=== PATIENT | male | born 1960 | race Caucasian/White ===

== ENCOUNTER 2020-09-08 07:27 | Outpatient (REF) | payer OTHER, SELFPAY ==
[2020-09-08 08:56] LABS: MANUAL DIFF FLAG NO
[2020-09-08 09:07] LABS: Basophils Percent Auto 0.6 % (0-2); Eosinophils Absolute Auto 0.3 X10*3/uL (0.0-0.4); Eosinophils Percent Auto 3.9 % (0-4); Hematocrit 43.3 % (42-52); Hemoglobin 14.5 g/dl (14.0-18.0); Imm Gran Abs Auto 0.02 X10*3/uL (0.00-0.03); Imm Gran Pct Auto 0.3 % (0.0-0.4); Lymphocytes Absolute Auto 1.5 X10*3/uL (1.2-4.9); Lymphocytes Percent Auto 22.4 % (20-40); Mean Corpuscular HGB Conc 33.5 g/dl (31.0-36.0); Mean Corpuscular Hemoglobin 28.9 pg (27.0-33.0); Mean Corpuscular Volume 86.4 fL (80-98); Mean Platelet Volume 9.9 fL (9.4-12.4); Monocytes Absolute Auto 0.5 X10*3/uL (0.1-1.2); Monocytes Percent Auto 7.4 % (2-11); Neutrophils Absolute Auto 4.5 X10*3/uL (2.0-8.3); Neutrophils Percent Auto 65.4 % (45-73); Platelet Count 284 X10*3/uL (160-400); Red Blood Count 5.01 X10*6/uL (4.60-5.80); Red Cell Distribution Width 12.5 % (11.0-16.0); White Blood Count 6.9 X10*3/uL (4.8-10.8)
[2020-09-08 09:11] LABS: Glucose Urine UA NEG (NEG); Leukocyte Esterase Urine NEG (NEG); Nitrite Urine NEG (NEG); PH 5.5 (5.0-8.0); Urine Blood NEG (NEG); Urine Ketones NEG (NEG); Urine Protein NEG (NEG-TRACE)
[2020-09-08 09:15] LABS: Appearance Urine HAZY; Color Urine YELLOW
[2020-09-08 09:28] LABS: Estimated Average Glucose 128 mg/dL; Hemoglobin A1c % 6.1 %
[2020-09-08 09:33] LABS: Creatinine Urine 153.33 mg/dL; Microalbum/Creatinine Ratio Ur 3.2 ug/mg cr
[2020-09-08 09:40] LABS: Alanine Aminotransferase 14 U/L (0-40); Alkaline Phosphatase 77 U/L (39-117); Anion Gap 9 (12-20); Aspartate Amino Transferase 15 U/L (5-37); Bilirubin Total 0.5 mg/dL (0.0-1.0); Blood Urea Nitrogen 12 mg/dL (9-16); Calcium 8.6 mg/dL (8.4-10.2); Carbon Dioxide 32 mmol/L (22-29); Chloride 100 mmol/L (96-108); Cholesterol 208 mg/dL; Estimated Glomerular Filt Rate > 60; Glucose Fasting 116 mg/dL (60-99); HDL Cholesterol 35 mg/dL; LDL Cholesterol Calculated 151 mg/dl; Potassium 4.3 mmol/l (3.3-5.1); Sodium 137 mmol/L (135-145); Total Protein 6.7 g/dL (6.5-8.0); Triglycerides 112 mg/dL
[2020-09-08 09:41] LABS: Prostate Specific Antigen 1.57 ng/mL (<0.05-4.0)
== END 2020-09-08 07:28 | disposition home or self-care (01) ==
LOC: HO.LAB 07:27
PROVIDERS: Visit Provider Internal Medicine
DX: Z00.00 Encounter for general adult medical examination without abnormal findings (principal); N40.0 Benign prostatic hyperplasia without lower urinary tract symptoms; E78.6 Lipoprotein deficiency; R73.09 Other abnormal glucose
CPT/HCPCS: 36415; 80053; 80061; 81003; 82043; 83036; 84153; 85025

== ENCOUNTER → 2020-09-23 14:50 | Outpatient (BNVA) | payer OTHER, SELFPAY | PROVIDERS: PCP Internal Medicine; Visit Provider Internal Medicine Cardiovascular Disease ==

== ENCOUNTER → 2020-10-17 09:21 | Outpatient (REF) | payer OTHER, SELFPAY ==
--- NOTE | 2020-10-17 09:24 | CA_ITS ---
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 The visually estimated ejection fraction is between 60-65%. Diastolic function is normal for age. Right Ventricle Normal right ventricular cavity size and systolic function. There is a pacemaker wire seen in the right ventricle. Atria Both atria are normal in size. Aortic Valve Normal aortic valve structure and function. There is no aortic valve stenosis. There is no aortic valve regurgitation. Mitral Valve Normal mitral valve structure and function. There is trace mitral valve regurgitation. There is no mitral valve stenosis. Pulmonic Valve The pulmonic valve is likely normal. Tricuspid Valve There is trace tricuspid valve regurgitation. The right ventricular systolic pressure is normal. The right ventricular systolic pressure is 22 mmHg. Normal right atrial pressure. There is no evidence of pulmonary hypertension. Great Vessels All visible segments of the aorta are normal in size. The pulmonary artery was not well visualized. Venous The inferior vena cava is normal in size and collapses greater than 50% with inspiration. Pericardium/Pleural There is no evidence of pericardial effusion. Prior Study Comparison No previous study in the last 5 years for comparison Measurements M-Mode Liner Measurements Normals - Women/Men AOV Cusps: 2.30 1.5-2.6 cm/m2 2D Linear Measurements IVSd: 1.01 0.6-0.9/0.6-1.0 cm LVIDd: 4.54 3.9-5.3/4.2-5.9 cm LVIDd Index: 1.94 2.4-3.2/2.2-3.1 cm/m2 LVIDs: 3.47 2.0-3.6 cm LVPWd: 1.09 0.7-1.1 cm Ao Root: 3.50 2.1-3.5 cm LA Diam: 3.20 2.7-3.8/3.0-4.0 cm LAIDs Index: 1.37 1.5-2.3 cm/m2 LV Mass: 207.15 67-162/88-224 g LV Mass Index: 88.52 43-95/49-115 g/m2 LVOT Diam: 2.10 3.0+(-)1.3 cm 2D Systolic Function EF 4C: 74.40 >55% EF 2C: 48.00 >55% EF BiP: 66.40 >55% Mitral Valve MV Pk E: 0.83 MV PK A: 0.61 MV Decel Time: 185.00 E/A: 1.40 E'Lateral: 10.20 E'Medial: 5.66 E/E' Med: 14.70 E/E' Lat: 8.20 PHT: 54.00 MVA PHT: 4.07 Decel Smyth: 4.49 Aortic Valve AoV Pk Timothy: 1.17 AoV Pk Grad: 5.00 LVOT LVOT Diam: 2.10 LVOT Area: 3.46 Diastolic Function MV Pk E: 0.83 MV Pk A: 0.61 E/A: 1.40 E'Medial: 5.66 E/E' Med: 14.70 E' Laterial: 10.20 E/E' Lat: 8.20 Tricuspid Valve TR Pk Timothy: 2.16 TR Pk Grad: 19.00 RA Press: 3.00 RVSP: 22.00 Great Vessels Aorta Ao Root-2D: 3.50 2.0-3.7 cm Ao Asc: 3.50 2.1-3.4 cm Ao Arch: 2.50 Pulmonary Valve PV Pk Timothy: 1.14 Peak PV Grad: 5.00 Updated in Other Vendor System with Status of Final Hakeem Hernández MD electronically signed on 10/18/2020 10:50:53 AM with status of Final
== END ==
LOC: HO.CARD 09:21
PROVIDERS: PCP Internal Medicine; Visit Provider Internal Medicine Cardiovascular Disease
DX: R55 Syncope and collapse (principal); I47.2 Ventricular tachycardia; Z95.0 Presence of cardiac pacemaker
CPT/HCPCS: 93306

== ENCOUNTER → 2020-10-23 12:46 | Outpatient (BNVA) | payer OTHER, SELFPAY | PROVIDERS: PCP Internal Medicine; Visit Provider Internal Medicine Cardiovascular Disease ==

== ENCOUNTER 2021-03-17 16:25 | Outpatient (REF) | payer OTHER, SELFPAY ==
--- NOTE | ~2021-03-17 | XR_ITS ---
EXAMINATION: XR LUMBOSACRAL SPINE WITH OBLIQUES CLINICAL INFORMATION: Arthritis, serous, pain COMPARISON: None TECHNIQUE: AP, both oblique, and lateral views of the lumbar spine. Lateral view of the lumbosacral junction. FINDINGS: There is normal lumbar lordosis. The vertebral heights and alignment is normal. There is loss of L4-L5 and L5-S1 disc height with a large ventral spondylosis at L5-S1 disc level. On oblique views there is no pars defect or listhesis. The facet joints are symmetrical. No lytic or sclerotic process seen. The paravertebral soft tissues are normal. XR/XR lumbar spine 4V min IMPRESSION: Degenerative disc changes L4-L5 and L5-S1 disc level with large ventral osteophyte 5-S1 disc level. No visible acute fracture or dislocation seen.
== END 2021-03-17 16:26 | disposition home or self-care (01) ==
LOC: HO.HMGCX 16:25
PROVIDERS: PCP Internal Medicine; Visit Provider Internal Medicine
DX: M19.90 Unspecified osteoarthritis, unspecified site (principal); L40.9 Psoriasis, unspecified
CPT/HCPCS: 72110

== ENCOUNTER → 2021-04-23 14:52 | Outpatient (BNVA) | payer OTHER, SELFPAY | PROVIDERS: PCP Internal Medicine; Visit Provider Internal Medicine Cardiovascular Disease | DX: I47.2 Ventricular tachycardia (principal); R55 Syncope and collapse; Z45.018 Encounter for adjustment and management of other part of cardiac pacemaker | CPT/HCPCS: 93005 ==

== ENCOUNTER 2021-09-22 10:38 | Outpatient (REF) | payer OTHER, SELFPAY ==
[2021-09-22 10:41] LABS: MANUAL DIFF FLAG NO
[2021-09-22 11:01] LABS: Basophils Percent Auto 0.3 % (0-2); Eosinophils Absolute Auto 0.4 X10*3/uL (0.0-0.4); Hematocrit 43.3 % (42.0-52.0); Hemoglobin 14.2 g/dl (14.0-18.0); Imm Gran Abs Auto 0.06 X10*3/uL (0.00-0.03); Imm Gran Pct Auto 0.7 % (0.0-0.4); Lymphocytes Absolute Auto 2.1 X10*3/uL (1.2-4.9); Lymphocytes Percent Auto 23.6 % (20-40); Mean Corpuscular HGB Conc 32.8 g/dl (31.0-36.0); Mean Corpuscular Hemoglobin 28.7 pg (27.0-33.0); Mean Corpuscular Volume 87.5 fL (80.0-98.0); Mean Platelet Volume 10.2 fL (9.4-12.4); Monocytes Absolute Auto 0.7 X10*3/uL (0.1-1.2); Monocytes Percent Auto 8.1 % (2-11); Neutrophils Absolute Auto 5.6 x10*3/uL (2.0-8.3); Neutrophils Percent Auto 63.3 % (45-73); Platelet Count 297 X10*3/uL (160-400); Red Blood Count 4.95 X10*6/uL (4.60-5.80); Red Cell Distribution Width 12.6 % (11.0-16.0); White Blood Count 8.9 X10*3/uL (4.8-10.8)
[2021-09-22 11:13] LABS: Estimated Average Glucose 128 mg/dL; Hemoglobin A1c % 6.1 %
[2021-09-22 11:19] LABS: Appearance Urine CLEAR; Color Urine YELLOW; Glucose Urine UA NEG (NEG); Leukocyte Esterase Urine NEG (NEG); Nitrite Urine NEG (NEG); PH 5.5 (5.0-8.0); Specific Gravity - Urine >= 1.030 (1.005-1.025); Urine Blood NEG (NEG); Urine Ketones NEG (NEG); Urine Protein NEG (NEG-TRACE)
[2021-09-22 11:23] LABS: Creatinine Urine 192.63 mg/dL; Microalbum/Creatinine Ratio Ur 4.1 ug/mg cr
[2021-09-22 11:38] LABS: Alanine Aminotransferase 17 U/L (0-40); Albumin Level 3.8 g/dL (3.5-5.0); Alkaline Phosphatase 76 U/L (39-117); Anion Gap 11 (12-20); Aspartate Amino Transferase 16 U/L (5-37); Bilirubin Total 0.7 mg/dL (0.0-1.0); Blood Urea Nitrogen 14 mg/dL (9-16); Calcium 9.1 mg/dL (8.4-10.2); Carbon Dioxide 31 mmol/L (22-29); Chloride 104 mmol/L (96-108); Cholesterol 191 mg/dL; Estimated Glomerular Filt Rate > 60; Glucose Fasting 116 mg/dL (60-99); HDL Cholesterol 29 mg/dL; LDL Cholesterol Calculated 141 mg/dl; Potassium 4.4 mmol/L (3.3-5.1); Sodium 142 mmol/L (135-145); Total Protein 6.9 g/dL (6.5-8.0); Triglycerides 106 mg/dL
[2021-09-22 11:46] LABS: PSA,Total (Free>4and<10) 0.97 ng/mL (0.00-4.00)
== END 2021-09-22 10:39 | disposition home or self-care (01) ==
LOC: HO.LNP 10:38
PROVIDERS: Visit Provider Internal Medicine
DX: Z00.00 Encounter for general adult medical examination without abnormal findings (principal); Z12.5 Encounter for screening for malignant neoplasm of prostate; R73.03 Prediabetes; N40.0 Benign prostatic hyperplasia without lower urinary tract symptoms; E78.00 Pure hypercholesterolemia, unspecified
CPT/HCPCS: 80053; 80061; 81003; 82043; 83036; 84153; 85025

== ENCOUNTER → 2021-10-12 12:38 | Outpatient (BNVA) | payer OTHER, SELFPAY | PROVIDERS: PCP Internal Medicine; Referring Provider Internal Medicine; Visit Provider Internal Medicine Cardiovascular Disease ==

== ENCOUNTER 2022-04-01 08:20 | Outpatient (REF) | payer OTHER, SELFPAY ==
--- NOTE | ~2022-04-01 | XR_ITS ---
EXAMINATION: XR BILATERAL HIPS WITH AP PELVIS CLINICAL INFORMATION: Arthritis COMPARISON: Radiographs lumbosacral spine 03/17/2021 TECHNIQUE: Right hip is imaged in AP and frog-lateral projections. Left hip is imaged in AP and 2 frog-lateral projections. There are total of 5 views. FINDINGS: Right: Normal bony mineralization. No fracture, dislocation, destructive process. There is borderline narrowing superolateral hip joint. No erosive change or chondrocalcinosis. Soft tissue planes unremarkable. Pubis normal. Left: Normal bony mineralization. No fracture, dislocation, or destructive process. No hip joint narrowing or erosive change or visible chondrocalcinosis. Soft tissue planes are unremarkable. Pubis normal. XR/XR hips CAITLYN min 3V IMPRESSION: Right: Borderline narrowing superolateral hip joint. No erosive change. Left: Unremarkable left hip.
== END 2022-04-01 08:21 | disposition home or self-care (01) ==
LOC: HO.XRAY 08:20
PROVIDERS: PCP Internal Medicine; Visit Provider Internal Medicine
DX: M16.0 Bilateral primary osteoarthritis of hip (principal)
CPT/HCPCS: 73522

== ENCOUNTER → 2022-04-06 15:15 | Outpatient (BNVA) | payer OTHER, SELFPAY | PROVIDERS: PCP Internal Medicine; Referring Provider Internal Medicine; Visit Provider Internal Medicine Cardiovascular Disease | DX: I47.2 Ventricular tachycardia (principal); Z95.0 Presence of cardiac pacemaker | CPT/HCPCS: 93280 ==

== ENCOUNTER 2022-05-27 09:43 | Outpatient (REF) | payer OTHER, SELFPAY ==
--- NOTE | ~2022-05-27 | US_ITS ---
EXAMINATION: US ABDOMEN COMPLETE CLINICAL INFORMATION: Abdominal pain. COMPARISON: Ultrasound abdomen 07/26/2014. TECHNIQUE: Real-time imaging of the abdominal viscera. Technically difficult study secondary to bowel gas and body habitus. FINDINGS: PANCREAS: There is generally increased echotexture, consistent with fatty infiltration as was seen on the CT chest dated 01/24/2018. No enlargement, focal mass or ductal dilatation is noted. No peripancreatic fluid collection is seen. ABDOMINAL AORTA: The proximal, mid, and distal segments are normal in caliber. INFERIOR VENA CAVA: Visualized portions are normal. LIVER: Normal. The liver is normal in size. The liver contour is normal. Parenchymal echogenicity is normal. No focal hepatic lesion. There is no intrahepatic biliary duct dilatation seen. GALLBLADDER: Normal. The gallbladder is physiologically distended without evidence of stones, sludge, polyps, wall thickening or pericholecystic fluid. COMMON BILE DUCT: Normal in caliber measuring 0.3 cm in diameter. RIGHT KIDNEY: Normal. No hydronephrosis. No renal calculi or focal parenchymal lesions. The kidney measures 12.0 cm in maximum dimension. LEFT KIDNEY: Normal. No hydronephrosis. No renal calculi or focal parenchymal lesions. The kidney measures 11.5 cm in maximum dimension. SPLEEN: Normal. The spleen measures 11.9 cm in maximum dimension. FREE FLUID: None. US/US abdomen complete IMPRESSION: Unremarkable examination.
== END 2022-05-27 09:44 | disposition home or self-care (01) ==
LOC: HO.US 09:43
PROVIDERS: Visit Provider Internal Medicine
DX: R10.9 Unspecified abdominal pain (principal)
CPT/HCPCS: 76700

== ENCOUNTER 2022-09-21 11:25 | Emergency (ER) | payer OTHER, SELFPAY ==
--- NOTE | ~2022-09-21 | CT_ITS ---
EXAMINATION: CT ANGIOGRAM NECK WITH CONTRAST CT ANGIOGRAM BRAIN WITH CONTRAST CLINICAL INFORMATION: Blurred vision. COMPARISON: None. TECHNIQUE: Test bolus sequences followed by intravenous administration 70 mL of Omnipaque 350. Helical imaging was performed in the axial plane from the thoracic inlet to the skull vertex. Delayed postcontrast imaging of the head was also performed. The data was processed at the optometric technologist workstation for generation of MIP sequences. Angled MIPs and volume rendered reformatted images were also generated at an offline 3D workstation. Stenoses are assessed in accordance with NASCET criteria unless otherwise indicated. This CT examination was performed using dose optimization techniques as appropriate, variously including the following: *Automated exposure control *Adjustment of mA and/or kV according to patient size (this includes techniques or standardized protocols for targeted exams where dose is matched to indication/reason for exam; i.e. extremities or head) *Use of iterative reconstruction technique DLP: 1587 mGy-cm FINDINGS: Head CT: There is no intracranial hemorrhage, large acute infarction, or mass lesion. The ventricles are normal in size and configuration without evidence of hydrocephalus. Moderate hypoattenuation is seen within the cerebral white matter compatible chronic microangiopathy. No abnormal enhancement is seen on the postcontrast images. Layering fluid is seen in the left more than right maxillary sinuses. There is mild bilateral ethmoid mucosal thickening. Neck CTA: The aortic arch and great vessel origins are patent. The bilateral common carotid arteries are patent. No carotid bifurcation stenosis is seen. The cervical segments of both ICAs are patent. Both vertebral arteries are patent throughout their visualized cervical course. Head CTA: No large vessel occlusion is seen. The anterior and posterior circulations appear patent. There is no stenosis. No aneurysm is seen. Non-vascular findings: The cervical soft tissues are within normal limits. Emphysema is seen within the upper lungs. There is a calcified granuloma within the right lung. There is a pacemaker. Multilevel degenerative changes are seen within the spine. There is multilevel neural foraminal stenosis related to uncovertebral hypertrophy. CT/CT angio head neck IMPRESSION: CT HEAD: No intracranial hemorrhage or large acute infarction. Background changes of chronic microangiopathy. CTA NECK: No hemodynamically significant stenosis in the major arteries of the neck. CTA HEAD: No large vessel occlusion or significant stenosis within the intracranial circulation. This critical result was discussed with Moriah Busby MD on 09/21/2022 2:43 PM, and it was ascertained that the content and urgency of the report was understood at the time of direct communication.
--- NOTE | 2022-09-21 11:31 | ECG_ITS ---
Test Reason : la tingling t-1 Blood Pressure : / mmHG Vent. Rate : 060 BPM Atrial Rate : 060 BPM P-R Int : 206 ms QRS Dur : 112 ms QT Int : 416 ms P-R-T Axes : 019 -05 029 degrees QTc Int : 416 ms Normal sinus rhythm Normal ECG When compared with ECG of 26-DEC-2018 13:53, No significant change was found Referred By: Elias Acuna Electronically Signed By:SHAZIA MENDOZA MD
[2022-09-21 11:34] VITALS: BP 145/89; PULSE 65; RESP 16; O2SAT 96; BMI 34.5
--- NOTE | 2022-09-21 11:38 | ED.GENADULT ---
HPI - General Adult General Chief complaint: Neuro Symptoms/Deficit Stated complaint: Brain fog/blurry vision/Arm tingling sent by Hong Time Seen by Provider: 09/21/22 11:46 Related Data Home Medications Medication Instructions Recorded Confirmed albuterol sulfate 90 mcg/actuation 2 puff PO Q4H PRN 09/23/20 04/06/22 aerosol inhaler celecoxib 200 mg capsule 200 mg PO DAILY 09/23/20 04/06/22 lorazepam 1 mg tablet 1 mg PO BID 09/23/20 04/06/22 montelukast 10 mg tablet 10 mg PO DAILY 09/23/20 04/06/22 omeprazole 20 mg capsule,delayed 20 mg PO DAILY 09/23/20 04/06/22 release Previous Rx's Medication Instructions Recorded metoprolol succinate 25 mg 25 mg PO DAILY #30 tabs 08/17/21 tablet,extended release 24 hr Allergies Allergy/AdvReac Type Severity Reaction Status Date / Time SEASONAL ALLERGIES Allergy Mild SNEEZING Uncoded 05/22/20 15:05 Pentoxifylline Allergy Unknown syncope Uncoded 12/31/19 00:00 [facility] Past Medical History Medical History Cardiac pacemaker in situ NSVT (nonsustained ventricular tachycardia) Sick sinus syndrome Surgical History History of ankle surgery History of permanent cardiac pacemaker placement Hx of removal of cyst Family History Family History Father Kidney failure Mother CVD (cardiovascular disease) Social History Social History Alcohol intake: current Alcohol intake frequency: holidays/special occasions only Patient Tobacco Use Status: Former Tobacco user Quit Date: Years Smoked: 10 +/- Advance Directives: Yes Advance Directives Information Provided: Yes Advance Directives on File: No Physical Exam ED Vital Signs: Vital Signs - 24 hr 09/21/22 11:34 09/21/22 12:12 Temperature 98 F Pulse Rate 65 62 Respiratory Rate 16 Blood Pressure 145/89 H 143/88 H Pulse Oximetry 96 95 Oxygen Delivery Method Room Air Room Air BMI result Body Mass Index 34.5 Course Course Course Narrative: RME: 62 yold male with pmh of sick sinus syndrome presents to the ED for evaluation for symptoms of right blurry vision and brain fog last night. patient states he felt like he could not find his speech. patient states symptoms resolved last night and today is asympomatic. patient main complaint today is fatigue. Neuro exam is intact. labs, EKG, and head CT scan ordered. No need to call code stroke. NIH score 0. Medications Administered Discontinued Medications Generic Name Dose Route Start Last Admin Trade Name Loreta PRN Reason Stop Dose Admin Iohexol 100 ml 09/21/22 14:16 09/21/22 14:17 Iohexol 350 Mg/Ml 100 Ml Infus..Btl IV 09/21/22 14:17 70 ml ONCE ONE Administration Medical Decision Making Lab Data 09/21/22 12:08 09/21/22 12:08 Labs: Lab Results 09/21/22 09/21/22 09/21/22 Range/Units 12:08 12:08 12:08 WBC 8.6 (4.8-10.8) X10*3/uL RBC 4.78 (4.60-5.80) X10*6/uL Hgb 14.2 (14.0-18.0) g/dl Hct 41.0 L (42.0-52.0) % MCV 85.8 (80.0-98.0) fL MCH 29.7 (27.0-33.0) pg MCHC 34.6 (31.0-36.0) g/dl RDW 12.5 (11.0-16.0) % Plt Count 293 (160-400) X10*3/uL MPV 9.5 (9.4-12.4) fL Immature Gran % (Auto) 0.4 (0.0-0.4) % Neut % (Auto) 66.6 (45-73) % Lymph % (Auto) 22.2 (20-40) % Hayes % (Auto) 7.6 (2-11) % Eos % (Auto) 2.6 (0-4) % Baso % (Auto) 0.6 (0-2) % Lymph # (Auto) 1.9 (1.2-4.9) X10*3/uL [place] # (Auto) 0.7 (0.1-1.2) X10*3/uL Eos # (Auto) 0.2 (0.0-0.4) X10*3/uL Baso # (Auto) 0.1 (0.0-0.2) X10*3/uL Abs Immat Gran (auto) 0.03 (0.00-0.03) X10*3/uL Absolute Neuts (auto) 5.7 (2.0-8.3) x10*3/uL Absolute Nucleated RBC 0.000 (0.0-0.012) X10*3/uL Nucleated RBC % (auto) 0.0 (0.0-0.2) /100WBC PT 13.1 (10.0-13.1) SEC INR 1.1 (0.9-1.1) APTT 32.3 (26.0-36.4) SEC Sodium 138 (135-145) mmol/L Potassium 4.0 (3.3-5.1) mmol/L Chloride 104 (96-108) mmol/L Carbon Dioxide 27 (22-29) mmol/L Anion Gap 11 L (12-20) BUN 11 (9-16) mg/dL Creatinine 1.03 (0.5-1.4) mg/dL Estim Creat Clear Calc 96.3 Estimated GFR > 60 Random Glucose 100 (60-115) mg/dL Calcium 8.9 (8.4-10.2) mg/dL Total Bilirubin 0.7 (0.0-1.0) mg/dL AST 15 (5-37) U/L ALT 12 (0-40) U/L Alkaline Phosphatase 75 (39-117) U/L Troponin I High Sens (<3.5-35.0) ng/L Total Protein 6.7 (6.5-8.0) g/dL Albumin 3.7 (3.5-5.0) g/dL Influenza Type A (PCR) (Negative) Influenza Type B (PCR) (Negative) RSV RNA Qual (PCR) (Negative) SARS-CoV-2 RNA (RT-PCR) (Negative) 09/21/22 09/21/22 Range/Units 12:08 12:08 WBC (4.8-10.8) X10*3/uL RBC (4.60-5.80) X10*6/uL Hgb (14.0-18.0) g/dl Hct (42.0-52.0) % MCV (80.0-98.0) fL MCH (27.0-33.0) pg MCHC (31.0-36.0) g/dl RDW (11.0-16.0) % Plt Count (160-400) X10*3/uL MPV (9.4-12.4) fL Immature Gran % (Auto) (0.0-0.4) % Neut % (Auto) (45-73) % Lymph % (Auto) (20-40) % Hayes % (Auto) (2-11) % Eos % (Auto) (0-4) % Baso % (Auto) (0-2) % Lymph # (Auto) (1.2-4.9) X10*3/uL Hayes # (Auto) (0.1-1.2) X10*3/uL Eos # (Auto) (0.0-0.4) X10*3/uL Baso # (Auto) (0.0-0.2) X10*3/uL Abs Immat Gran (auto) (0.00-0.03) X10*3/uL Absolute Neuts (auto) (2.0-8.3) x10*3/uL Absolute Nucleated RBC (0.0-0.012) X10*3/uL Nucleated RBC % (auto) (0.0-0.2) /100WBC PT (10.0-13.1) SEC INR (0.9-1.1) APTT (26.0-36.4) SEC Sodium (135-145) mmol/L Potassium (3.3-5.1) mmol/L Chloride (96-108) mmol/L Carbon Dioxide (22-29) mmol/L Anion Gap (12-20) BUN (9-16) mg/dL Creatinine (0.5-1.4) mg/dL Estim Creat Clear Calc Estimated GFR Random Glucose (60-115) mg/dL Calcium (8.4-10.2) mg/dL Total Bilirubin (0.0-1.0) mg/dL AST (5-37) U/L ALT (0-40) U/L Alkaline Phosphatase (39-117) U/L Troponin I High Sens < 3.5 (<3.5-35.0) ng/L Total Protein (6.5-8.0) g/dL Albumin (3.5-5.0) g/dL Influenza Type A (PCR) NEGATIVE (Negative) Influenza Type B (PCR) NEGATIVE (Negative) RSV RNA Qual (PCR) NEGATIVE (Negative) SARS-CoV-2 RNA (RT-PCR) POSITIVE A (Negative) Discharge Plan Discharge Clinical Impression: COVID-19, Blurred vision Patient Disposition: Home, Self-Care Instructions: Blurred Vision (ED), COVID-19 (Coronavirus Disease 2019) (ED) Additional Instructions: You cat scan of the head was normal,you symtoms maybe due to the Covid,follow up with Primary Care Doctor Anyway call and make an appointment Prescriptions: No Action metoprolol succinate 25 mg tablet extended release 24 hr 25 mg PO DAILY Qty: 30 5RF lorazepam 1 mg tablet 1 mg PO BID montelukast 10 mg tablet 10 mg PO DAILY omeprazole 20 mg capsule,delayed release(DR/EC) 20 mg PO DAILY celecoxib 200 mg capsule 200 mg PO DAILY albuterol sulfate 90 mcg/actuation HFA aerosol inhaler 2 puff PO Q4H PRN Interventions: ED Discharge Assessment Last Done: 09/21/22 15:54 Discharge Date/Time: 09/21/22 15:54
--- NOTE | 2022-09-21 11:55 | ED_ITS ---
HPI - Neuro Symptoms/Deficit General Chief Complaint: Neuro Symptoms/Deficit Stated Complaint: Brain fog/blurry vision/Arm tingling sent by Hong Time Seen by Provider: 09/21/22 11:46 Source: patient Mode of arrival: ambulatory Limitations: no limitations History of Present Illness HPI Narrative: pt presented with c/o rt eye blurred vision and brain fog this was at 7 PM Yesterday no symptoms now. He denies any extremity weakness ,speech problems Onset (ago): day(s) (1) Location: other (rt eye) History of same: No Severity: moderate Relieving factors: none Associated symptoms: denies other symptoms Related Data Home Medications Medication Instructions Recorded Confirmed albuterol sulfate 90 mcg/actuation 2 puff PO Q4H PRN 09/23/20 04/06/22 aerosol inhaler celecoxib 200 mg capsule 200 mg PO DAILY 09/23/20 04/06/22 lorazepam 1 mg tablet 1 mg PO BID 09/23/20 04/06/22 montelukast 10 mg tablet 10 mg PO DAILY 09/23/20 04/06/22 omeprazole 20 mg capsule,delayed 20 mg PO DAILY 09/23/20 04/06/22 release Previous Rx's Medication Instructions Recorded metoprolol succinate 25 mg 25 mg PO DAILY #30 tabs 08/17/21 tablet,extended release 24 hr Allergies Allergy/AdvReac Type Severity Reaction Status Date / Time SEASONAL ALLERGIES Allergy Mild SNEEZING Uncoded 05/22/20 15:05 Pentoxifylline Allergy Unknown syncope Uncoded 12/31/19 00:00 Review of Systems Constitutional: Constitutional: Reports no additional constitutional complaints Eyes: Eyes: Reports as per HPI and Reports other (rt eye blurred) [facility] Past Medical History Medical History Cardiac pacemaker in situ NSVT (nonsustained ventricular tachycardia) Sick sinus syndrome Surgical History History of ankle surgery History of permanent cardiac pacemaker placement Hx of removal of cyst Family History Family History Father Kidney failure Mother CVD (cardiovascular disease) Social History Social History Alcohol intake: current Alcohol intake frequency: holidays/special occasions only Patient Tobacco Use Status: Former Tobacco user Quit Date: Years Smoked: 10 +/- Advance Directives: Yes Advance Directives Information Provided: Yes Advance Directives on File: No Physical Exam Vital Signs: Vital Signs: Last Vital Signs Temp 98 F 09/21/22 12:12 Pulse 62 09/21/22 12:12 Resp 16 09/21/22 11:34 BP 143/88 H 09/21/22 12:12 Pulse Ox 95 09/21/22 12:12 O2 Del Method 09/21/22 12:12 BMI result Body Mass Index 34.5 Const: General: cooperative Nutritional Appearance: well nourished Orientation/consciousness: patient oriented x3 HEENT: Head: Yes normal to inspection Ears: hearing grossly normal bilaterally Face and sinus: Yes normal facial exam Mouth: Normal oral and palatal mucosa present Throat: Yes posterior oropharynx normal Eyes: General: appearance normal, both eyes and all related structures Visual Mcrae: normal visual mcrae by confrontation Eyelids: Yes eyelids normal Pupils: Equal, round and reactive pupils present EOM: EOMs intact bilaterally Neck: Neck: Yes normal visual inspection Chest: Chest palpation & inspection: normal inspection of the chest Resp: Effort & Inspection: normal respiratory effort Auscultation: clear to auscultation bilaterally Cardio: Jugular venous distension: no JVD Rhythm: regular rhythm GI: Inspection: Yes normal to inspection Palpation (GI): Soft to palpation, not firm and nontender Neuro: General: patient oriented x3, gait normal, no focal motor deficits and CN's II-XI intact bilaterally Cranial nerves: Yes CN's II-XII intact bilaterally and Yes Equal, round and reactive pupils present Coordination: [id number] test normal Course Reevaluation(s) Reevaluation #1: Remain asyntomatic Time: 15:39 Medications Administered Discontinued Medications Generic Name Dose Route Start Last Admin Trade Name Loreta PRN Reason Stop Dose Admin Iohexol 100 ml 09/21/22 14:16 09/21/22 14:17 Iohexol 350 Mg/Ml 100 Ml Infus..Btl IV 09/21/22 14:17 70 ml ONCE ONE Administration Medical Decision Making Medical Decision Making MDM Narrative: present with blurred vision Yesterday ,will get cta head and neck/EKG Differential Diagnosis Differential Diagnoses: The differential diagnosis associated with the presentation includes stroke/carotid dissection/head bleed/central retinal ocllusion Admission/Observation Consideration of admission/observation: Escalation of care including admission/observation considered Lab Data MDM Lab Attestation statement: I reviewed the patient's lab results. 09/21/22 12:08 09/21/22 12:08 Labs: Lab Results 09/21/22 09/21/22 09/21/22 Range/Units 12:08 12:08 12:08 WBC 8.6 (4.8-10.8) X10*3/uL RBC 4.78 (4.60-5.80) X10*6/uL Hgb 14.2 (14.0-18.0) g/dl Hct 41.0 L (42.0-52.0) % MCV 85.8 (80.0-98.0) fL MCH 29.7 (27.0-33.0) pg MCHC 34.6 (31.0-36.0) g/dl RDW 12.5 (11.0-16.0) % Plt Count 293 (160-400) X10*3/uL MPV 9.5 (9.4-12.4) fL Immature Gran % (Auto) 0.4 (0.0-0.4) % Neut % (Auto) 66.6 (45-73) % Lymph % (Auto) 22.2 (20-40) % [place] % (Auto) 7.6 (2-11) % Eos % (Auto) 2.6 (0-4) % Baso % (Auto) 0.6 (0-2) % Lymph # (Auto) 1.9 (1.2-4.9) X10*3/uL [place] # (Auto) 0.7 (0.1-1.2) X10*3/uL Eos # (Auto) 0.2 (0.0-0.4) X10*3/uL Baso # (Auto) 0.1 (0.0-0.2) X10*3/uL Abs Immat Gran (auto) 0.03 (0.00-0.03) X10*3/uL Absolute Neuts (auto) 5.7 (2.0-8.3) x10*3/uL Absolute Nucleated RBC 0.000 (0.0-0.012) X10*3/uL Nucleated RBC % (auto) 0.0 (0.0-0.2) /100WBC PT 13.1 (10.0-13.1) SEC INR 1.1 (0.9-1.1) APTT 32.3 (26.0-36.4) SEC Sodium 138 (135-145) mmol/L Potassium 4.0 (3.3-5.1) mmol/L Chloride 104 (96-108) mmol/L Carbon Dioxide 27 (22-29) mmol/L Anion Gap 11 L (12-20) BUN 11 (9-16) mg/dL Creatinine 1.03 (0.5-1.4) mg/dL Estim Creat Clear Calc 96.3 Estimated GFR > 60 Random Glucose 100 (60-115) mg/dL Calcium 8.9 (8.4-10.2) mg/dL Total Bilirubin 0.7 (0.0-1.0) mg/dL AST 15 (5-37) U/L ALT 12 (0-40) U/L Alkaline Phosphatase 75 (39-117) U/L Troponin I High Sens (<3.5-35.0) ng/L Total Protein 6.7 (6.5-8.0) g/dL Albumin 3.7 (3.5-5.0) g/dL Influenza Type A (PCR) (Negative) Influenza Type B (PCR) (Negative) RSV RNA Qual (PCR) (Negative) SARS-CoV-2 RNA (RT-PCR) (Negative) 09/21/22 09/21/22 Range/Units 12:08 12:08 WBC (4.8-10.8) X10*3/uL RBC (4.60-5.80) X10*6/uL Hgb (14.0-18.0) g/dl Hct (42.0-52.0) % MCV (80.0-98.0) fL MCH (27.0-33.0) pg MCHC (31.0-36.0) g/dl RDW (11.0-16.0) % Plt Count (160-400) X10*3/uL MPV (9.4-12.4) fL Immature Gran % (Auto) (0.0-0.4) % Neut % (Auto) (45-73) % Lymph % (Auto) (20-40) % [place] % (Auto) (2-11) % Eos % (Auto) (0-4) % Baso % (Auto) (0-2) % Lymph # (Auto) (1.2-4.9) X10*3/uL [place] # (Auto) (0.1-1.2) X10*3/uL Eos # (Auto) (0.0-0.4) X10*3/uL Baso # (Auto) (0.0-0.2) X10*3/uL Abs Immat Gran (auto) (0.00-0.03) X10*3/uL Absolute Neuts (auto) (2.0-8.3) x10*3/uL Absolute Nucleated RBC (0.0-0.012) X10*3/uL Nucleated RBC % (auto) (0.0-0.2) /100WBC PT (10.0-13.1) SEC INR (0.9-1.1) APTT (26.0-36.4) SEC Sodium (135-145) mmol/L Potassium (3.3-5.1) mmol/L Chloride (96-108) mmol/L Carbon Dioxide (22-29) mmol/L Anion Gap (12-20) BUN (9-16) mg/dL Creatinine (0.5-1.4) mg/dL Estim Creat Clear Calc Estimated GFR Random Glucose (60-115) mg/dL Calcium (8.4-10.2) mg/dL Total Bilirubin (0.0-1.0) mg/dL AST (5-37) U/L ALT (0-40) U/L Alkaline Phosphatase (39-117) U/L Troponin I High Sens < 3.5 (<3.5-35.0) ng/L Total Protein (6.5-8.0) g/dL Albumin (3.5-5.0) g/dL Influenza Type A (PCR) NEGATIVE (Negative) Influenza Type B (PCR) NEGATIVE (Negative) RSV RNA Qual (PCR) NEGATIVE (Negative) SARS-CoV-2 RNA (RT-PCR) POSITIVE A (Negative) Radiology Impression Discussion of test interpretation with radiology: I have reviewed the radiologist's reading. Radiologist Impression: nal stenosis related to uncovertebral hypertrophy. CT/CT angio head neck IMPRESSION: CT HEAD: No intracranial hemorrhage or large acute infarction. Background changes of chronic microangiopathy. ? CTA NECK: No hemodynamically significant stenosis in the major arteries of the neck. ? CTA HEAD: No large vessel occlusion or significant stenosis within the intracranial circulation. ? This critical result was discussed with Moriah Busby MD on 09/21/2022 2:43 PM, and it was ascertained that the content and urgency of the report was understood at the time of direct communication. ? Dictated By: NOREEN ANGEL MD Signed By: <Electronically sign Chronic Conditions His covid test was positive,his symtoms maybe due to Covid 19 infection NIH Stroke Scale Time: 12:00 Level of Consciousness: Alert Level of Consciousness Questions: Answers both questions correctly Level of Consciousness Commands: Performs both tasks correctly Best Gaze: Normal Visual: No visual loss Facial Palsy: Normal Motor Arm (Right): No drift Motor Arm (Left): No drift Motor Leg (Right): No drift Motor Leg (Left): No drift Limb Ataxia: Absent Sensory: Normal Best Language: No aphasia Dysarthia: Normal Extinction and Inattention: No abnormality Score: 0 Discharge Plan Discharge Clinical Impression: COVID-19, Blurred vision Patient Disposition: Home, Self-Care Instructions: Blurred Vision (ED), COVID-19 (Coronavirus Disease 2019) (ED) Additional Instructions: You cat scan of the head was normal,you symtoms maybe due to the Covid,follow up with Primary Care Doctor Anyway call and make an appointment Prescriptions: No Action metoprolol succinate 25 mg tablet extended release 24 hr 25 mg PO DAILY Qty: 30 5RF lorazepam 1 mg tablet 1 mg PO BID montelukast 10 mg tablet 10 mg PO DAILY omeprazole 20 mg capsule,delayed release(DR/EC) 20 mg PO DAILY celecoxib 200 mg capsule 200 mg PO DAILY albuterol sulfate 90 mcg/actuation HFA aerosol inhaler 2 puff PO Q4H PRN
[2022-09-21 12:12] VITALS: BP 143/88; PULSE 62; TEMP 36.6; O2SAT 95
[2022-09-21 12:12] LABS: MANUAL DIFF FLAG NO
[2022-09-21 12:16] LABS: Basophils Absolute Auto 0.1 X10*3/uL (0.0-0.2); Basophils Percent Auto 0.6 % (0-2); Eosinophils Absolute Auto 0.2 X10*3/uL (0.0-0.4); Eosinophils Percent Auto 2.6 % (0-4); Hemoglobin 14.2 g/dl (14.0-18.0); Imm Gran Abs Auto 0.03 X10*3/uL (0.00-0.03); Imm Gran Pct Auto 0.4 % (0.0-0.4); Lymphocytes Absolute Auto 1.9 X10*3/uL (1.2-4.9); Lymphocytes Percent Auto 22.2 % (20-40); Mean Corpuscular HGB Conc 34.6 g/dl (31.0-36.0); Mean Corpuscular Hemoglobin 29.7 pg (27.0-33.0); Mean Corpuscular Volume 85.8 fL (80.0-98.0); Mean Platelet Volume 9.5 fL (9.4-12.4); Monocytes Absolute Auto 0.7 X10*3/uL (0.1-1.2); Monocytes Percent Auto 7.6 % (2-11); Neutrophils Absolute Auto 5.7 x10*3/uL (2.0-8.3); Neutrophils Percent Auto 66.6 % (45-73); Platelet Count 293 X10*3/uL (160-400); Red Blood Count 4.78 X10*6/uL (4.60-5.80); Red Cell Distribution Width 12.5 % (11.0-16.0); White Blood Count 8.6 X10*3/uL (4.8-10.8)
[2022-09-21 12:27] LABS: INTERNATIONAL NORM RATIO 1.1 (0.9-1.1); Prothrombin Time 13.1 SEC (10.0-13.1)
[2022-09-21 12:30] LABS: Partial Thromboplastin Time 32.3 SEC (26.0-36.4)
[2022-09-21 12:38] LABS: Alanine Aminotransferase 12 U/L (0-40); Albumin Level 3.7 g/dL (3.5-5.0); Alkaline Phosphatase 75 U/L (39-117); Anion Gap 11 (12-20); Aspartate Amino Transferase 15 U/L (5-37); Bilirubin Total 0.7 mg/dL (0.0-1.0); Blood Urea Nitrogen 11 mg/dL (9-16); Calcium 8.9 mg/dL (8.4-10.2); Carbon Dioxide 27 mmol/L (22-29); Chloride 104 mmol/L (96-108); Creatinine Clr Calc Pharmacy 96.3; Estimated Glomerular Filt Rate > 60; Glucose Random 100 mg/dL (60-115); Sodium 138 mmol/L (135-145); Total Protein 6.7 g/dL (6.5-8.0)
[2022-09-21 12:44] LABS: Troponin-I High Sensitivity < 3.5 ng/L (<3.5-35.0)
[2022-09-21 13:02] LABS: Influenza A PCR NEGATIVE (Negative); Influenza B PCR NEGATIVE (Negative); Resp Syncy Virus RNA Qual PCR NEGATIVE (Negative); SARS COV2 PCR INHOUSE POSITIVE (Negative)
[2022-09-21] MEDS: iohexoL 350 MG/ML 100 ML INFUS..BTL IV (14:17)
== END 2022-09-21 15:54 | disposition home or self-care (01) ==
PROVIDERS: Physician Assistant; Emergency Provider Emergency Medicine; PCP Internal Medicine
DX: U07.1 COVID-19 (principal); H53.8 Other visual disturbances; Z79.899 Other long term (current) drug therapy; Z87.891 Personal history of nicotine dependence
CPT/HCPCS: 0241U; 36415; 70450; 70496; 70498; 80053; 84484; 85025; 85610; 85730; 93005; 99283; 99284; Q9967

== ENCOUNTER 2022-09-30 10:44 | Outpatient (REF) | payer OTHER, SELFPAY ==
[2022-09-30 10:48] LABS: MANUAL DIFF FLAG NO
[2022-09-30 11:35] LABS: Appearance Urine Clear; Color Urine Yellow; Glucose Urine UA Negative (Negative); Leukocyte Esterase Urine Negative (Negative); Nitrite Urine Negative (Negative); PH 5.5 (5.0-9.0); Urine Blood Negative (Negative); Urine Ketones Negative (Negative); Urine Protein Negative (Neg-Trace)
[2022-09-30 11:48] LABS: Basophils Absolute Auto 0.1 X10*3/uL (0.0-0.2); Basophils Percent Auto 0.7 % (0-2); Eosinophils Absolute Auto 0.3 X10*3/uL (0.0-0.4); Eosinophils Percent Auto 2.9 % (0-4); Hemoglobin 14.6 g/dl (14.0-18.0); Imm Gran Abs Auto 0.05 X10*3/uL (0.00-0.03); Imm Gran Pct Auto 0.6 % (0.0-0.4); Lymphocytes Absolute Auto 1.4 X10*3/uL (1.2-4.9); Lymphocytes Percent Auto 16.5 % (20-40); Mean Corpuscular HGB Conc 32.4 g/dl (31.0-36.0); Mean Corpuscular Hemoglobin 28.4 pg (27.0-33.0); Mean Corpuscular Volume 87.5 fL (80.0-98.0); Mean Platelet Volume 10.3 fL (9.4-12.4); Monocytes Absolute Auto 0.7 X10*3/uL (0.1-1.2); Monocytes Percent Auto 7.7 % (2-11); Neutrophils Absolute Auto 6.1 x10*3/uL (2.0-8.3); Neutrophils Percent Auto 71.6 % (45-73); Platelet Count 323 X10*3/uL (160-400); Red Blood Count 5.14 X10*6/uL (4.60-5.80); Red Cell Distribution Width 12.6 % (11.0-16.0); White Blood Count 8.5 X10*3/uL (4.8-10.8)
[2022-09-30 12:04] LABS: Estimated Average Glucose 131 mg/dL; Hemoglobin A1c % 6.2 %
[2022-09-30 12:22] LABS: Alanine Aminotransferase 12 U/L (0-40); Albumin Level 3.8 g/dL (3.5-5.0); Alkaline Phosphatase 87 U/L (39-117); Anion Gap 12 (12-20); Aspartate Amino Transferase 16 U/L (5-37); Bilirubin Total 0.6 mg/dL (0.0-1.0); Blood Urea Nitrogen 12 mg/dL (9-16); Calcium 9.2 mg/dL (8.4-10.2); Carbon Dioxide 31 mmol/L (22-29); Chloride 103 mmol/L (96-108); Cholesterol 178 mg/dL; Estimated Glomerular Filt Rate > 60; Glucose Fasting 121 mg/dL (60-99); HDL Cholesterol 27 mg/dL; LDL Cholesterol Calculated 128 mg/dl; Potassium 4.5 mmol/L (3.3-5.1); Sodium 141 mmol/L (135-145); Total Protein 6.8 g/dL (6.5-8.0); Triglycerides 115 mg/dL
[2022-09-30 12:36] LABS: PSA,Total (Free>4and<10) 1.79 ng/mL (0.00-4.00)
[2022-09-30 12:37] LABS: Creatinine Urine 167.26 mg/dL; Microalbum/Creatinine Ratio Ur 4.1 ug/mg cr
== END 2022-09-30 10:45 | disposition home or self-care (01) ==
LOC: HO.LNP 10:44
PROVIDERS: Visit Provider Internal Medicine
DX: Z00.00 Encounter for general adult medical examination without abnormal findings (principal); Z12.5 Encounter for screening for malignant neoplasm of prostate; R73.03 Prediabetes; N40.0 Benign prostatic hyperplasia without lower urinary tract symptoms; E78.00 Pure hypercholesterolemia, unspecified
CPT/HCPCS: 80053; 80061; 81003; 82043; 83036; 84153; 85025

== ENCOUNTER → 2022-10-12 14:34 | Outpatient (BNVA) | payer OTHER, SELFPAY | PROVIDERS: PCP Internal Medicine; Referring Provider Internal Medicine; Visit Provider Internal Medicine Cardiovascular Disease | DX: I47.20 Ventricular tachycardia, unspecified (principal); Z95.0 Presence of cardiac pacemaker | CPT/HCPCS: 93280 ==

== ENCOUNTER 2023-04-04 13:25 | Outpatient (AMB) | payer OTHER, SELFPAY ==
[2023-04-04 13:44] VITALS: BMI 36.3
--- NOTE | 2023-04-04 13:44 | A.OFFVIS_ITS ---
Intake Vital Signs 04/04/23 13:44 Height 5 ft 11 in Weight 260 lb BMI 36.3 Intake Visit Reasons: open wound upper extremity Intake Note: This patient presents for an assessment for open wound thumb. Patient c/o; thumb right . 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 He had what he described as a flap of skin hanging from the tip of his thumb so he went to his primary care physician this morning. He said he was then referred to me. He otherwise denies any other significant GI complaints. He does have a pacemaker for a history of sick sinus syndrome. He denies any significant pain now on the right thumb. [facility] Medical History (Updated 04/04/23 @ 14:08 by Jeremy Bourne MD) Avulsion fracture of thumb Cardiac pacemaker in situ NSVT (nonsustained ventricular tachycardia) Sick sinus syndrome Surgical History History of ankle surgery History of permanent cardiac pacemaker placement Hx of removal of cyst Family History Father Kidney failure Mother CVD (cardiovascular disease) Social History Alcohol intake: current Alcohol intake frequency: holidays/special occasions only Patient Tobacco Use Status: Former Tobacco user Quit Date: Years Smoked: 10 +/- Review of Systems Const Denies chills and Denies fever(s) Card Denies chest pain, Denies dyspnea and Denies dyspnea on exertion Resp Denies cough, Denies dyspnea and Denies dyspnea on exertion GI Denies hematochezia and Denies change in bowel habits Denies hematuria and Denies difficulty urinating Musc Denies back pain and Denies limited range of motion Neuro Denies focal weakness and Denies convulsions Psych Denies depression and Denies mood swings Physical Exam Vital Signs: BMI result Body Mass Index 36.3 Const General: comfortable and no acute distress Orientation/consciousness: patient oriented x3 Neck Neck: Yes no lymphadenopathy Chest Other: Pacemaker on the left anterior chest Resp Auscultation: clear to auscultation bilaterally Cardio Rhythm: regular rhythm GI Palpation (GI): Soft to palpation, nontender and no guarding Neuro General: patient oriented x3 Extrem Other: Right thumb - note of a small skin avulsion, about 8 mm in dimension, clean and dry, no cellulitis, no discharge otherwise no open wound Assessment & Plan Assessment & Plan (1) Avulsion fracture of thumb: Code(s): S62.509A - Fracture of unspecified phalanx of unspecified thumb, initial encounter for closed fracture Plan: He has a skin avulsion as described above. The area is actually clean and dry. I would keep the small skin as a dressing. He does not require debridement this time. I told him that this would eventually slough off. I did tell him that he can come back to the office to re-evaluated if he has any concerns like discharge and signs of infection. Coding Level of Care Code New Pt Level 2 (42561) Diagnoses Avulsion fracture of thumb S62.509A
== END 2023-04-04 14:04 | disposition home or self-care (01) ==
PROVIDERS: PCP Internal Medicine; Visit Provider Surgery
DX: S62.509A Fracture of unspecified phalanx of unspecified thumb, initial encounter for closed fracture (principal)
CPT/HCPCS: 99202

== ENCOUNTER → 2023-04-04 13:25 | Outpatient (BNVA) | payer OTHER, SELFPAY | PROVIDERS: PCP Internal Medicine; Visit Provider Surgery ==

== ENCOUNTER 2023-04-12 15:03 | Outpatient (AMB) | payer OTHER, SELFPAY ==
[2023-04-12 15:11] VITALS: BP 120/78; PULSE 68; BMI 36.6
--- NOTE | 2023-04-12 15:11 | A.OFFVIS_ITS ---
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 Denies any symptoms of lightheadedness or syncope. Denies any symptoms of palpitations. Takes all his medications. Says he is very tired by the end the day and does not exercise on a regular basis. [facility] Medical History Avulsion fracture of thumb Cardiac pacemaker in situ NSVT (nonsustained ventricular tachycardia) Sick sinus syndrome Surgical History History of ankle surgery History of permanent cardiac pacemaker placement Hx of removal of cyst Family History Father Kidney failure Mother CVD (cardiovascular disease) Social History Alcohol intake: current Alcohol intake frequency: holidays/special occasions only Patient Tobacco Use Status: Former Tobacco user Quit Date: Years Smoked: 10 +/- Review of Systems Const Denies chills, Denies fatigue, Denies fever(s), Denies frequent falls, Denies weakness, Denies weight gain and Denies weight loss ENT Denies dizziness Card Denies chest pain, Denies leg edema, Denies lightheadedness, Denies palpitat ions, Denies dyspnea, Denies dyspnea on exertion, Denies orthopnea and Denies other (loss of consciousness) Resp Denies cough, Denies dyspnea and Denies dyspnea on exertion GI Denies hematochezia and Denies change in stool character Musc Denies abnormal gait, Denies muscle weakness, Denies numbness, Denies radiating pain into limb and Denies tingling Neuro Denies abnormal gait, Denies dizziness, Denies frequent falls, Denies numbness, Denies tingling and Denies weakness Endo Denies fatigue and Denies palpitations Physical Exam Vital Signs: Last Vital Signs Pulse 68 04/12/23 15:11 BP 120/78 04/12/23 15:11 BMI result Body Mass Index 36.6 Const General: cooperative, comfortable, no acute distress, alert and awake Nutritional Appearance: obese Orientation/consciousness: patient oriented x3 Limitations: no limitations Neck Neck: Yes trachea midline, Yes supple and Yes no JVD Resp Effort & Inspection: normal respiratory effort Auscultation: clear to auscultation bilaterally and wheezes right lower Cardio Jugular venous distension: no JVD Palpation: normal PMI Rate: regular rate Rhythm: regular rhythm Heart sounds: S1 normal heart sound present, S2 normal heart sound present, no click, no gallops, no murmurs and no rubs GI Inspection: Yes obesity Auscultation: normal bowel sounds Skin General skin exam: no rashes or lesions noted Neuro General: patient oriented x3 and no focal motor deficits Extrem General: Yes no clubbing, cyanosis or edema Psych Appearance: grossly normal Office Procedures Cardiac Device Check Cardiac Device Check Details: Dual-chamber [employer]eng pacemaker in place programmed in DDD at 50 beats per m inute. Minimal atrial ventricular pacing noted. One episode of nonsustained VT noted. Atrial pacing thresholds adequate and in our capture mode. Ventricular pacing thresholds adequate and reprogrammed to enhance battery life. Atrial ventricular sensing is adequate. Pacing lead impedance is stable. Battery life is excellent at 11 years [id number] Cardiac Device Check, pacemaker dual lead Procedure code (CPT) selection complete Assessment & Plan Assessment & Plan (1) Cardiac pacemaker in situ: Code(s): Z95.0 - Presence of cardiac pacemaker Plan: Cardiac pacemaker in-situ for near syncope and sinus pause noted while at [facility]. Since then has pacemaker evaluated multiple times with minimal pacing noted. Pacemaker is working well. Does not want to be follow remotely but in the clinic. Will follow up in the clinic in 6 months time. (2) NSVT (nonsustained ventricular tachycardia): Code(s): I47.2 - Ventricular tachycardia Plan: Noted nonsustained ventricular tachycardia on cardiac telemetry. No evidence of atrial fibrillation. He is worried about atrial fibrillation given his strong family history. Will continue monitor by cardiac telemetry. Continue Toprol therapy. Avoidance of stimulants was discussed. Follow-up echocardiogram 6 months time. Will follow up in the clinic 6 months time, sooner p.r.n.. Thank you for allowing me to partake in his care Coding Level of Care Code Est Pt Level 4 (19396) Diagnoses Cardiac pacemaker in situ Z95.0 NSVT (nonsustained ventricular tachycardia) I47.2 CPT Codes Cardiac Device Check - Cardiac Device 2: [id number] Cardiac Device Check, pacemaker dual lead ([id number])
== END 2023-04-12 15:31 | disposition home or self-care (01) ==
PROVIDERS: PCP Internal Medicine; Referring Provider Internal Medicine; Visit Provider Internal Medicine Cardiovascular Disease
DX: I47.20 Ventricular tachycardia, unspecified (principal); Z95.0 Presence of cardiac pacemaker
CPT/HCPCS: 93280; 99214

== ENCOUNTER → 2023-04-12 15:03 | Outpatient (BNVA) | payer OTHER, SELFPAY | PROVIDERS: PCP Internal Medicine; Referring Provider Internal Medicine; Visit Provider Internal Medicine Cardiovascular Disease | DX: I47.20 Ventricular tachycardia, unspecified (principal); I49.5 Sick sinus syndrome; Z87.891 Personal history of nicotine dependence; Z45.018 Encounter for adjustment and management of other part of cardiac pacemaker | CPT/HCPCS: 93280 ==

== ENCOUNTER 2023-10-03 10:43 | Outpatient (REF) | payer OTHER, SELFPAY ==
[2023-10-03 10:48] LABS: MANUAL DIFF FLAG NO
[2023-10-03 11:10] LABS: Basophils Percent Auto 0.5 % (0-2); Eosinophils Absolute Auto 0.3 X10*3/uL (0.0-0.4); Eosinophils Percent Auto 3.7 % (0-4); Hematocrit 44.9 % (42.0-52.0); Hemoglobin 14.6 g/dl (14.0-18.0); Imm Gran Abs Auto 0.04 X10*3/uL (0.00-0.03); Imm Gran Pct Auto 0.5 % (0.0-0.4); Lymphocytes Percent Auto 25.5 % (20-40); Mean Corpuscular HGB Conc 32.5 g/dl (31.0-36.0); Mean Corpuscular Hemoglobin 28.1 pg (27.0-33.0); Mean Corpuscular Volume 86.3 fL (80.0-98.0); Mean Platelet Volume 9.5 fL (9.4-12.4); Monocytes Absolute Auto 0.5 X10*3/uL (0.1-1.2); Neutrophils Absolute Auto 4.9 x10*3/uL (2.0-8.3); Neutrophils Percent Auto 62.8 % (45-73); Platelet Count 327 X10*3/uL (160-400); Red Cell Distribution Width 12.5 % (11.0-16.0); White Blood Count 7.8 X10*3/uL (4.8-10.8)
[2023-10-03 11:15] LABS: Appearance Urine Clear; Color Urine Yellow; Glucose Urine UA Negative (Negative); Leukocyte Esterase Urine Negative (Negative); Nitrite Urine Negative (Negative); Urine Blood Negative (Negative); Urine Ketones Negative (Negative); Urine Protein Negative (Neg-Trace)
[2023-10-03 11:20] LABS: Bacteria Urine None Seen (None Seen); Hyaline Casts Urine 0-2 /LPF (0-2); RBC Urine 0-2 /HPF (0-2); Squamous Epithelial Cell Urine 0-2 /HPF (0-2); WBC Urine 0-5 /HPF (0-5)
[2023-10-03 11:29] LABS: Alanine Aminotransferase 15 U/L (0-40); Albumin Level 3.8 g/dL (3.5-5.0); Alkaline Phosphatase 70 U/L (39-117); Anion Gap 12 (12-20); Aspartate Amino Transferase 16 U/L (5-37); Bilirubin Total 0.7 mg/dL (0.0-1.0); Blood Urea Nitrogen 14 mg/dL (9-16); Carbon Dioxide 31 mmol/L (22-29); Chloride 101 mmol/L (96-108); Cholesterol 180 mg/dL (<200); Estimated Glomerular Filt Rate > 60; Glucose Fasting 111 mg/dL (60-99); HDL Cholesterol 27 mg/dL (>40); LDL Cholesterol Calculated 127 mg/dL (<100); Potassium 4.5 mmol/L (3.3-5.1); Sodium 139 mmol/L (135-145); Triglycerides 132 mg/dL (<150)
[2023-10-03 11:44] LABS: Estimated Average Glucose 126 mg/dL
[2023-10-03 12:19] LABS: Creatinine Urine 171.66 mg/dL; Microalbum/Creatinine Ratio Ur 2.9 ug/mg cr (<30)
[2023-10-03 12:20] LABS: PSA,Total (Free>4and<10) 2.02 ng/mL (0.00-4.00)
== END 2023-10-03 10:44 | disposition home or self-care (01) ==
LOC: HO.LNP 10:43
PROVIDERS: Visit Provider Internal Medicine
DX: Z00.00 Encounter for general adult medical examination without abnormal findings (principal); Z12.5 Encounter for screening for malignant neoplasm of prostate; N40.0 Benign prostatic hyperplasia without lower urinary tract symptoms; E11.9 Type 2 diabetes mellitus without complications; E78.00 Pure hypercholesterolemia, unspecified
CPT/HCPCS: 80053; 80061; 81001; 82043; 82570; 83036; 84153; 85025

== ENCOUNTER → 2023-10-13 07:49 | Outpatient (REF) | payer OTHER, SELFPAY ==
--- NOTE | 2023-10-13 07:59 | CA_ITS ---
Transthoracic Echocardiogram Patient (Last, First, Middle): Filipe Sharp O Gender: Male Date of : 1960 Age: 63 Procedure Date: 10/13/2023 Procedure Type: Transthoracic Echocardiogram Location: OP Height: 180.34 cm Weight: 118.84 kg BSA: 2.37 m2 Heart Rate: 71 bpm BP: 124 / 74 mmHg Medical Assistant Ob Gyn: SB Referring MD: Hakeem Hernández MD Symptoms: I47.2 - Ventricular tachycardia Study Quality: Adequate w contrast ECG Rhythm: Sinus Conclusions: - The left ventricular systolic function is hyperdynamic. The visually estimated ejection fraction is >70%. - Moderate to severe septal hypertrophy (1.55cm). - No obvious valvular pathology seen on this study. Findings Procedure Information Contrast agent, definity, is being given per protocol without apparent complications. The quality of the study was technically difficult. The study quality is limited by patients body habitus and lung artifact. Left Ventricle Normal left ventricular cavity size. The left ventricular systolic function is hyperdynamic. The visually estimated ejection fraction is >70%. There is no evidence of regional wall motion abnormalities. There is no dynamic left ventricular outflow tract obstruction. Diastolic function is normal for age. Moderate to severe septal hypertrophy (1.55cm). Right Ventricle Normal right ventricular cavity size and systolic function. Atria Both atria are normal in size. Aortic Valve There is a normal trileaflet aortic valve. There is no aortic valve stenosis. There is trace (trivial) aortic valve regurgitation. Mitral Valve The mitral valve appears normal. There is no mitral valve regurgitation. There is no mitral valve stenosis. Pulmonic Valve There is trace pulmonic valve regurgitation. Tricuspid Valve There is no tricuspid valve regurgitation. Tricuspid regurgitation envelope is inadequate for calculation of right ventricular systolic pressure. Great Vessels The asc aorta is normal in size. Venous The inferior vena cava is normal in size and collapses less than 50% with inspiration. Pericardium/Pleural There is no evidence of pericardial effusion. Prior Study Comparison Changes noted compared to prior study dated: 10/17/2020. see comment on LVH. Recommendations, Care & Conclusions No obvious valvular pathology seen on this study. Measurements 2D Linear Measurements IVSd: 1.55 0.6-0.9/0.6-1.0 cm LVIDd: 4.86 3.9-5.3/4.2-5.9 cm LVIDd Index: 2.05 2.4-3.2/2.2-3.1 cm/m2 LVIDs: 3.17 2.0-3.6 cm LA Diam: 4.80 2.7-3.8/3.0-4.0 cm LAIDs Index: 2.03 1.5-2.3 cm/m2 LVOT Diam: 2.10 3.0+(-)1.3 cm 2D Systolic Function EF 4C: 77.70 >55% EF 2C: 78.80 >55% EF BiP: 78.30 >55% Mitral Valve MV Pk E: 0.60 MV PK A: 0.63 MV Decel Time: 255.00 E/A: 1.00 E'Lateral: 4.90 E'Medial: 4.79 E/E' Med: 12.60 E/E' Lat: 12.30 PHT: 75.00 MVA PHT: 2.93 Decel [place]: 2.37 Aortic Valve AoV Pk Timothy: 1.22 AoV Pk Grad: 6.00 NIKKO: 3.40 LVOT LVOT Pk Timothy: 1.15 LVOT Mn Timothy: 0.83 LVOT VTI: 0.23 LVOT Pk Grad: 5.00 LVOT Mn Grad: 3.00 LVOT Diam: 2.10 LVOT Area: 3.46 Diastolic Function MV Pk E: 0.60 MV Pk A: 0.63 E/A: 1.00 E'Medial: 4.79 E/E' Med: 12.60 E' Laterial: 4.90 E/E' Lat: 12.30 Right Ventricle TAPSE (mm): 17.50 TVS' Timothy: 11.00 Tricuspid Valve RA Press: 8.00 Great Vessels Aorta Sinus of Valsalva: 3.60 2.0-3.5 cm Ao Asc: 3.60 2.1-3.4 cm Pulmonary Valve PV Pk Timothy: 1.44 Peak PV Grad: 8.00 Updated in Other Vendor System with Status of Final Navin Mann MD electronically signed on 10/15/2023 10:57:03 AM with status of Final
== END ==
LOC: HO.CARD 07:49
PROVIDERS: PCP Internal Medicine; Visit Provider Internal Medicine Cardiovascular Disease
DX: I47.20 Ventricular tachycardia, unspecified (principal)
CPT/HCPCS: 93306; Q9957

== ENCOUNTER → 2023-10-13 07:59 | Outpatient (BNV) | payer OTHER, SELFPAY | PROVIDERS: PCP Internal Medicine; Visit Provider Internal Medicine | DX: I42.2 Other hypertrophic cardiomyopathy (principal) | CPT/HCPCS: 93306 ==

== ENCOUNTER 2023-10-18 14:33 | Outpatient (AMB) | payer OTHER, SELFPAY ==
--- NOTE | 2023-10-18 14:35 | A.OFFVIS_ITS ---
Intake Vital Signs 10/18/23 14:36 Height 5 ft 11 in Weight 266 lb 12.149 oz BMI 37.2 BP 128/80 Blood Pressure Location Lt brachial Position Sitting Pulse 74 Intake Visit Reasons: 6 MTH F/UP Intake Note: 6 month follow-up with [facility] with echo results Nursing Secretary Required: No Allergies SEASONAL ALLERGIES Allergy (Mild, Uncoded 04/04/23 13:50) SNEEZING Pentoxifylline Allergy (Unknown, Uncoded 04/04/23 13:50) syncope Medication List - Last Reconciled 10/18/23 by Hakeem Hernández MD albuterol sulfate 90 mcg/actuation 2 puffs PO Q4H PRN aspirin (Adult Aspirin Regimen) 81 mg PO DAILY celecoxib 200 mg PO DAILY lorazepam 1 mg PO BID metoprolol succinate ER 25 mg PO DAILY montelukast 10 mg PO DAILY omeprazole 20 mg PO DAILY HPI HPI Comments History of Present Illness Details Filipe comes for follow-up. He said last few weeks he had 2 times episodes of numbness of the upper lip along with numbness in his fingers and transient vision loss. Symptoms subsided within few minutes. He has had no recurrent symptoms since then. He has been taking his aspirin regularly. He denies any other complaints. No prolonged palpitation irregular heartbeat. No lightheadedness, syncope. He denies any exertional chest pain or shortness of breath. Takes all his medications. His echocardiogram shows normal LV systolic function with moderate asymmetric septal hypertrophy without obstructive physiology. [facility] Medical History Avulsion fracture of thumb NSVT (nonsustained ventricular tachycardia) Cardiac pacemaker in situ Sick sinus syndrome Surgical History History of permanent cardiac pacemaker placement Hx of removal of cyst History of ankle surgery Family History Father Kidney failure Mother CVD (cardiovascular disease) Social History Alcohol intake: current Alcohol intake frequency: holidays/special occasions only Patient Tobacco Use Status: Former Tobacco user Quit Date: Years Smoked: 10 +/- Review of Systems Const Denies chills, Denies fatigue, Denies fever(s), Denies frequent falls, Denies weakness, Denies weight gain and Denies weight loss ENT Denies dizziness Card Denies chest pain, Denies leg edema, Denies lightheadedness, Denies palpitations, Denies dyspnea, Denies dyspnea on exertion, Denies orthopnea and Denies other (loss of consciousness) Resp Denies cough, Denies dyspnea and Denies dyspnea on exertion GI Denies hematochezia and Denies change in stool character Musc Denies abnormal gait, Denies muscle weakness, Denies numbness, Denies radiating pain into limb and Denies tingling Neuro Denies abnormal gait, Denies dizziness, Denies frequent falls, Denies numbness, Denies tingling and Denies weakness Endo Denies fatigue and Denies palpitations Physical Exam Vital Signs: Last Vital Signs Pulse 74 10/18/23 14:36 BP 128/80 10/18/23 14:36 BMI result Body Mass Index 37.2 Const General: cooperative, comfortable, no acute distress, alert and awake Nutritional Appearance: obese Orientation/consciousness: patient oriented x3 Limitations: no limitations Neck Neck: Yes trachea midline, Yes supple and Yes no JVD Resp Effort & Inspection: normal respiratory effort Auscultation: clear to auscultation bilaterally and wheezes right lower Cardio Jugular venous distension: no JVD Palpation: normal PMI Rate: regular rate Rhythm: regular rhythm Heart sounds: S1 normal heart sound present, S2 normal heart sound present, no click, no gallops, no murmurs and no rubs GI Inspection: Yes obesity Auscultation: normal bowel sounds Skin General skin exam: no rashes or lesions noted Neuro General: patient oriented x3 and no focal motor deficits Extrem General: Yes no clubbing, cyanosis or edema Psych Appearance: grossly normal Office Procedures Cardiac Device Check Cardiac Device Check Details: Dual-chamber [employer]eng pacemaker in place. Programmed in DDD at 50 beats per minute. Minimal atrial ventricular pacing. No arrhythmias detected. Atrial and ventricular pacing thresholds adequate. Atrial ventricular sensing is excellent. Pacing lead impedance is stable. Battery life is excellent [id number] Cardiac Device Check, pacemaker dual lead Procedure code (CPT) selection complete Assessment & Plan Assessment & Plan (1) Cardiac pacemaker in situ: Code(s): Z95.0 - Presence of cardiac pacemaker Plan: Cardiac pacemaker in-situ without any significant issues at this point time. Patient has minimal pacing. Cardiac pacemaker is working well. Patient would prefer to continue to follow through the office every 6 months. (2) NSVT (nonsustained ventricular tachycardia): Code(s): I47.2 - Ventricular tachycardia Plan: Nonsustained ventricular tachycardia which remained suppressed on metoprolol therapy. He does have moderate asymmetric septal hypertrophy without obstructive physiology. Will continue monitor clinically. Had recent episode of transient neurologic disturbance without any sustained neurologic abnormality. He has no evidence of atrial fibrillation. Suggest carotid duplex with the same. Continue low-dose aspirin therapy. Will follow up in the clinic in 6 months time, sooner p.r.n.. Thank you for allowing me to partake in his care Orders: Orders US carotid duplex BI Today G45.9 - Transient cerebral ischemic attack, unspecified Referrals Pulmonology Referral J44.9 - Chronic obstructive pulmonary disease, unspecified Coding Level of Care Code Est Pt Level 4 (34092) Diagnoses Cardiac pacemaker in situ Z95.0 NSVT (nonsustained ventricular tachycardia) I47.2 CPT Codes Cardiac Device Check - Cardiac Device 2: [id number] Cardiac Device Check, pacemaker dual lead ([id number])
[2023-10-18 14:36] VITALS: BP 128/80; PULSE 74; BMI 37.2
== END 2023-10-18 15:03 | disposition home or self-care (01) ==
PROVIDERS: PCP Internal Medicine; Visit Provider Internal Medicine Cardiovascular Disease
DX: I47.20 Ventricular tachycardia, unspecified (principal); Z95.0 Presence of cardiac pacemaker
CPT/HCPCS: 93280; 99214

== ENCOUNTER → 2023-10-18 14:33 | Outpatient (BNVA) | payer OTHER, SELFPAY | PROVIDERS: PCP Internal Medicine; Visit Provider Internal Medicine Cardiovascular Disease | DX: I47.20 Ventricular tachycardia, unspecified (principal); Z45.018 Encounter for adjustment and management of other part of cardiac pacemaker | CPT/HCPCS: 93280 ==

== ENCOUNTER 2023-11-02 15:20 | Outpatient (REF) | payer OTHER, SELFPAY ==
--- NOTE | ~2023-11-02 | US_ITS ---
EXAMINATION: US EXTRACRANIAL CAROTID DUPLEX, BILATERAL CLINICAL INFORMATION: TIA COMPARISON: None available. TECHNIQUE: Real-time ultrasound and Doppler techniques (integrating B-mode 2-D vascular images, Doppler spectral analysis and color-flow Doppler imaging) were utilized to interrogate the extracranial carotid arteries, the vertebral arteries and proximal subclavian arteries bilaterally. The degree of stenosis is determined by criteria similar to NASCET. FINDINGS: Right Side: 1. There is no significant atherosclerotic plaque seen in the bifurcation/proximal ICA region. 2. The common carotid artery PSV proximally is 73 cm/s and distally 71 cm/s. 3. The proximal internal carotid artery velocities are 66 cm/s systolic and 28 cm/s diastolic. 4. The proximal external carotid artery PSV is 107 cm/s. 5. The vertebral artery shows antegrade flow. 6. The subclavian artery waveforms are normal. Left Side: 1. There is no significant atherosclerotic plaque seen in the bifurcation/proximal ICA region. 2. The common carotid artery PSV proximally is 95 cm/s and distally 85 cm/s. 3. The proximal internal carotid artery velocities are 63 cm/s systolic and 20 cm/s diastolic. 4. The proximal external carotid artery PSV is 108 cm/s. 5. The vertebral artery shows antegrade flow. 6. The subclavian artery waveforms are normal. US/US carotid duplex BI IMPRESSION: 1. RIGHT: Minimal, non-hemodynamically significant stenosis of the proximal right internal carotid artery corresponding to a 0-49% stenosis by velocity criteria. 2. LEFT: Minimal, non-hemodynamically significant stenosis of the proximal left internal carotid artery corresponding to a 0-49% stenosis by velocity criteria.
== END 2023-11-02 15:21 | disposition home or self-care (01) ==
LOC: HO.US 15:20
PROVIDERS: Visit Provider Internal Medicine Cardiovascular Disease
DX: G45.9 Transient cerebral ischemic attack, unspecified (principal)
CPT/HCPCS: 93880

== ENCOUNTER 2023-11-07 15:22 | Outpatient (AMB) | payer OTHER, SELFPAY ==
--- NOTE | 2023-11-06 20:30 | MHC.OFFVIS ---
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 offered & declined Accompanied by: Self / Same As Patient Allergies SEASONAL ALLERGIES Allergy (Mild, Uncoded 11/07/23 15:33) SNEEZING Pentoxifylline Allergy (Unknown, Uncoded 11/07/23 15:33) syncope Medication List - Last Reconciled 11/07/23 by Ana Perdue LPN albuterol sulfate 90 mcg/actuation 2 puffs PO Q4H PRN aspirin (Adult Aspirin Regimen) 81 mg PO DAILY atorvastatin 20 mg PO BEDTIME celecoxib 200 mg PO DAILY fluticasone propion-salmeterol 250-50 mcg/dose (Advair Diskus) 1 inh inhalation BID lorazepam 1 mg PO BID metoprolol succinate ER 25 mg PO DAILY montelukast 10 mg PO DAILY omeprazole 20 mg PO DAILY HPI Wheezing HPI Details Filipe is a pleasant 63 year old male, former smoker quit 1995, with approximately 10pyh, with underlying asthma, COPD, stable pulmonary nodules, nonsustained vtach on metoprolol and sick sinus syndrome s/p pacer. He was referred by cardiology for pulmonary evaluation after examination revealed persistent wheezing. Patient has been maintained on advair, albuterol MDI and singulair with suboptimal response. He reports dyspnea with moderate exertion and productive cough with brown sputum. He denies any chest tightness. He also reports significant throat irritation and has had thrush multiple times, which he attributes to dry powder inhalers. He denies any occupational exposures. He denies any pertinent family history. [facility] Medical History Avulsion fracture of thumb NSVT (nonsustained ventricular tachycardia) Cardiac pacemaker in situ Sick sinus syndrome Surgical History History of permanent cardiac pacemaker placement Hx of removal of cyst History of ankle surgery Family History Father Kidney failure Mother CVD (cardiovascular disease) Social History (Updated 11/07/23 @ 15:38 by Ana Perdue LPN) Alcohol intake: current Alcohol intake frequency: holidays/special occasions only Patient Tobacco Use Status: Former Tobacco user Quit Date: Years Smoked: 10 +/- Review of Systems Const Denies chills, Denies excessive sweating, Denies fever(s), Denies headache(s) and Denies night sweats Eyes Denies dry eyes, Denies irritation and Denies itchy eyes ENT Reports Normal hearing present, Denies headache(s), Denies nasal congestion, Denies nasal discharge, Denies post nasal drip and Denies sore throat Card Denies chest pain, Denies chest pain at rest, Denies chest pain with activity, Denies claudication, Denies leg edema, Denies orthopnea and Denies paroxysmal nocturnal dyspnea Resp Denies chest congestion, Denies excessive phlegm production, Denies pain on inspiration, Denies pain with cough and Denies stridor Musc Denies myalgias Neuro Reports Normal hearing present and Denies headache(s) Endo Denies excessive sweating Len/Lymph Denies lymphadenopathy Aller/Immun Denies itchy eyes and Denies seasonal rhinorrhea Physical Exam Vital Signs: Last Vital Signs Pulse 72 11/07/23 15:27 BP 140/78 H 11/07/23 15:27 Pulse Ox 96 11/07/23 15:27 Oxygen Delivery Method Room Air 11/07/23 15:27 BMI result Body Mass Index 37.2 Const General: cooperative, healthy appearing, comfortable, no acute distress, well developed and alert Nutritional Appearance: obese Orientation/consciousness: patient oriented x3 Limitations: no limitations HEENT Head: Yes normal to inspection, Yes normocephalic and Yes atraumatic Ears: hearing grossly normal bilaterally and external ears normal Eyes General: appearance normal, both eyes and all related structures Eyelids: Yes eyelids normal Sclerae: sclerae normal EOM: EOMs intact bilaterally Neck Neck: Yes normal visual inspection and Yes no lymphadenopathy Lymphatic: no lymphadenopathy noted Chest Chest palpation & inspection: normal inspection of the chest Resp Effort & Inspection: normal respiratory effort, able to speak in complete sentences, no audible wheezes, no cough, no stridor, not tachypneic, no tripod positioning and no use of accessory muscles Auscultation: clear to auscultation bilaterally Cardio Jugular venous distension: no JVD Rate: regular rate Rhythm: regular rhythm Skin Other: warm, dry General skin exam: no rashes or lesions noted Neuro General: patient oriented x3 Cranial nerves: Yes Normal hearing present Cognition (Neuro): normal cognition Gait exam (Neuro): Normal gait present Extrem General: Yes normal to inspection, Yes capillary refill normal, Yes no clubbing, cyanosis or edema and Yes no pedal edema Psych Appearance: grossly normal and well kempt Speech and movement: Normal speech and movement present and Clear speech present Affect: normal affect Attitude: cooperative Thought process: Normal thought process present Thought content: Normal thought content present Insight: Good insight present (Psych) Judgement: Good judgement present (Psych) Assessment & Plan Assessment & Plan (1) COPD (chronic obstructive pulmonary disease): Code(s): J44.9 - Chronic obstructive pulmonary disease, unspecified (2) Asthma: Code(s): J45.909 - Unspecified asthma, uncomplicated (3) Personal history of tobacco use: Code(s): Z87.891 - Personal history of nicotine dependence (4) Dyspnea on exertion: Code(s): R06.09 - Other forms of dyspnea Plan Filipe's symptoms are likely related to underlying asthma/COPD, of unclear severity, will send for PFT to evaluate. Will also send for chest CT to evaluate for parenchymal disease contributing to dyspnea. Patient reported intolerance to dry powder inhalers, will trial dulera. Importance of oral hygiene reviewed. Patient also noted productive cough with brown sputum, will empirically treat with azithromycin. Patient is aware if symptoms do not improve to call office. All questions were answered and patient is in agreement of plan. Will follow up to review response to inhaler and results of tests. Orders: Orders PFT pulmonary function test Today J44.9 - Chronic obstructive pulmonary disease, unspecified, J45.909 - Unspecified asthma, uncomplicated CT chest wo IV con Today J44.9 - Chronic obstructive pulmonary disease, unspecified, R06.09 - Other forms of dyspnea Medications: New mometasone-formoterol 200-5 mcg/actuation (Dulera) 2 puffs inhalation BID 13 grams 0RF azithromycin For 250 mg dose pack: take 500 mg today (day 1), then 250 mg for 4 days (days 2-5) PO 6 tabs 0RF Coding Level of Care Code New Pt Level 4 (33296) Diagnoses COPD (chronic obstructive pulmonary disease) J44.9 Asthma J45.909 Personal history of tobacco use Z87.891 Dyspnea on exertion R06.09
[2023-11-07 15:27] VITALS: BP 140/78; PULSE 72; O2SAT 96; BMI 37.2
== END 2023-11-07 16:21 | disposition home or self-care (01) ==
PROVIDERS: PCP Internal Medicine; Referring Provider Internal Medicine; Visit Provider Nurse Practitioner Family
DX: J44.9 Chronic obstructive pulmonary disease, unspecified (principal); J45.909 Unspecified asthma, uncomplicated; Z87.891 Personal history of nicotine dependence; R06.09 Other forms of dyspnea
CPT/HCPCS: 99204

== ENCOUNTER → 2023-11-07 15:22 | Outpatient (BNVA) | payer OTHER, SELFPAY | PROVIDERS: PCP Internal Medicine; Referring Provider Internal Medicine; Visit Provider Nurse Practitioner Family ==

== ENCOUNTER 2023-11-22 07:21 | Day surgery (SDC) | payer OTHER, SELFPAY ==
--- NOTE | 2023-11-21 11:45 | HO.ANESPROP2 ---
HPI - Anesthesia Eval Consult details Narrative: 63yo M for Upper Endoscopy and Colonoscopy Pacer in situ (SSS) [facility] Active Problems Active Problems: All Active Problems (Updated 11/18/23 @ 13:58 by Coleen Mccauley RN) Dyspnea on exertion (Acute) Personal history of tobacco use (Acute) Asthma (Acute) COPD (chronic obstructive pulmonary disease) (Acute) Hypercholesteremia (Acute) COVID-19 (Acute) Near syncope (Acute) Avulsion fracture of thumb (Acute) NSVT (nonsustained ventricular tachycardia) (Acute) Cardiac pacemaker in situ (Acute) Sick sinus syndrome (Acute) Past Medical History Medical History COPD (chronic obstructive pulmonary disease) Asthma Avulsion fracture of thumb NSVT (nonsustained ventricular tachycardia) Cardiac pacemaker in situ Sick sinus syndrome Family History Family History Father Kidney failure Mother CVD (cardiovascular disease) Surgical History Surgical History History of permanent cardiac pacemaker placement Hx of removal of cyst History of ankle surgery Social History Social History (Updated 11/07/23 @ 15:38 by Ana Perdue LPN) Alcohol intake: current Alcohol intake frequency: holidays/special occasions only Patient Tobacco Use Status: Former Tobacco user Quit Date: Years Smoked: 10 +/- Are you DNR?: No Advance Directives: No Advance Directives Information Provided: Yes Nutrition Risks: No Nutritional Risk Meds Allergies Allergy/AdvReac Type Severity Reaction Status Date / Time pentoxifylline Allergy Severe syncope Verified 11/18/23 13:57 Seasonal Allergies Allergy Sneezing Verified 11/18/23 13:57 atorvastatin AdvReac Extreme Verified 11/21/23 16:43 fatigue Home Medications Medication Instructions Recorded Confirmed Last Taken Type albuterol sulfate 90 mcg/actuation 2 puff PO Q4H PRN Shortness Of 09/23/20 11/18/23 Unknown History aerosol inhaler Breath Or Wheezing celecoxib 200 mg capsule 200 mg PO DAILY 09/23/20 11/18/23 Unknown History lorazepam 1 mg tablet 1 mg PO BID 09/23/20 11/18/23 Unknown History montelukast 10 mg tablet 10 mg PO DAILY 09/23/20 11/18/23 Unknown History omeprazole 20 mg capsule,delayed 20 mg PO DAILY 09/23/20 11/18/23 Unknown History release aspirin 81 mg tablet,delayed 81 mg PO DAILY 10/12/22 11/18/23 Unknown History release (Adult Aspirin Regimen) fluticasone 250 mcg-salmeterol 50 1 inh inhalation BID 11/07/23 11/18/23 Unknown History mcg/dose blistr powdr for inhalation (Advair Diskus) Exam Pertinent Lab Results Pertinent Lab Results: Laboratory Tests 10/03/23 07:15 WBC 7.8 Hgb 14.6 Hct 44.9 Plt Count 327 Sodium 139 Potassium 4.5 Chloride 101 Carbon Dioxide 31 H BUN 14 Creatinine 1.15 Narrative Narrative: ECHO 2023 Conclusions: - The left ventricular systolic function is hyperdynamic. The visually estimated ejection fraction is >70%. - Moderate to severe septal hypertrophy (1.55cm). - No obvious valvular pathology seen on this study. Cardiac Device Check 10/2023 Details: Dual-chamber [place] pacemaker in place. Programmed in DDD at 50 beats per minute. Minimal atrial ventricular pacing. No arrhythmias detected. Atrial and ventricular pacing thresholds adequate. Atrial ventricular sensing is excellent. Pacing lead impedance is stable. Battery life is excellent [id number] Cardiac Device Check, pacemaker dual lead Procedure code (CPT) selection complete US carotid duplex BI 10/2023 IMPRESSION: 1. RIGHT: Minimal, non-hemodynamically significant stenosis of the proximal right internal carotid artery corresponding to a 0-49% stenosis by velocity criteria. 2. LEFT: Minimal, non-hemodynamically significant stenosis of the proximal left internal carotid artery corresponding to a 0-49% stenosis by velocity criteria. Assessment and Plan Assessment Anesthesia Assessment: Chart Reviewed
[2023-11-22] MEDS: Lactated Ringers 1,000 ML 100 ML IVCONT (07:44)
[2023-11-22 07:45] VITALS: BMI 35.0
[2023-11-22 07:51] VITALS: BP 120/82; PULSE 96; RESP 18; TEMP 36.6; O2SAT 100
--- NOTE | 2023-11-22 08:13 | P.CONAN_ITS ---
HPI - Anesthesia Eval Consult details Narrative: 63 yo male patient for EGD, Colonoscopy [facility] Active Problems Active Problems: All Active Problems Dyspnea on exertion (Acute) Personal history of tobacco use (Acute) Asthma (Acute) COPD (chronic obstructive pulmonary disease) (Acute) Hypercholesteremia (Acute) COVID-19 (Acute) Near syncope (Acute) Avulsion fracture of thumb (Acute) NSVT (nonsustained ventricular tachycardia) (Acute) Cardiac pacemaker in situ (Acute). Placed about 14yrs ago Sick sinus syndrome (Acute) KERON. Not able to tolerate CPAP Increased BMI Past Medical History Medical History COPD (chronic obstructive pulmonary disease) Asthma Avulsion fracture of thumb NSVT (nonsustained ventricular tachycardia) Cardiac pacemaker in situ Sick sinus syndrome Family History Family History Father Kidney failure Mother CVD (cardiovascular disease) Family history of problems with anesthesia: No Surgical History Surgical History (Updated 11/22/23 @ 08:21 by Mi Cesar MD) History of permanent cardiac pacemaker placement Hx of removal of cyst History of ankle surgery History of Problems with Anesthesia: No Social History Social History Alcohol intake: current Alcohol intake frequency: holidays/special occasions only Patient Tobacco Use Status: Former Tobacco user Quit Date: Years Smoked: 10 +/- Are you DNR?: No Advance Directives: No Advance Directives Information Provided: Yes Nutrition Risks: No Nutritional Risk Meds Allergies Allergy/AdvReac Type Severity Reaction Status Date / Time pentoxifylline Allergy Severe syncope Verified 11/18/23 13:57 Seasonal Allergies Allergy Sneezing Verified 11/18/23 13:57 atorvastatin AdvReac Extreme Verified 11/21/23 16:43 fatigue Active Medications: Current Medications Albuterol Sulfate (Albuterol Sulfate (0.083%) 2.5 Mg/3 Ml Vial.Neb) 2.5 mg INHALE ONCE PRN PRN Reason: Shortness of Breath/Wheezing Lactated Ringer's (Lr) 1,000 mls @ 100 mls/hr IVCONT .Q10H BO Last Admin: 11/22/23 07:44 Dose: 100 mls/hr Home Medications Medication Instructions Recorded Confirmed Last Taken Type albuterol sulfate 90 mcg/actuation 2 puff PO Q4H PRN Shortness Of 09/23/20 11/18/23 Unknown History aerosol inhaler Breath Or Wheezing celecoxib 200 mg capsule 200 mg PO DAILY 09/23/20 11/18/23 Unknown History lorazepam 1 mg tablet 1 mg PO BID 09/23/20 11/18/23 Unknown History montelukast 10 mg tablet 10 mg PO DAILY 09/23/20 11/18/23 Unknown History omeprazole 20 mg capsule,delayed 20 mg PO DAILY 09/23/20 11/18/23 Unknown History release aspirin 81 mg tablet,delayed 81 mg PO DAILY 10/12/22 11/18/23 Unknown History release (Adult Aspirin Regimen) fluticasone 250 mcg-salmeterol 50 1 inh inhalation BID 11/07/23 11/18/23 Unknown History mcg/dose blistr powdr for inhalation (Advair Diskus) Exam Height,Weight and Vital Signs: Height 6 ft Weight 117.027 kg Last Vital Signs Temp 97.9 F 11/22/23 07:51 Pulse 96 11/22/23 07:51 Resp 18 11/22/23 07:51 BP 120/82 11/22/23 07:51 Pulse Ox 100 11/22/23 07:51 O2 Del Method Room Air 11/22/23 07:51 Airway Mallampati Class: II TM Dist: >3cm Neck ROM: Full Partial: Lower Loose/Missing/Broken Teeth: Yes (Partial dentures. Denies broken or loose teeth) Heart: RRR Lungs: CTAB. Diminished Assessment and Plan Assessment Anesthesia Assessment: Anesthesia Plan Discussed and Chart Reviewed Final Anesthetic Review Family History of Problems with Anesthesia: No History of Problems with Anesthesia: No NPO: Yes ASA Class: III Final Preanesthetic Review: No Changes in Pt Med Stat, Meds/Allgs Chart Reviewed, Consent Obtained/Reviewed and Anes Risks/Benef Reviewed Patient Risk: Intermediate Procedure Risk: Low Assessment/Block/Sedation in SS: Assess/Block/Sedation-SS Anesthetic Plan Anesthetic Plan: MAC: and TIVA Disposition: Standard PACU
--- NOTE | 2023-11-22 08:20 | P.HPSUR_ITS ---
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,screening Details of Present Illness: see H&P no changes Relevant Family History (Specify if Yes): No Relevant Social History: None Present Medications: see Short Stay Collaborative assessment Medical History: No relevant PMH History of Previous Operations: No relevant previous surgery Allergies: Allergies Allergy/AdvReac Type Severity Reaction Status Date / Time pentoxifylline Allergy Severe syncope Verified 11/18/23 13:57 Seasonal Allergies Allergy Sneezing Verified 11/18/23 13:57 atorvastatin AdvReac Extreme Verified 11/21/23 16:43 fatigue Review of Systems Sugical H&P ROS: Negative: Constitution, Cardiovascular, Respiratory, Neurologi artur, Psychiatric, Hem-Onc, Allergic/Immunologic, Gastrointestinal, Genitourinary, Musculoskeletal, Integumentary, Endocrine and Eyes/Ears/Nose/Throat Exam Surgical H&P Exam: Normal: HEENT, Normal: Heart, Normal: Lungs, Normal: Extremities, Normal: Abdomen, Normal: Skin and Normal: Neurological Plan Diagnosis/Plan: Unchanged I have reviewed the history and physical and performed a pertinent physical examination on my patient. No changes have occurred unless specified. Time Spent With Patient Time: Total time managing care of this patient today ____ minutes.
[2023-11-22 09:03] VITALS: BP 149/76; PULSE 100; RESP 18; TEMP 36.2; O2SAT 98
[2023-11-22 09:18] VITALS: BP 128/77; PULSE 98; RESP 18; O2SAT 93
[2023-11-22 09:23] VITALS: BP 121/79; PULSE 96; RESP 18; TEMP 36.5; O2SAT 95
--- NOTE | 2023-11-22 10:25 | OP_ITS ---
DATE OF SERVICE: 11/22/2023 SURGEON: Bob Smith MD INDICATIONS: 1. Gastroesophageal reflux disease. 2. Garcia esophagus. 3. Colon cancer screening. PREOPERATIVE DIAGNOSIS: POSTOPERATIVE DIAGNOSIS: PROCEDURE PERFORMED: Upper endoscopy with biopsy, colonoscopy to the terminal ileum. ESTIMATED BLOOD LOSS: COMPLICATIONS: ANESTHESIA: Monitored anesthesia care. ASSISTANTS: SPECIMENS: DESCRIPTION OF PROCEDURE: A history and physical was performed. The risks and benefits of the procedure were explained to the patient. Informed consent was obtained. The patient was placed in the left lateral decubitus position. The Olympus video gastroscope was introduced into the esophagus, stomach, and duodenum. Examination was performed. The scope was removed. He tolerated the procedure well and was repositioned for colonoscopy. A digital rectal exam was performed and was found to be normal. The Olympus pediatric video colonoscope was introduced into the rectum and advanced to the cecum. The cecum was identified by transillumination, palpation, and identification of ileocecal valve. Examination was performed. The scope was removed. He was transferred to the recovery room in stable condition. FINDINGS: Upper endoscopy: 1. Esophagus: The esophagus showed a nonobstructive Schatzki ring. Biopsies were obtained from the EG junction because of his history of Garcia esophagus. 2. Stomach: The stomach was normal. 3. Duodenum: The bulb and 2nd portion were normal. Colonoscopy: The terminal ileum was normal. The visualized colonic mucosa was normal. The quality of the prep was good. There was mild diverticulosis involving the sigmoid. Retroflexed examination showed moderate-sized internal hemorrhoids. IMPRESSION: 1. Garcia esophagus. 2. Normal colonoscopy. RECOMMENDATION: 1. Follow up the biopsy results. 2. Screening colonoscopy is recommended in 10 years for average risk individuals. MD REJI Porter/MARY / [phone]
== END 2023-11-22 10:02 | disposition home or self-care (01) ==
PROVIDERS: PCP Internal Medicine; Visit Provider Internal Medicine Gastroenterology
PROC: (CPT 43239; principal; 2023-11-22 08:30)
DX: K22.70 Barrett's esophagus without dysplasia (principal); K22.2 Esophageal obstruction; K20.90 Esophagitis, unspecified without bleeding; K21.9 Gastro-esophageal reflux disease without esophagitis; Z12.11 Encounter for screening for malignant neoplasm of colon; K57.30 Diverticulosis of large intestine without perforation or abscess without bleeding; E78.5 Hyperlipidemia, unspecified; Z95.0 Presence of cardiac pacemaker; Z79.82 Long term (current) use of aspirin; Z79.899 Other long term (current) drug therapy
CPT/HCPCS: 43239; 45378; 88305; 88313; J2704

== ENCOUNTER 2023-12-07 14:48 | Outpatient (REF) | payer OTHER, SELFPAY ==
[2023-12-07 10:40] VITALS: PULSE 58; RESP 16; O2SAT 98
--- NOTE | 2023-12-07 15:00 | PFT_ITS ---
Indication: Wheezing Spirometry [FEV1 to FVC 69%; FEV1 2.61 L; FVC 3.78 L. no significant response to bronchodilators noted. Maximum voluntary ventilation 64% predicted] Lung Volumes [Total lung capacity 77% predicted; expiratory reserve volume 29% predicted] Diffusion Capacity [DLCO 59% predicted] Comparisons [None] Interpretation [There is an obstructive ventilatory defect consistent with moderate COPD. No significant response to bronchodilators noted. Does a mild decrease in the maximum voluntary ventilation secondary to likely deconditioning. The patient also has a mild restrictive ventilatory defect. In addition to that does have a decrease in the expiratory reserve volume suggesting that the elevated BMI may be contributing. Patient also has a moderate diffusion impairment. Need to consider underlying emphysematous changes and or other parenchymal lung and pulmonary vascular condition should be considered. Should also correct for hemoglobin. Clinical correlation warranted.] MTDD
== END 2023-12-07 14:49 | disposition home or self-care (01) ==
LOC: HO.RESP 14:48
PROVIDERS: PCP Internal Medicine; Visit Provider Nurse Practitioner Family
DX: J44.9 Chronic obstructive pulmonary disease, unspecified (principal)
CPT/HCPCS: 94010; 94640; 94727; 94729

== ENCOUNTER 2023-12-09 07:19 | Outpatient (REF) | payer OTHER, SELFPAY ==
--- NOTE | ~2023-12-09 | CT_ITS ---
EXAMINATION: CT CHEST WITHOUT CONTRAST CLINICAL INFORMATION: COPD. COMPARISON: Chest radiograph 11/27/2018, CT chest 01/24/2018. TECHNIQUE: Multidetector volumetric CT imaging of the chest was done. Axial MIP volume rendering provided. Sagittal and coronal reformatted images were obtained. This CT examination was performed using dose optimization techniques as appropriate, variously including the following: *Automated exposure control. *Adjustment of mA and/or kV according to patient size (this includes techniques or standardized protocols for targeted exams where dose is matched to indication/reason for exam; i.e. extremities or head). *Use of iterative reconstruction technique. DLP: 306 mGy-cm FINDINGS: LUNGS: A few tiny micronodules are again seen and unchanged. There is bibasilar atelectasis along with traction bronchiectasis slightly increased when compared to the prior. No consolidations or suspicious lung masses are seen. MEDIASTINUM: No mediastinal or hilar lymphadenopathy seen. A left chest wall dual-lead pacemaker is present with tip in good position. CORONARY ARTERY CALCIFICATION: Mild. PLEURA: There is no pleural effusion. No pleural mass or thickening. AXILLA: No lymphadenopathy. UPPER ABDOMEN: Unremarkable. OSSEOUS STRUCTURES: Unremarkable. CT/CT chest wo IV con IMPRESSION: 1. No suspicious lung masses are seen. 2. Bibasilar atelectasis and traction bronchiectasis slightly increased when compared to the prior study. Fleischner guidelines were followed.
== END 2023-12-09 07:20 | disposition home or self-care (01) ==
LOC: HO.CT 07:19
PROVIDERS: PCP Internal Medicine; Visit Provider Nurse Practitioner Family
DX: J44.9 Chronic obstructive pulmonary disease, unspecified (principal); R06.09 Other forms of dyspnea
CPT/HCPCS: 71250

== ENCOUNTER 2023-12-26 15:49 | Outpatient (AMB) | payer OTHER, SELFPAY ==
[2023-12-26 16:03] VITALS: BP 136/80; PULSE 68; O2SAT 96; BMI 37.5
--- NOTE | 2023-12-26 16:03 | MHC.OFFVIS ---
Vital Signs 12/26/23 16:03 Height 5 ft 11 in Weight 268 lb 15.423 oz BMI 37.5 BP 136/80 Blood Pressure Location Lt brachial Position Sitting Pulse 68 Pulse Source Pulse Oximeter Pulse Oximetry (%) 96 Oxygen Delivery Method Room Air Intake Visit Reasons: Wheezing Allergies pentoxifylline Allergy (Severe, Verified 11/18/23 13:57) syncope Seasonal Allergies Allergy (Verified 11/18/23 13:57) Sneezing atorvastatin Adverse Reaction (Verified 11/21/23 16:43) Extreme fatigue HPI HPI Wheezing: Details: Filipe is a pleasant 63 year old male, former smoker quit 1995, with approximately 10pyh, with underlying asthma, COPD, stable pulmonary nodules, nonsustained vtach on metoprolol and sick sinus syndrome s/p pacer. Patient had been maintained on advair, albuterol MDI and singulair with suboptimal response. He was switched to symbicort and at the last visit treated with a zpak for bronchitic symptoms. He reports significant improvement in symptoms. Today he presents for to review PFT and chest CT. [facility], 1928–1983 Medical History COPD (chronic obstructive pulmonary disease) Asthma Avulsion fracture of thumb NSVT (nonsustained ventricular tachycardia) Cardiac pacemaker in situ Sick sinus syndrome Surgical History (Updated 11/22/23 @ 08:21 by Mi Cesar MD) History of permanent cardiac pacemaker placement Hx of removal of cyst History of ankle surgery Family History Father Kidney failure Mother CVD (cardiovascular disease) Social History Alcohol intake: current Alcohol intake frequency: holidays/special occasions only Patient Tobacco Use Status: Former Tobacco user Quit Date: Years Smoked: 10 +/- Review of Systems Const Denies chills, Denies excessive sweating, Denies fever(s), Denies headache(s) and Denies night sweats Eyes Denies dry eyes, Denies irritation and Denies itchy eyes ENT Reports Normal hearing present, Denies headache(s), Denies nasal congestion, Denies nasal discharge, Denies post nasal drip and Denies sore throat Card Denies chest pain, Denies chest pain at rest, Denies chest pain with activity, Denies claudication, Denies leg edema, Denies dyspnea, Denies dyspnea on exertion, Denies orthopnea and Denies paroxysmal nocturnal dyspnea Resp Denies chest congestion, Denies cough, Denies excessive phlegm production, Denies pain on inspiration, Denies pain with cough, Denies dyspnea, Denies dyspnea on exertion, Denies stridor and Denies wheezing Musc Denies myalgias Neuro Reports Normal hearing present and Denies headache(s) Endo Denies excessive sweating Len/Lymph Denies lymphadenopathy Aller/Immun Denies itchy eyes, Denies seasonal rhinorrhea and Denies wheezing Physical Exam Vital Signs: Last Vital Signs Pulse 68 12/26/23 16:03 BP 136/80 12/26/23 16:03 Pulse Ox 96 12/26/23 16:03 Oxygen Delivery Method Room Air 12/26/23 16:03 BMI result Body Mass Index 37.5 Const General: cooperative, healthy appearing, comfortable, no acute distress, well developed and alert Nutritional Appearance: obese Orientation/consciousness: patient oriented x3 Limitations: no limitations HEENT Head: Yes normal to inspection, Yes normocephalic and Yes atraumatic Ears: hearing grossly normal bilaterally and external ears normal Eyes General: appearance normal, both eyes and all related structures Eyelids: Yes eyelids normal Sclerae: sclerae normal EOM: EOMs intact bilaterally Neck Neck: Yes normal visual inspection and Yes no lymphadenopathy Lymphatic: no lymphadenopathy noted Chest Chest palpation & inspection: normal inspection of the chest Resp Effort & Inspection: normal respiratory effort, able to speak in complete sentences, no audible wheezes, no cough, no stridor, not tachypneic, no tripod positioning and no use of accessory muscles Auscultation: clear to auscultation bilaterally Cardio Jugular venous distension: no JVD Rate: regular rate Rhythm: regular rhythm Skin Other: warm, dry General skin exam: no rashes or lesions noted Neuro General: patient oriented x3 Cranial nerves: Yes Normal hearing present Cognition (Neuro): normal cognition Gait exam (Neuro): Normal gait present Extrem General: Yes normal to inspection, Yes capillary refill normal, Yes no clubbing, cyanosis or edema and Yes no pedal edema Psych Appearance: grossly normal and well kempt Speech and movement: Normal speech and movement present and Clear speech present Affect: normal affect Attitude: cooperative Thought process: Normal thought process present Thought content: Normal thought content present Insight: Good insight present (Psych) Judgement: Good judgement present (Psych) Results Reviewed Results Reviewed: [address] [address] [address] Scan Report Signed Patient: Filipe Sharp MR#: [id number] : 1960 Acct:[id number] Age/Sex: 63 / M ADM Date: 12/09/23 Loc: HO.CT Attending Dr: Colleen Bradley NP Ordering Physician: Colleen Bradley NP Date of Service: 12/09/23 Procedure(s): CT chest wo IV con Accession Number(s): [id number] cc: Ben Adams MD; Colleen Bradley NP~ EXAMINATION: CT CHEST WITHOUT CONTRAST CLINICAL INFORMATION: COPD. COMPARISON: Chest radiograph 11/27/2018, CT chest 01/24/2018. TECHNIQUE: Multidetector volumetric CT imaging of the chest was done. Axial MIP volume rendering provided. Sagittal and coronal reformatted images were obtained. This CT examination was performed using dose optimization techniques as appropriate, variously including the following: *Automated exposure control. *Adjustment of mA and/or kV according to patient size (this includes techniques or standardized protocols for targeted exams where dose is matched to indication/reason for exam; i.e. extremities or head). *Use of iterative reconstruction technique. DLP: 306 mGy-cm FINDINGS: LUNGS: A few tiny micronodules are again seen and unchanged. There is bibasilar atelectasis along with traction bronchiectasis slightly increased when compared to the prior. No consolidations or suspicious lung masses are seen. MEDIASTINUM: No mediastinal or hilar lymphadenopathy seen. A left chest wall dual-lead pacemaker is present with tip in good position. CORONARY ARTERY CALCIFICATION: Mild. PLEURA: There is no pleural effusion. No pleural mass or thickening. AXILLA: No lymphadenopathy. UPPER ABDOMEN: Unremarkable. OSSEOUS STRUCTURES: Unremarkable. CT/CT chest wo IV con IMPRESSION: 1. No suspicious lung masses are seen. 2. Bibasilar atelectasis and traction bronchiectasis slightly increased when compared to the prior study. Fleischner guidelines were followed. Dictated By: Josue Mackey MD Signed By: <Electronically signed by Josue Mackey MD in OV> 12/19/23 2304 DD/ 0900 TD/TT: Aircraft Instrument Mechanic: MELYSSA Assessment & Plan Assessment & Plan (1) COPD (chronic obstructive pulmonary disease): Code(s): J44.9 - Chronic obstructive pulmonary disease, unspecified Category: Medical (2) Asthma: Code(s): J45.909 - Unspecified asthma, uncomplicated Category: Medical (3) Personal history of tobacco use: Code(s): Z87.891 - Personal history of nicotine dependence Category: Social Hx (4) Dyspnea on exertion: Code(s): R06.09 - Other forms of dyspnea Category: Medical Plan Reviewed PFT which revealed an obstructive ventilatory defect consistent with moderate COPD. No significant response to bronchodilators noted. There is a mild decrease in the maximum voluntary ventilation secondary to likely deconditioning. The patient also has a mild restrictive ventilatory defect likely secondary to abdominal obesity.Patient also has a moderate diffusion impairment suggestive of emphysema. Patient also noted significant post nasal drip, will trial ipratriopium.All questions were answered and patient is in agreement of plan. Will follow up to review response to inhaler and results of tests. Medications: New ipratropium bromide administer into each nostril 2 sprays intranasal BID 30 mL 0RF Refilled budesonide-formoterol 160-4.5 mcg/actuation (Breyna) 1 puff inhalation BID 10.2 grams 3RF Discontinued mometasone-formoterol 200-5 mcg/actuation (Dulera) Discontinued Reason: Insurance Denied 2 puffs inhalation BID 13 grams 0RF Coding Level of Care Code Est Pt Level 4 (88989) Diagnoses COPD (chronic obstructive pulmonary disease) J44.9 Asthma J45.909 Personal history of tobacco use Z87.891 Dyspnea on exertion R06.09
== END 2023-12-26 16:31 | disposition home or self-care (01) ==
PROVIDERS: PCP Internal Medicine; Visit Provider Nurse Practitioner Family
DX: J44.9 Chronic obstructive pulmonary disease, unspecified (principal); J45.909 Unspecified asthma, uncomplicated; Z87.891 Personal history of nicotine dependence; R06.09 Other forms of dyspnea
CPT/HCPCS: 99214

== ENCOUNTER → 2023-12-26 15:51 | Outpatient (BNVA) | payer OTHER, SELFPAY | PROVIDERS: PCP Internal Medicine; Visit Provider Nurse Practitioner Family ==

== ENCOUNTER 2024-04-24 12:31 | Outpatient (AMB) | payer OTHER, SELFPAY ==
[2024-04-24 12:39] VITALS: BP 140/80; PULSE 62; BMI 37.6
--- NOTE | 2024-04-24 12:39 | A.OFFVIS_ITS ---
Vital Signs 04/24/24 12:39 Height 5 ft 11 in Weight 269 lb 13.533 oz BMI 37.6 BP 140/80 H Blood Pressure Location Lt brachial Position Sitting Pulse 62 Pulse Source Pulse Oximeter Intake Visit Reasons: 6 mth f/up Intake Note: 6 mth f/up- Champagne Maker Required: No Accompanied by: Self / Same As Patient Allergies pentoxifylline Allergy (Severe, Verified 11/18/23 13:57) syncope Seasonal Allergies Allergy (Verified 11/18/23 13:57) Sneezing atorvastatin Adverse Reaction (Verified 11/21/23 16:43) Extreme fatigue Medication List - Last Reconciled 04/24/24 by Hakeem Hernández MD albuterol sulfate 90 mcg/actuation 2 puffs PO Q4H PRN budesonide-formoterol 160-4.5 mcg/actuation (Breyna) 1 puff inhalation BID celecoxib 200 mg PO DAILY ipratropium bromide 2 sprays intranasal BID lorazepam 1 mg PO BID metoprolol succinate ER 25 mg PO DAILY montelukast 10 mg PO DAILY omeprazole 20 mg PO DAILY HPI Comments Details: Filipe comes for follow-up. He said he took himself of aspirin because he was getting bruises. He continues to have neurologic symptoms bilateral arm numbness followed by numbness in the roof of his mouth as well as abnormal visual pattern. He had a carotid duplex last time which showed nonobstructive disease but was advised at that time to be on aspirin statin therapy. He said in the past he has tried sudden therapy but has made him sleepy and he has taken himself of the statin therapy, also gets muscle aches related to it. Has willing to retry it. No prolonged palpitation irregular heartbeat. No exertional chest pain. Unfortunately has not been able to lose weight. Also continues to smoke. [facility] Medical History COPD (chronic obstructive pulmonary disease) Asthma Avulsion fracture of thumb NSVT (nonsustained ventricular tachycardia) Cardiac pacemaker in situ Sick sinus syndrome Surgical History History of permanent cardiac pacemaker placement Hx of removal of cyst History of ankle surgery Family History Father Kidney failure Mother CVD (cardiovascular disease) Social History Alcohol intake: current Alcohol intake frequency: holidays/special occasions only Patient Tobacco Use Status: Former Tobacco user Years Smoked: 10 +/- Review of Systems Const Denies chills, Denies fatigue, Denies fever(s), Denies frequent falls, Denies weakness, Denies weight gain and Denies weight loss ENT Denies dizziness Card Denies chest pain, Denies leg edema, Denies lightheadedness, Denies palpitations, Denies dyspnea and Denies dyspnea on exertion Resp Denies cough, Denies dyspnea and Denies dyspnea on exertion GI Denies hematochezia Musc Denies abnormal gait, Denies muscle weakness, Denies numbness, Denies radiating pain into limb and Denies tingling Neuro Denies abnormal gait, Denies dizziness, Denies frequent falls, Denies numbness, Denies tingling and Denies weakness Endo Denies fatigue and Denies palpitations Physical Exam Vital Signs: Last Vital Signs Pulse 62 04/24/24 12:39 BP 140/80 H 04/24/24 12:39 BMI result Body Mass Index 37.6 Const General: cooperative, comfortable, no acute distress, alert and awake Nutritional Appearance: obese Orientation/consciousness: patient oriented x3 Limitations: no limitations Neck Neck: Yes trachea midline, Yes supple and Yes no JVD Resp Effort & Inspection: normal respiratory effort Auscultation: clear to auscultation bilaterally and wheezes right lower Cardio Jugular venous distension: no JVD Palpation: normal PMI Rate: regular rate Rhythm: regular rhythm Heart sounds: S1 normal heart sound present, S2 normal heart sound present, no click, no gallops, no murmurs and no rubs GI Inspection: Yes obesity Auscultation: normal bowel sounds Skin General skin exam: no rashes or lesions noted Neuro General: patient oriented x3 and no focal motor deficits Extrem General: Yes no clubbing, cyanosis or edema Psych Appearance: grossly normal Office Procedures Cardiac Device Check Cardiac Device Check Details: Dual-chamber [place] pacemaker in place. Programmed in DDD at 50 beats per minute. Minimal atrial ventricular pacing. No arrhythmias noted. Atrial capture thresholds adequate and in auto capture mode. Ventricular capture thresholds are slightly elevated and reprogrammed to enhance safety. Atrial ventricular sensing is excellent. Pacing lead impedance is stable. Battery life is at about 6 years 67004-WM Cardiac Device Check, pacemaker dual lead Procedure code (CPT) selection complete Assessment & Plan Assessment & Plan (1) Cardiac pacemaker in situ: Code(s): Z95.0 - Presence of cardiac pacemaker Category: Medical Plan: Cardiac pacemaker in-situ, working well, placed for syncope and then was noted to have pauses. However has minimal use of pacemaker at this point time. Will continue monitor every 6 months on his request. (2) NSVT (nonsustained ventricular tachycardia): Comment: follows w/[facility]-Dr. Hernández Code(s): I47.2 - Ventricular tachycardia Category: Medical Plan: Nonsustained ventricular tachycardia which has been suppressed on metoprolol therapy. Continue the same. Avoidance of stimulants was discussed. No other change in therapy. Continue monitor by pacer telemetry. Vessel call me with any new symptoms. (3) Numbness and tingling in both hands: Code(s): R20.0 - Anesthesia of skin; R20.2 - Paresthesia of skin Plan: Numbness and tingling in both arms with no evidence of atrial fibrillation like his brother and has mild carotid disease. Question spinal cord related issues or carpal tunnel syndrome. Will refer to Neurology for the same. (4) Carotid artery disease: Code(s): I77.9 - Disorder of arteries and arterioles, unspecified Category: Medical Plan: Mild bilateral carotid disease. Strongly recommend low-dose aspirin therapy. Also recommend lipid modification. He is willing to try Crestor at lower dose. Will also prescribe him coenzyme Q10. Follow-up lipid panel in 3 months time. Follow up in the clinic in 6 months time, sooner p.r.n.. Thank you for allowing me to partake in his care Coding Level of Care Code Est Pt Level 4 (47928) Diagnoses Cardiac pacemaker in situ Z95.0 NSVT (nonsustained ventricular tachycardia) I47.2 Numbness and tingling in both hands R20.0; R20.2 Carotid artery disease I77.9 CPT Codes Cardiac Device Check - Cardiac Device 2: 11617-IU Cardiac Device Check, pacemaker dual lead ([id number])
== END 2024-04-24 13:21 | disposition home or self-care (01) ==
PROVIDERS: PCP Internal Medicine; Visit Provider Internal Medicine Cardiovascular Disease
DX: I47.20 Ventricular tachycardia, unspecified (principal); R20.0 Anesthesia of skin; R20.2 Paresthesia of skin; Z95.0 Presence of cardiac pacemaker; I77.9 Disorder of arteries and arterioles, unspecified
CPT/HCPCS: 93280; 99214

== ENCOUNTER → 2024-04-24 12:31 | Outpatient (BNVA) | payer OTHER, SELFPAY | PROVIDERS: PCP Internal Medicine; Visit Provider Internal Medicine Cardiovascular Disease | DX: I47.20 Ventricular tachycardia, unspecified (principal); R20.0 Anesthesia of skin; R20.2 Paresthesia of skin; I77.9 Disorder of arteries and arterioles, unspecified; Z79.899 Other long term (current) drug therapy; Z45.018 Encounter for adjustment and management of other part of cardiac pacemaker | CPT/HCPCS: 93280 ==

== ENCOUNTER → 2024-05-28 08:38 | Outpatient (BNVA) | payer OTHER, SELFPAY | PROVIDERS: PCP Internal Medicine; Visit Provider Internal Medicine Cardiovascular Disease ==

== ENCOUNTER 2024-06-25 14:53 | Outpatient (AMB) | payer OTHER, SELFPAY ==
--- NOTE | 2024-06-25 14:55 | A.OFFVIS_ITS ---
Vital Signs 06/25/24 14:56 Height 5 ft 11 in Weight 267 lb 13.786 oz BMI 37.4 BP 140/72 H Blood Pressure Location Rt brachial Position Sitting Pulse 71 Pulse Source Pulse Oximeter Pulse Oximetry (%) 96 Oxygen Delivery Method Room Air Intake Visit Reasons: wheezing Allergies pentoxifylline Allergy (Severe, Verified 06/25/24 15:01) syncope Seasonal Allergies Allergy (Verified 06/25/24 15:01) Sneezing atorvastatin Adverse Reaction (Verified 06/25/24 15:01) Extreme fatigue HPI HPI wheezing: Details: Filipe is a pleasant 63 year old male, former smoker quit 1995, with approximately 10pyh, with underlying asthma, COPD, stable pulmonary nodules, nonsustained vtach on metoprolol and sick sinus syndrome s/p pacer. He was previously on Advair however reported suboptimal response and was switched to Symbicort. He reports improvement in cough, now infrequent, but continues with dyspnea on exertion. He reports only using Symbicort once daily as he often forgets 2nd dose. He has been using ipratropium nasal spray for persistent postnasal drip with good effect is requesting a refill. He denies any presents to urgent care or hospitalizations since the last visit. [facility] Medical History COPD (chronic obstructive pulmonary disease) Asthma Avulsion fracture of thumb NSVT (nonsustained ventricular tachycardia) Cardiac pacemaker in situ Sick sinus syndrome Surgical History History of permanent cardiac pacemaker placement Hx of removal of cyst History of ankle surgery Family History Father Kidney failure Mother CVD (cardiovascular disease) Social History Alcohol intake: current Alcohol intake frequency: holidays/special occasions only Patient Tobacco Use Status: Former Tobacco user Years Smoked: 10 +/- Review of Systems Const Denies chills, Denies excessive sweating, Denies fever(s), Denies headache(s) and Denies night sweats Eyes Denies dry eyes, Denies irritation and Denies itchy eyes ENT Reports Normal hearing present, Denies headache(s), Denies nasal congestion, Denies nasal discharge and Denies sore throat Card Denies chest pain, Denies chest pain at rest, Denies chest pain with activity, Denies claudication, Denies leg edema, Denies orthopnea and Denies paroxysmal nocturnal dyspnea Resp Denies chest congestion, Denies excessive phlegm production, Denies pain on inspiration, Denies pain with cough, Denies stridor and Denies wheezing Musc Denies myalgias Neuro Reports Normal hearing present and Denies headache(s) Endo Denies excessive sweating Len/Lymph Denies lymphadenopathy Aller/Immun Denies itchy eyes, Denies seasonal rhinorrhea and Denies wheezing Physical Exam Vital Signs: Last Vital Signs Pulse 71 06/25/24 14:56 BP 140/72 H 06/25/24 14:56 Pulse Ox 96 06/25/24 14:56 Oxygen Delivery Method Room Air 06/25/24 14:56 BMI result Body Mass Index 37.4 Const General: cooperative, healthy appearing, comfortable, no acute distress, well developed and alert Nutritional Appearance: obese Orientation/consciousness: patient oriented x3 Limitations: no limitations HEENT Head: Yes normal to inspection, Yes normocephalic and Yes atraumatic Ears: hearing grossly normal bilaterally and external ears normal Eyes General: appearance normal, both eyes and all related structures Eyelids: Yes eyelids normal Sclerae: sclerae normal EOM: EOMs intact bilaterally Neck Neck: Yes normal visual inspection and Yes no lymphadenopathy Lymphatic: no lymphadenopathy noted Chest Chest palpation & inspection: normal inspection of the chest Resp Effort & Inspection: normal respiratory effort, able to speak in complete sentences, no audible wheezes, no cough, no stridor, not tachypneic, no tripod positioning and no use of accessory muscles Auscultation: clear to auscultation bilaterally Cardio Jugular venous distension: no JVD Rate: regular rate Rhythm: regular rhythm Skin Other: warm, dry General skin exam: no rashes or lesions noted Neuro General: patient oriented x3 Cranial nerves: Yes Normal hearing present Cognition (Neuro): normal cognition Gait exam (Neuro): Normal gait present Extrem General: Yes normal to inspection, Yes capillary refill normal, Yes no clubbing, cyanosis or edema and Yes no pedal edema Psych Appearance: grossly normal and well kempt Speech and movement: Normal speech and movement present and Clear speech present Affect: normal affect Attitude: cooperative Thought process: Normal thought process present Thought content: Normal thought content present Insight: Good insight present (Psych) Judgement: Good judgement present (Psych) Assessment & Plan Assessment & Plan (1) COPD (chronic obstructive pulmonary disease): Code(s): J44.9 - Chronic obstructive pulmonary disease, unspecified Category: Medical (2) Asthma: Code(s): J45.909 - Unspecified asthma, uncomplicated Category: Medical (3) Personal history of tobacco use: Code(s): Z87.891 - Personal history of nicotine dependence Category: Social Hx (4) Dyspnea on exertion: Code(s): R06.09 - Other forms of dyspnea Category: Medical Plan Filipe reports suboptimal control with Symbicort however only using once per day. Advised to increase to 2 puffs b.i.d. and if not effective, he will call the office in 4 weeks. Will consider triple therapy as he has moderate COPD if he continues with suboptimal effect. Will refill ipratropium nasal spray as he reported good effect. All questions were answered and patient is in agreement of plan. Will follow-up in 3-6 months or sooner if needed. Medications: Refilled ipratropium bromide administer into each nostril 2 sprays intranasal BID 30 mL 3RF Coding Level of Care Code Est Pt Level 4 (80052) Diagnoses COPD (chronic obstructive pulmonary disease) J44.9 Asthma J45.909 Personal history of tobacco use Z87.891 Dyspnea on exertion R06.09
[2024-06-25 14:56] VITALS: BP 140/72; PULSE 71; O2SAT 96; BMI 37.4
== END 2024-06-25 15:42 | disposition home or self-care (01) ==
PROVIDERS: PCP Internal Medicine; Visit Provider Nurse Practitioner Family
DX: J44.9 Chronic obstructive pulmonary disease, unspecified (principal); J45.909 Unspecified asthma, uncomplicated; Z87.891 Personal history of nicotine dependence; R06.09 Other forms of dyspnea
CPT/HCPCS: 99214

== ENCOUNTER → 2024-06-25 14:53 | Outpatient (BNVA) | payer OTHER, SELFPAY | PROVIDERS: PCP Internal Medicine; Visit Provider Nurse Practitioner Family ==

== ENCOUNTER 2024-07-13 06:57 | Outpatient (REF) | payer OTHER, SELFPAY ==
[2024-07-13 08:09] LABS: Anion Gap 13 (12-20); Blood Urea Nitrogen 26 mg/dL (9-16); Calcium 8.6 mg/dL (8.4-10.2); Carbon Dioxide 25 mmol/L (22-29); Chloride 103 mmol/L (96-108); Estimated Glomerular Filt Rate 55; Glucose Random 126 mg/dL (60-115); Potassium 4.1 mmol/L (3.3-5.1); Sodium 137 mmol/L (135-145)
[2024-07-13 08:21] LABS: Erythrocyte Sedimentation Rate 4 MM/HR (0-15)
[2024-07-16 17:59] LABS: Lyme Abs Screen <0.90 index
== END 2024-07-13 06:58 | disposition home or self-care (01) ==
LOC: HO.LAB 06:57
PROVIDERS: PCP Internal Medicine; Visit Provider Psychiatry & Neurology Neurology
DX: G43.109 Migraine with aura, not intractable, without status migrainosus (principal)
CPT/HCPCS: 36415; 80048; 85652; 86617; 86618

== ENCOUNTER 2024-08-06 06:28 | Outpatient (REF) | payer OTHER, SELFPAY ==
[2024-08-06 08:21] LABS: Cholesterol 183 mg/dL (<200); HDL Cholesterol 30 mg/dL (>40); LDL Cholesterol Calculated 130 mg/dL (<100); Triglycerides 118 mg/dL (<150)
== END 2024-08-06 06:29 | disposition home or self-care (01) ==
LOC: HO.LAB 06:28
PROVIDERS: PCP Internal Medicine; Visit Provider Internal Medicine Cardiovascular Disease
DX: E78.00 Pure hypercholesterolemia, unspecified (principal)
CPT/HCPCS: 36415; 80061

== ENCOUNTER 2024-08-07 15:17 | Outpatient (AMB) | payer OTHER, SELFPAY ==
--- NOTE | 2024-08-07 15:18 | A.OFFVIS_ITS ---
Vital Signs 08/07/24 15:19 Height 5 ft 11 in Weight 268 lb 15.423 oz BMI 37.5 BP 120/82 Blood Pressure Location Lt brachial Position Sitting Pulse 60 Intake Visit Reasons: 3 mth f/up lipids Intake Note: 3 month follow-up with [facility] c/o Allergies pentoxifylline Allergy (Severe, Verified 06/25/24 15:01) syncope Seasonal Allergies Allergy (Verified 06/25/24 15:01) Sneezing atorvastatin Adverse Reaction (Verified 06/25/24 15:01) Extreme fatigue Medication List - Last Reconciled 08/07/24 by Hakeem Hernández MD albuterol sulfate 90 mcg/actuation 2 puffs PO Q4H PRN aspirin (Ecotrin Low Strength) 81 mg PO DAILY aspirin 1 tab PO DAILY budesonide-formoterol 160-4.5 mcg/actuation (Breyna) 1 puff inhalation BID qgcqyhrkul-zpzdnevb-nwdrnftkid 160-9-4.8 mcg/actuation (Breztri Aerosphere) 2 inhalations inhalation BID celecoxib 200 mg PO DAILY coenzyme Q10 100 mg PO DAILY ipratropium bromide 2 sprays intranasal BID lorazepam 1 mg PO BID metoprolol succinate ER 50 mg PO DAILY montelukast 10 mg PO DAILY omeprazole 20 mg PO DAILY rosuvastatin 5 mg PO DAILY topiramate 25 mg PO DAILY HPI Comments Details: Filipe comes for follow-up. He has not had any new cardiovascular symptoms. No lightheadedness, syncope. No exertional chest pain or shortness of breath. 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 Taking all his medications. His LDL is not well optimized, and remains elevated 130 mg/dL. Tolerating Crestor 5 mg. He said he was tough time losing weight [facility] Medical History COPD (chronic obstructive pulmonary disease) Asthma Avulsion fracture of thumb NSVT (nonsustained ventricular tachycardia) Cardiac pacemaker in situ Sick sinus syndrome Surgical History History of permanent cardiac pacemaker placement Hx of removal of cyst History of ankle surgery Family History Father Kidney failure Mother CVD (cardiovascular disease) Social History Alcohol intake: current Alcohol intake frequency: holidays/special occasions only Patient Tobacco Use Status: Former Tobacco user Years Smoked: 10 +/- Review of Systems Const Denies chills, Denies fatigue, Denies fever(s), Denies frequent falls, Denies weakness, Denies weight gain and Denies weight loss ENT Denies dizziness Card Denies chest pain, Denies leg edema, Denies lightheadedness, Denies palpitations, Denies dyspnea, Denies dyspnea on exertion, Denies orthopnea and Denies other (loss of consciousness) Resp Denies cough, Denies dyspnea and Denies dyspnea on exertion GI Denies hematochezia and Denies change in stool character Musc Denies abnormal gait, Denies muscle weakness, Denies numbness, Denies radiating pain into limb and Denies tingling Neuro Denies abnormal gait, Denies dizziness, Denies frequent falls, Denies numbness, Denies tingling and Denies weakness Endo Denies fatigue and Denies palpitations Physical Exam Vital Signs: Last Vital Signs Pulse 60 08/07/24 15:19 BP 120/82 08/07/24 15:19 BMI result Body Mass Index 37.5 Const General: cooperative, comfortable, no acute distress, alert and awake Nutritional Appearance: obese Orientation/consciousness: patient oriented x3 Limitations: no limitations Neck Neck: Yes trachea midline, Yes supple and Yes no JVD Resp Effort & Inspection: normal respiratory effort Auscultation: clear to auscultation bilaterally and wheezes right lower Cardio Jugular venous distension: no JVD Palpation: normal PMI Rate: regular rate Rhythm: regular rhythm Heart sounds: S1 normal heart sound present, S2 normal heart sound present, no click, no gallops, no murmurs and no rubs GI Inspection: Yes obesity Auscultation: normal bowel sounds Skin General skin exam: no rashes or lesions noted Neuro General: patient oriented x3 and no focal motor deficits Extrem General: Yes no clubbing, cyanosis or edema Psych Appearance: grossly normal Office Procedures Cardiac Device Check Cardiac Device Check Details: Dual-chamber [employer] pacemaker in place. Programmed in DDD at 50 beats per minute. Minimal atrial ventricular pacing noted. Atrial capture thresholds are adequate and in auto capture mode. Ventricular capture thresholds adequate. Atrial ventricular sensing is adequate. Pacing lead impedance is stable. Battery life is adequate 25798-FY Cardiac Device Check, pacemaker dual lead Procedure code (CPT) selection complete Assessment & Plan Assessment & Plan (1) Carotid artery disease: Code(s): I77.9 - Disorder of arteries and arterioles, unspecified Category: Medical Plan: Diffuse nonobstructive disease both in coronary tree as well as the carotid tree. Patient was no symptoms related to it. Continue aggressive medical therapy. Importance of more aggressive lipid modification was discussed. He is willing to try increase in therapy to rosuvastatin 10 and will add ezetimibe 10 mg as a combination therapy to improve compliance as well as reduced side effects. Follow-up lipid panel in 3 months time to target goal LDL less than 70 mg/dL. (2) Cardiac pacemaker in situ: Code(s): Z95.0 - Presence of cardiac pacemaker Category: Medical Plan: Cardiac pacemaker in-situ for syncope and sick sinus syndrome. Pacemaker is working well. Will follow remotely every 3 months and follow up in the clinic in 6 months time. (3) NSVT (nonsustained ventricular tachycardia): Comment: follows w/[facility]-Dr. Hernández Code(s): I47.2 - Ventricular tachycardia Category: Medical Plan: Nonsustained ventricular tachycardia without any symptoms. Continue metoprolol therapy. Avoidance of stimulants was discussed. Follow up in the clinic in 6 months time, sooner p.r.n.. Thank you for allowing me to partake in his care Orders: Orders Lipid Panel 3 Months I77.9 - Disorder of arteries and arterioles, unspecified Medications: New ezetimibe-rosuvastatin 10-10 mg 1 tab PO DAILY 30 tabs 5RF semaglutide (Ozempic) 0.5 mg (0.736 mL) subcut QWEEK 3 mL 1RF I77.9 - Disorder of arteries and arterioles, unspecified Discontinued aspirin (Ecotrin Low Strength) Discontinued Reason: Insurance Denied 81 mg PO DAILY 30 tabs 5RF rosuvastatin Discontinued Reason: Doctor's Order 5 mg PO DAILY 30 tabs 5RF Coding Level of Care Code Est Pt Level 4 (50978) Complex EM visit Add On G2211 Diagnoses Carotid artery disease I77.9 Cardiac pacemaker in situ Z95.0 NSVT (nonsustained ventricular tachycardia) I47.2 CPT Codes Cardiac Device Check - Cardiac Device 2: 12434-AW Cardiac Device Check, pacemaker dual lead ([id number])
[2024-08-07 15:19] VITALS: BP 120/82; PULSE 60; BMI 37.5
--- OUTSIDE RECORDS SUMMARY | 2024-08-14 15:08 | XMS_ITS ---
Author Organization Ben Adams MD Address [address] [place] [phone] Care Team Providers Care Assistant Manager Name Role Phone Ben Adams Primary Care Provider ALLERGIES No Known Allergies RESULTS Component Value Reference Range Notes Hemoglobin A1c Reviewed date:04/30/2024 08:29:03 AM Interpretation: Performing Lab: Notes/Report: Value Hemoglobin A1c 6.3 Glucose, finger stick Reviewed date:04/30/2024 08:23:16 AM Interpretation: Performing Lab: Notes/Report: Value 151 REASON FOR VISIT 6 month MEDICATIONS Medication SIG (Take, Route, Frequency, Duration) Notes Start Date End Date Status Metoprolol Succinate ER 25 MG TAKE 1 TABLET BY MOUTH ONCE DAILY for 90 Active Montelukast Sodium 10 MG TAKE 1 TABLET B Y MOUTH ONCE DAILY for 90 Active Omeprazole 20 MG TAKE [address] [facility] ONCE DAILY Active ProAir HFA 108 (90 Base) MCG/ACT 1 puff as needed Inhalation every 4 hrs for 30 days 04/02/2021 Active Celecoxib 200 MG TAKE 1 CAPSULE BY [facility] ONCE DAILY WITH FOOD for 90 Active Aspir-81 81 MG 1 tablet Orally Once a day for 30 day(s) Active Symbicort 80-4.5 MCG/ACT 1 puff as neede d Inhalation every 4 hrs Active Clobetasol Propionate 0.05 % APPLY DAILY TO SKIN TO AFFECTED AREA TWICE A DAY FOR 30 DAYS. SEE FN. for 30 Active Hydrocortisone Sai-Pramoxine 2.5-1 % 1 application Externally Three times a day 04/04/2023 Active Hydrocortisone Sai-Pramoxine 2.5-1 % 1 application Externally Three times a day for 30 days 04/04/2023 Active Rosuvastatin Calcium 5 MG 1 tablet Orall y Once a day Active LORazepam 1 MG TAKE 1 TABLET BY LORI TWICE DAILY NEEDED for 90 03/11/2024 Active VITAL SIGNS BMI 38.74 kg/m2 04/30/2024 Blood pressure systolic 138 mm Hg 04/30/20 24 Blood pressure diastolic 76 mm Hg 024 Height 70 in 04/30/2024 Weight 270 lbs 04/30/2024 weight is up 11 pounds since 24 Encounters Encounter Location Date Provider Diagnosis Ben Adams MD [address] [place] [address] [place] [phone] 04/30/2024 Ben Adams Controlled type 2 diabetes mellitus without complication, without long-term current use of insulin E11.9 ASSESSMENTS Encounter Date Diagnosis Assessment Notes Treatment Notes Treatment Clinical Notes 04/30/2024 Controlled type 2 diabetes mellitus without complication, without long-term current use of insulin (ICD-10 - E11.9) have discussed the need for weight watcher PLAN OF TREATMENT Treatment Notes Assessment Notes Controlled type 2 diabetes m ellitus without complication, without long-term current use of insulin have discussed the need for weight watch er Next Appt Details Follow Up: 6 Months, Reason: Provider Name:Ben encarnacion, 10/05/2024 07:15:00 AM, [address] [place] [address], [address], [phone], Provider Name:Ben encarnacion, 10/12/2024 08:30:00 AM, [address] [place] [address], [address], [place], [place], [phone], Progress Notes * Examination Category Sub-Category Detail Notes General Examination GENERAL APPEARANCE: alert, w ell hydrated, in no distress HEAD: normocephalic HEART: no murmurs, rubs, ga llops, regular rate and rhythm LUNGS: no wheezes, rales, r honchi, good air movement, clear to auscultation bilaterally SKIN: good turgor
--- OUTSIDE RECORDS SUMMARY | 2024-08-14 15:08 | XMS_ITS ---
Author Organization Ben Adams MD Address [address] [place] [phone] Care Team Providers Care Application Technical Designer Name Role Phone Ben Adams Primary Care Provider ALLERGIES No Known Allergies REASON FOR VISIT high blood blood pressure this morning was 153/93 pulse 53, has alittle Head ache had a migraine last night MEDICATIONS Medication SIG (Take, Route, Frequency, Duration) [...] Y MOUTH ONCE DAILY for 90 Active IMMUNIZATIONS Vaccine Route Administration Date Status Comme nts Influenza High Dose Unknown 06/07/2024 Refused PROBLEMS Problem Type ICD Code Onset Dates Problem Status W/U Status Risk SNOMED Code Notes Problem Essential hypertension (I10) Active confirmed 60025443 VITAL SIGNS BMI 38.45 kg/m2 06/07/2024 Blood pressure systolic 148 mm Hg 06/07/20 24 Blood pressure diastolic 76 mm Hg 024 Height 70 in 06/07/2024 Weight 268 lbs 06/07/2024 weight is down 2 poiunds sin ce 8-24 Encounters Encounter Location Date Provider Diagnosis Ben Adams MD [facility] [address] [place] [address] [phone] 06/07/2024 Ben Adams Ophthalmic migraine 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 the numbness comes on after the scotoma. 06/07/2024 Essential hypertension (ICD-10 - I10) is doing well now. the elevated readings are related to anxiety PLAN OF TREATMENT Medication Medication Name Sig Start Date Stop [...] Next Appt Details Provider Name:Ben Benavides ier, 10/05/2024 07:15:00 AM, [address], [address], [place], [place], [phone], Provider Name:Ben Suarez Makayla encarnacion, 10/12/2024 08:30:00 AM, [address], [address], [place], [place], [phone], Progress Notes * Examination Category Sub-Category Detail Notes General Examination GENERAL APPEARANCE: alert, w ell hydrated, in no distress , male HEAD: normocephalic HEART: regular rate and rhy thm, no murmurs, rubs, gallops LUNGS: no wheezes, rales, r honchi, good air movement, clear to auscultation bilaterally SKIN: good turgor
--- OUTSIDE RECORDS SUMMARY | 2024-08-14 15:08 | XMS_ITS ---
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
--- OUTSIDE RECORDS SUMMARY | 2024-08-14 15:09 | XMS_ITS | Data Portability ---
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 Plan of Treatment Reminders Order Date Submit Date Provider Last Modified By Organization Details Last Modified Time Details Appointments None recorded. Lab None recorded. Referral None recorded. Procedures None recorded. Surgeries None recorded. Imaging None recorded. Medication Orders Augmentin 875 mg-125 mg tablet 2021 022 [id number], [address] [place], [address], 12:23:22 Patient TargetsNo targets recorded. Patient Instructions Encounter Date Encounter Id Patient Instructions Last Modified By Organization Details Last Modified Time 09/01/2022 [id number] ear infection (otitis media): care instructions [email or web address] Not available 09/01/2022 12:26:24 Thank you for choosing [facility] today! Below are your discharge instructions, please reach out to us right away for any changes or questions/concerns Otitis media is most often the result of an infection to the middle ear and often referred to as earache. The middle ear is the canal behind the eardrum. It may follow a cold. The most common symptoms are ear pain and possible pus draining from the ear. TREATMENT: If prescribed, take all medications as directed. IMPORTANT: DO NOT STOP taking the medication just because you feel better. If you stop too early, you may not cure the infection completely. You may take acetaminophen (aspirin-free medications such as Tylenol) for fever and/or pain. You may use a warm, wet compress or a warm water bottle on the ear if it provides comfort. Some may find a cool compress to be a benefit. Do not pack the ear canal closed with cotton and do not try to clean the ear canal with a cotton swab. Avoid swimming until the infection is gone. CONTACT YOUR DOCTOR, RETURN TO URGENT CARE OR GO TO THE EMERGENCY DEPARTMENT IF ANY OF THE FOLLOWING OCCUR: Fever (great than 101F/38.3C by mouth) or shaking chills begin or worsen. If your symptoms persist after 2 days. Drainage starts or increases from your ear. You get numbness to the side of the face, loss of hearing or dizziness. You have difficulty with the medicine you are taking. Hearing loss Other any other new, concerning or worsening symptoms. Thank you for choosing [facility]! Take care and I hope you feel better! [email or web address] Not available 09/01/2022 12:26:09 Reason for Referral None Reported. Problems Name Problem SNOMED Code Status Onset Date Resolution Date Notes Provider Name and Address Organization Details Recorded Time Anxiety 38312164 Active 2021 CHARU CAMPA null, PA - [facility] 2 11:28:25 Gastroesophage al reflux disease 277219918 Active 2021 CHARU LOKESH null, PA - [facility] 2 11:28:33 Asthma 650226871 Active 2021 CHARU LOKESH null, PA - [facility] 2 11:28:48 Hypertensive disorder 00928034 Active 2021 CHARU LOKESH null, PA - [facility] 2 11:29:05 Problem Notes None recorded. Procedures Surgical History Date Name Laterality Status Provider Name and Address Organization Details Recorded Time cardiac pacemaker procedure completed CHARU CAMPA PA - [facility] 09/01/2022 11:29:41 repair of ankle completed CHARU CAMPA PA - [facility] 09/01/2022 11:29:50 Imaging Results None recorded. Procedure Notes None recorded. Medical Equipment None Reported. Allergies No known drug allergies Medications Name Sig Start Date Stop Date Status Note LastModified by Organization Details LastModified Time celecoxib 200 mg capsule active Not Available Not Available Not Available amoxicillin 500 mg capsule TAKE 1 CAPSULE BY MOUTH EVERY 12 HOURS 09/01 completed Not Available Not Available Not Available Augmentin 875 mg-125 mg tablet Take 1 tablet every 12 hours by oral route for 7 days. 2021 active Not Available Not Available Not Avai lable clobetasol 0.05 % topical cream APPLY DAILY TO SKIN TO AFFECTED AREA TWICE A DAY FOR 30 DAYS. SEE FN. active Not Available Not Available No t Available cephalexin 500 mg capsule TAKE 1 CAPSULE (ORAL) 3 TIMES PER DAY FOR 7 DAYS WITH FOOD FOR INFECTION 09/01 completed Not Available Not Available Not Available Advair Diskus 250 mcg-50 mcg/dose powder for inhalation active Not Available Not Available N ot Available omeprazole 20 mg capsule,del ayed release active Not Available Not Available Not Available montelukast 10 mg tablet TAKE 1 TABLET BY MOUTH EVERY DAY active Not Available Not Available No t Available metoprolol succinate ER 25 mg tablet,exte nded release 24 hr TAKE 1 TABLET BY MOUTH EVERY DAY active Not Available Not Available No t Available lorazepam 1 mg tablet active Not Available Not Available No t Available levofloxaci n 500 mg tablet TAKE 1 TABLET BY MOUTH EVERY DAY FOR 10 DAYS 09/01 completed Not Available Not Available Not Available prednisolon e sodium phosphate 5 mg base/5 mL (6.7 mg/5 mL) oral soln TAKE 5ML BY MOUTH TWICE A DAY GARGLE AND SWALLOW FOR 7 DAYS 09/01 completed Not Available Not Available Not Available Vitals Date Recorded Body height Body mass index (BMI) Body weight Heart rate Oxygen saturation Oxygen saturation in Arterial blood by Pulse oximetry Respiratory rate Body temperature Systolic blood pressure Diastolic blood pressure Provider Name and Address Organization Details Last Updated DateTime 2 182.88 cm 34.4 kg/m2 750416. 46 g 89 /min 97 % 97 % 18 /min 97.4 [degF] 133 mm[Hg] 89 mm[Hg] CHARU STOLL - [facility] 2 11:32:47 Social History Question Answer Notes LastModified by Organizat ion Details LastModified Time Tobacco Smoking Status Never Smoker JERMAN Raya [facility] 09/01/2022 11:30:21 What Is Your Level Of Alcohol Consumption? Occasional Information not available 09/01/2022 Are You Currently Employed? Yes Information not available 09/01/2022 Do You Use Any Illicit Or Recreational Drugs? No Information not available 09/01/2022 Have You Recently Traveled Abroad? No Information not available 09/01/2022 Do You Or Have You Ever Used Any Other Forms Of Tobacco Or Nicotine? No Information not available 09/01/2022 Sex: Unknown Functional Status None recorded. Mental Status None recorded. Family History Relationship Description Onset Age of this Age Resolved Age Notes LastModified by Organization Details LastModified Time Father No current problems or disability Not available 09/01 11:29:13 Mother No current problems or disability Not available 09/01 11:29:13 Medical History No medical history recorded. Immunizations Vaccine Type Date Status Note Provider Nam e and Address Organization Details Recorded Time Td (adult), 2 Lf tetanus toxoid, preservative free, adsorbed 2 completed CHARU LOKESH null, PA - [facility] 09/01/2022 11:28:08 Hep B, adult 1 completed CHARU LOKESH null, PA - [facility] 09/01/2022 11:28:08 Tdap 8 completed CHARU LOKESH null, PA - [facility] 09/01/2022 11:28:08 Influenza, split virus, trivalent, preservative 8 completed CHARU LOKESH null, PA - [facility] 09/01/2022 11:28:08 Hep B, adult 1 completed CHARU LOKESH null, PA - [facility] 09/01/2022 11:28:08 pneumococcal polysaccharide PPV23 9 completed CHARU LOKESH null, PA - [facility] 09/01/2022 11:28:08 Hep B, adult 1 completed CHARU LOKESH null, PA - [facility] 09/01/2022 11:28:08 Past Encounters Encounter ID Performer Location Encounter Start Date Encounter Closed Date Diagnosis/Indication Diagnosis SNOMED-CT Code Diagnosis ICD10 Code [id number] [address] [facility] [place] [address] 06/02/2021 08:11:31 06/02/2021 10:16:17 [id number] [address] [facility] [place] [address] 01/27/2020 19:38:44 01/27/2020 20:01:20 [id number] [address] [facility] [place] [address] 10/01/2021 10:37:39 10/01/2021 12:06:52 [id number] [address] [place] [address] 11/16/2020 10:17:35 11/16/2020 11:28:11 [id number] [address] [facility] [place] [address] 10/05/2021 08:18:28 10/05/2021 09:43:15 [id number] JERMAN CORDOBA [address] [place] [address] 09/01/2022 11:03:18 09/01/2022 12:26:47 Acute right otitis media [id number] H66.91 Health Concerns Section Related Observation LastModified by Organization Detai ls LastModified Time None Recorded Concern Status LastModified by Organization Details LastModified Time None Recorded Advance Directives Directive None Recorded Payers Encounter Date Sequence Insurance Name Policy Number Policy Hogan Covered Member ID Hogan Member ID Guarantor Name 11/16/2020 1 [facility] (PPO) [id number] Filipe Sharp [id number] Filipe Sharp 06/02/2021 1 [facility] (O) [id number] Filipe Sharp [id number] Filipe Sharp 09/01/2022 1 [facility] (O) [id number] Filipe Sharp [id number] Filipe Sharp Notes Date Note Type Note Provider Name and Address Organization Details Recorded Time 09/01/2022 text/html Filipe is a 62 yo M with PMH of pacemaker here for head congestion & pressure in both ears x 1 wk. No ear pain. No fevers, chills, sweats, INIGUEZ, vision changes, vertigo, SOB, CP. Has issues with chronic sinusitus and ETD. Has seen an ENT in the past. JERMAN CUTLER [address], [place], [address], [place] - [facility] 09/01/2022 12:26:29
--- OUTSIDE RECORDS SUMMARY | 2024-08-14 15:09 | XMS_ITS ---
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
--- OUTSIDE RECORDS SUMMARY | 2024-08-14 15:09 | XMS_ITS | Patient Health Record ---
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 Role Phone Ben Adams Primary Care Provider ALLERGIES No Known Allergies RESULTS Component Value Reference Range Notes Hemoglobin A1c Reviewed date:04/30/2024 08:29:03 AM Interpretation: Performing Lab: Notes/Report: Value Hemoglobin A1c 6.3 Complete Blood Count Auto Di ff Reviewed date:10/03/2023 12:45:04 PM Interpretation: Performing Lab:[facility], [address] [place] [phone] Notes/Report: White Blood Count 7.8 4.8-10.8 X10*3/uL Red Blood Count 5.20 4.60-5.80 X10*6/uL Hemoglobin 14.6 14.0-18.0 g/dl Hematocrit 44.9 42.0-52.0 % Mean Corpuscular Volume 86.3 80.0-98.0 fL Mean Corpuscular Hemoglobin 28.1 27.0-33.0 pg Mean Corpuscular HGB Conc 32.5 31.0-36.0 g/dl Red Cell Distribution Width 12.5 11.0-16.0 % Platelet Count 327 160-400 X10*3/uL Mean Platelet Volume 9.5 9.4-12.4 fL Neutrophils Percent Auto 62.8 45-73 % Imm Gran Pct Auto 0.5 0.0-0.4 % Lymphocytes Percent Auto 25.5 20-40 % Monocytes Percent Auto 7.0 2-11 % Eosinophils Percent Auto 3.7 0-4 % Basophils Percent Auto 0.5 0-2 % NRBC Pct Auto 0.0 0.0-0.2 /100WBC Neutrophils Absolute Auto 4.9 2.0-8.3 x10*3/u L Imm Gran Abs Auto 0.04 0.00-0.03 X10*3/uL Lymphocytes Absolute Auto 2.0 1.2-4.9 X10*3/u L Monocytes Absolute Auto 0.5 0.1-1.2 X10*3/uL Eosinophils Absolute Auto 0.3 0.0-0.4 X10*3/u L Basophils Absolute Auto 0.0 0.0-0.2 X10*3/uL NRBC Abs Auto 0.000 0.0-0.012 X10*3/uL Comprehensive [place]. Panel Fa st Reviewed date:10/03/2023 12:43:09 PM Interpretation: Performing Lab:[facility], [address] [place] [phone] Notes/Report: Sodium 139 135-145 mmol/L Potassium 4.5 3.3-5.1 mmol/L Chloride 101 96-108 mmol/L Carbon Dioxide 31 22-29 mmol/L Anion Gap 12 12-20 Blood Urea Nitrogen 14 9-16 mg/dL Creatinine 1.15 0.5-1.4 mg/dL Estimated Glomerular Filt Rate > 60 NOTE: For -Pakistani individuals, multiply the result by 1.210. Chronic Kidney Disease: Estimated GFR < 60 mL/min/1.73m2 Severe Kidney Disease: Estimated GFR < 15 mL/min/1.73m2 Glucose Fasting 111 60-99 mg/dL A fasting glucose from 100-125 mg/dl is considered impaired (pre-diabetes). Calcium 9.0 8.4-10.2 mg/dL Bilirubin Total 0.7 0.0-1.0 mg/dL Aspartate Amino Transferase 16 5-37 U/L Alanine Aminotransferase 15 0-40 U/L Total Protein 7.0 6.5-8.0 g/dL Albumin Level 3.8 3.5-5.0 g/dL Alkaline Phosphatase 70 39-117 U/L Lipid Panel Reviewed date:10/03/2023 12:29:51 PM Interpretation: Performing Lab:[address] [phone] Notes/Report: Triglycerides 132 <150 mg/dL Desirable Triglyceride: less than 150 mg/dL Borderline High Triglyceride 150-199 mg/dL High Triglyceride: 200-499 mg/dL Very High Triglyceride: greater than or equal to 5OO mg/dL Cholesterol 180 <200 mg/dL Desirable Cholesterol: less than 200 mg/dL Borderline High Cholesterol: 200-239 mg/dL High Cholesterol: greater than 239 mg/dL LDL Cholesterol Calculated 127 <100 mg/dL Desirable LDL: less than 100 mg/dL Near Optimal/Above Optimal LDL: 110-129 mg/dL Borderline High LDL: 130-159 mg/dL High LDL: 160-189 mg/dL Very High LDL: greater than or equal to 190 mg/dL HDL Cholesterol 27 >40 mg/dL Desirable HDL: greater than 40 mg/dL Note: This HDL assay may give artificially low results in patients with liver disease. PSA,Total (Free>4and<10) Reviewed date:10/03/2023 12:30:01 PM Interpretation: Performing Lab:[address] [phone] Notes/Report: PSA,Total (Free>4and<10) 2.02 0.00-4.00 ng/mL A Free PSA was not performed: The percentage of Free PSA can be used to enhance the differentiation of prostate cancer from benign prostatic disease in subjects whose PSA levels are between 4.0 and 10.0 ng/mL. For subjects whose PSA levels are below 4.0 or above 10.0 ng/mL, the risk of prostate cancer is determined on the basis of the PSA alone. Therefore the % Free PSA is recommended only for those subjects whose PSA levels are between 4.0 and 10.0 ng/mL. PSA methodology: Garcia Alinity i Chemiluminescent Microparticle Immunoassay (CMIA) Microalbumin, Random Reviewed date:10/03/2023 12:32:28 PM Interpretation: Performing Lab:[facility], [address] [place] [phone] Notes/Report: Creatinine Urine 171.66 Microalbumin Urine 5.0 Microalbum/Creatinine Ratio Ur 2.9 <30 ug/mg cr Albumin/Creatinine Ratio Reference Ranges: Normal: < 30 ug/mg creatinine Microalbuminuria: 30 - 300 ug/mg creatinine Clinical Albuminuria: > 300 ug/mg creatinine Hemoglobin A1c Reviewed date:10/03/2023 12:42:03 PM Interpretation: Performing Lab:[address] [phone] Notes/Report: Hemoglobin A1c % 6.0 <6.0 % Hemoglobin A1C Reference Range Adults: 4.8 - 6.0 % Non diabetic: < 6.0 % Goal: < 7.0 % Additional Action Suggested: > 8.0 % Note: Hemoglobin A1c results are invalid for patients with abnormal amounts of HbF. Blood transfusions may impact the HbA1c concentration in the patient sample. Estimated Average Glucose 126 eAG = Estimated average glucose which is %A1C expressed as average glucose, using the formula of the Q6E-Squguuu Average Glucose study (ADAG), Diabetes Care, Vol.31,#8, Apr. 2007 UA ClnCatch+Micro w/rflx Cul t Reviewed date:10/03/2023 12:44:48 PM Interpretation: Performing Lab:[facility], [address] [place] [phone] Notes/Report: Urine, Clean Catch Color Urine Yellow Appearance Urine Clear PH 6.0 5.0-9.0 Glucose Urine UA Negative Negative mg/dL Urine Blood Negative Negative Specific [place] - Urine 1.020 1.005-1.025 Urine Protein Negative Neg-Trace mg/dL Urine Ketones Negative Negative mg/dL Nitrite Urine Negative Negative Leukocyte Esterase Urine Negative Negative RBC Urine 0-2 0-2 /HPF WBC Urine 0-5 0-5 /HPF Squamous Epithelial Cell Urine 0-2 0-2 /HPF Bacteria Urine None Seen None Seen Hyaline Casts Urine 0-2 0-2 /LPF Occult Blood, Stool, Guaiac Reviewed date:10/10/2023 11:15:28 AM Interpretation:Negative Performing Lab: Notes/Report: Negative Occult Blood, Stool, Guaiac Neg Pathology Reviewed date:11/24/2023 01:54:18 PM Interpretation: Performing Lab:[facility], [address] [place] [phone] Notes/Report: CT chest wo con Reviewed date:12/20/2023 12:21:17 PM Interpretation: Performing Lab: Notes/Report: [address] [address] [address] Scan Report Signed Patient: Filipe Sharp MR#: [id number] : 1960 Acct:[id number] Age/Sex: 63 / M ADM Date: 12/09/23 Loc: HO.CT Attending Dr: Colleen Bradley NP Ordering Physician: Colleen Bradley NP Date of Service: 12/09/23 Procedure(s): CT chest wo IV con Accession Number(s): [id number] cc: Ben Adams MD; Colleen Bradley NP EXAMINATION: CT CHEST WITHOUT CONTRAST CLINICAL INFORMATION: COPD. COMPARISON: Chest radiograph 11/27/2018, CT chest 01/24/2018. TECHNIQUE: Multidetector volumetric CT imaging of the chest was done. Axial MIP volume rendering provided. Sagittal and coronal reformatted images were obtained. This CT examination was performed using dose optimization techniques as appropriate, variously including the following: *Automated exposure control. *Adjustment of mA and/or kV according to patient size (this includes techniques or standardized protocols for targeted exams where dose is matched to indication/reason for exam; i.e. extremities or head). *Use of iterative reconstruction technique. DLP: 306 mGy-cm FINDINGS: LUNGS: A few tiny micronodules are again seen and unchanged. There is bibasilar atelectasis along with traction bronchiectasis slightly increased when compared to the prior. No consolidations or suspicious lung masses are seen. MEDIASTINUM: No mediastinal or hilar lymphadenopathy seen. A left chest wall dual-lead pacemaker is present with tip in good position. CORONARY ARTERY CALCIFICATION: Mild. PLEURA: There is no pleural effusion. No pleural mass or thickening. AXILLA: No lymphadenopathy. UPPER ABDOMEN: Unremarkable. OSSEOUS STRUCTURES: Unremarkable. CT/CT chest wo IV con IMPRESSION: 1. No suspicious lung masses are seen. 2. Bibasilar atelectasis and traction bronchiectasis slightly increased when compared to the prior study. Fleischner guidelines were followed. Dictated By: Josue Mackey MD Signed By: <Electronically signed by Josue Mackey MD in [place]> 12/19/23 2304 DD/ 0900 TD/TT: Mine Boss: MELYSSA Glucose, finger stick Reviewed date:04/30/2024 08:23:16 AM Interpretation: Performing Lab: Notes/Report: Value 151 Lipid Panel Reviewed date:08/06/2024 08:36:20 AM Interpretation: Performing Lab:[facility], [address] [place] [phone] Notes/Report: Triglycerides 118 <150 mg/dL Desirable Triglyceride: less than 150 mg/dL Borderline High Triglyceride 150-199 mg/dL High Triglyceride: 200-499 mg/dL Very High Triglyceride: greater than or equal to 5OO mg/dL Cholesterol 183 <200 mg/dL Desirable Cholesterol: less than 200 mg/dL Borderline High Cholesterol: 200-239 mg/dL High Cholesterol: greater than 239 mg/dL LDL Cholesterol Calculated 130 <100 mg/dL Desirable LDL: less than 100 mg/dL Near Optimal/Above Optimal LDL: 110-129 mg/dL Borderline High LDL: 130-159 mg/dL High LDL: 160-189 mg/dL Very High LDL: greater than or equal to 190 mg/dL HDL Cholesterol 30 >40 mg/dL Desirable HDL: greater than 40 mg/dL Note: This HDL assay may give artificially low results in patients with liver disease. REASON FOR REFERRAL No Information MEDICATIONS Medication SIG (Take, Route, Frequency, Duration) Notes Start Date End Date Status Celecoxib 200 MG TAKE 1 CAPSULE BY MO UTH ONCE DAILY WITH FOOD for 90 Active Rosuvastatin Calcium 5 MG 1 tablet Orall y Once a day Active Omeprazole 20 MG TAKE 1 CAPSULE BY MO UTH ONCE DAILY Orally Once a day for 90 days Active Symbicort 80-4.5 MCG/ACT 1 puff as neede d Inhalation every 4 hrs Active Aspir-81 81 MG 1 tablet Orally Once a day for 30 day(s) Active Hydrocortisone Sai-Pramoxine 2.5-1 % 1 application Externally Three times a day for 30 days 04/04/2023 Active Metoprolol Succinate ER 50 MG take 1 tablet by mouth once daily Orally Once a day for 90 days Active Hydrocortisone Sai-Pramoxine 2.5-1 % 1 application Externally Three times a day 04/04/2023 Active Clobetasol Propionate 0.05 % APPLY DAILY TO SKIN TO AFFECTED AREA TWICE A DAY FOR 30 DAYS. SEE FN. for 30 Active ProAir HFA 108 (90 Base) MCG/ACT 1 puff as needed Inhalation every 4 hrs for 30 days 04/02/2021 Active Montelukast Sodium 10 MG TAKE 1 TABLET B Y MOUTH ONCE DAILY for 90 Active LORazepam 1 MG TAKE 1 TABLET BY LORI TWICE DAILY NEEDED for 90 06/26/2024 Active IMMUNIZATIONS Vaccine Route Administration Date Status Comme nts Flu Vaccine IM Intramuscular 07/12/2011 Administered Flu Vaccine IM Intramuscular 05/30/2012 Administered DECLINED, FLU Unknown 07/12/2013 Administered TDaP Unknown 04/04/2023 Administered [facility] Flu Vaccine Unknown 07/18/2014 Refused Flu Vaccine Unknown 05/22/2015 Refused PPSV23 (Pnemovax) Unknown 05/22/2015 Refused Fluarix Quadrivalent Unknown 07/11/2017 Refused PPSV23 (Pnemovax) Unknown 12/01/2017 Refused Fluarix Quadrivalent Unknown 05/22/2018 Refused PPSV23 (Pnemovax) Unknown 12/28/2018 Refused Fluarix Quadrivalent Unknown 05/21/2019 Refused Fluarix Quadrivalent Unknown 07/31/2019 Refused Fluarix Quadrivalent Unknown 09/15/2020 Refused Covid Vaccine Unknown 03/17/2021 Refused Fluarix Quadrivalent Unknown 06/04/2022 Refused Influenza High Dose Unknown 06/07/2024 Refused SOCIAL HISTORY Tobacco Use: Social History Observation Description Date Details (start date - stop date) Former Smoker NA - NA Sex Assigned At : Social History Observation Description Sex Assigned At Unknown Tobacco Use/Smoking Question Answer Notes Patient is a former smoker How long has it been since y ou last smoked? > 10 years Additional Findings: Tobacco Non-User Fo rmer smoker, currently using no form of tobacco Alcohol Screen Question Answer Notes Did you have a drink containing alcohol in the p ast year? No Points 0 Interpretation Negative PROBLEMS Problem Type ICD Code Onset Dates Problem Status W/U Status Risk SNOMED Code Notes Problem Diabetic neuropathy (E11.40) Active confirmed Diabetic neuropathy (836667122) Problem TIA (transient ische rufus attack) (G45.9) Active confirmed Transient ischemic attack (909172105) Problem Neuropathy (G62.9) Active confirmed 386 227865 Problem Prostatism (N40.0) Active confirmed 114 17935 Problem Reflux esophagitis (K21.00) Active confirmed 391188479 Problem Anxiety (F41.9) Active confirmed 547764 02 Problem Lipoprotein deficien cy (E78.6) Active confirmed Lipoprotein deficiency disorder (605292777) Problem 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) Active confirmed 726119306 Problem Arthritis (M19.90) Active confirmed 372 3001 Problem Lumbar disc disease (M51.9) Active confirmed 48098207 Problem Tubular adenoma of colon (D12.6) Active confirmed 517491693 Problem Essential hypertensi on (I10) Active confirmed 47392503 Problem Psoriasis (L40.9) Active confirmed 9014 002 Problem Mild intermittent asthma without complication (J45.20) Active confirmed 240600865 Problem Obstructive sleep ap gavin syndrome (G47.33) Active confirmed 51520338 Problem Asthmatic bronchitis , mild intermittent, with acute exacerbation (J45.21) Active confirmed 228611284 Problem Seasonal allergies (J30.2) Active confirmed 447836343 Problem Subcutaneous nodule (R22.9) Active confirmed Subcutaneous nodule (77574321) Problem Migraine with aura a nd without status migrainosus, not intractable (G43.109) Active confirmed 3888091 Problem Mild intermittent asthma with acute exacerbation (J45.21) Active confirmed 272205229 Problem Hiatal hernia (K44.9) Active confirmed 43337316 Problem Cervical disc diseas e (M50.90) Active confirmed 469793101 Problem 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) Active confirmed 70145805 Problem Schatzki's ring (K22.2) Active confirmed 181379086 Problem Pure hypercholesterolemia (E78.00) Active confirmed 097250611 Problem Anxiety attack (F41.0) Active confirmed 979030731 Problem KERON (obstructive sle ep apnea) (G47.33) Active confirmed 61937784 Problem BMI 35.0-35.9,adult (Z68.35) Active confirmed 203912466 Problem Peyronie's disease (N48.6) Active confirmed 4410137 Problem Controlled type 2 diabetes mellitus without complication, without long-term current use of insulin (E11.9) Active confirmed 162758147 Problem Non-sustained ventricular tachycardia (I47.2) Active confirmed 655235877 Problem Blue nevus of upper back excluding scapular region (D23.5) Active confirmed 45868998 Problem Drug dependence (F19.20) Active confirmed 240146554 Problem Expressive aphasia (R47.01) Active confirmed 901778113 Problem Deficit in communication due to slurred speech (F80.89) Active confirmed 47348529 Problem Acute arthritis (M19.90) Active confirmed 54297955 VITAL SIGNS Blood pressure diastolic 76 mm Hg 06/07/2024 lisa ght is down 2 poiunds since 04-30-24 Height 70 in 06/07/2024 weight is down 2 poiunds since 04-30-24 Blood pressure systolic 148 mm Hg 06/07/2024 weig ht is down 2 poiunds since 04-30-24 Weight 268 lbs 06/07/2024 weight is down 2 poiunds since 04-30-24 BMI 38.45 kg/m2 06/07/2024 weight is down 2 poiunds since 04-30-24 Encounters Encounter Location Date Provider Diagnosis Ben Adams MD [address] [place] [id number] 10/10/2023 Ben Adams Mild intermittent as thma with acute exacerbation J45.21 ; Annual physical exam Z00.00 ; Tubular adenoma of colon D12.6 ; 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 K22.70 ; Lesion of bone of knee M89.9 ; Pure hypercholesterolemia E78.00 ; Controlled type 2 diabetes mellitus without complication, without long-term current use of insulin E11.9 ; Colon cancer screening Z12.11 and Depression screening Z13.31 Ben Adams MD [address] [place] [id number] 10/03/2023 Ben Adams Blood tests for rout ine general physical examination Z00.00 ; Prostatism N40.0 ; Pure hypercholesterolemia E78.00 and Controlled type 2 diabetes mellitus without complication, without long-term current use of insulin E11.9 Ben Adams MD [address] [place] [id number] 04/30/2024 Ben Adams Controlled type 2 di abetes mellitus without complication, without long-term current use of insulin E11.9 Ben Adams MD [address] [place] [id number] 06/07/2024 Ben Adams Ophthalmic migraine G43.109 and Essential hypertension I10 Ben Adams MD [address] [place] [id number] 09/15/2023 Ben Adams MD [address] [place] [id number] 10/20/2023 Ben Adams TIA (transient ische rufus attack) G45.9 Ben Adams MD [address] [place] [id number] 05/29/2024 Ben Adams 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 K22.70 ASSESSMENTS Encounter Date Diagnosis Assessment Notes Treatment Notes Treatment Clinical Notes 10/10/2023 Annual physical exam (ICD-10 - Z00.00) labs reviewed and discussed [facility] patient 10/10/2023 Mild intermittent as thma with acute exacerbation (ICD-10 - J45.21) stable, will continue current regiment 10/03/2023 Prostatism (ICD-10 - N40.0) 10/03/[address] ine general physical examination (ICD-10 - Z00.00) 04/30/2024 Controlled type 2 diabetes mellitus without complication, without long-term current use of insulin (ICD-10 - E11.9) have discussed the need for weight watcher 06/07/2024 Essential hypertensi on (ICD-10 - I10) is doing well now. the elevated readings are related to anxiety 06/07/2024 Ophthalmic migraine (ICD-10 - G43.109) the numbness in arm lasted about one hour. the numbness comes on after the scotoma. 05/29/2024 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 (ICD-10 - K22.70) 10/10/2023 Tubular adenoma of c olon (ICD-10 - D12.6) going for colonoscopy this month 10/03/2023 Pure hypercholestero lemia (ICD-10 - E78.00) 10/20/2023 TIA (transient ische rufus attack) (ICD-10 - G45.9) 10/10/2023 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 (ICD-10 - K22.70) going for upper endo this month, will continue current regiment 10/03/2023 Controlled type 2 diabetes mellitus without complication, without long-term current use of insulin (ICD-10 - E11.9) 10/10/2023 Lesion of bone of kn ee (ICD-10 - M89.9) seems most likely traumatic from kneeling on knee. to show his orthopedic surgeon this month 10/10/2023 Pure hypercholestero lemia (ICD-10 - E78.00) stable, no need for medication at this time 10/10/2023 Controlled type 2 diabetes mellitus without complication, without long-term current use of insulin (ICD-10 - E11.9) doing well 10/10/2023 Colon cancer screeni ng (ICD-10 - Z12.11) guaiac negative 10/10/2023 Depression screening (ICD-10 - Z13.31) negative screen PLAN OF TREATMENT Pending Test Test Name Order Date Electrocardiogram (EKG) 11/02/2013 Electrocardiogram (EKG) 11/27/2015 Electrocardiogram (EKG) 01/27/2018 PROFILE, FASTING 01/29/2020 HEMOGLOBIN A1C (GLYCOHEMOGLOBIN) 020 PSA, TOTAL SCREEN 01/29/2020 MICROALBUMIN, RANDOM 01/29/2020 CBC w DIFF 01/29/2020 URINALYSIS (UA) 01/29/2020 CT CERVICAL SPINE W&WO CONTRAST 06/07/20 13 US CAROTID BILATERAL DOPPLER 10/20/2023 LIPOPROTEIN FRACTIONATION W/RFLX (LIPID PNL W/RFLX) 01/29/2020 US abdomen complete 04/01/2022 XR lumbar spine 4V min 03/17/2021 Next Appt Details Provider Name:Ben encarnacion, 10/05/2024 07:15:00 AM, [address] [facility], [address], [place], [place], [phone], Provider Name:Ben encarnacion, 10/12/2024 08:30:00 AM, [address], [address], [place], [place], [phone], Insurance Providers Payer Name Payer Address Payer Phone Subscriber Number Group Number Insured Name Patient Relationship to Insured Coverage Start Date Coverage End Date [facility] [id number] [place], [place] [id number] [phone] [id number] Filipe Sharp Self - patient is the insured MEDICAL (GENERAL) HISTORY Medical History History ICD Code Colonoscopy 10/23/2012 - due in 5 years; colonoscopy 08/04/[address] Smith - repeat 5 years refuses flu vac 07/12/[address] to be done no v [address] neg 2017 needs no furter evaluation Endoscopy - Dr. Smith Lung nodule was followed stable an dno f urther evaluation R91.1 Prediabetes R73.09 Surgical History Surgery Date(Month/Year) Dual Chamber Permanent Pacemaker Generat or Change 03/2018
--- OUTSIDE RECORDS SUMMARY | 2024-08-14 15:09 | XMS_ITS | Patient Health Record ---
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 Name Role Phone Angie SMITH, Ben Primary Care Provider Bob Marcos Jr [phone] ALLERGIES Allergen (clinical drug ingredient) Drug/Non Drug Allergy documented on EMR Reaction Allergy Type Onset Date Status Pentoxifylline Unknown Drug Allergy Ac tive RESULTS Component Value Reference Range Notes Pathology Reviewed date:11/28/2023 08:29:13 AM Interpretation: Performing Lab:[facility], [address] [place] [phone] Notes/Report: REASON FOR REFERRAL No Information MEDICATIONS Medication SIG (Take, Route, Frequency, Duration) Notes Start Date End Date Status LORazepam 1 MG 1 tablet at bedtime as needed Orally Once a day Active Metoprolol Succinate Active Aspirin 81 MG 1 tablet Orally Once a day Active Omeprazole 20 MG 1 capsule Orally Onc e a day Active Advair Diskus 100-50 MCG/DOSE 1 puff Inhalation once a day Active Flonase 50 MCG/ACT 1 spray in each nost ril Nasally prn Active MiraLax (colon prep) 17 GM/SCOOP mixed with Gatorade or Crystal Light Orally begin at 5:00 p.m. 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) Active confirmed 374967475 Problem Gastroesophageal reflux disease without esophagitis (K21.9) Active confirmed 077863477 Problem Screening for colon cancer (Z12.11) Active confirmed 768544169 Problem Garcia''s esophagus 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.70) Active confirmed Garcia's esophagus (746982060) VITAL SIGNS Temperature 96.8 degrees Fahrenheit 10/06/2023 Blood pressure diastolic 00 mm Hg 10/06/2023 Height 72 in 10/06/2023 Blood pressure systolic 00 mm Hg 10/06/2023 Weight 260 lbs 10/06/2023 BMI 35.26 kg/m2 10/06/2023 Encounters Encounter Location Date Provider Diagnosis [facility] [address] [place] [phone] 11/22/2023 Bob Smith Jr Encounter for screening colonoscopy Z12.11 and Garcia''s esophagus without dysplasia K22.70 [facility] [address] [place] [phone] 10/06/2023 Bob Smith Jr 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 K22.70 and Screening for colon cancer Z12.11 [facility] [address] [place] [phone] 11/28/2023 Bob Smith Jr ASSESSMENTS Encounter Date Diagnosis Assessment Notes Treatment Notes Treatment Clinical Notes 11/22/2023 Encounter for screening colonoscopy (ICD-10 - Z12.11) 11/22/2023 Garcia''s esophagus without dysplasia (ICD-10 - K22.70) 10/06/2023 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 (ICD-10 - K22.70) Garcia esophagus material was printed 10/06/2023 Screening for colon cancer (ICD-10 - Z12.11) PLAN OF TREATMENT Pending Test Test Name Order Date XR BARIUM SWALLOW-ESOPHAGUS 05/29/2015 Future Test Test Name Order Date UPPER GI ENDOSCOPY 05/04/2018 COLONOSCOPY 05/04/2018 UPPER GI ENDOSCOPY 10/06/2023 COLONOSCOPY 10/06/2023 Insurance Providers Payer Name Payer Address Payer Phone Subscriber Number Group Number Insured Name Patient Relationship to Insured Coverage Start Date Coverage End Date [facility] [id number] [place] [address] [phone] [id number] TIM, TYRONE Self - patient is the insured MEDICAL (GENERAL) HISTORY Medical History History ICD Code Nonsustained ventricular tac titocaraniyaa, Dr. Hernández, sick sinus syndrome, pacemaker placement Gastroesophageal reflux dise ase, EGD 07/23 Schatzki ring, intestinal metaplasia/Garcia's on biopsies of the GE junction Anxiety/depression Elevated glucose Hyperlipidemia Degenerative disc disease BPH Colonoscopy 07/23, hyperplas tic polyp, five-year followup due to history of tubular adenomas. KERON Surgical History Surgery Date(Month/Year) ankle surgery left 1998 hernia surgery x2 nose surgery cardiac pacemeker Prostate surgery, [facility] Dr. [facility]
--- OUTSIDE RECORDS SUMMARY | 2024-08-14 15:09 | XMS_ITS ---
Author Organization [facility] Address [address] [place] [phone] Care Team Providers Care Event Host Name Role Phone Angie SMITH, Ben Primary Care Provider Bob Marcos Jr Unavailable [phone] ALLERGIES Allergen (clinical drug ingredient) Drug/Non Drug Allergy documented on EMR Reaction Allergy Type Onset Date Status Pentoxifylline Unknown Drug Allergy Ac tive REASON FOR VISIT Patient presents today for a screening colonoscopy MEDICATIONS Medication SIG (Take, Route, Frequency, Duration) Notes Start Date End Date Status LORazepam 1 MG 1 tablet at bedtime as needed Orally Once a day Active Metoprolol Succinate Active MiraLax (colon prep) 17 GM/SCOOP mixed with Gatorade or Crystal Light Orally begin at 5:00 p.m. 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 [address] [place] [address] 10/06/2023 Bob Smith Jr 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 K22.70 and Screening for colon cancer Z12.11 ASSESSMENTS Encounter Date Diagnosis Assessment Notes Treatment Notes Treatment Clinical Notes 10/06/2023 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 (ICD-10 - K22.70) Garcia esophagus material was printed 10/06/2023 Screening for colon cancer (ICD-10 - Z12.11) PLAN OF TREATMENT Medication Medication Name Sig Start Date Stop Date Notes MiraLax (colon prep) 17 GM/SCOOP mixed with Gatorade or Crystal Light Orally begin at 5:00 p.m. the day before the procedure for 1 day 10/06/2023 Treatment Notes Assessment Notes 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 Ba rrett esophagus material was printed Future Test Test Name Order Date UPPER GI ENDOSCOPY 10/06/2023 COLONOSCOPY 10/06/2023 Next Appt Details Follow Up: 1 Year, Reason: Progress Notes * Examination Category Sub-Category Detail Notes General Examination GENERAL APPEARANCE: in no ac lisbeth distress HEAD: normocephalic EYES: sclera non-icteric NECK/THYROID: no lymphadenopathy HEART: S1, S2 normal, no mu rmurs CHEST: normal shape and exp ansion LUNGS: clear to auscultatio n bilaterally ABDOMEN: soft, nontender, non distended, bowel sounds present, no organomegaly SKIN: anicteric EXTREMITIES: no clubbing, cyanosi s, or edema PSYCH: cognitive function i ntact ORAL CAVITY: mucosa moist
--- OUTSIDE RECORDS SUMMARY | 2024-08-14 15:09 | XMS_ITS ---
Author Organization [facility] Address [address] [place] [phone] Care Team Providers Care Trailer Body Assembler Name Role Phone Ben Adams MD Primary Care Provider Bob Marcos Jr REASON FOR VISIT pathology Encounters Encounter Location Date Provider Diagnosis [facility] [address] [place] [phone] 11/28/2023 Bob Smith Jr PLAN OF TREATMENT No Information
--- OUTSIDE RECORDS SUMMARY | 2024-08-14 15:09 | XMS_ITS ---
Author Name [facility] Organization Unknown Problems Problem Status Onset Date Problem Type Date of Resolution Source Osteoarthritis of ankle and foot, right active EncounterDiagnosisAct [facility]
== END 2024-08-07 15:51 | disposition home or self-care (01) ==
PROVIDERS: PCP Internal Medicine; Visit Provider Internal Medicine Cardiovascular Disease
DX: I77.9 Disorder of arteries and arterioles, unspecified (principal); Z95.0 Presence of cardiac pacemaker; I47.20 Ventricular tachycardia, unspecified
CPT/HCPCS: 93280; 99214

== ENCOUNTER → 2024-08-07 15:17 | Outpatient (BNVA) | payer OTHER, SELFPAY | PROVIDERS: PCP Internal Medicine; Visit Provider Internal Medicine Cardiovascular Disease | DX: I77.9 Disorder of arteries and arterioles, unspecified (principal); I47.20 Ventricular tachycardia, unspecified; Z87.891 Personal history of nicotine dependence; Z45.018 Encounter for adjustment and management of other part of cardiac pacemaker | CPT/HCPCS: 93280 ==

== ENCOUNTER 2024-10-05 11:01 | Outpatient (REF) | payer OTHER, SELFPAY ==
[2024-10-05 11:06] LABS: MANUAL DIFF FLAG NO
[2024-10-05 11:16] LABS: Basophils Percent Auto 0.5 % (0-2); Eosinophils Absolute Auto 0.3 X10*3/uL (0.0-0.4); Eosinophils Percent Auto 4.5 % (0-4); Hematocrit 42.9 % (42.0-52.0); Hemoglobin 14.3 g/dl (14.0-18.0); Imm Gran Abs Auto 0.02 X10*3/uL (0.00-0.03); Imm Gran Pct Auto 0.3 % (0.0-0.4); Lymphocytes Absolute Auto 1.8 X10*3/uL (1.2-4.9); Lymphocytes Percent Auto 29.3 % (20-40); Mean Corpuscular HGB Conc 33.3 g/dl (31.0-36.0); Mean Corpuscular Hemoglobin 29.3 pg (27.0-33.0); Mean Corpuscular Volume 87.9 fL (80.0-98.0); Monocytes Absolute Auto 0.5 X10*3/uL (0.1-1.2); Monocytes Percent Auto 7.9 % (2-11); Neutrophils Absolute Auto 3.6 x10*3/uL (2.0-8.3); Neutrophils Percent Auto 57.5 % (45-73); Platelet Count 246 X10*3/uL (160-400); Red Blood Count 4.88 X10*6/uL (4.60-5.80); Red Cell Distribution Width 12.9 % (11.0-16.0); White Blood Count 6.2 X10*3/uL (4.8-10.8)
--- OUTSIDE RECORDS SUMMARY | 2024-10-05 11:54 | XMS_ITS | Clinical Summary ---
Author Organization [facility] Address [address] [place] [address] Care Team Providers Care Aircraft Riveter Name Role Phone Unavailable Primary Care Provider Unavailabl e Social History Tobacco Use Types Packs/Day Years Used Date Smoking Tobacco: Never Assessed Sex and Gender Information Value Date Recorded Sex Assigned at Not on file Gender Identity Not on file Sexual Orientation Not on file Plan of Treatment Not on file
--- OUTSIDE RECORDS SUMMARY | 2024-10-05 11:54 | XMS_ITS | Data Portability ---
Author Organization [facility] [address] Address [address] [place] [address] Care Team Providers Care Pressed Or Blown Glass Worker Name Role Phone IRON HOUGH Mortgage Manager Assessment No assessment recorded. Plan of Treatment Reminders Order Date Submit Date Provider Last Modified By Organization Details Last Modified Time Details Appointments None recorded. Lab None recorded. Referral None recorded. Procedures None recorded. Surgeries None recorded. Imaging None recorded. Medication Orders Augmentin 875 mg-125 mg tablet 2021 022 [id number], [address] [place], [address], 12:23:22 Patient TargetsNo targets recorded. Patient Instructions Encounter Date Encounter Id Patient Instructions Last Modified By Organization Details Last Modified Time 09/01/2022 [id number] ear infection (otitis media): care instructions [email or web address] Not available 09/01/2022 12:26:24 Thank you for choosing [facility] today! Below are your discharge [...] and Address Organization Details Recorded Time Anxiety 98724778 Active 2021 CHARU CAMPA null, [place] - [facility] 2 11:28:25 Gastroesophage al reflux disease 315317133 Active 2021 CHARU LOKESH null, PA - [facility] 2 11:28:33 Asthma 367954924 Active 2021 CHARU LOKESH null, PA - [facility] 2 11:28:48 Hypertensive disorder 07997067 Active 2021 CHARU LOKESH null, PA - [...] Not Available Vitals Date Recorded Body height Provider Name an d Address Organization Details Last Updated DateTime 09/01/2022 182.88 cm CHARU CAMPA PA - [facility] 09/01/2022 11:31:15 Date Recorded Body mass index (BMI) Body weight Provider Name and Address Organization Details Last Updated DateTime 09/01/2022 34.4 kg/m2 069112.46 g CHARU CAMPA [place] - [facility] 09/01/2022 11:31:23 Date Recorded Pain severity - 0-10 verbal numeric rating [Score] - Reported Provider Name and Address Organization Details Last Updated DateTime 09/01/2022 6 CHARU CAMPA PA - [facility] 09/01/2022 11:31:30 Date Recorded Heart rate Provider Name an d Address Organization Details Last Updated DateTime 09/01/2022 89 /min CHARU CAMPA PA - [facility] 09/01/2022 11:34:02 Date Recorded Oxygen saturation Oxygen saturation in Arterial blood by Pulse oximetry Provider Name and Address Organization Details Last Updated DateTime 09/01/2022 97 % 97 % CHARU CAMPA PA - [facility] 09/01/2022 11:34:05 Date Recorded Respiratory rate Provider Name a nd Address Organization Details Last Updated DateTime 09/01/2022 18 /min CHARU CAMPA PA - [facility] 09/01/2022 11:34:07 Date Recorded Body temperature Provider Name a nd Address Organization Details Last Updated DateTime 09/01/2022 97.4 [degF] CHARU CAMPA PA - [facility] 09/01/2022 11:35:02 Date Recorded Systolic blood pressure Diastolic blood pressure Provider Name and Address Organization Details Last Updated DateTime 09/01/2022 133 mm[Hg] 89 mm[Hg] CHARU CAMPA PA - [facility] 09/01/2022 11:32:47 Social History Question Answer Notes LastModified by Organizat ion Details LastModified Time Tobacco Smoking Status Never Smoker CHARU avilez, [place] - [facility] 09/01/2022 11:30:21 What Is Your [...] Diagnosis/Indication Diagnosis SNOMED-CT Code Diagnosis ICD10 Code Diagnosis Note [id number] [address] [address] 06/02/2021 08:11:31 06/02/2021 10:16:17 [id number] [address] [place] [address] 01/27/2020 19:38:44 01/27/2020 20:01:20 [id number] [address] [address] 10/01/2021 10:37:39 10/01/2021 12:06:52 [id number] [address] [place] [address] 11/16/2020 10:17:35 11/16/2020 11:28:11 [id number] [address] [place] [address] 10/05/2021 08:18:28 10/05/2021 09:43:15 [id number] [facility] [address] [place] [address] 09/01/2022 11:03:18 09/01/2022 12:26:47 Acute right otitis media [id number] H66.91 Health Concerns Section Related Observation LastModified by Organization Detai ls LastModified Time None Recorded Concern Status LastModified by Organization Details LastModified Time None Recorded Advance Directives Directive None Recorded Payers Encounter Date Sequence Insurance Name Policy Number Policy Hogan Covered Member ID Hogan Member ID Guarantor Name 11/16/2020 1 [facility] ([facility] [id number] [facility] [id number] [facility] 06/02/2021 1 [facility] ([facility]) [id number] [facility] [id number] [facility] 09/01/2022 1 [facility] (O) [id number] [facility] [id number] [facility] Notes Date Note Type Note Provider Name [...] an ENT in the past. JERMAN CUTLER [facility] [place], [phone], [place] - [facility] 09/01/2022 12:26:29
--- OUTSIDE RECORDS SUMMARY | 2024-10-05 11:54 | XMS_ITS | Clinical Summary ---
Author Organization [facility] Address [address] [place] [address] Care Team Providers Care Environmental Epidemiologist Name Role Phone Ben Adams MD Primary Care Provider [phone] Allergies No known active allergies Social History Tobacco Use Types Packs/Day Years Used Date Smoking Tobacco: Never Assessed Sex and Gender Information Value Date Recorded Sex Assigned at Male 11/14/2023 4:22 PM EDT Gender Identity Male 11/14/2023 4:22 PM EDT Sexual Orientation Other 11/14/2023 4: 22 PM EDT Plan of Treatment Upcoming Encounters Date Type Department Care Team (Late st Contact Info) Description 12/04/2024 3:45 PM EDT Office [place] [facility] [place] [address] Arsen Montoya MD [address] [place] [address] Health Maintenance Due Date Last Done Comments Hepatitis C Virus Screening 1960 HIV Screening 1972 DTaP/Tdap/Td Vaccines (1 - Tdap) 1978 Colonoscopy 2004 Pneumococcal Vaccines 50+ (1 of 1 - PCV) 2009 Zoster (Shingles) Vaccine (1 of 2) 2009 Influenza Vaccine 04/05/2024 08/15/2008 COVID-19 Vaccine ( - 2023-2 5 season) 2024 RSV Vaccine 60 years and old er and Patients (1 - 1-dose 75+ series) 2034 Hepatitis B Vaccines Aged Out No long er eligible based on patient's age to complete this topic Care Teams Environmental Epidemiologist Relationship Specialty Start Date End Date Ben Adams MD [address] [place] [address] [place] [address] PCP - General Internal Medicine 12/06/23
[2024-10-05 12:18] LABS: Alanine Aminotransferase 16 U/L (0-40); Albumin Level 3.9 g/dL (3.5-5.0); Alkaline Phosphatase 64 U/L (39-117); Anion Gap 8 (12-20); Aspartate Amino Transferase 29 U/L (5-37); Bilirubin Total 0.9 mg/dL (0.0-1.0); Blood Urea Nitrogen 12 mg/dL (9-16); Calcium 9.3 mg/dL (8.4-10.2); Carbon Dioxide 28 mmol/L (22-29); Chloride 110 mmol/L (96-108); Cholesterol 76 mg/dL (<200); Estimated Glomerular Filt Rate > 60; Glucose Fasting 103 mg/dL (60-99); HDL Cholesterol 25 mg/dL (>40); LDL Cholesterol Calculated 40 mg/dL (<100); Potassium 4.3 mmol/L (3.3-5.1); Sodium 142 mmol/L (135-145); Total Protein 6.7 g/dL (6.5-8.0); Triglycerides 58 mg/dL (<150)
[2024-10-05 12:41] LABS: PSA,Total (Free>4and<10) 1.56 ng/mL (0.00-4.00)
== END 2024-10-05 11:02 | disposition home or self-care (01) ==
LOC: HO.LNP 11:01
PROVIDERS: Visit Provider Internal Medicine
DX: Z00.00 Encounter for general adult medical examination without abnormal findings (principal); N40.0 Benign prostatic hyperplasia without lower urinary tract symptoms; E78.00 Pure hypercholesterolemia, unspecified; Z12.5 Encounter for screening for malignant neoplasm of prostate
CPT/HCPCS: 80053; 80061; 84153; 85025

== ENCOUNTER 2024-10-29 09:53 | Emergency (ER) | payer OTHER, SELFPAY ==
--- NOTE | ~2024-10-29 | XR_ITS ---
EXAMINATION: XR CHEST 1 VIEW HISTORY: chest pain COMPARISON: There are no prior studies for comparison. FINDINGS: Two AP portable views of the chest performed at 10:07 AM are submitted. A left subclavian dual-chamber pacemaker is unchanged in position. The lungs are expanded and clear. There is no pleural effusion, pneumothorax, or pulmonary vascular congestion. The heart is normal in size. The bones are intact. XR/XR chest 1V IMPRESSION: No acute cardiopulmonary abnormality. Electronically signed by: Audie Yuan MD 10/29/2024 11:04 AM FARA
[2024-10-29 09:55] VITALS: BP 114/77; PULSE 72; RESP 20; TEMP 36.4; O2SAT 96; BMI 34.0
--- NOTE | 2024-10-29 09:55 | ECG_ITS ---
Test Reason : ELECTROCUTION Blood Pressure : */* mmHG Vent. Rate : 71 BPM Atrial Rate : 71 BPM P-R Int : 240 ms QRS Dur : 114 ms QT Int : 410 ms P-R-T Axes : 37 -16 29 degrees QTcB Int : 445 ms Sinus rhythm with 1st degree A-V block Otherwise normal ECG When compared with ECG of 21-Sep-2022 11:44, DC interval has increased Referred By: Generic ED Physician Electronically Signed By: TAIWO HAAS
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
[2024-10-29 10:10] LABS: MANUAL DIFF FLAG NO
[2024-10-29 10:11] LABS: Basophils Percent Auto 0.5 % (0-2); Eosinophils Absolute Auto 0.2 X10*3/uL (0.0-0.4); Eosinophils Percent Auto 3.2 % (0-4); Hematocrit 41.6 % (42.0-52.0); Hemoglobin 14.3 g/dl (14.0-18.0); Imm Gran Abs Auto 0.01 X10*3/uL (0.00-0.03); Imm Gran Pct Auto 0.2 % (0.0-0.4); Lymphocytes Absolute Auto 1.5 X10*3/uL (1.2-4.9); Lymphocytes Percent Auto 24.5 % (20-40); Mean Corpuscular HGB Conc 34.4 g/dl (31.0-36.0); Mean Corpuscular Hemoglobin 29.4 pg (27.0-33.0); Mean Corpuscular Volume 85.6 fL (80.0-98.0); Mean Platelet Volume 9.8 fL (9.4-12.4); Monocytes Absolute Auto 0.5 X10*3/uL (0.1-1.2); Monocytes Percent Auto 8.1 % (2-11); Neutrophils Absolute Auto 3.8 x10*3/uL (2.0-8.3); Neutrophils Percent Auto 63.5 % (45-73); Platelet Count 234 X10*3/uL (160-400); Red Blood Count 4.86 X10*6/uL (4.60-5.80); Red Cell Distribution Width 12.4 % (11.0-16.0)
[2024-10-29 10:35] LABS: Alanine Aminotransferase 18 U/L (0-40); Albumin Level 3.9 g/dL (3.5-5.0); Anion Gap 11 (12-20); Aspartate Amino Transferase 28 U/L (5-37); Bilirubin Total 0.7 mg/dL (0.0-1.0); Blood Urea Nitrogen 12 mg/dL (9-16); Calcium 8.8 mg/dL (8.4-10.2); Carbon Dioxide 24 mmol/L (22-29); Chloride 109 mmol/L (96-108); Creatinine Clr Calc Pharmacy 95.8; Estimated Glomerular Filt Rate > 60; Glucose Random 117 mg/dL (60-115); Potassium 3.7 mmol/L (3.3-5.1); Sodium 140 mmol/L (135-145); Total Protein 6.8 g/dL (6.5-8.0)
[2024-10-29 10:40] LABS: Troponin-I High Sensitivity < 2.7 ng/L (<3.5-35.0)
--- OUTSIDE RECORDS SUMMARY | 2024-10-29 11:24 | XMS_ITS ---
Author Organization Ben Adams MD Address [address] [place] [id number] Care Team Providers Care Bow Repairer Custom Name Role Phone Ben Adams Primary Care Provider Allergies No Known Allergies REASON FOR VISIT [...] Problem Status W/U Status Risk Notes Problem 01705015 Essential hypertension (I10) Active confirmed Vital Signs Blood pressure systolic 148 mm Hg 06/07/20 24 Blood pressure diastolic 76 mm Hg 024 Height 70 in 06/07/2024 Weight 268 lbs 06/07/2024 BMI 38.45 kg/m2 06/07/2024 weight is down 2 poiunds sin ce 824 Encounters Encounter Location Date Provider Diagnosis Ben Adams MD [address] [facility] [address] [place] [id number] 06/07/2024 Ben Adams Ophthalmic migraine G43.109 and [...] Next Appt Details Provider Name:Ben Benavides ier, 04/12/2025 07:30:00 AM, [address], [address], [place], [id number], Provider Name:Ben Benavides lynnetter, 04/19/2025 09:00:00 AM, [address], [address], [place], [phone], Provider Name:Ben Benavides ier, 10/08/2025 07:45:00 AM, [address], [address], [place], [phone], Provider Name:Ben Benavides ier, 10/15/2025 08:30:00 AM, [address], [address], [place], [id number], Progress Notes * Filipe SHARP ODOB:[birth year] (63 yo M)Acc No.[id number]:06/07/2024 Progress Notes Patient:?Filipe Sharp O Provider:?Ben Adams MD :1960???Age:63 Y???Sex:Male Jose e:06/07/2024 Address:[address] [place] [address] Melissa M[place], [phone] Subjective: * Chief Complaints: * ???High blood blood pressure this morning was 153/93 pulse 53has alittle Head ache had a migraine last night * HPI: ???Symptom(s):? hear as emegency for blood pressure. * ROS:?General/Constitutional:?Denies?Chills.?Denies?Fatigue.?Denies?Fever.?Admits?Headache.?ENT:?Denies?Sore throat.?Respiratory:?Denies?Cough.?Denies?Shortness of breath at rest.?Denies?Shortness of breath with exertion.?Cardiovascular:?Denies?Chest pain at rest.?Denies?Chest pain with exertion.?Denies?Dizziness.?Gastrointestinal:?Denies?Diarrhea.?Denies?Nausea.?Neurologic:?Patient complaining of?rt arm went num and the roof of his mouth and then got an ocular migraine. dr hernández made appt with neurologist for that.? * Medical History:? * Surgical History:? * Hospitalization/Major Diagno stic Procedure:? * Medications:?TakingRosuvasta tin Calcium 5 MG Tablet 1 tablet Orally Once a daySymbicort 80-4.5 MCG/ACT Aerosol 1 puff as needed Inhalation every 4 hrsAspir-81 81 MG Tablet Delayed Release 1 tablet Orally Once a dayHydrocortisone Sai- Pramoxine 2.5-1 % Cream 1 application Externally Three times a dayHydrocortisone Sai- Pramoxine 2.5-1 % Cream 1 application Externally Three [...] reviewed and reconciled with the patient * Allergies:?N.K.D.A.yes[Aller gies Verified] Objective: * Vitals:?Ht: 70, Wt:268, BMI: 38.45, BP:148/76, Repeat BP:130/88 weight is down 2 poiunds since 04-30-24. * Examination: ???General Examination: ?GENERAL APPEARANCE:? alert, well hydrated, in no distress , male.?HEAD:? normocephalic.?SKIN:? good turgor.?HEART:? regular rate and rhythm, no murmurs, rubs, gallops.?LUNGS:? no wheezes, rales, rhonchi, good air movement, clear to auscultation bilaterally.? 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 Plan: * Treatment: 2.?Essential hypertension? Notes: is doing well now. the elevated readings are related to anxiety?? * Immunizations:? Influenza High Dose (Not administered - Refused: Patient decision) * Procedure Codes:? * * Sign off status: Completed true * Provider:?Ben Adams MD Date:?1 Generated for Zahra law/Salome/Radhaitting on:?10/29/2024 11:24 AM EST History and Physical Notes * HPI [...]
--- OUTSIDE RECORDS SUMMARY | 2024-10-29 11:24 | XMS_ITS | Data Portability ---
Author Organization JERMAN [facility] [address] Address [address] [place] [address] Care Team Providers Care High School Coach Name Role Phone IRON HOUGH Sanding Machine Operator Or Tender Assessment No assessment recorded. Plan of Treatment Reminders Order Date Submit Date Provider Last Modified By Organization Details Last Modified Time Details Appointments None recorded. Lab None recorded. Referral None recorded. Procedures None recorded. Surgeries None recorded. Imaging None recorded. Medication Orders Augmentin 875 mg-125 mg tablet [address] [id number], [address] [place], [address], 12:23:22 Patient TargetsNo targets recorded. Patient Instructions Encounter Date Encounter Id Patient Instructions Last Modified By Organization Details Last Modified Time 09/01/2022 [id number] ear infection (otitis media): care instructions [email or web address] Not available 09/01/2022 12:26:24 Thank you for choosing [facility] today! Below are your discharge [...] and Address Organization Details Recorded Time Anxiety 10094150 Active 2021 CHARU CAMPA null, [place] - [facility] 2 11:28:25 Gastroesophage al reflux disease 994683876 Active 2021 CHARU LOKESH null, [place] - [facility] 2 11:28:33 Asthma 743228753 Active 2021 CHARU LOKESH null, [place] - [facility] 2 11:28:48 Hypertensive disorder 34066118 Active 2021 CHARU LOKESH null, PA - [...] height Body mass index (BMI) Body weight Pain severity - 0-10 verbal numeric rating [Score] - Reported Heart rate Oxygen saturation Oxygen saturation in Arterial blood by Pulse oximetry Respiratory rate Body temperature Systolic blood pressure Diastolic blood pressure Provider Name and Address Organization Details Last Updated DateTime 2 182.88 cm 34.4 kg/m2 124987. 46 g 6 89 /min 97 % 97 % 18 [...] SNOMED-CT Code Diagnosis ICD10 Code Diagnosis Note [id number] [address] [place] [address] 06/02/2021 08:11:31 06/02/2021 10:16:17 [id number] [address] [facility] [place] [address] 01/27/2020 19:38:44 01/27/2020 20:01:20 [id number] [address] [place] [address] 10/01/2021 10:37:39 10/01/2021 12:06:52 [id number] [address] [place] [address] 11/16/2020 10:17:35 11/16/2020 11:28:11 [id number] [address] [place] [phone] 10/05/2021 08:18:28 10/05/2021 09:43:15 [id number] JERMAN CORDOBA [address] [place] [address] 09/01/2022 11:03:18 09/01/2022 12:26:47 Acute right otitis media [id number] H66.91 Health Concerns Section Related Observation LastModified by Organization Detai ls LastModified Time None Recorded Concern Status LastModified by Organization Details LastModified Time None Recorded Advance Directives Directive None Recorded Payers Encounter Date Sequence Insurance Name Policy Number Policy [place] Covered Member ID Hogan Member ID Guarantor Name 11/16/2020 1 [facility] (O) [id number] Filipe Sharp [id number] Filipe Sharp 06/02/2021 1 [facility] (PPO) [id number] Filipe Sharp [id number] Filipe Sharp 09/01/2022 1 [facility] (O) [id number] Filipe Sharp [id number] Filipe Sharp Notes Date Note Type Note [...] an ENT in the past. JERMAN CUTLER [address] [place], [place] [address]ress Jacques, NILO Peters, [address], [place] - [facility] 09/01/2022 12:26:29
--- OUTSIDE RECORDS SUMMARY | 2024-10-29 11:24 | XMS_ITS ---
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
--- OUTSIDE RECORDS SUMMARY | 2024-10-29 11:24 | XMS_ITS ---
Author Organization [facility] Address [address] [place] [address] Care Team Providers Care Locomotive Crane Operator Name Role Phone Ben Adams MD Primary Care Provider Bob Marcos Jr [phone] REASON FOR VISIT pathology Encounters Encounter Location Date Provider Diagnosis [facility] [address] [place] [phone] 11/28/2023 Bob Smith Jr PLAN OF TREATMENT No Information
--- OUTSIDE RECORDS SUMMARY | 2024-10-29 11:24 | XMS_ITS ---
Author Organization Ben Adams MD Address [address] [place] [phone] Care Team Providers Care Assisted Sales Representative Name Role Phone Ben Adams Primary Care Provider [phone] Allergies No Known Allergies Results Component Value [...] 20 MG TAKE 1 CAPSULE BY MO [facility] ONCE DAILY Orally Once a [...] kg/m2 10/12/2024 weight is down 15 pounds [facility] [place] 10-3-24 Encounters Encounter Location Date Provider Diagnosis Ben Adams MD [address] [place], [place] [phone] 10/12/2024 Ben Adams Controlled type 2 di [...] Up: 6 Months, Reason: Provider Name:Ben encarnacion, 04/12/2025 07:30:00 AM, [address] [place] [address], Suite [facility], [place], [place], [phone], Provider Name:Ben churchr, 04/19/2025 09:00:00 AM, [address] [place] [address], Suite [facility], [place], [place], [phone], Provider Name:Ben encarnacion, 10/08/2025 07:45:00 AM, [address] [place] [address], Suite [facility], [place], [place], [phone], Provider Name:Ben encarnacion, 10/15/2025 08:30:00 AM, [address] [place] [address], Suite [facility], [place], [place], [phone], Progress Notes * Filipe SHARP ODOB:[birth year] (64 yo M)Acc No.[id number]:10/12/2024 Progress Notes Patient:?Filipe SHARP O Provider:?Ben Adams MD :1960???Age:64 Y???Sex:Male Jose e:10/12/2024 Address:[address] [place] [address] Melissa MATA, [id number] Subjective: * Chief Complaints: * ???Annual visit * HPI: ???Depression Screening:?PHQ-9?Little interest or pleasure in doing things?Not at all,?Feeling down, depressed, or hopeless?Not at all,?Trouble falling or staying asleep, or sleeping too much?Not at all,?Feeling tired or having little energy?Not at all,?Poor appetite or overeating?Not at all,?Feeling bad about yourself or that you are a failure, or have let yourself or your family down?Not at all,?Trouble concentrating on things, such as reading the newspaper or watching television?Not at all,?Moving or speaking so slowly that other people could have noticed; or the opposite, being so fidgety or restless that you have been moving around a lot more than usual?Not at all,?Thoughts that you would be better off or of hurting yourself in some way?Not at all,?Total Score?0.?Interpretation and Intervention?Depression Screening Findings?Negative,?Follow-Up for Depression?: review of PHQ-9 found negative result, no follow-up needed.?here for yearly evaluation. ???Communication Needs:?Communication Needs?Does the patient have a hearing impairment?No,?Does the patient have a vision impairment??Yes,?If yes, what is the vision impairment??Glasses,?Does the patient have a cognition impairment??No.?Fall Risk:?History?Have you had any falls with injury in the past year??No,?Have you had two or more falls in the past year??No.?SDOH Questions:?SDOH Questions?In the past year have you been worried about losing housing??No,?In the past year have you or any family members you live with been unable to get any of the following when it was really needed? Check all that apply:?None.?Symptom(s):? patient is a 64 yo male here for? annual visit itg review of recent labs and follow up of chronic issues. * ROS:?General/Constitutional:?Change in appetite?denies.?Chills?denies.?Fever?denies.?Ophthalmologic:?Blurred vision?denies.?Discharge?denies.?Pain?denies.?ENT:?Decreased hearing?denies.?Sore throat?denies.?Swollen glands?denies.?Endocrine:?Cold intolerance?denies.?Excessive thirst?denies.?Heat intolerance?denies.?Weight loss?denies.?Respiratory:?Cough?denies.?Shortness of breath at rest?denies.?Shortness of breath with exertion?denies.?Wheezing?denies.?Cardiovascular:?Chest pain at rest?denies.?Chest pain with exertion?denies.?Irregular heartbeat?denies.?Shortness of breath?denies.?Gastrointestinal:?Abdominal pain?denies.?Change in bowel habits?denies.?Diarrhea?denies.?Nausea?denies.?Rectal bleeding?denies.?Vomiting?denies .?Genitourinary:?Blood in urine?denies.?Difficulty urinating?denies.?Frequent urination?denies.?Musculoskeletal:?Painful joints?denies.?Weakness?denies.?Skin:?Dry skin?denies.?Itching?denies.?Denies?Mole(s),? changes in moles, new moles or any lesions of concern.?Denies?Photosensitivity.?Rash?denies.?Neurologic:?Dizziness?denies.?Fainting?denies.?Headache?denies.? * Medical History:? * Surgical History:? * Hospitalization/Major Diagno stic Procedure:? * Family History:?Father: dece ased 83 yrs.?Mother: 86 yrs.?2 brother(s) . 3 son(s) . .? Father- Cirrhosis Mother- natural causes CVA's, No pertinent family medical history, Denies mental health/substance abuse family history, No pertinent family medical history, Denies mental health/substance abuse family history. * Social History:?Tobacco Use:?Tobacco Use/Smoking?Patient is a?former smoker,?How long has it been since you last smoked??> 10 years,?Additional Findings: Tobacco Non-User?Former smoker, currently using no form of tobacco.?Drugs/Alcohol:?Alcohol Screen?Did you have a drink containing alcohol in the past year??No,?Points?0,?Interpretation?Negative.?Miscellaneous:?Caffeine: yes, frequency:, 1-2 cups per day. Children: yes. Community involvements: no. Exercise: no. Home smoke detector use: yes. Housing: owning. Living with: spouse. Marital status: . Occupation: works full- time. Pets: cats: dogs: 3 dogs. Travel outside of the [place]: no. * Medications:?TakingOzempic ( 0.25 or 0.5 MG/DOSE) 2 MG/3ML Solution Pen-injector [...] Allergies:?N.K.D.A.yes[Aller gies Verified] Objective: * Vitals:?Ht: 70, Wt: 253, BMI :36.3, BP:108/70, Wt-k.76. weight is down 15 pounds since 06-07-24. * ???Past Orders: Lab:Lipid Panel * Collection Date 10/05/2024 08/06/2024 Collection Time 07:15 AM 06:54 AM Order Date 10/05/2024 08/06/2024 Triglycerides 58 (Ref Range: <150 mg/dL) 118 (Ref Range: <150 mg/dL) Cholesterol 76 (Ref Range: <200 mg/dL) 183 (Ref Range: <200 mg/dL) LDL Cholesterol Calculated 40 (Ref Range: <100 mg/dL) 130?H (Ref Range: <100 mg/dL) HDL Cholesterol 25?L (Ref Range: >40 mg/dL) 30?L (Ref Range: >40 mg/dL) ???Lab:Complete Blood Count Auto Diff (Order Date - 10/05/2024) (Collection Date & Time - 10/05/2024 07:15 AM)?ValueReference Range?White Blood Count6.24.8-10.8 - X10*3/uL?Red Blood Count4.884.60-5.80 - X10*6/uL?Qgpcdmugek57.314.0-18.0 - g/dl?Oaivhrubhy74.942.0-52.0 - %?Mean Corpuscular Jdzfbk67.980.0-98.0 - fL?Mean Corpuscular Fevfsmpmbg27.327.0-33.0 - pg?Mean Corpuscular HGB Conc33.331.0-36.0 - g/dl?Red Cell Distribution Width12.911.0-16.0 - %?Platelet Ucusk581108-142 - X10*3/uL?Mean Platelet Zowrpz98.09.4-12.4 - fL?Neutrophils Percent Auto57.545-73 - %?Imm Gran Pct Auto0.30.0- 0.4 - %?Lymphocytes Percent Auto29.320-40 - %?Monocytes Percent Auto7.92-11 - %?Eosinophils Percent Auto4.5H0-4 - %?Basophils Percent Auto0.50-2 - %?NRBC Pct Auto0.00.0-0.2 - /100WBC?Neutrophils Absolute Auto3.62.0-8.3 - x10*3/uL?Imm Gran Abs Auto0.020.00-0.03 - X10*3/uL?Lymphocytes Absolute Auto1.81.2-4.9 - X10*3/uL?Monocytes Absolute Auto0.50.1-1.2 - X10*3/uL?Eosinophils Absolute Auto0.30.0-0.4 - X10*3/uL?Basophils Absolute Auto0.00.0-0.2 - X10*3/uL?NRBC Abs Auto0.0000.0-0.012 - X10*3/uL ???Lab:Comprehensive [place]. Panel Fast (Order Date - 10/05/2024) (Collection Date & Time - 10/05/2024 07:15 AM)?ValueReference Range?Vriuov057775- 145 - mmol/L?Bilirubin Total0.90.0-1.0 - mg/dL?Aspartate Amino Iyaxwkfehcv104-92 - U/L?Alanine Rbddiefxqdxoacxg181-04 - U/L?Total Protein6.76.5-8.0 - g/dL?Albumin Level3.93.5-5.0 - g/dL?Alkaline Ajgisdrghqj1295-066 - U/L?Potassium4.33.3-5.1 - mmol/L?Yfxsekvg055L57-049 - mmol/L?Carbon Cfucqfe5714-10 - mmol/L?Anion Moi3B98-41 -?Blood Urea Xkgmhwjq245-73 - mg/dL?Creatinine0.990.5-1.4 - mg/dL?Estimated Glomerular Filt Rate> 60-?Glucose Pnpznuy157I33-64 - mg/dL?Calcium9.38.4-10.2 - mg/dL ???Lab:PSA,Total (Free>4and<10) (Order Date - 10/05/2024) (Collection Date & Time - 10/05/2024 07:15 AM)?ValueReference Range?PSA,Total (Free>4and<10)1.560.00-4.00 - ng/mL * Examination: ???General Examination: ?GENERAL APPEARANCE:?well developed, well nourished, in no acute distress.?HEAD:?normocephalic, atraumatic.?EYES:?pupils equal, round, reactive to light and accommodation, sclera non-icteric.?EARS:?normal.?ORAL CAVITY:?mucosa moist.?THROAT:?clear.?NECK/THYROID:?neck supple, full range of motion, no cervical lymphadenopathy, no bruits.?SKIN:?warm and dry, no suspicious lesions.?HEART:?regular rate and rhythm, S1, S2 normal, no murmurs.?LUNGS:?clear to auscultation bilaterally.?ABDOMEN:?soft, nontender, nondistended, bowel sounds present, normal, no organomegaly , no masses palpable.?RECTAL EXAM:?normal tone, no external hemorrhoids, no masses palpable, prostate normal, stool guaiac negative.?MALE GENITOURINARY:?circumcised, no testicular mass, testes descended bilaterally, testes descended bilaterally.?EXTREMITIES:?no clubbing, cyanosis, or edema.?NEUROLOGIC:?nonfocal, motor strength normal upper and lower extremities, sensory exam intact.?FOOT EXAM:?.? Assessment: * Assessment: 1.?Annual physical exam - Z0 0.00 (Primary)???2.?Controlled type 2 diabetes mellitus without complication, without long-term current use of insulin - E11.9???3.?Recent weight loss - R63.4???4.?KERON (obstructive sleep apnea) - G47.33 ??5.?Mild intermittent asthma without complication - J45.20???6.?Reflux esophagitis - K21.00???7.?Pure hypercholesterolemia - E78.00???8.?Essential hypertension - I10???9.?Colon cancer screening - Z12.11 ??10.?Depression screening - Z13.31??? Plan: * Treatment: 2.?Controlled type 2 diabete s mellitus without complication, without long-term current use of insulin? Continue Ozempic (0.25 or 0.5 MG/DOSE) Solution Pen-injector, 2 MG/3ML, as directed, Subcutaneous.?? Notes: doing great with weight loss, will continue current regiment?? 3.?Recent weight loss? Notes: on ozempic, will continue to monitor?? 4.?KERON (obstructive sleep ap gavin)? Notes: doesn't use cpap?? 5.?Mild intermittent asthma without complication? Continue ProAir HFA Aerosol Solution, 108 (90 Base) MCG/ACT, 1 puff as needed, Inhalation, every 4 hrs;?Continue Montelukast Sodium Tablet, 10 MG, TAKE 1 TABLET BY MOUTH ONCE DAILY.?? Notes: stable, will continue current regiment?? 6.?Reflux esophagitis? Continue Omeprazole Capsule Delayed Release, 20 MG, TAKE 1 CAPSULE BY MOUTH ONCE DAILY, Orally, Once a day.?? Notes: doing well, will continue current regiment?? 7.?Pure hypercholesterolemia ? Continue Zetia Tablet, 10 MG, 1 tablet, Orally, Once a day;?Continue Rosuvastatin Calcium Capsule Sprinkle, 10 MG, 1 tablet, Orally, Once a day.?? Notes: stable, will continue current regiment?? 8.?Essential hypertension? Continue Metoprolol Succinate ER Tablet Extended Release 24 Hour, 50 MG, take 1 tablet by mouth once daily, Orally, Once a day.?? Notes: stable, will continue current regiment?? 9.?Colon cancer screening?LAB: Occult Blood, Stool, Guaiac (Collection Date & Time - 10/12/2024)?Negative ? Value Reference Range ?Occult Blood, Stool, Guaiac Neg Notes: guaiac negtive??10.?Depression screening? Notes: negative screen?? * Procedure Codes:?63142 TEST FOR BLOOD, FECES * Follow Up:?6 Months * * Sign off status: Completed true * Provider:?Ben Adams MD Date:?0 10/12/2024 Generated for Zahra law/Salome/Radhaitting on:?10/29/2024 11:24 AM [...] had two or more falls in the st year?: No Communication Needs Communication Needs Does the patient have a hearing impairment: No Does the patient have a vision impairmen t?: Yes ?If yes, what is the vision impairment?: Glasses [...]
--- OUTSIDE RECORDS SUMMARY | 2024-10-29 11:24 | XMS_ITS ---
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
--- OUTSIDE RECORDS SUMMARY | 2024-10-29 11:24 | XMS_ITS | Clinical Summary ---
Author Organization [facility] Address [address] [place] [address] Care Team Providers Care Chair And Couch Maker Name Role Phone Unavailable Primary Care Provider Unavailabl e Social History Tobacco Use Types Packs/Day Years Used Date Smoking Tobacco: Never Assessed Sex and Gender Information Value Date Recorded Sex Assigned at Not on file Gender Identity Not on file Sexual Orientation Not on file Plan of Treatment Not on file
--- OUTSIDE RECORDS SUMMARY | 2024-10-29 11:24 | XMS_ITS | Clinical Summary ---
Author Organization [facility] Address [address] [place] [address] Care Team Providers Care Projector Operator Name Role Phone Ben Adams MD Primary Care Provider [phone] Allergies No known active allergies Social History [...] 3:45 PM EDT Office [place] [facility] [address] Arsen Montoya MD [address] [place] [address] Health Maintenance Due Date Last Done Comments [...] age to complete this topic Care Teams Projector Operator Relationship Specialty Start Date End Date Ben Adams MD [address] [place] [address] [place] [address] PCP - General Internal Medicine 12/06/23
--- OUTSIDE RECORDS SUMMARY | 2024-10-29 11:25 | XMS_ITS | Patient Health Record ---
Author Organization [facility] Address [address] [place] [phone] Care Team Providers Care Order Entry Administrator Name Role Phone Angie SMITH, Ben Primary Care Provider Bob Marcos Jr ALLERGIES Allergen (clinical drug ingredient) Drug/Non Drug Allergy documented on EMR Reaction Allergy Type Onset Date Status Pentoxifylline Unknown Drug Allergy Ac tive RESULTS Component Value Reference Range Notes Pathology Reviewed date:11/28/2023 08:29:13 AM Interpretation: Performing Lab:[facility], [address] [place] [phone] Notes/Report: REASON FOR REFERRAL No Information MEDICATIONS [...] 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) Active confirmed [id number] Problem Gastroesophageal reflux disease without esophagitis (K21.9) Active confirmed 638474260 Problem Screening for colon cancer (Z12.11) Active confirmed 683156719 Problem Garcia''s esophagus 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.70) Active confirmed Garcia's esophagus (903407963) Encounters Encounter Location Date Provider Diagnosis [facility] Outpatient [address] [place], [place] [phone] 11/22/2023 Bob Smith Jr Encounter for screening colonoscopy Z12.11 and Garcia''s esophagus without dysplasia K22.70 [facility] [address] [place] [address] 11/28/2023 Bob Smith Jr ASSESSMENTS Encounter Date Diagnosis Assessment Notes Treatment Notes Treatment Clinical Notes 11/22/2023 Encounter for screening colonoscopy (ICD-10 - Z12.11) 11/22/2023 Garcia''s esophagus without dysplasia (ICD-10 - K22.70) PLAN OF TREATMENT Pending Test Test Name Order Date XR BARIUM SWALLOW-ESOPHAGUS 05/29/2015 Future Test Test Name Order Date UPPER GI ENDOSCOPY 05/04/2018 COLONOSCOPY 05/04/2018 UPPER GI ENDOSCOPY 10/06/2023 COLONOSCOPY 10/06/2023 Insurance Providers Payer Name Payer Address Payer Phone Subscriber Number Group Number Insured Name Patient Relationship to Insured Coverage Start Date Coverage End Date [facility] [address] [place] [address] [id number] TYRONE DUMONT Self - patient is the insured MEDICAL (GENERAL) HISTORY Medical History History ICD Code Nonsustained ventricular tac Dr. Edgar gabriel, sick sinus syndrome, pacemaker placement Gastroesophageal reflux [...]
[2024-10-29 11:39] VITALS: BP 119/81; PULSE 65; RESP 16; O2SAT 96
[2024-10-29 12:04] LABS: Troponin-I High Sensitivity < 2.7 ng/L (<3.5-35.0)
[2024-10-29 12:55] VITALS: BP 142/85; PULSE 71; RESP 18; O2SAT 99
[2024-10-29 12:56] VITALS: BP 142/85; PULSE 71; RESP 18; TEMP -17.7; TEMP 0; O2SAT 99
[2024-10-29 13:04] LABS: Alkaline Phosphatase 70 U/L (39-117)
== END 2024-10-29 12:57 | disposition home or self-care (01) ==
PROVIDERS: Emergency Provider Emergency Medicine; PCP Internal Medicine
DX: T75.4XXA Electrocution, initial encounter (principal); I44.0 Atrioventricular block, first degree; R20.0 Anesthesia of skin; J44.9 Chronic obstructive pulmonary disease, unspecified; W86.8XXA Exposure to other electric current, initial encounter; Y93.9 Activity, unspecified; Y92.9 Unspecified place or not applicable; Y99.8 Other external cause status; R42 Dizziness and giddiness; Z79.899 Other long term (current) drug therapy
CPT/HCPCS: 36415; 71045; 80053; 82550; 84484; 85025; 93005; 99283; 99284

== ENCOUNTER → 2024-10-29 09:55 | Outpatient (BNV) | payer OTHER, SELFPAY | PROVIDERS: Emergency Provider Emergency Medicine; PCP Internal Medicine; Visit Provider Internal Medicine | DX: I44.0 Atrioventricular block, first degree (principal) | CPT/HCPCS: 93010 ==

== ENCOUNTER → 2024-10-29 09:59 | Outpatient (BNV) | payer OTHER, SELFPAY | PROVIDERS: Emergency Provider Emergency Medicine; PCP Internal Medicine; Visit Provider Radiology Diagnostic Radiology | DX: R07.9 Chest pain, unspecified (principal) | CPT/HCPCS: 71045 ==

== ENCOUNTER 2024-10-29 14:43 | Outpatient (AMB) | payer OTHER, SELFPAY ==
--- NOTE | 2024-10-28 19:59 | MHC.OFFVIS ---
Vital Signs 10/29/24 14:54 Height 6 ft Weight 245 lb 13.047 oz BMI 33.3 Pulse 70 Pulse Source Pulse Oximeter Pulse Oximetry (%) 99 Oxygen Delivery Method Room Air Intake Visit Reasons: wheezing Gore Inserter Required: No Tester Electronic Scale: Tester Electronic Scale offered & declined Accompanied by: Self / Same As Patient Allergies pentoxifylline Allergy (Severe, Verified 10/29/24 14:57) syncope Seasonal Allergies Allergy (Verified 10/29/24 14:57) Sneezing atorvastatin Adverse Reaction (Verified 10/29/24 14:57) Extreme fatigue Medication List - Last Reconciled 10/29/24 by Ana Perdue LPN albuterol sulfate 90 mcg/actuation 2 puffs PO Q4H PRN aspirin 1 tab PO DAILY budesonide-formoterol 160-4.5 mcg/actuation (Breyna) 1 puff inhalation BID gordjtrzsj-vwwvjcui-mqqugvtwwf 160-9-4.8 mcg/actuation (Breztri Aerosphere) 2 inhalations inhalation BID celecoxib 200 mg PO DAILY coenzyme Q10 100 mg PO DAILY ezetimibe 10 mg PO DAILY ipratropium bromide 2 sprays intranasal BID lorazepam 1 mg PO BID metoprolol succinate ER 50 mg PO DAILY montelukast 10 mg PO DAILY omeprazole 20 mg PO DAILY rosuvastatin 10 mg PO DAILY semaglutide 0.5 mg (0.736 mL) subcut QWEEK topiramate 25 mg PO DAILY HPI HPI wheezing: Details: Filipe is a pleasant 64 year old male, former smoker quit 1995, with approximately 10pyh, with underlying asthma, moderate COPD, stable pulmonary nodules, nonsustained vtach on metoprolol and sick sinus syndrome s/p pacer. At the last visit, he was switched to Breztri however felt respiratory symptoms were less controlled. He has siwtiched back to Breyna and reports good control of symptoms without the need for Albuterol MDI. Of note, he has also lost 30lbs since starting Ozempic over the last 2.5 months. He denies any presents to urgent care or hospitalizations related to respiratory distress since the last visit. FORMERLY [facility], [facility] Medical History COPD (chronic obstructive pulmonary disease) Asthma Avulsion fracture of thumb NSVT (nonsustained ventricular tachycardia) Cardiac pacemaker in situ Sick sinus syndrome Surgical History History of permanent cardiac pacemaker placement Hx of removal of cyst History of ankle surgery Family History Father Kidney failure Mother CVD (cardiovascular disease) Social History Alcohol intake: current Alcohol intake frequency: holidays/special occasions only Patient Tobacco Use Status: Former Tobacco user Years Smoked: 10 +/- Review of Systems Const Denies chills, Denies excessive sweating, Denies fever(s), Denies headache(s) and Denies night sweats Eyes Denies dry eyes, Denies irritation and Denies itchy eyes ENT Reports Normal hearing present, Denies headache(s), Denies nasal congestion, Denies nasal discharge, Denies post nasal drip and Denies sore throat Card Denies chest pain, Denies chest pain at rest, Denies chest pain with activity, Denies claudication, Denies leg edema, Denies dyspnea, Denies dyspnea on exertion, Denies orthopnea and Denies paroxysmal nocturnal dyspnea Resp Denies chest congestion, Denies cough, Denies excessive phlegm production, Denies pain on inspiration, Denies pain with cough, Denies dyspnea, Denies dyspnea on exertion, Denies stridor and Denies wheezing Musc Denies myalgias Neuro Reports Normal hearing present and Denies headache(s) Endo Denies excessive sweating Len/Lymph Denies lymphadenopathy Aller/Immun Denies itchy eyes, Denies seasonal rhinorrhea and Denies wheezing Physical Exam Vital Signs: Last Vital Signs Pulse 70 10/29/24 14:54 Pulse Ox 99 10/29/24 14:54 Oxygen Delivery Method Room Air 10/29/24 14:54 BMI result Body Mass Index 33.3 Const General: cooperative, healthy appearing, comfortable, no acute distress, well developed and alert Nutritional Appearance: obese Orientation/consciousness: patient oriented x3 Limitations: no limitations HEENT Head: Yes normal to inspection, Yes normocephalic and Yes atraumatic Ears: hearing grossly normal bilaterally and external ears normal Eyes General: appearance normal, both eyes and all related structures Eyelids: Yes eyelids normal Sclerae: sclerae normal EOM: EOMs intact bilaterally Neck Neck: Yes normal visual inspection and Yes no lymphadenopathy Lymphatic: no lymphadenopathy noted Chest Chest palpation & inspection: normal inspection of the chest Resp Effort & Inspection: normal respiratory effort, able to speak in complete sentences, no audible wheezes, no cough, no stridor, not tachypneic, no tripod positioning and no use of accessory muscles Auscultation: clear to auscultation bilaterally Cardio Jugular venous distension: no JVD Rate: regular rate Rhythm: regular rhythm Skin Other: warm, dry General skin exam: no rashes or lesions noted Neuro General: patient oriented x3 Cranial nerves: Yes Normal hearing present Cognition (Neuro): normal cognition Gait exam (Neuro): Normal gait present Extrem General: Yes normal to inspection, Yes capillary refill normal, Yes no clubbing, cyanosis or edema and Yes no pedal edema Psych Appearance: grossly normal and well kempt Speech and movement: Normal speech and movement present and Clear speech present Affect: normal affect Attitude: cooperative Thought process: Normal thought process present Thought content: Normal thought content present Insight: Good insight present (Psych) Judgement: Good judgement present (Psych) Assessment & Plan Assessment & Plan (1) COPD (chronic obstructive pulmonary disease): Code(s): J44.9 - Chronic obstructive pulmonary disease, unspecified Category: Medical (2) Asthma: Code(s): J45.909 - Unspecified asthma, uncomplicated Category: Medical (3) Personal history of tobacco use: Code(s): Z87.891 - Personal history of nicotine dependence Category: Social Hx (4) Multiple pulmonary nodules: Code(s): R91.8 - Other nonspecific abnormal finding of lung field Category: Medical Plan Filipe reports good control of symptoms with Symbicort ,advised to continue. Prior chest CT from 12/27 revealed multiple scattered micronodules, will repeat in one year to assess stability, 12/2024. All questions were answered and patient is in agreement of plan. Will follow-up in 3-6 months or sooner if needed. Orders: Orders CT chest wo IV con 2 Months R91.8 - Other nonspecific abnormal finding of lung field Medications: Refilled budesonide-formoterol 160-4.5 mcg/actuation (Breyna) 1 puff inhalation BID 10.2 grams 3RF Discontinued rdesjzzvif-qenorlpw-aiemdziskj 160-9-4.8 mcg/actuation (Breztri Aerosphere) Discontinued Reason: Patient Completed Course 2 inhalations inhalation BID 3 ea 1RF Coding Level of Care Code Est Pt Level 4 (63782) Diagnoses COPD (chronic obstructive pulmonary disease) J44.9 Asthma J45.909 Personal history of tobacco use Z87.891 Multiple pulmonary nodules R91.8
[2024-10-29 14:54] VITALS: PULSE 70; O2SAT 99; BMI 33.3
--- OUTSIDE RECORDS SUMMARY | 2024-10-29 16:56 | XMS_ITS | Clinical Summary ---
Author Organization [facility] Address [address] [place] [address] Care Team Providers Care Administrative Officer Name Role Phone Unavailable Primary Care Provider Unavailabl e Social History Tobacco Use Types Packs/Day Years Used Date Smoking Tobacco: Never Assessed Sex and Gender Information Value Date Recorded Sex Assigned at Not on file Gender Identity Not on file Sexual Orientation Not on file Plan of Treatment Not on file
--- OUTSIDE RECORDS SUMMARY | 2024-10-29 16:56 | XMS_ITS ---
Author Organization Ben Adams MD Address [address] [place] [phone] Care Team Providers Care Personal Coach Name Role Phone Ben Adams Primary Care Provider Results Component Value Reference Range Notes Complete Blood Count Auto Di ff Reviewed date:10/05/2024 04:22:21 PM Interpretation: Performing Lab:[facility], [address] [place] [phone] Notes/Report: White Blood Count 6.2 4.8-10.8 X10*3/uL [...] NRBC Abs Auto 0.000 0.0-0.012 X10*3/uL Comprehensive [place]. Panel Fa st Reviewed date:10/05/2024 04:24:31 PM Interpretation: Performing Lab:[facility], [address] [place] [phone] Notes/Report: Sodium 142 135-145 mmol/L Potassium 4.3 [...] Panel Reviewed date:10/05/2024 12:34:20 PM Interpretation: Performing Lab:[facility], [address] [place] [phone] Notes/Report: Triglycerides 58 <150 mg/dL Desirable Triglyceride: [...] (Free>4and<10) Reviewed date:10/05/2024 04:23:40 PM Interpretation: Performing Lab:[facility], [address] [place] [phone] Notes/Report: PSA,Total (Free>4and<10) 1.56 0.00-4.00 ng/mL A [...] Adams MD [address] [place], [place] [phone] 10/05/2024 Ben Adams Blood tests for rout [...] Provider Name:Ben Benavides ier, 04/12/2025 07:30:00 AM, [address], Suite [facility], [place], [place], [phone], Provider Name:Ben encarnacion, 04/19/2025 09:00:00 AM, [address] [place] [address], Suite [facility], [place], [place], [phone], Provider Name:Ben encarnacion, 10/08/2025 07:45:00 AM, [address] [place] [address], Suite [facility], [place], [place], [phone], Provider Name:Ben churchr, 10/15/2025 08:30:00 AM, [address] [place] [address], Suite [facility], [place], [place], [phone], Progress Notes * Filipe SHARP ODOB:[birth year] (64 yo M)Acc No.[id number]:10/05/2024 Progress Note Patient:?Filipe SHARP Provider:?Ben Adams MD :1960???Age:64 Y???Sex:Male Jose e:10/05/2024 Address:[address] [place] [address] ADOLF[place]elissa [id number] Subjective: * Chief Complaints: * ???1. Yearly fasting labs. * Medical History:? Objective: * Vitals:? Assessment: * Assessment: 1.?Blood tests for routine g eneral physical examination - Z00.00 (Primary)???2.?Prostatism - N40.0???3.?Pure hypercholesterolemia - E78.00??? Plan: * Treatment: 2.?Prostatism?LAB: Complete Blood Count Auto Diff (Collection Date & Time - 10/05/2024 07:15 AM) ?LAB: Comprehensive [place]. Panel Fast (Collection Date & Time - 10/05/2024 07:15 AM) ?LAB: Lipid Panel (Collection Date & Time - 10/05/2024 07:15 AM) ?LAB: PSA,Total (Free>4and<10) (Collection Date & Time - 10/05/2024 07:15 AM) 3.?Pure hypercholesterolemia ?LAB: Complete Blood Count Auto Diff (Collection Date & Time - 10/05/2024 07:15 AM) ?LAB: Comprehensive [place]. Panel Fast (Collection Date & Time - 10/05/2024 07:15 AM) ?LAB: Lipid Panel (Collection Date & Time - 10/05/2024 07:15 AM) ?LAB: PSA,Total (Free>4and<10) (Collection Date & Time - 10/05/2024 07:15 AM) * Procedure Codes:?88191 VENIP UNCT, ROUTINE* * * The named appointment provid er may or may not be the originator of this progress note, and it is not deemed complete until electronically signed by the appointment provider. Sign off status: Pending * Provider:?Ben Adams MD Date:?0 10/05/2024 Generated for Zahra law/Salome/Kylesmitting on:?10/29/2024 11:23 AM EST
--- OUTSIDE RECORDS SUMMARY | 2024-10-29 16:57 | XMS_ITS | Patient Health Record ---
Author Organization Ben Adams MD Address [address] [place], [place] [id number] Care Team Providers Care Remelt Furnace Expediter Name Role Phone Ben Adams Primary Care Provider [phone] Allergies No Known Allergies Results Component Value Reference Range Notes Hemoglobin A1c Reviewed date:04/30/2024 08:29:03 AM Interpretation: Performing Lab: Notes/Report: Hemoglobin A1c 6.3 Complete Blood Count Auto Di ff Reviewed date:10/05/2024 04:22:21 PM Interpretation: Performing Lab:[facility], [address] [place] [address] Notes/Report: White Blood Count 6.2 4.8-10.8 X10*3/uL [...] NRBC Abs Auto 0.000 0.0-0.012 X10*3/uL Comprehensive [place]. Panel Fa st Reviewed date:10/05/2024 04:24:31 PM Interpretation: Performing Lab:[facility], [address] [place] [address] Notes/Report: Sodium 142 135-145 mmol/L Potassium 4.3 [...] Panel Reviewed date:10/05/2024 12:34:20 PM Interpretation: Performing Lab:[address] [address] Notes/Report: Triglycerides 58 <150 mg/dL Desirable Triglyceride: [...] (Free>4and<10) Reviewed date:10/05/2024 04:23:40 PM Interpretation: Performing Lab:[address] [address] Notes/Report: PSA,Total (Free>4and<10) 1.56 0.00-4.00 ng/mL A [...] between 4.0 and 10.0 ng/mL. PSA methodology: Yecuris i Chemiluminescent Microparticle Immunoassay (CMIA) Glucose, finger stick Reviewed date:04/30/2024 08:23:16 AM Interpretation: Performing Lab: Notes/Report: Value 151 Occult Blood, Stool, Guaiac Reviewed date:10/12/2024 12:41:35 PM Interpretation:Negative Performing Lab: Notes/Report: Negative Occult Blood, Stool, Guaiac Neg Pathology Reviewed date:11/24/2023 01:54:18 PM Interpretation: Performing Lab:[facility], [address] [place] [address] Notes/Report: --- Name: Filipe Sharp Age/Sex: 63/M : 1960 [id number] [id number] Attend Dr: Bob Smith MD Re11/22/23 Status : [facility] Location: [facility] Disch: --- SPEC : [id number] RECD : 11/22/23 STATUS: RAFI TODD NUM: [id number] PAMELA: 11/22/[address] [facility] [address]: Bob Smith MD ENTERED: 11/22/23-05 16 SP TYPE: Surgical OTHR DR: Ben Adams MD ORDERED: HE Stain/3, Gross Micro L4, Special st. 2, AB/PAS Diagnosis EG junction, biopsy: - Cardiofundic-type mucosa with moderate chronic inactive inflammation; no intestinal metaplasia seen. - Active esophagitis (maximum eosinophil count 8 per high powered field). Clinical History Pre-Op Dx: Garcia's , screening Post-Op Dx: Schatzki 's ring, Garcia's, normal colon Microscopic Description Microscopic sections examined. No metaplastic changes are seen, supported by AB/PAS stains Material Received EG junction bx's Gross Description Received in formalin labeled ?GE junction? are 6 anderson-white and echeverria-pink irregular and rectangular tissue fragments ranging from 0.15-0.3 cm, submitted in toto in a cassette labeled A. CEDS Special studies orde red and performed: AB/PAS stains Copies To: Ben Adams MD [address] [place] [address] [address] [place], [place] [phone] Bob Smith MD [address] [place] [address] [address] [place], [place] [id number] --- Signed (signature on file) Arsen Barbosa MD 11/24/23 1236 --- END OF REPORT CT chest wo con Reviewed date:12/20/2023 12:21:17 PM Interpretation: Performing Lab: Notes/Report: [facility] [address] [place] [address] Scan Report Signed Patient: Filipe Sharp MR#: [id number] 330 : 1960 Acct:[id number] Age/Sex: 63 / M ADM Date: 12/09/23 Loc: HO.CT Attending Dr: Colleen Bradley NP Ordering Physician: Colleen Bradley NP Date of Service: 12/09/23 Procedure(s): CT chest wo IV con Accession Number(s): [id number] cc: Ben Adams MD; Colleen Bradley NP [...] in OV> 12/19/23 2304 DD/ 0900 TD/TT: Industrial Psychology Professor: [address] [address] [address] Scan Report Signed Patient: Coral Sharp tt O MR#: [id number] 330 : 1960 Acct:[id number] Age/Sex: 63 / M ADM Date: 12/09/23 Loc: HO.CT Attending Dr: Tami Bradley NP Ordering Physician: Colleen Bradley NP Date of Service: 12/09/23 Procedure(s): CT giovanni st wo IV con Accession Number(s): [id number] cc: Ben Adams MD; Colleen Bradley NP EXAMINATION: CT CHEST WITHOUT CONTRAST CLINICAL INFORMATION: COPD. COMPARISON: Chest radiograph 11/27/2018, CT chest 01/24/2018. TECHNIQUE: Multidetector volumetric CT imaging of the chest was done. Axial MIP volume rendering provided. Sagittal and coronal reformatted images were obtained. This CT examination was performed using dose optimization techniques as appropriate, various ly including the following: *Automated exposure control. *Adjustment of mA and/or kV according to patient size (this includes techniques or standardized protocols for targeted exams where dose is matched to indication/reason for exam; i.e. extremities or head). *Use of iterative reconstruction technique. DLP: 306 mGy-cm FINDINGS: LUNGS: A few tiny micronodules are again seen and unchanged. There is bibasilar atelectasi s along with traction bronchiectasis slightly increased when piedad red to the prior. No consolidations or suspicious [...] wo IV con IMPRESSION: 1. No suspicious miranda g masses are seen. 2. Bibasilar atelectasis and traction bronchiectasis slightly increased when compared to the prior study. Fleischner guideline s were followed. Dictated By: Josue Mackey MD Signed By: <Electronically signed by Josue Mackey MD in OV> 12/19/23 2304 DD/ 0900 TD/TT: Industrial Psychology Professor: MELYSSA Lipid Panel Reviewed date:08/06/2024 08:36:20 AM Interpretation: Performing Lab:[facility], [address] [place] [address] Notes/Report: Triglycerides 118 <150 mg/dL Desirable Triglyceride: [...] low results in patients with liver disease. Complete Blood Count Auto Di ff (Not yet reviewed by provider) Interpretation: Performing Lab:[facility], [address] [place] [address] Notes/Report: White Blood Count 6.0 4.8-10.8 X10*3/uL Red Blood Count 4.86 4.60-5.80 X10*6/uL Hemoglobin 14.3 14.0-18.0 g/dl Hematocrit 41.6 42.0-52.0 % Mean Corpuscular Volume 85.6 80.0-98.0 fL Mean Corpuscular Hemoglobin 29.4 27.0-33.0 pg Mean Corpuscular HGB Conc 34.4 31.0-36.0 g/dl Red Cell Distribution Width 12.4 11.0-16.0 % Platelet Count 234 160-400 X10*3/uL Mean Platelet Volume 9.8 9.4-12.4 fL Neutrophils Percent Auto 63.5 45-73 % Imm Gran Pct Auto 0.2 0.0-0.4 % Lymphocytes Percent Auto 24.5 20-40 % Monocytes Percent Auto 8.1 2-11 % Eosinophils Percent Auto 3.2 0-4 % Basophils Percent Auto 0.5 0-2 % NRBC Pct Auto 0.0 0.0-0.2 /100WBC Neutrophils Absolute Auto 3.8 2.0-8.3 x10*3/u L Imm Gran Abs Auto 0.01 0.00-0.03 X10*3/uL Lymphocytes Absolute Auto 1.5 1.2-4.9 X10*3/u L Monocytes Absolute Auto 0.5 0.1-1.2 X10*3/uL Eosinophils Absolute Auto 0.2 0.0-0.4 X10*3/u L Basophils Absolute Auto 0.0 0.0-0.2 X10*3/uL NRBC Abs Auto 0.000 0.0-0.012 X10*3/uL Troponin-I High Sensitivity (Not yet reviewed by provider) Interpretation: Performing Lab:[facility], [address] [place] [address] Notes/Report: Troponin-I High Sensitivity < 2.7 <3.5-35.0 ng/L The Garcia high sensitivity Troponin-I results should be used in conjunction with other diagnostic information such as ECG, clinical observations and information, and patient symptoms to aid in the diagnosis of AL. XR chest 1V (Not yet review ed by provider) Interpretation: Performing Lab: Notes/Report: [address] [address] XRay Report Signed Patient: Filipe Sharp MR#: [id number] 330 : 1960 Acct:[id number] Age/Sex: 64 / M ADM Date: 10/29/24 Loc: .ED Attending Dr: Ordering Physician: Valentín Orr MD Date of Service: 10/29/24 Procedure(s): XR chest 1V Accession Number(s): [id number] cc: Ben Admas MD; Valentín Orr MD EXAMINATION: XR CHEST 1 VIEW HISTORY: chest pain COMPARISON: There are no prior studies for comparison. FINDINGS: Two AP portable views of the chest performed at 10:07 AM are submitted. A left subclavian dual-chamber pacemaker is unchanged in position. The lungs are expanded and clear. There is no pleural effusion, pneumothorax, or pulmonary vascular congestion. The heart is normal in size. The bones are intact. XR/XR chest 1V IMPRESSION: No acute cardiopulmonary abnormality. Electronically signed by: Audie Yuan MD 10/29/2024 11:04 AM EST RP Dictated By: Audie Yuan MD Signed By: <Electronically signed by Audie Yuan MD in OV> 10/29/24 1104 DD/ 1000 TD/TT: 10/29/24 1011 Industrial Psychology Professor: [place] [address] XRay Report Signed Patient: Coral Sharp tt O MR#: [id number] 330 : 1960 Acct:[id number] Age/Sex: 64 / M ADM Date: 10/29/24 Loc: HO.ED Attending Dr: Ordering Physician: Valentín Orr MD Date of Service: 10/29/24 Procedure(s): XR giovanni st 1V Accession Number(s): [id number] cc: Ben Adams MD; Valentín Orr MD EXAMINATION: XR CHES T 1 VIEW HISTORY: chest pain COMPARISON: There ar e no prior studies for comparison. FINDINGS: Two AP portable views of the chest performed at 10:07 AM are submitted. A left subclavian dual-chamber pacemaker is unchanged in position. The lungs are expanded and clear. There is no pleural effusion, pneumothor ax, or pulmonary vascular congestion. The heart is normal in size. The bones are intact. XR/XR chest 1V IMPRESSION: No acute cardiopulmonary abnormality. Electronically anna d by: Audie Yuan MD 10/29/2024 11:04 AM EST RP Dictated By: Audie Yuan MD Signed By: <Electronically signed by Audie Yuan MD in OV> 10/29/24 1104 DD/ 1000 TD/TT: 10/29/24 1011 Industrial Psychology Professor: Reason For Referral No Information Medications Medication SIG (Take, Route, Frequency, Duration) Notes Start Date End Date Status Ozempic (0.25 or 0.5 MG/DOSE) 2 MG/3ML as directed Subcutaneous Active Aspir-81 81 MG 1 tablet Orally Once a day for 30 day(s) Active Zetia 10 MG 1 tablet Orally Once a day Active Hydrocortisone Sai-Pramoxine 2.5-1 % 1 application Externally Three times a day for 30 days 04/04/2023 Active Rosuvastatin Calcium 10 MG 1 tablet Oral ly Once a day Active Hydrocortisone Sai-Pramoxine 2.5-1 % 1 application Externally Three times a day 04/04/2023 Active ProAir HFA 108 (90 Base) MCG/ACT 1 puff as needed Inhalation every 4 hrs 04/02/2021 Active Clobetasol Propionate 0.05 % APPLY DAILY TO SKIN TO AFFECTED AREA TWICE A DAY FOR 30 DAYS. SEE FN. for 30 Active Montelukast Sodium 10 MG TAKE 1 TABLET B Y MOUTH ONCE DAILY Active Omeprazole 20 MG TAKE 1 CAPSULE BY MO UT ONCE DAILY Orally Once a day Active Metoprolol Succinate ER 50 MG take 1 tablet by mouth once daily Orally Once a day Active Celecoxib 200 MG TAKE 1 CAPSULE BY MO UTH ONCE DAILY WITH FOOD for 90 Active LORazepam 1 MG TAKE 1 TABLET BY LORI TWICE DAILY NEEDED for 90 09/13/2024 Active Symbicort 80-4.5 MCG/ACT 1 puff as neede d Inhalation every 4 hrs Active Immunizations Vaccine Route Administration Date Status [...] Refused Influenza High Dose Unknown 06/07/2024 Refused Social History Tobacco Use: Social History Observation [...] ast year? No Points 0 Interpretation Negative Problems Problem Type SNOMED Code ICD Code Onset Dates Problem Status W/U Status Risk Notes Problem Diabetic neuropathy (728412299) Diabetic neuropathy (E11.40) Active confirmed Problem Transient ischemic attack (905897073) TIA (transient ischemic attack) (G45.9) Active confirmed Problem 920126875 Neuropathy (G62.9) Active confirmed Problem 97434643 Prostatism (N40.0) Active confirmed Problem 107331704 Reflux esophagit is (K21.00) Active confirmed Problem 93108584 Anxiety (F41.9) Active confirmed Problem Lipoprotein deficiency disorder (538768163) Lipoprotein deficiency (E78.6) Active confirmed Problem 454583071 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 confirmed Problem 2034541 Arthritis (M19.90) Active confirmed Problem 93659002 Lumbar disc dise ase (M51.9) Active confirmed Problem 979822856 Tubular adenoma of colon (D12.6) Active confirmed Problem 20722971 Essential hypert ension (I10) Active confirmed Problem 8806081 Psoriasis (L40.9) Active confirmed Problem 689570115 Mild intermitten t asthma without complication (J45.20) Active confirmed Problem 79155455 Obstructive slee p apnea syndrome (G47.33) Active confirmed Problem 489179392 Asthmatic bronch itis, mild intermittent, with acute exacerbation (J45.21) Active confirmed Problem 302214025 Seasonal allergi es (J30.2) Active confirmed Problem Subcutaneous nodule (36390861) Subcutaneous nodule (R22.9) Active confirmed Problem 1470916 Migraine with au ra and without status migrainosus, not intractable (G43.109) Active confirmed Problem 824039175 Mild intermitten t asthma with acute exacerbation (J45.21) Active confirmed Problem 35769438 Hiatal hernia (K44.9) Active confirmed Problem 916808151 Cervical disc di sease (M50.90) Active confirmed Problem 78803467 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) Active confirmed Problem 339688795 Schatzki's ring (K22.2) Active confirmed Problem 574611506 Pure hypercholesterolemia (E78.00) Active confirmed Problem 617533682 Anxiety attack (F41.0) Active confirm ed Problem 79488204 KERON (obstructive sleep apnea) (G47.33) Active confirmed Problem 577000699 BMI 35.0-35.9,ad ult (Z68.35) Active confirmed Problem 4719610 Peyronie's disea se (N48.6) Active confirmed Problem 384654784 Controlled type 2 diabetes mellitus without complication, without long-term current use of insulin (E11.9) Active confirmed Problem 379519260 Non-sustained ventricular tachycardia (I47.2) Active confirmed Problem 06917590 Blue nevus of up per back excluding scapular region (D23.5) Active confirmed Problem 158192136 Drug dependence (F19.20) Active confirmed Problem 734135994 Expressive aphas ia (R47.01) Active confirmed Problem 47504662 Deficit in communication due to slurred speech (F80.89) Active confirmed Problem 70047532 Acute arthritis (M19.90) Active confirmed Vital Signs Blood pressure diastolic 70 mm Hg 10/12/2024 lisa ght is down 15 pounds since 06-07-24 Height 70 in 10/12/2024 weight is down 15 pounds since 06-07-24 Blood pressure systolic 108 mm Hg 10/12/2024 weig ht is down 15 pounds since 06-07-24 Weight 253 lbs 10/12/2024 weight is down 15 pounds since 06-07-24 BMI 36.3 kg/m2 10/12/2024 weight is down 15 pounds since 06-07-24 Encounters Encounter Location Date Provider Diagnosis Ben Adams MD [address] [place] [address] [address] [place] [id number] 10/05/2024 Ben Adams Blood tests for rout ine general physical examination Z00.00 ; Prostatism N40.0 and Pure hypercholesterolemia E78.00 Ben Adams MD [address] [place] [address] Drive [address] [place] [id number] 04/30/2024 Ben Adams Controlled type 2 di abetes mellitus without complication, without long-term current use of insulin E11.9 Ben Adams MD [address] [place] [address] Drive [address] [place] [id number] 06/07/2024 Ben Adams Ophthalmic migraine G43.109 and Essential hypertension I10 Ben Adams MD [address] [place], [place] [phone] 10/12/2024 Ben Adams Controlled type 2 di [...] Adams MD [address] [place], [place] [id number] 05/29/2024 Ben Adams 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 K22.70 Assessments Encounter Date Diagnosis (ICD Code) Assessment Notes Treatment Notes Treatment Clinical Notes Section Notes 10/05/2024 Blood tests for rout ine general physical examination (ICD-10 - Z00.00) 04/30/2024 Controlled type 2 diabetes mellitus without complication, without long-term current use of insulin (ICD-10 - E11.9) have discussed the need for weight watcher 06/07/2024 Ophthalmic migraine (ICD-10 - G43.109) the numbness in arm lasted about one hour. the numbness comes on after the scotoma. 06/07/2024 Essential hypertensi on (ICD-10 - I10) is doing well now. the elevated readings are related to anxiety 10/12/2024 Controlled type 2 diabetes mellitus without complication, without long-term current use of insulin (ICD-10 - E11.9) doing great with weight loss, will continue current regiment 10/12/2024 Annual physical exam (ICD-10 - Z00.00) labs reviewed and discussed with patient 05/29/2024 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 (ICD-10 - K22.70) 10/05/2024 Prostatism (ICD-10 - N40.0) 10/12/2024 Recent weight loss (ICD-10 - R63.4) on ozempic, will continue to monitor 10/05/2024 Pure hypercholesterolemia (ICD-10 - E78.00) 10/12/2024 KERON (obstructive sle ep apnea) (ICD-10 [...] - Z13.31) negative screen Plan Of Treatment Pending Test Test Name Order Date Electrocardiogram (EKG) 11/27/2015 Electrocardiogram (EKG) 01/27/2018 Electrocardiogram (EKG) 11/02/2013 CT CERVICAL SPINE W&WO CONTRAST 06/07/20 13 US CAROTID BILATERAL DOPPLER 10/20/2023 Complete Blood Count Auto Diff Troponin-I High Sensitivity 10/29/2024 US abdomen complete 04/01/2022 XR chest 1V 10/29/2024 XR lumbar spine 4V min 03/17/2021 Next Appt Details Provider Name:Ben encarnacion, 04/12/2025 07:30:00 AM, [address] [place] [address], [address], [phone], Provider Name:Ben encarnacion, 04/19/2025 09:00:00 AM, [address] [place] [address], [address], [phone], Provider Name:Ben encarnacion, 10/08/2025 07:45:00 AM, [address] [place] [address], [address], [phone], Provider Name:Ben encarnacion, 10/15/2025 08:30:00 AM, [address] [place] [address], [address], [phone], Insurance Providers Payer Name Payer Address Payer Phone Subscriber Number Group Number Insured Name Patient Relationship to Insured Coverage Start Date Coverage End Date [facility] [address] [place], [place] [id number] Filipe Sharp Self - patient is the insured Medical (General) History Medical History History ICD Code Colonoscopy 10/23/2012 - due in 5 years; colonoscopy 08/04/[address] Smith - repeat 5 years colonoscopy 2023 repaeat in 5 years refuses flu vac 07/12/[address] to be done no v [address] neg 2017 needs no furter evaluation Endoscopy - Dr. Smith Lung nodule was followed stable an dno f urther evaluation R91.1 Prediabetes R73.09 Surgical History Surgery Date(Month/Year) Dual Chamber Permanent Pacemaker Generat or Change 03/2018
--- OUTSIDE RECORDS SUMMARY | 2024-10-29 16:57 | XMS_ITS | Clinical Summary ---
Author Organization [facility] Address [address] [place] [address] Care Team Providers Care Memory Care Program Director Name Role Phone Ben Adams MD Primary Care Provider [phone] Allergies No known active allergies Social History [...] 3:45 PM EDT [facility] [address] Arsen Montoya MD [address] [place] [address] Health Maintenance Due Date Last Done Comments [...] age to complete this topic Care Teams Memory Care Program Director Relationship Specialty Start Date End Date Ben Adams MD [address] [place] [address] [place] [address] PCP - General Internal Medicine 12/06/23
== END 2024-10-29 15:14 | disposition home or self-care (01) ==
PROVIDERS: PCP Internal Medicine; Visit Provider Nurse Practitioner Family
DX: J44.9 Chronic obstructive pulmonary disease, unspecified (principal); J45.909 Unspecified asthma, uncomplicated; Z87.891 Personal history of nicotine dependence; R91.8 Other nonspecific abnormal finding of lung field
CPT/HCPCS: 99214

== ENCOUNTER 2024-12-27 07:48 | Outpatient (REF) | payer OTHER, SELFPAY ==
--- NOTE | ~2024-12-27 | CT_ITS ---
CLINICAL HISTORY: R91.8 - Other nonspecific abnormal finding of lung field CT chest without contrast Comparison: CR/SR - XR CHEST 1V - 10/29/24 10:[address]/REG/TX/SR - CT CHEST WO IV CON - 12/09/23 07:31 EDT Findings: The heart is normal size. Mild Atherosclerosis calcification of the coronary artery. Pacemaker. The visualized thyroid and mediastinum are unremarkable. No consolidation or effusion. Mild emphysema. Bronchiectasis. Calcified granulomas. There are micro nodules. Mild atelectasis of the lung base. The upper abdomen is unremarkable. No acute fractures. IMPRESSION: No acute findings. This document has been electronically signed by: Leann May MD on 12/27/2024 14:13:51
--- OUTSIDE RECORDS SUMMARY | 2024-12-27 07:54 | XMS_ITS ---
Author Organization Ben Adams MD Address [address] [place] [phone] Care Team Providers Care Dental Laboratory Technician Name Role Phone Ben Adams Primary Care Provider [phone] REASON FOR VISIT ER Encounters Encounter Location Date Provider Diagnosis Ben Adams MD [facility] [address] [place] [phone] 11/02/2024 Ben Adams Plan Of Treatment Next Appt Details Provider Name:Ben Benavides ier, 04/12/2025 07:30:00 AM, [address] [place] [address], [address], [phone], Provider Name:Ben encarnacion, 04/19/2025 09:00:00 AM, [address] [place] [address], [address], [phone], Provider Name:Ben encarnacion, 10/08/2025 07:45:00 AM, [address], [address], [place], [place], [phone], Provider Name:Ben Benavides shashank, 10/15/2025 08:30:00 AM, [address], [address], [place], [phone], Progress Notes * Filipe SHARP ODOB:[birth year] (64 yo M)Acc No.[id number]:11/02/2024 Patient:?Filipe SHARP :1960???Age:64 Y???Sex:Male Address:[address] [place] [address] [place] [address] * true * Date:? Generated for Zahra law/Salome/eTransmitting on:?12/27/2024 07:54 AM EDT
--- OUTSIDE RECORDS SUMMARY | 2024-12-27 07:54 | XMS_ITS ---
Author Organization Ben Adams MD Address [address] [place] [phone] Care Team Providers Care Life Science Technical Officer Name Role Phone Ben Adams Primary Care Provider Medications Medication SIG (Take, Route, Fr equency, Duration) Notes Start Date End Date Status LORazepam 1 MG TAKE 1 TABLET BY LORI TH TWICE DAILY NEEDED for 09/13/2024 Active Encounters Encounter Location Date Provider Diagnosis Ben Adams MD [address] [place], [place] [phone] 12/17/2024 Ben Adams Plan Of Treatment Medication Medication Name Sig Start Date Stop Date Notes LORazepam 1 MG TAKE 1 TABLET BY LORI TH TWICE DAILY NEEDED for 09/13/2024 Next Appt Details Provider Name:Ben Benavides ier, 04/12/2025 07:30:00 AM, [address], [address] [place] [address], [phone], Provider Name:Ben Benavides ier, 04/19/2025 09:00:00 AM, [address], [address], [place], [phone], Provider Name:Ben Benavides ier, 10/08/2025 07:45:00 AM, [address], [address], [place], [place], [phone], Provider Name:Ben Benavides ier, 10/15/2025 08:30:00 AM, [address], [address], [place], [phone], Progress Notes * Filipe SHARP ODOB:[birth year] (64 yo M)Acc No.[id number]:12/17/2024 Patient:?Filipe SHARP :1960???Age:64 Y???Sex:Male Address:[address] [place] [address] [place] [address] * Refills? Refill LORazepam Tablet, 1 MG, 180 Tablet, TAKE 1 TABLET BY MOUTH TWICE DAILY NEEDED, 90, Refills=0 * true * Date:? Generated for Zahra law/Salome/eTransmitting on:?12/27/2024 07:54 AM EDT
--- OUTSIDE RECORDS SUMMARY | 2024-12-27 07:54 | XMS_ITS ---
Author Organization Ben Adams MD Address [address] [place] [phone] Care Team Providers Care Marine Diver Name Role Phone Ben Adams Primary Care Provider REASON FOR VISIT refill Encounters Encounter Location Date Provider Diagnosis Ben Adams MD [address] [place] [address] [address] [place] [phone] 12/25/2024 Ben Adams Plan Of Treatment Next Appt Details Provider Name:Ben Benavides ier, 04/12/2025 07:30:00 AM, [address] [place] [address], [address], [phone], Provider Name:Ben encarnacion, 04/19/2025 09:00:00 AM, [address] [place] [address], [address], [phone], Provider Name:Ben encarnacion, 10/08/2025 07:45:00 AM, [address], [address], [place], [place], [phone], Provider Name:Ben Benavides ier, 10/15/2025 08:30:00 AM, [address], [address], [place], [place], [phone], Progress Notes * Filipe SHARP ODOB:[birth year] (64 yo M)Acc No.[id number]:12/25/2024 Patient:?Filipe SHARP :1960???Age:64 Y???Sex:Male Address:[facility] [place] [address] * * Date:?
--- OUTSIDE RECORDS SUMMARY | 2024-12-27 07:54 | XMS_ITS ---
Author Organization [facility] Address [address] [place] [phone] Care Team Providers Care Executive Services Administrator Name Role Phone Ben Adams MD Primary Care Provider Fredi Smith Jr, Bob Adames REASON FOR VISIT pathology Encounters Encounter Location Date Provider Diagnosis [facility] [address] [place] [phone] 11/28/2023 Bob Smith Jr Plan Of Treatment No Information Progress Notes * TYRONE DUMONTDOB:1960 (63 yo M)Acc No.[id number]:11/28/2023 Patient:?TIM TYRONE :1960???Age:63 Y???Sex:Male Address:[facility] [place], [address] * true * Date:? Generated for Printi ng/Faxing/eTransmitting on:?12/27/2024 07:53 AM EDT
--- OUTSIDE RECORDS SUMMARY | 2024-12-27 07:54 | XMS_ITS | Clinical Summary ---
Author Organization [facility] Address [address] [place] [phone] Care Team Providers Care Stave Bolt Equalizer Name Role Phone Ben Adams MD Primary Care Provider Allergies No known active allergies Medications No known medications Active Problems No known active problems Encounters Date Type Department Care Team Description 12/04/2024 4:15 PM EDT Ancillary [place] [address] 12/04/2024 3:45 PM EDT [place] [address] Arsen Montoya MD Osteoarthritis of ankle and foot, right (Primary Dx) from Last 3 Months Social History Tobacco Use Types Packs/Day Years Used Date Smoking Tobacco: Never Assessed Sex and Gender Information Value Date Recorded Sex Assigned at Male 11/14/2023 4:22 PM EDT Legal Sex Male 6:25 PM EST Gender Identity Male 11/14/2023 4:22 PM EDT Sexual Orientation Other 11/14/2023 4: 22 PM EDT Plan of Treatment Upcoming Encounters Date Type Department Care Team (Late st Contact Info) Description 12/03/2025 3:45 PM EDT [place] [address] Arsen Montoya MD [address] [place] [address] Health Maintenance Due Date Last Done Comments Hepatitis C Virus Screening 1960 HIV Screening 1972 DTaP/Tdap/Td Vaccines (1 - Tdap) 1978 Colonoscopy 2004 Pneumococcal Vaccines 50+ (1 of 1 - PCV) 2009 Zoster (Shingles) Vaccine (1 of 2) 2009 Influenza Vaccine 04/05/2024 08/15/2008 COVID-19 Vaccine (1 - 2023-2 5 season) 2024 RSV Vaccine 60 years and old er and Patients (1 - 1-dose 75+ series) 2034 Hepatitis B Vaccines Aged Out No long er eligible based on patient's age to complete this topic Procedures Procedure Name Priority Date/Time Associated Diagnosis Comments XR ANKLE 3+ VIEWS-LEFT Routine 12/04/2024 4:23 PM EDT Osteoarthritis of ankle and foot, right from Last 3 Months Results * XR Ankle 3+ views-Left (12/04/2024 4:23 PM EDT) Narrative OAH - 12/04/2024 4:23 PM EDT This exam was performed in office at [facility] and images reviewed by orthopedic provider. ??Any findings are documented within ambulatory encounter note on date of service. us Arsen Montoya MD IMG DIAGNOSTIC IMAGING ORDERA BLES Final Result [facility] from Last 3 Months Insurance [facility] Care Teams Stave Bolt Equalizer Relationship Specialty Start Date End Date Ben Adams MD [address] [place] [address] [place] [address] PCP - General Internal Medicine 12/06/23
--- OUTSIDE RECORDS SUMMARY | 2024-12-27 07:54 | XMS_ITS ---
Author Organization [facility] Address [address] [place] [phone] Care Team Providers Care Phone Counselor Name Role Phone Angie SMITH, Ben Primary Care Provider Bob Marcos Jr Unavailable [phone] Allergies Allergen (clinical drug ingredient) Drug/Non Drug Allergy documented on EMR Reaction Allergy Type Onset Date Status Pentoxifylline Unknown Drug Allergy Ac tive REASON FOR VISIT Patient presents today for a screening colonoscopy Medications Medication SIG (Take, Route, Frequency, Duration) [...] in each nost ril Nasally prn Active Problems Problem Type SNOMED Code ICD Code Onset Dates Problem Status W/U Status Risk Notes Problem 824415316 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) Active confirmed Problem 339479270 Screening for colon cancer (Z12.11) Active confirmed Vital Signs Temperature 96.8 degrees Fahrenheit 10/06/19 24 Blood pressure systolic 00 mm Hg 10/06/19 24 Blood pressure diastolic 00 mm Hg 024 Height 72 in 10/06/2023 Weight 260 lbs 10/06/2023 BMI 35.26 kg/m2 10/06/2023 Encounters Encounter Location Date Provider Diagnosis [facility] [address] [place] [phone] 10/06/2023 Bob Smith Jr 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 K22.70 and Screening for colon cancer Z12.11 Assessments Encounter Date Diagnosis (ICD Code) Assessment Notes Treatment Notes Treatment Clinical Notes Section Notes 10/06/2023 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 (ICD-10 - K22.70) Garcia esophagus material was printed At this time, he is doing well. We will arrange upper endoscopy. He is due for colonoscopy as well. He understands risks and benefits and agrees to proceed. He will stop aspirin one week before the procedure. 10/06/2023 Screening for colon cancer (ICD-10 - Z12.11) At this time, he is doing well. We will arrange upper endoscopy. He is due for colonoscopy as well. He understands risks and benefits and agrees to proceed. He will stop aspirin one week before the procedure. Plan Of Treatment Medication Medication Name Sig [...] Up: 1 Year, Reason: Progress Notes * FILIPE DUMONTDOB:1960 (63 yo M)Acc No.[id number]:10/06/2023 Progress Notes Patient:?TIMFILIPE Provider:?Bob Smith MD :1960???Age:63 Y???Sex:Male Jose e:10/06/2023 Address:[address] [place] [address] [address] [id number] Pcp:Ben Adams MD Subjective: * Chief Complaints: * ???1. Patient presents today for a screening colonoscopy. * HPI: ???New symptom(s):? Filipe is a 63-year-old man seen today in consultation. He has a history of gastroesophageal reflux disease with reflux symptoms which are substernal burning produced by typical foods. Symptoms are well-controlled on omeprazole 20 mg daily. He did undergo upper endoscopy in 2018 which showed Garcia's esophagus at the EG junction. He is due for followup. He has no dysphagia, hematemesis, or melena. He does have some coughing when he swallows. ?Feels a history of colon polyps and last underwent colonoscopy in 2018 with removal of a hyperplastic polyp five-year followup was recommended. We discussed this today. He has no lower GI problems. * ROS:?General/Constitutional:?Change in appetite?denies.?Fatigue?denies.?ENT:?Patient denies?difficulty swallowing.?Respiratory:?Patient denies?shortness of breath.?Cardiovascular:?Patient denies?chest pain.?Gastrointestinal:?Comments?See HPI for details.?Genitourinary:?Difficulty urinating?denies.?Incontinence?denies.?Musculoskeletal:?Patient denies?muscle aches.?Skin:?Patient denies?pruritis.?Neurologic:?Patient denies?low back pain.?Psychiatric:?Patient denies?mental or physical abuse.? * Medical History:?Nonsustaine d ventricular tachycardia, Dr. Hernández, sick sinus syndrome, pacemaker placement, Gastroesophageal reflux disease, EGD 07/23 Schatzki ring, intestinal metaplasia/Garcia's on biopsies of the GE junction, Anxiety/depression, Elevated glucose, Hyperlipidemia, Degenerative disc disease, BPH, Colonoscopy 07/23, hyperplastic polyp, five-year followup due to history of tubular adenomas., KERON. * Surgical History:?ankle surg agustina left 1998, hernia surgery x2 , nose surgery , cardiac pacemeker , Prostate surgery, [facility] Dr. West . * Family History:?Father: dece ased.?Mother: , diagnosed with HTN (hypertension).? hx of esophagus problems in family. problems swallowing. * Social History:?Tobacco Use:?Tobacco Use/Smoking?Are you a: nonsmoker.?Drugs/Alcohol:?Alcohol Screen?Points: 1, Interpretation: Negative.?Miscellaneous:?Marital status: . 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 * Medications:?Taking Omeprazo le 20 MG Capsule Delayed Release 1 capsule Orally Once a day, Taking Flonase 50 MCG/ACT Suspension 1 spray in each nostril Nasally prn, Taking Advair Diskus 100-50 MCG/DOSE Aerosol Powder Breath Activated 1 puff Inhalation once a day, Taking Aspirin 81 MG Tablet Delayed Release 1 tablet Orally Once a day, Taking Metoprolol Succinate , Taking LORazepam 1 MG Tablet 1 tablet at bedtime as needed Orally Once a day, Taking Alfuzosin HCl ER 10 MG Tablet Extended Release 24 Hour 1 tablet immediately after the same meal Orally Once a day, Discontinued Colyte with Flavor Packs 240 GM Solution Reconstituted As directed Orally Over the specified time., Medication List reviewed and reconciled with the patient * Allergies:?Pentoxifylline. Objective: * Vitals:?Wt: 260 lbs, Ht: 72 in, BMI:35.26 Index, BP: 00/00 mm Hg, Temp: 96.8. * Examination: ???General Examination: ?GENERAL APPEARANCE:?in no acute distress.?HEAD:?normocephalic.?EYES:?sclera non-icteric.?ORAL CAVITY:?mucosa moist.?NECK/THYROID:?no lymphadenopathy.?SKIN:?anicteric.?HEART:?S1, S2 normal, no murmurs.?LUNGS:?clear to auscultation bilaterally.?CHEST:?normal shape and expansion.?ABDOMEN:?soft, nontender, nondistended, bowel sounds present, no organomegaly .?EXTREMITIES:?no clubbing, cyanosis, or edema.?PSYCH:?cognitive function intact.? Assessment: * Assessment: 1.?Garcia's esophagus witho ut dysplasia - K22.70 (Primary)?2.?Screening for colon cancer - Z12.11? At this time, he is doing we ll. We will arrange upper endoscopy. He is due for colonoscopy as well. He understands risks and benefits and agrees to proceed. He will stop aspirin one week before the procedure. Plan: * Treatment: Notes: Garcia esophagus material was printed.??2.?Screening for colon cancer?Procedure: COLONOSCOPY (Ordered for 10/06/2023)* sched for 11/22/23 at 8:30 am macmiralax * Procedure Codes:?3017F COLOR ECTAL CA SCREEN DOC REV, G9903 Pt scrn tbco id as non user, G9745 DOC RSN FOR NOT SCREEN/REC F/U HBP * Preventive Medicine:? ??Counseling:?Care goal follow-up plan:?Above Normal BMI Follow-up?Giving encouragement to exercise,?BMI management provided?Yes.? * Follow Up:?1 Year * * Sign off status: Completed true * Provider:?Bob Smith MD Date:?0 10/06/2023 Generated for Zahra law/Salome/eTransmitting on:?12/27/2024 07:53 AM EDT History and Physical Notes * HPI (History of Present Illness) Category Sub-Category Detail Notes Category Not es New symptom(s) Filipe is a 63-year-old man seen today in consultation. He has a history of gastroesophageal reflux disease with reflux symptoms which are substernal burning produced by typical foods. Symptoms are well-controlled on omeprazole 20 mg daily. He did undergo upper endoscopy in 2018 which showed Garcia's esophagus at the EG junction. He is due for followup. He has no dysphagia, hematemesis, or melena. He does have some coughing when he swallows. Feels a history of colon polyps and last underwent colonoscopy in 2018 with removal of a hyperplastic polyp five-year followup was recommended. We discussed this today. He has no lower GI problems Examination Category Sub-Category Detail Notes Category Not es General Examination GENERAL APPEARANCE: in no acute di stress HEAD: normocephalic EYES: sclera non-icteric NECK/THYROID: no lymphadenopathy HEART: S1, S2 normal, no mu rmurs CHEST: normal shape and exp ansion LUNGS: clear to auscultatio n bilaterally ABDOMEN: soft, nontender, non distended, bowel sounds present, no organomegaly SKIN: anicteric EXTREMITIES: no clubbing, cyanosi s, or edema PSYCH: cognitive function i ntact ORAL CAVITY: mucosa moist
--- OUTSIDE RECORDS SUMMARY | 2024-12-27 07:54 | XMS_ITS | Data Portability ---
Author Organization JERMAN [facility] [address] Address [address] [place] [address] Care Team Providers Care Trial Management Associate Name Role Phone IRON HOUGH Cook Chef [phone] Assessment No assessment recorded. Plan of Treatment Reminders Order Date Submit Date Provider Last Modified By Organization Details Last Modified Time Details Appointments None recorded. Lab None recorded. Referral None recorded. Procedures None recorded. Surgeries None recorded. Imaging None recorded. Medication Orders Augmentin 875 mg-125 mg tablet 2021 022 [id number], [address] [place], [address], 12:23:22 Patient TargetsNo targets recorded. Patient Instructions Encounter Date Encounter Id Patient Instructions Last Modified By Organization Details Last Modified Time 09/01/2022 [id number] ear infection (otitis media): care instructions [email or web address] Not available 09/01/2022 12:26:[address] [facility] today! Below are [...] and Address Organization Details Recorded Time Anxiety 69833985 Active 2021 CHARU CAMPA null, [place] - [facility] 2 11:28:25 Gastroesophage al reflux disease 241693301 Active 2021 CHARU LOKESH null, [place] - [facility] 2 11:28:33 Asthma 906504874 Active 2021 CHARU LOKESH null, [place] - [facility] 2 11:28:48 Hypertensive disorder 70331575 Active 2021 CHARU LOKESH null, [place] - [...] Updated DateTime 2 182.88 cm 34.4 kg/m2 532089. 46 g 6 89 /min 97 % [...] SNOMED-CT Code Diagnosis ICD10 Code Diagnosis Note [id number] [address] [place] [address] 06/02/2021 08:11:31 06/02/2021 10:16:17 [id number] [address] [facility] [place] [address] 01/27/2020 19:38:44 01/27/2020 20:01:20 [id number] [address] [place] [address] 10/01/2021 10:37:39 10/01/2021 12:06:52 [id number] [address] [place] [address] 11/16/2020 10:17:35 11/16/2020 11:28:11 [id number] [address] [place] [address] 10/05/2021 08:18:28 10/05/2021 09:43:15 [id number] JERMAN CORDOBA [address] [place] [address] 09/01/2022 11:03:18 09/01/2022 12:26:47 Acute right otitis media [id number] H66.91 Health Concerns Section Related Observation LastModified by Organization Detai ls LastModified Time None Recorded Concern Status LastModified by Organization Details LastModified Time None Recorded Advance Directives Directive None Recorded Payers Encounter Date Sequence Insurance Name Policy Number Policy Hogan Covered Member ID Hogan Member ID Guarantor Name 11/16/2020 1 [facility] (O) [id number] Filipe Sharp [id number] Filipe Sharp 06/02/2021 1 [facility] (PPO) [id number] Filipe Sharp [id number] Filipe Sharp 09/01/2022 1 [facility] (O) [id number] Filipe Sharp [id number] Filipe Sharp Notes Date Note Type Note [...] an ENT in the past. JERMAN CUTLER [address] [place], [place] [address]ress Jacques, NILO Peters, [address], [place] - [facility] 09/01/2022 12:26:29
--- OUTSIDE RECORDS SUMMARY | 2024-12-27 07:55 | XMS_ITS | Patient Health Record ---
Author Organization Ben Adams MD Address [address] [place], [place] [id number] Care Team Providers Care Third Loader Name Role Phone Ben Adams Primary Care Provider [phone] Allergies No Known Allergies Results Component Value Reference Range Notes Hemoglobin A1c Reviewed date:04/30/2024 08:29:03 AM Interpretation: Performing Lab: Notes/Report: Hemoglobin A1c 6.3 Complete Blood Count Auto Di ff Reviewed date:10/05/2024 04:22:21 PM Interpretation: Performing Lab:[facility], [address] [place] [phone] Notes/Report: White Blood Count 6.2 4.8-10.8 X10*3/uL [...] NRBC Abs Auto 0.000 0.0-0.012 X10*3/uL Comprehensive [place]. Panel Fa st Reviewed date:10/05/2024 04:24:31 PM Interpretation: Performing Lab:[facility], [address] [place] [phone] Notes/Report: Sodium 142 135-145 mmol/L Potassium 4.3 [...] Panel Reviewed date:10/05/2024 12:34:20 PM Interpretation: Performing Lab:[address] [phone] Notes/Report: Triglycerides 58 <150 mg/dL Desirable Triglyceride: [...] (Free>4and<10) Reviewed date:10/05/2024 04:23:40 PM Interpretation: Performing Lab:[address] [phone] Notes/Report: PSA,Total (Free>4and<10) 1.56 0.00-4.00 ng/mL A [...] between 4.0 and 10.0 ng/mL. PSA methodology: Metastorm i Chemiluminescent Microparticle Immunoassay (CMIA) Glucose, finger stick Reviewed date:04/30/2024 08:23:16 AM Interpretation: Performing Lab: Notes/Report: Value 151 Occult Blood, Stool, Guaiac Reviewed date:10/12/2024 12:41:35 PM Interpretation:Negative Performing Lab: Notes/Report: Negative Occult Blood, Stool, Guaiac Neg Lipid Panel Reviewed date:08/06/2024 08:36:20 AM Interpretation: Performing Lab:[address] [phone] Notes/Report: Triglycerides 118 <150 mg/dL Desirable Triglyceride: [...] disease. Complete Blood Count Auto Di ff Reviewed date:10/29/2024 05:17:50 PM Interpretation: Performing Lab:[address] [phone] Notes/Report: White Blood Count 6.0 4.8-10.8 X10*3/uL [...] NRBC Abs Auto 0.000 0.0-0.012 X10*3/uL Comprehensive Met. Panel Reviewed date:10/29/2024 05:11:10 PM Interpretation: Performing Lab:[facility], [address] [place] [phone] Notes/Report: Sodium 140 135-145 mmol/L Potassium 3.7 3.3-5.1 mmol/L Chloride 109 96-108 mmol/L Carbon Dioxide 24 22-29 mmol/L Anion Gap 11 12-20 Blood Urea Nitrogen 12 9-16 mg/dL Creatinine 1.00 0.5-1.4 mg/dL Creatinine Clr Calc Pharmacy 95.8 eGFR (calculated from the MDRD study equation) and eCrCl (calculated from the Cockcroft-Gault equation) are based on different parameters and may not yield comparable results. If eCrCl result is absurd, please check patient's height/weight. Estimated Glomerular Filt Rate > 60 Chronic Kidney Disease: Estimated GFR < 60 mL/min/1.73m2 Severe Kidney Disease: Estimated GFR < 15 mL/min/1.73m2 Glucose Random 117 60-115 mg/dL Calcium 8.8 8.4-10.2 mg/dL Bilirubin Total 0.7 0.0-1.0 mg/dL Aspartate Amino Transferase 28 5-37 U/L Alanine Aminotransferase 18 0-40 U/L Total Protein 6.8 6.5-8.0 g/dL Albumin Level 3.9 3.5-5.0 g/dL Alkaline Phosphatase 70 39-117 U/L Creatine Kinase Total Reviewed date:10/29/2024 05:10:55 PM Interpretation: Performing Lab:[facility], [address] [place] [phone] Notes/Report: Creatine Kinase Total 52 38-174 U/L Troponin-I High Sensitivity Reviewed date:10/29/2024 12:36:25 PM Interpretation: Performing Lab:[facility], [address] [place] [phone] Notes/Report: Troponin-I High Sensitivity < 2.7 <3.5-35.0 ng/L The Garcia high sensitivity Troponin-I results should be used in conjunction with other diagnostic information such as ECG, clinical observations and information, and patient symptoms to aid in the diagnosis of HI. XR chest 1V Reviewed date:10/29/2024 05:21:05 PM Interpretation: Performing Lab: Notes/Report: [address] [place] [address] XRay Report Signed Patient: Filipe Sharp MR#: [id number] 330 : 1960 Acct:[id number] Age/Sex: 64 / M ADM Date: 10/29/24 Loc: .ED Attending Dr: Ordering Physician: Valentín Orr MD Date of Service: 10/29/24 Procedure(s): XR chest 1V Accession Number(s): [id number] cc: Ben Adams MD; Valentín Orr MD EXAMINATION: XR CHEST [...] 10/29/24 1104 DD/ 1000 TD/TT: 10/29/24 1011 Architecture Analyst: [address] [address] XRay Report Signed Patient: Coral Sharp tt O MR#: [id number] 330 : 1960 Acct:[id number] Age/Sex: 64 / M ADM Date: 10/29/24 Loc: HO.ED Attending Dr: Ordering Physician: Valentín Orr MD Date of Service: 10/29/24 Procedure(s): XR giovanni st 1V Accession Number(s): [id number] cc: Ben Adams MD; Valentín Orr MD [...] 10/29/24 1104 DD/ 1000 TD/TT: 10/29/24 1011 Architecture Analyst: Troponin-I High Sensitivity Reviewed date:10/29/2024 05:10:24 PM Interpretation: Performing Lab:[facility], [address] [place] [phone] Notes/Report: Troponin-I High Sensitivity < 2.7 <3.5-35.0 ng/L The Garcia high sensitivity Troponin-I results should be used in conjunction with other diagnostic information such as ECG, clinical observations and information, and patient symptoms to aid in the diagnosis of HI. Reason For Referral No Information Medications Medication SIG (Take, Route, Frequency, Duration) Notes Start Date End Date Status LORazepam 1 MG TAKE 1 TABLET BY LORI TH TWICE DAILY NEEDED for 90 09/13/2024 Active Ozempic (0.25 or 0.5 MG/DOSE) 2 [...] 30 DAYS. SEE FN. for 30 Active Omeprazole 20 MG TAKE 1 CAPSULE BY MO UTH ONCE DAILY Orally Once a day Active Metoprolol Succinate ER 50 MG take 1 tablet by mouth once daily Orally Once a day Active Montelukast Sodium 10 MG TAKE 1 TABLET B Y MOUTH ONCE DAILY for 90 Active Celecoxib 200 MG TAKE 1 CAPSULE BY MO UTH ONCE DAILY WITH FOOD for 90 Active Symbicort 80-4.5 MCG/ACT 1 puff as [...] W/U Status Risk Notes Problem Diabetic neuropathy (621943859) Diabetic neuropathy (E11.40) Active confirmed Problem Transient ischemic attack (236826576) TIA (transient ischemic attack) (G45.9) Active confirmed Problem 061489499 Neuropathy (G62.9) Active confirmed Problem 75199562 Prostatism (N40.0) Active confirmed Problem 289532701 Reflux esophagit is (K21.00) Active confirmed Problem 50716144 Anxiety (F41.9) Active confirmed Problem Lipoprotein deficiency disorder (258600449) Lipoprotein deficiency (E78.6) Active confirmed Problem 772272595 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 confirmed Problem 2473364 Arthritis (M19.90) Active confirmed Problem 61783130 Lumbar disc dise ase (M51.9) Active confirmed Problem 344971720 Tubular adenoma of colon (D12.6) Active confirmed Problem 42815256 Essential hypert ension (I10) Active confirmed Problem 1404234 Psoriasis (L40.9) Active confirmed Problem 121273606 Mild intermitten t asthma without complication (J45.20) Active confirmed Problem 78537962 Obstructive slee p apnea syndrome (G47.33) Active confirmed Problem 407293120 Asthmatic bronch itis, mild intermittent, with acute exacerbation (J45.21) Active confirmed Problem 121999400 Seasonal allergi es (J30.2) Active confirmed Problem Subcutaneous nodule (41133141) Subcutaneous nodule (R22.9) Active confirmed Problem 7605740 Migraine with au ra and without status migrainosus, not intractable (G43.109) Active confirmed Problem 113541948 Mild intermitten t asthma with acute exacerbation (J45.21) Active confirmed Problem 83272588 Hiatal hernia (K44.9) Active confirmed Problem 602066195 Cervical disc di sease (M50.90) Active confirmed Problem 06444277 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) Active confirmed Problem 445956260 Schatzki's ring (K22.2) Active confirmed Problem 422916628 Pure hypercholesterolemia (E78.00) Active confirmed Problem 160013960 Anxiety attack (F41.0) Active confirm ed Problem 91230146 KERON (obstructive sleep apnea) (G47.33) Active confirmed Problem 545858532 BMI 35.0-35.9,ad ult (Z68.35) Active confirmed Problem 0903508 Peyronie's disea se (N48.6) Active confirmed Problem 655780832 Controlled type 2 diabetes mellitus without complication, without long-term current use of insulin (E11.9) Active confirmed Problem 200046492 Non-sustained ventricular tachycardia (I47.2) Active confirmed Problem 53388486 Blue nevus of up per back excluding scapular region (D23.5) Active confirmed Problem 633440664 Drug dependence (F19.20) Active confirmed Problem 300213454 Expressive aphas ia (R47.01) Active confirmed Problem 76188945 Deficit in communication due to slurred speech (F80.89) Active confirmed Problem 23142765 Acute arthritis (M19.90) Active confirmed Vital Signs Blood pressure diastolic 70 mm Hg 10/12/2024 lisa ght is down 15 pounds since 06-07-24 Height 70 in 10/12/2024 weight is down 15 pounds since 06-07-24 Blood pressure systolic 108 mm Hg 10/12/2024 lisag ht is down 15 pounds since 06-07-24 Weight 253 lbs 10/12/2024 weight is down 15 pounds since 06-07-24 BMI 36.3 kg/m2 10/12/2024 weight is down 15 pounds since 06-07-24 Encounters Encounter Location Date Provider Diagnosis Ben Adams MD [address] [place] [address] Drive [address] [place], [place] [phone] 10/05/2024 Ben Adams Blood tests for rout ine general physical examination Z00.00 ; Prostatism N40.0 and Pure hypercholesterolemia E78.00 Ben Adams MD [address] [place] [id number] 04/30/2024 Ben Adams Controlled type 2 di abetes mellitus without complication, without long-term current use of insulin E11.9 Ben Adams MD [address] [id number] 06/07/2024 Ben Adams Ophthalmic migraine G43.109 and Essential hypertension I10 Ben Adams MD [address] [place] [address] [address] [place] [id number] 10/12/2024 Ben Adams Controlled type 2 di [...] Ben Adams MD [address] [place] [id number] 12/25/2024 Ben Adams MD [address] [place] [id number] 05/29/2024 Ben Adams 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 K22.70 Ben Adams MD [address] [place] [address] [address] [id number] 11/02/2024 Ben Adams MD [address] [place] [address] [address] [id number] 12/17/2024 Ben Adams Assessments Encounter Date Diagnosis (ICD Code) Assessment [...] 11/02/2013 Electrocardiogram (EKG) 11/27/2015 Electrocardiogram (EKG) 01/27/2018 CT CERVICAL SPINE W&WO CONTRAST 06/07/20 13 US CAROTID BILATERAL DOPPLER 10/20/2023 US abdomen complete 04/01/2022 XR lumbar spine 4V min 03/17/2021 Next Appt Details Provider Name:Ben encarnacion, 04/12/2025 07:30:00 AM, [address] [facility], [address], [place], [place], [phone], Provider Name:Ben Benavides ier, 04/19/2025 09:00:00 AM, [address], [address], [place], [phone], Provider Name:Ben Benavides ier, 10/08/2025 07:45:00 AM, [address], [address], [place], [phone], Provider Name:Ben Benavides ier, 10/15/2025 08:30:00 AM, [address], [address], [place], [phone], Insurance Providers Payer Name Payer Address Payer Phone Subscriber Number Group Number Insured Name Patient Relationship to Insured Coverage Start Date Coverage End Date [facility] [address] [place], [place] [id number] Filipe Sharp Self - patient is the insured Medical (General) History Medical History History ICD Code Colonoscopy 10/23/2012 - due in 5 years; colonoscopy 08/04/[address] Smith - repeat 5 years colonoscopy 2023 repaeat in 5 years refuses flu vac 07/12/[address] to be done no v [address] neg 2018 needs no furter evaluation Endoscopy - Dr. Smith Lung nodule was followed stable an dno f urther evaluation R91.1 Prediabetes R73.09 Surgical History Surgery Date(Month/Year) Dual Chamber Permanent Pacemaker Generat or Change 03/2018
--- OUTSIDE RECORDS SUMMARY | 2024-12-27 07:55 | XMS_ITS ---
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) Active confirmed Encounters Encounter Location Date Provider Diagnosis [facility] [address] [place] [id number] 11/22/2023 Bob Smith Jr Encounter for screening colonoscopy Z12.11 and Correa''s esophagus without dysplasia K22.70 Assessments Encounter Date Diagnosis (ICD Code) Assessment Notes Treatment Notes Treatment Clinical Notes Section Notes 11/22/2023 Encounter for screening colonoscopy (ICD-10 - Z12.11) 11/22/2023 Correa''s esophagus without dysplasia (ICD-10 - K22.70) Plan Of Treatment No Information Progress Notes * TYRONE DUMONTDOB:1960 (64 yo M)Acc No.[id number]:11/22/2023 EGD and COL/MAC Patient:?TYRONE DUMONT Provider:?Bob Smith MD :1960???Age:63 Y???Sex:Male Jose e:11/22/2023 Address:[address] [place] [address] [facility] Pcp:Ben Adams MD Subjective: * Chief Complaints: * ???1. Screening,correa's. * Medical History:? Objective: * Vitals:? Assessment: * Assessment: 1.?Encounter for screening c olonoscopy - Z12.11 (Primary)???2.?Correa''s esophagus without dysplasia - K22.70??? Plan: * Treatment: * Procedure Codes:?35808 DIAGN OSTIC COLONOSCOPY, 75794 UPPER GI ENDOSCOPY, BIOPSY * * The named appointment provid er may or may not be the originator of this progress note, and it is not deemed complete until electronically signed by the appointment provider. Sign off status: Pending * Provider:?Bob Smith MD Date:?0 11/22/2023 Generated for Zahra law/Salome/eTkellysmitting on:?12/27/2024 07:54 AM EDT
--- OUTSIDE RECORDS SUMMARY | 2024-12-27 07:55 | XMS_ITS | Clinical Summary ---
Author Organization [facility] Address [address] [place] [address] Care Team Providers Care Nurse Ortho Name Role Phone Unavailable Primary Care Provider Unavailabl e Social History Tobacco Use Types Packs/Day Years Used Date Smoking Tobacco: Never Assessed Sex and Gender Information Value Date Recorded Sex Assigned at Not on file Gender Identity Not on file Sexual Orientation Not on file Plan of Treatment Not on file
--- OUTSIDE RECORDS SUMMARY | 2024-12-27 07:55 | XMS_ITS | Patient Health Record ---
Author Organization [facility] Address [address] [place] [phone] Care Team Providers Care Recycler Forklift Driver Truck Driver Name Role Phone Ben Adams MD Primary Care Provider Bob Marcos Jr [phone] Allergies Allergen (clinical drug ingredient) Drug/Non Drug Allergy documented on EMR Reaction Allergy Type Onset Date Status Pentoxifylline Unknown Drug Allergy Ac tive Reason For Referral No Information Medications Medication [...] same meal Orally Once a day Active Problems Problem Type SNOMED Code ICD Code Onset Dates Problem Status W/U Status Risk Notes Problem 516540643 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 confirmed Problem 944027261 Gastroesophageal reflux disease without esophagitis (K21.9) Active confirmed Problem 923701923 Screening for co jessica cancer (Z12.11) Active confirmed Problem Garcia's esophagus (490972825) Garcia''s esophagus 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.70) Active confirmed Plan Of Treatment Pending Test Test Name Order Date XR BARIUM SWALLOW-ESOPHAGUS 05/29/2015 Future Test Test Name Order Date UPPER GI ENDOSCOPY 05/04/2018 COLONOSCOPY 05/04/2018 UPPER GI ENDOSCOPY 10/06/2023 COLONOSCOPY 10/06/2023 Insurance Providers Payer Name Payer Address Payer Phone Subscriber Number Group Number Insured Name Patient Relationship to Insured Coverage Start Date Coverage End Date [facility] [address] [place] [id number] TYRONE DUMONT Self - patient is the insured Medical (General) History Medical History History ICD Code Nonsustained ventricular tac hycaraniyaa, Dr. Hernández, sick sinus syndrome, pacemaker placement Gastroesophageal reflux dise ase, EGD 07/23 Schatzki ring, intestinal metaplasia/Agrcia's on biopsies of the GE junction Anxiety/depression Elevated glucose Hyperlipidemia Degenerative disc disease BPH Colonoscopy 07/23, hyperplas tic polyp, five-year followup due to history of tubular adenomas. KERON Surgical History Surgery Date(Month/Year) ankle surgery left 1998 hernia surgery x2 nose surgery cardiac pacemeker Prostate surgery, [facility] Dr. [facility]
== END 2024-12-27 07:49 | disposition home or self-care (01) ==
LOC: HO.CT 07:48
PROVIDERS: PCP Internal Medicine; Visit Provider Nurse Practitioner Family
DX: R91.8 Other nonspecific abnormal finding of lung field (principal)
CPT/HCPCS: 71250

== ENCOUNTER → 2024-12-27 07:49 | Outpatient (BNV) | payer OTHER, SELFPAY | PROVIDERS: PCP Internal Medicine; Visit Provider Nuclear Medicine | DX: R91.8 Other nonspecific abnormal finding of lung field (principal) | CPT/HCPCS: 71250 ==

== ENCOUNTER 2025-02-11 06:21 | Outpatient (REF) | payer OTHER, SELFPAY ==
[2025-02-11 07:45] LABS: Cholesterol 77 mg/dL (<200); HDL Cholesterol 24 mg/dL (>40); LDL Cholesterol Calculated 39 mg/dL (<100); Triglycerides 72 mg/dL (<150)
== END 2025-02-11 06:22 | disposition home or self-care (01) ==
LOC: HO.LAB 06:21
PROVIDERS: PCP Internal Medicine; Visit Provider Internal Medicine Cardiovascular Disease
DX: Z13.6 Encounter for screening for cardiovascular disorders (principal); I77.9 Disorder of arteries and arterioles, unspecified
CPT/HCPCS: 36415; 80061

== ENCOUNTER 2025-02-18 15:39 | Outpatient (AMB) | payer OTHER, SELFPAY ==
[2025-02-18 15:51] VITALS: BP 100/60; PULSE 67; O2SAT 96; BMI 32.6
--- NOTE | 2025-02-18 15:51 | MHC.OFFVIS ---
Vital Signs 02/18/25 15:51 Height 6 ft Weight 240 lb 4.862 oz BMI 32.6 BP 100/60 Blood Pressure Location Lt brachial Position Sitting Pulse 67 Pulse Source Pulse Oximeter Pulse Oximetry (%) 96 Oxygen Delivery Method Room Air Intake Visit Reasons: Asthma Allergies pentoxifylline Allergy (Severe, Verified 02/18/25 15:54) syncope Seasonal Allergies Allergy (Verified 02/18/25 15:54) Sneezing atorvastatin Adverse Reaction (Verified 02/18/25 15:54) Extreme fatigue HPI HPI Asthma: Details: Filipe is a pleasant 64 year old male, former 10 pack year smoker, quit 1995, with underlying asthma COPD overlap syndrome, stable pulmonary nodules, nonsustained vtach on metoprolol and sick sinus syndrome s/p pacer. He has been well controlled on Breyna, however only using 2 inhalations QD. He currently denies any respiratory symptoms, rarely requiring albuterol MDI. He denies any presents to urgent care or hospitalizations related to respiratory distress since the last visit. Today he presents to review chest CT results. [facility] Medical History COPD (chronic obstructive pulmonary disease) Asthma Avulsion fracture of thumb NSVT (nonsustained ventricular tachycardia) Cardiac pacemaker in situ Sick sinus syndrome Surgical History History of permanent cardiac pacemaker placement Hx of removal of cyst History of ankle surgery Family History Father Kidney failure Mother CVD (cardiovascular disease) Social History Alcohol intake: current Alcohol intake frequency: holidays/special occasions only Patient Tobacco Use Status: Former Tobacco user Years Smoked: 10 +/- Review of Systems Const Denies chills, Denies excessive sweating, Denies fever(s), Denies headache(s) and Denies night sweats Eyes Denies dry eyes, Denies irritation and Denies itchy eyes ENT Reports Normal hearing present, Denies headache(s), Denies nasal congestion, Denies nasal discharge, Denies post nasal drip and Denies sore throat Card Denies chest pain, Denies chest pain at rest, Denies chest pain with activity, Denies claudication, Denies leg edema, Denies dyspnea, Denies dyspnea on exertion, Denies orthopnea and Denies paroxysmal nocturnal dyspnea Resp Denies chest congestion, Denies cough, Denies excessive phlegm production, Denies pain on inspiration, Denies pain with cough, Denies dyspnea, Denies dyspnea on exertion, Denies stridor and Denies wheezing Musc Denies myalgias Neuro Reports Normal hearing present and Denies headache(s) Endo Denies excessive sweating Len/Lymph Denies lymphadenopathy Aller/Immun Denies itchy eyes, Denies seasonal rhinorrhea and Denies wheezing Physical Exam Vital Signs: Last Vital Signs Pulse 67 02/18/25 15:51 BP 100/60 02/18/25 15:51 Pulse Ox 96 02/18/25 15:51 Oxygen Delivery Method Room Air 02/18/25 15:51 BMI result Body Mass Index 32.6 Const General: cooperative, healthy appearing, comfortable, no acute distress, well developed and alert Nutritional Appearance: obese Orientation/consciousness: patient oriented x3 Limitations: no limitations HEENT Head: Yes normal to inspection, Yes normocephalic and Yes atraumatic Ears: hearing grossly normal bilaterally and external ears normal Eyes General: appearance normal, both eyes and all related structures Eyelids: Yes eyelids normal Sclerae: sclerae normal EOM: EOMs intact bilaterally Neck Neck: Yes normal visual inspection and Yes no lymphadenopathy Lymphatic: no lymphadenopathy noted Chest Chest palpation & inspection: normal inspection of the chest Resp Effort & Inspection: normal respiratory effort, able to speak in complete sentences, no audible wheezes, no cough, no stridor, not tachypneic, no tripod positioning and no use of accessory muscles Auscultation: clear to auscultation bilaterally Cardio Jugular venous distension: no JVD Rate: regular rate Rhythm: regular rhythm Skin Other: warm, dry General skin exam: no rashes or lesions noted Neuro General: patient oriented x3 Cranial nerves: Yes Normal hearing present Cognition (Neuro): normal cognition Gait exam (Neuro): Normal gait present Extrem General: Yes normal to inspection, Yes capillary refill normal, Yes no clubbing, cyanosis or edema and Yes no pedal edema Psych Appearance: grossly normal and well kempt Speech and movement: Normal speech and movement present and Clear speech present Affect: normal affect Attitude: cooperative Thought process: Normal thought process present Thought content: Normal thought content present Insight: Good insight present (Psych) Judgement: Good judgement present (Psych) Results Reviewed Results Reviewed: [address] [address] [address] Scan Report Signed Patient: Filipe Sharp MR#: [id number] : 1960 Acct:[id number] Age/Sex: 64 / M ADM Date: 12/27/24 Loc: HO.CT Attending Dr: Colleen Bradley NP Ordering Physician: Colleen Bradley NP Date of Service: 12/27/24 Procedure(s): CT chest wo IV con Accession Number(s): [id number] cc: Ben Adams MD; Colleen Bradley NP~ Report Number: [id number]: Total DLP = 206.00 mGy-cm CLINICAL HISTORY: R91.8 - Other nonspecific abnormal finding of lung field CT chest without contrast Comparison: CR/SR - XR CHEST 1V - 10/29/24 10:[address]/REG/GA/SR - CT CHEST WO IV CON - 12/09/23 07:31 EDT Findings: The heart is normal size. Mild Atherosclerosis calcification of the coronary artery. Pacemaker. The visualized thyroid and mediastinum are unremarkable. No consolidation or effusion. Mild emphysema. Bronchiectasis. Calcified granulomas. There are micro nodules. Mild atelectasis of the lung base. The upper abdomen is unremarkable. No acute fractures. IMPRESSION: No acute findings. This document has been electronically signed by: Leann May MD on 12/27/2024 14:13:51 Dictated By: Leann May MD Signed By: <Electronically signed by Leann May MD in OV> 12/27/24 1414 DD/ 1413 TD/TT: 12/27/24 1413 Head Of Housekeeping: Assessment & Plan Assessment & Plan (1) Asthma-COPD overlap syndrome: Code(s): J44.89 - Other specified chronic obstructive pulmonary disease Category: Medical (2) Personal history of tobacco use: Code(s): Z87.891 - Personal history of nicotine dependence Category: Social Hx (3) Multiple pulmonary nodules: Code(s): R91.8 - Other nonspecific abnormal finding of lung field Category: Medical Plan Filipe reports good control of symptoms with Symbicort ,advised to continue. He is aware to increase to 2 inhalations daily if symptoms become less controlled. Prior chest CT from 12/27 revealed multiple scattered micronodules, reviewed recent chest CT which revealed stability on micronodules, emphysematous changes and mild bronchiectasis. Since nodules are stable, no need for further imaging at this time. All questions were answered and patient is in agreement of plan. Will follow-up in 6 months or sooner if needed. Medications: Changed From budesonide-formoterol 160-4.5 mcg/actuation (Breyna) 1 puff inhalation BID 10.2 grams 3RF To budesonide-formoterol 160-4.5 mcg/actuation (Breyna) 1 inh inhalation BID 10.2 grams 6RF Coding Level of Care Code Est Pt Level 4 (16772) Diagnoses Asthma-COPD overlap syndrome J44.89 Personal history of tobacco use Z87.891 Multiple pulmonary nodules R91.8
--- OUTSIDE RECORDS SUMMARY | 2025-02-18 17:32 | XMS_ITS ---
Author Organization [facility] Address [address] [place] [phone] Care Team Providers Care Photograph Mounter Name Role Phone Ben Adams MD Primary Care Provider Fredi Smith Jr, Bob Adames REASON FOR VISIT pathology Encounters Encounter Location Date Provider Diagnosis [facility] [address] [place] [phone] 11/28/2023 Bob Smith Jr Plan Of Treatment No Information Progress Notes * TYRONE DUMONTDOB:1960 (63 yo M)Acc No.[id number]:11/28/2023 Patient:?TIM TYRONE :1960???Age:63 Y???Sex:Male Address:[facility] [place], [address] * true * Date:? Generated for Printi ng/Faxing/eTransmitting on:?02/18/2025 05:32 PM EDT
== END 2025-02-18 16:22 | disposition home or self-care (01) ==
PROVIDERS: PCP Internal Medicine; Visit Provider Nurse Practitioner Family
DX: J44.89 Other specified chronic obstructive pulmonary disease (principal); Z87.891 Personal history of nicotine dependence; R91.8 Other nonspecific abnormal finding of lung field
CPT/HCPCS: 99214

== ENCOUNTER → 2025-02-18 15:39 | Outpatient (BNVA) | payer OTHER, SELFPAY | PROVIDERS: PCP Internal Medicine; Visit Provider Nurse Practitioner Family ==

== ENCOUNTER 2025-04-12 11:17 | Outpatient (REF) | payer OTHER, SELFPAY ==
--- OUTSIDE RECORDS SUMMARY | 2023-11-22 04:30 | XMS_ITS ---
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 Encounters Encounter Location Date Provider Diagnosis [facility] Outpatient [address] [place], [place] [id number] 11/22/2023 Bob Smith Jr Encounter for screening colonoscopy Z12.11 and Correa''s esophagus without dysplasia K22.70 Assessments Encounter Date Diagnosis (ICD Code) Assessment Notes Treatment Notes Treatment Clinical Notes Section Notes 11/22/2023 Encounter for screening colonoscopy (ICD-10 - Z12.11) 11/22/2023 Correa''s esophagus without dysplasia (ICD-10 - K22.70) Plan Of Treatment No Information Progress Notes * TYRONE DUMONTDOB:1960 (64 yo M)Acc No.[id number]:11/22/2023 EGD and COL/MAC Patient: TYRONE SHAH Provider: Glenn Smith MD :1960 A ge:63 Y S ex:Male Date:11/22/2023 Address:[address] [place], [place] [phone] Pcp:Ben Adams MD Subjective: * Chief Complaints: * 1 . Screening,correa's. * Medical History: Objective: * Vitals: Assessment: * Assessment: 1. E ncounter for screening colonoscopy - Z12.11 (Primary) 2 . B arrett''s esophagus without dysplasia - K22.70 Plan: * Treatment: * Procedure Codes: 4 5378 DIAGNOSTIC COLONOSCOPY, 49664 UPPER GI ENDOSCOPY, BIOPSY * * The named appointment provid er may or may not be the originator of this progress note, and it is not deemed complete until electronically signed by the appointment provider. Sign off status: Pending * Provider: Glenn Smith MD Date: 0 11/22/2023 Generated for Zahra law/Salome/Radhaitting on: 0 04/12/2025 11:26 AM EDT
--- OUTSIDE RECORDS SUMMARY | 2025-04-12 03:30 | XMS_ITS ---
Author Organization Ben Adams MD Address [address] [place] [phone] Care Team Providers Care Arc And Gas Welder Name Role Phone Ben Adams Primary Care Provider [phone] REASON FOR VISIT FASTING LIPIDS Encounters Encounter Location Date Provider Diagnosis Ben Adams MD [address] [place] [phone] 04/12/2025 Ben Adams Pure hypercholestero lemia E78.00 Assessments Encounter Date Diagnosis (ICD Code) Assessment Notes Treatment Notes Treatment Clinical Notes Section Notes 04/12/2025 Pure hypercholesterolemia (ICD-10 - E78.00) Plan Of Treatment Pending Test Test Name Order Date Liver Panel 04/12/2025 Lipid Panel with Reflex 04/12/2025 Next Appt Details Provider Name:Ben encarnacion, 04/19/2025 09:00:00 AM, [address], [address], [place], [phone], Provider Name:Ben Benavides ier, 10/08/2025 07:45:00 AM, [address], [address], [place], [phone], Provider Name:Ben Benavides ier, 10/15/2025 08:30:00 AM, [address], [address], [place], [phone], Progress Notes * Filipe SHARP ODOB:[birth year] (64 yo M)Acc No.[id number]:04/12/2025 Progress Note Patient: Filipe SHAH Provider: Zully Adams MD :1960 A ge:64 Y S ex:Male Date:04/12/2025 Address:[address] [place] [address], [phone] Subjective: * Chief Complaints: * 1 . [...] Pending * Provider: Zully Adams MD Date: 04/12/2025 Generated for Zahra law/Salome/Radhaitting on: 04/12/2025 11:26 AM EDT
--- OUTSIDE RECORDS SUMMARY | 2025-04-12 11:27 | XMS_ITS | Clinical Summary ---
Author Organization [facility] Address [address] [place] [address] Care Team Providers Care Digital Learning Platforms Manager Name Role Phone Ben Adams MD Primary Care Provider Allergies No known active allergies Medications No known medications Active Problems No known active problems Social History Tobacco Use Types Packs/Day Years [...] 12/03/2025 3:45 PM EDT Office [place] [address] Arsen Montoya MD [address] [place] [address] Health Maintenance Due Date Last Done Comments Hepatitis C Virus Screening 1960 HIV Screening 1972 DTaP/Tdap/Td Vaccines (1 - Tdap) 1978 Colonoscopy 2004 Pneumococcal Vaccines 50+ (1 of 1 - PCV) 2009 Zoster (Shingles) Vaccine (1 of 2) 2009 COVID-19 Vaccine ( - 2023-2 5 season) 2024 Influenza Vaccine 04/05/2025 08/15/2008 RSV Vaccine 60 years and old er and Patients (1 - 1-dose 75+ series) 2034 Hepatitis B Vaccines Aged Out No long er eligible based on patient's age to complete this topic Insurance [facility] Care Teams Digital Learning Platforms Manager Relationship Specialty Start Date End Date Ben Adams MD [address] [place] [address] [place] [address] PCP - General Internal Medicine 12/06/23
--- OUTSIDE RECORDS SUMMARY | 2025-04-12 11:27 | XMS_ITS | Clinical Summary ---
Author Organization [facility] Address [address] [place] [address] Care Team Providers Care Nursing Unit Manager Name Role Phone Unavailable Primary Care Provider Unavailabl e Social History Tobacco Use Types Packs/Day Years Used Date Smoking Tobacco: Never Assessed Sex and Gender Information Value Date Recorded Sex Assigned at Not on file Gender Identity Not on file Sexual Orientation Not on file Plan of Treatment Not on file
--- OUTSIDE RECORDS SUMMARY | 2025-04-12 11:27 | XMS_ITS ---
Author Name [facility] [place] Organization Unknown History of Medication Use Medication Directions Dispensed Refills Start Date End Date Stat us No known medications No known medications active Problems Problem Status Onset Date Problem Type Date of Resolution Source Osteoarthritis of ankle and foot, right active [facility] En[facility] Encounter Type Encounter Reason Primary Diagnosis Location Date Ambulatory [facility] 12/04/2024 Ambulatory Primary osteoarthritis, right ankle and foot Primary osteoarthritis, right ankle and foot [facility] 12/04/2024 Ambulatory Primary osteoarthritis, right ankle and foot Primary osteoarthritis, right ankle and foot [facility] 12/06/2023 Ambulatory Primary osteoarthritis, right ankle and foot Primary osteoarthritis, right ankle and foot [facility] 12/06/2023 Care Team Organization Name Specialty Phone Email Start Date End Da te [facility] Primary Care 12/06/2023 01/03/2025 [facility] Primary Care 12/06/2023 [employer] 11/15/2023 11/15/2023
[2025-04-12 12:34] LABS: Alanine Aminotransferase 14 U/L (0-40); Albumin Level 3.9 g/dL (3.5-5.0); Alkaline Phosphatase 83 U/L (39-117); Aspartate Amino Transferase 35 U/L (5-37); Cholesterol 83 mg/dL (<200); HDL Cholesterol 25 mg/dL (>40); Total Protein 6.4 g/dL (6.5-8.0); Triglycerides 83 mg/dL (<150)
== END 2025-04-12 11:18 | disposition home or self-care (01) ==
LOC: HO.LNP 11:17
PROVIDERS: Visit Provider Internal Medicine
DX: E78.00 Pure hypercholesterolemia, unspecified (principal)
CPT/HCPCS: 80061; 80076

== ENCOUNTER 2025-04-16 14:21 | Outpatient (AMB) | payer OTHER, SELFPAY ==
--- OUTSIDE RECORDS SUMMARY | 2023-11-22 04:30 | XMS_ITS ---
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 Encounters Encounter Location Date Provider Diagnosis [facility] [place] Outpatient [address] [place], [place] [id number] 11/22/2023 Bob Smith Jr Encounter for screening colonoscopy Z12.11 and Correa''s esophagus without dysplasia K22.70 Assessments Encounter Date Diagnosis (ICD Code) Assessment Notes Treatment Notes Treatment Clinical Notes Section Notes 11/22/2023 Encounter for screening colonoscopy (ICD-10 - Z12.11) 11/22/2023 Correa''s esophagus without dysplasia (ICD-10 - K22.70) Plan Of Treatment No Information Progress Notes * TYRONE DUMONTDOB:1960 (64 yo M)Acc No.[id number]:11/22/2023 EGD and COL/MAC Patient: TYRONE SHAH Provider: Glenn Smith MD :1960 A ge:63 Y S ex:Male Date:11/22/2023 Address:[address] [place], [place] [id number] Pcp:Ben Adams MD Subjective: * Chief Complaints: * 1 . Screening,correa's. * Medical History: Objective: * Vitals: Assessment: * Assessment: 1. E ncounter for screening colonoscopy - Z12.11 (Primary) 2 . B arrett''s esophagus without dysplasia - K22.70 Plan: * Treatment: * Procedure Codes: 4 5378 DIAGNOSTIC COLONOSCOPY, 08091 UPPER GI ENDOSCOPY, BIOPSY * * The named appointment provid er may or may not be the originator of this progress note, and it is not deemed complete until electronically signed by the appointment provider. Sign off status: Pending * Provider: Glenn Smith MD Date: 0 11/22/2023 Generated for Zahra law/Salome/Radhaitting on: 0 04/16/2025 03:16 PM EDT
--- OUTSIDE RECORDS SUMMARY | 2025-04-12 03:30 | XMS_ITS ---
Author Organization Ben Adams MD Address [address] [place] [phone] Care Team Providers Care Senior Administrator Support Name Role Phone Ben Adams Primary Care Provider Results Component Value Reference Range Notes Liver Panel Reviewed date:04/12/2025 04:52:33 PM Interpretation: Performing Lab:[facility], [address] [place] [phone] Notes/Report: Bilirubin Total 0.8 0.0-1.0 mg/dL Bilirubin Direct 0.3 0.0-0.5 mg/dL Aspartate Amino Transferase 35 5-37 U/L Alanine Aminotransferase 14 0-40 U/L Total Protein 6.4 6.5-8.0 g/dL Albumin Level 3.9 3.5-5.0 g/dL Alkaline Phosphatase 83 39-117 U/L REASON FOR VISIT FASTING LIPIDS Encounters Encounter Location Date Provider Diagnosis Ben Adams MD [address] [place], [place] [phone] 04/12/2025 Ben Adams Pure hypercholestero lemia E78.00 Assessments Encounter Date Diagnosis (ICD Code) Assessment Notes Treatment Notes Treatment Clinical Notes Section Notes 04/12/2025 Pure hypercholesterolemia (ICD-10 - E78.00) Plan Of Treatment Pending Test Test Name Order Date Lipid Panel with Reflex 04/12/2025 Next Appt Details Provider Name:Ben Benavides ier, 04/19/2025 09:00:00 AM, [address] [place] [address], [address] [facility], [place], [place], [phone], Provider Name:Ben Benavides ier, 10/08/2025 07:45:00 AM, [address] [place] [address], [place] [address], [place], [place], [phone], Provider Name:Ben Benavides ier, 10/15/2025 08:30:00 AM, [address] [place] [address], [address], [phone], Progress Notes * TIMFilipe CHAKRABORTY ODOB:[birth year] (64 yo M)Acc No.[id number]:04/12/2025 Progress Note Patient: Filipe SHAH Provider: Zully Adams MD :1960 A ge:64 Y S ex:Male Date:04/12/2025 Address:[address] [place] [phone] Subjective: * Chief Complaints: * 1 . [...] Date: 04/12/2025 Generated for Zahra law/Salome/Radhaitting on: 04/16/2025 03:16 PM EDT
[2025-04-16 14:25] VITALS: BP 120/78; PULSE 72; BMI 32.3
--- NOTE | 2025-04-16 14:25 | MHC.OFFVIS ---
Vital Signs 04/16/25 14:25 Height 6 ft Weight 238 lb 1.588 oz BMI 32.3 BP 120/78 Blood Pressure Location Lt brachial Position Sitting Pulse 72 Intake Visit Reasons: 6 mth f/up r/s 02-14-25 Intake Note: 6 month follow-up with [facility] Sorting Machine Operator Required: No Allergies pentoxifylline Allergy (Severe, Verified 02/18/25 15:54) syncope Seasonal Allergies Allergy (Verified 02/18/25 15:54) Sneezing atorvastatin Adverse Reaction (Verified 02/18/25 15:54) Extreme fatigue Medication List - Last Reconciled 04/16/25 by Hakeem Hernández MD albuterol sulfate 90 mcg/actuation 2 puffs PO Q4H PRN aspirin 1 tab PO DAILY celecoxib 200 mg PO DAILY ezetimibe 10 mg PO DAILY ipratropium bromide 2 sprays intranasal BID lorazepam 1 mg PO BID metoprolol succinate ER 50 mg PO DAILY montelukast 10 mg PO DAILY nystatin 400,000 units (4 mL) PO QID omeprazole 20 mg PO DAILY rosuvastatin 10 mg PO DAILY semaglutide (Ozempic) 0.5 mg (0.736 mL) subcut QWEEK HPI Comments Details: Filipe comes for follow-up. Lost 35 lb. He is feeling very well. He has minor GI side effects but able to tolerate them. Denies any prolonged palpitation irregular heartbeat. No lightheadedness, syncope. [facility] Medical History COPD (chronic obstructive pulmonary disease) Asthma Avulsion fracture of thumb NSVT (nonsustained ventricular tachycardia) Cardiac pacemaker in situ Sick sinus syndrome Surgical History History of permanent cardiac pacemaker placement Hx of removal of cyst History of ankle surgery Family History Father Kidney failure Mother CVD (cardiovascular disease) Social History Alcohol intake: current Alcohol intake frequency: holidays/special occasions only Patient Tobacco Use Status: Former Tobacco user Years Smoked: 10 +/- Review of Systems Const Denies chills, Denies fatigue, Denies fever(s), Denies frequent falls, Denies weakness, Denies weight gain and Denies weight loss ENT Denies dizziness Card Denies chest pain, Denies leg edema, Denies lightheadedness, Denies palpitations, Denies dyspnea, Denies dyspnea on exertion, Denies orthopnea and Denies other (loss of consciousness) Resp Denies cough, Denies dyspnea and Denies dyspnea on exertion GI Denies hematochezia and Denies change in stool character Musc Denies abnormal gait, Denies muscle weakness, Denies numbness, Denies radiating pain into limb and Denies tingling Neuro Denies abnormal gait, Denies dizziness, Denies frequent falls, Denies numbness, Denies tingling and Denies weakness Endo Denies fatigue and Denies palpitations Physical Exam Vital Signs: Last Vital Signs Pulse 72 04/16/25 14:25 BP 120/78 04/16/25 14:25 BMI result Body Mass Index 32.3 Const General: cooperative, comfortable, no acute distress, alert and awake Nutritional Appearance: obese Orientation/consciousness: patient oriented x3 Limitations: no limitations Neck Neck: Yes trachea midline, Yes supple and Yes no JVD Resp Effort & Inspection: normal respiratory effort Auscultation: clear to auscultation bilaterally and wheezes right lower Cardio Jugular venous distension: no JVD Palpation: normal PMI Rate: regular rate Rhythm: regular rhythm Heart sounds: S1 normal heart sound present, S2 normal heart sound present, no click, no gallops, no murmurs and no rubs GI Inspection: Yes obesity Auscultation: normal bowel sounds Skin General skin exam: no rashes or lesions noted Neuro General: patient oriented x3 and no focal motor deficits Extrem General: Yes no clubbing, cyanosis or edema Psych Appearance: grossly normal Office Procedures Cardiac Device Check Cardiac Device Check Details: Dual-chamber [employer] pacemaker in place. Programmed in DDD at 50 beats per minute. Minimal atrial and ventricular pacing. Ventricular pacing thresholds were excellent and reprogrammed to enhance battery life. Atrial ventricular sensing is excellent. Pacing lead impedance is stable. Battery life is at about 5 years 48423-OS Cardiac Device Check, pacemaker dual lead Procedure code (CPT) selection complete Assessment & Plan Assessment & Plan (1) Cardiac pacemaker in situ: Code(s): Z95.0 - Presence of cardiac pacemaker Category: Medical Plan: Cardiac pacemaker in-situ, working well. Reprogrammed for adequate functioning. Minimal use of pacemaker. Will continue follow remotely. Follow up in the clinic in 6 months time. (2) NSVT (nonsustained ventricular tachycardia): Comment: follows w/[facility]-Dr. Hernández Code(s): I47.2 - Ventricular tachycardia Category: Medical Plan: Nonsustained ventricular tachycardia which is not present on current medical therapy. Continue to monitor pacer telemetry. Avoidance of stimulants was discussed. Stress mitigation strategies were discussed. Continue metoprolol therapy. (3) Carotid artery disease: Code(s): I77.9 - Disorder of arteries and arterioles, unspecified Category: Medical Plan: Mild carotid disease. Continue aspirin therapy. Continue statin therapy. LDL is extremely well optimized. Encouraged to continue to participate in weight loss program. He is doing very well with Ozempic therapy and will continue maximize the dose as tolerated. Continue participate in regular physical activity as tolerated. Will follow up in the clinic in 6 months time, sooner p.r.n.. Thank you for allowing me to partake in his care Coding Level of Care Code Est Pt Level 4 (82002) Complex EM visit Add On G2211 Diagnoses Cardiac pacemaker in situ Z95.0 NSVT (nonsustained ventricular tachycardia) I47.2 Carotid artery disease I77.9 CPT Codes Cardiac Device Check - Cardiac Device 2: 55342-BB Cardiac Device Check, pacemaker dual lead ([id number])
--- OUTSIDE RECORDS SUMMARY | 2025-04-16 15:16 | XMS_ITS | Clinical Summary ---
Author Organization [facility] Address [address] [place] [address] Care Team Providers Care Plastics Patternmaker Name Role Phone Unavailable Primary Care Provider Unavailabl e Social History Tobacco Use Types Packs/Day Years Used Date Smoking Tobacco: Never Assessed Sex and Gender Information Value Date Recorded Sex Assigned at Not on file Gender Identity Not on file Sexual Orientation Not on file Plan of Treatment Not on file
--- OUTSIDE RECORDS SUMMARY | 2025-04-16 15:16 | XMS_ITS | Clinical Summary ---
Author Organization [facility] Address [address] [place] [address] Care Team Providers Care Handle Attacher Name Role Phone Ben Adams MD Primary [...] 3:45 PM EDT Office [place] [address] Arsen Montoya MD [address] [place] [address] Health Maintenance Due Date Last Done Comments [...] patient's age to complete this topic Insurance [facility] Care Teams Handle Attacher Relationship Specialty Start Date End Date Ben Adams MD [address] [place] [address] [place] [address] PCP - General Internal Medicine 12/06/23
== END 2025-04-16 15:16 | disposition home or self-care (01) ==
LOC: HO.HCS 14:22
PROVIDERS: PCP Internal Medicine; Visit Provider Internal Medicine Cardiovascular Disease
DX: I47.20 Ventricular tachycardia, unspecified (principal); Z95.0 Presence of cardiac pacemaker; I77.9 Disorder of arteries and arterioles, unspecified
CPT/HCPCS: 93280; 99214

== ENCOUNTER → 2025-04-16 14:21 | Outpatient (BNVA) | payer OTHER, SELFPAY | PROVIDERS: PCP Internal Medicine; Visit Provider Internal Medicine Cardiovascular Disease | DX: I47.20 Ventricular tachycardia, unspecified (principal); I49.5 Sick sinus syndrome; I77.9 Disorder of arteries and arterioles, unspecified; Z95.0 Presence of cardiac pacemaker | CPT/HCPCS: 93280 ==

== ENCOUNTER 2025-08-19 15:53 | Outpatient (AMB) | payer OTHER, SELFPAY ==
--- OUTSIDE RECORDS SUMMARY | 2024-05-29 02:37 | XMS_ITS ---
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 Assessments Encounter Date Diagnosis (ICD Code) Assessment Notes Treatment Notes Treatment Clinical Notes Section Notes 05/29/2024 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 (ICD-10 - K22.70) Plan Of Treatment Medication Medication Name Sig Start Date Stop Date Notes Omeprazole 20 MG TAKE 1 CAPSULE BY MO UTH ONCE DAILY Orally Once a day for 90 days Next Appt Details Provider Name:Ben Benavides ier, 10/08/2025 07:45:00 AM, [address], [address], [place], [phone], Provider Name:Ben Benavides ier, 10/29/2025 10:00:00 AM, [address], [address], [place], [phone], Progress Notes * Filipe SHARP ODOB:[birth year] (63 yo M)Acc No.[id number]:05/29/2024 Patient: Filipe Soni :1960 A ge:63 Y S ex:Male Address:[address] [place] [address] [place] [id number] * Refills Refill Omeprazole Capsule Delayed Release, 20 MG, Orally, 90, TAKE 1 CAPSULE BY MOUTH ONCE DAILY, Once a day, 90 days, Refills=4 * true * Date: Generated for Zahra law/Salome/Lucioransmitting on: 1 10/20/2024 10:18 PM EST
--- OUTSIDE RECORDS SUMMARY | 2024-06-07 06:30 | XMS_ITS ---
Author Organization Ben Adams MD Address [address] [place] [phone] Care Team Providers Care Circulation Director Name Role Phone Ben Adams Primary Care Provider [phone] Allergies No Known Allergies REASON FOR VISIT high blood blood pressure this morning was 153/93 pulse 53, has alittle Head ache had a migraine last night Medications Medication SIG (Take, Route, Frequency, Duration) Notes Start Date End Date Status Aspir-81 81 MG 1 tablet Orally Once a day for 30 day(s) Active Hydrocortisone Sai-Pramoxine 2.5-1 % 1 application Externally Three times a day for 30 days 04/04/2023 Active Hydrocortisone Sai-Pramoxine 2.5-1 % 1 application Externally Three times a day 04/04/2023 Active Clobetasol Propionate 0.05 % APPLY DAILY TO SKIN TO AFFECTED AREA TWICE A DAY FOR 30 DAYS. SEE FN. for 30 Active ProAir HFA 108 (90 Base) MCG/ACT 1 puff as needed Inhalation every 4 hrs for 30 days 04/02/2021 Active Celecoxib 200 MG TAKE 1 CAPSULE BY MO UTH ONCE DAILY WITH FOOD for 90 Active Rosuvastatin Calcium 5 MG 1 tablet Orall y Once a day Active Omeprazole 20 MG TAKE 1 CAPSULE BY MO UTH ONCE DAILY Orally Once a day for 90 days Active Symbicort 80-4.5 MCG/ACT 1 puff as neede d Inhalation every 4 hrs Active Metoprolol Succinate ER 50 MG take 1 tablet by mouth once daily Orally Once a day for 90 days Active LORazepam 1 MG TAKE 1 TABLET BY LORI TH TWICE DAILY NEEDED for 90 03/11/2024 Active Montelukast Sodium 10 MG TAKE 1 TABLET B Y MOUTH ONCE DAILY for 90 Active Immunizations Vaccine Route Administration Date Status Comme nts Influenza High Dose Unknown 06/07/2024 Refused Problems Problem Type SNOMED Code ICD Code Onset Dates Problem Status W/U Status Risk Notes Problem 88023178 Essential hypertension (I10) Active confirmed Vital Signs Blood pressure systolic 148 mm Hg 06/07/20 24 Blood pressure diastolic 76 mm Hg 024 Height 70 in 06/07/2024 Weight 268 lbs 06/07/2024 BMI 38.45 kg/m2 06/07/2024 weight is down 2 poiunds sin ce 824 Encounters Encounter Location Date Provider Diagnosis Ben Adams MD [facility] [address] [place] [phone] 06/07/2024 Ben Adams Ophthalmic migraine G43.109 and Essential hypertension I10 Assessments Encounter Date Diagnosis (ICD Code) Assessment Notes Treatment Notes Treatment Clinical Notes Section Notes 06/07/2024 Ophthalmic migraine (ICD-10 - G43.109) the numbness in arm lasted about one hour. the numbness comes on after the scotoma. 06/07/2024 Essential hypertension (ICD-10 - I10) is doing well now. the elevated readings are related to anxiety Plan Of Treatment Medication Medication Name Sig Start Date Stop Date Notes Metoprolol Succinate ER 50 MG take 1 tab let by mouth once daily Orally Once a day for 90 days Treatment Notes Assessment Notes Ophthalmic migraine the numbness in arm lasted about one hour. the numbness comes on after the scotoma. Essential hypertension is doing well now . the elevated readings are related to anxiety Next Appt Details Provider Name:Ben Benavides ier, 10/08/2025 07:45:00 AM, [address], [address], [place], [phone], Provider Name:Ben Benavides ier, 10/29/2025 10:00:00 AM, [address], [address], [place], [phone], Progress Notes * Filipe SHARP ODOB:[birth year] (63 yo M)Acc No.[id number]:06/07/2024 Progress Notes Patient: Filipe Soni Provider: Zully Adams MD :[id number] A ge:63 Y S ex:Male Date:06/07/2024 Address:[address] [place] [address] Melissa MATA, [id number] Subjective: * Chief Complaints: * H igh blood blood pressure this morning was 153/93 pulse 53has alittle Head ache had a migraine last night * HPI: S ymptom(s): hear as emegency for blood pressure. * ROS: G eneral/Constitutional: Denies C hills. D enies F atigue. D enies F ever. A dmits H eadache. E NT: Denies S ore throat. R espiratory: Denies C ough. D enies S hortness of breath at rest. D enies S hortness of breath with exertion. C ardiovascular: Denies C hest pain at rest. D enies C hest pain with exertion. D enies D izziness. G astrointestinal: Denies D iarrhea. D enies N ausea. N eurologic: Patient complaining of r t arm went num and the roof of his mouth and then got an ocular migraine. dr hernández made appt with neurologist for that. ? * Medical History: * Surgical History: * Hospitalization/Major Diagno stic Procedure: * Medications: T akingRosuvastatin Calcium 5 MG Tablet 1 tablet Orally Once a daySymbicort 80-4.5 MCG/ACT Aerosol 1 puff as needed Inhalation every 4 hrsAspir-81 81 MG Tablet Delayed Release 1 tablet Orally Once a dayHydrocortisone Sai-Pramoxine 2.5-1 % Cream 1 application Externally Three times a dayHydrocortisone Sai-Pramoxine 2.5-1 % Cream 1 application Externally Three times a dayClobetasol Propionate 0.05 % Cream APPLY DAILY TO SKIN TO AFFECTED AREA TWICE A DAY FOR 30 DAYS. SEE FN. ProAir HFA 108 (90 Base) MCG/ACT Aerosol Solution 1 puff as needed Inhalation every 4 hrsMontelukast Sodium 10 MG Tablet TAKE 1 TABLET BY MOUTH ONCE DAILY Metoprolol Succinate ER 25 MG Tablet Extended Release 24 Hour TAKE 1 TABLET BY MOUTH ONCE DAILY LORazepam 1 MG Tablet TAKE 1 TABLET BY MOUTH TWICE DAILY NEEDED Celecoxib 200 MG Capsule TAKE 1 CAPSULE BY MOUTH ONCE DAILY WITH FOOD Omeprazole 20 MG Capsule Delayed Release TAKE 1 CAPSULE BY MOUTH ONCE DAILY Orally Once a dayMedication List reviewed and reconciled with the patientTaking Rosuvastatin Calcium 5 MG Tablet 1 tablet Orally Once a dayTaking Symbicort 80-4.5 MCG/ACT Aerosol 1 puff as needed Inhalation every 4 hrsTaking Aspir-81 81 MG Tablet Delayed Release 1 tablet Orally Once a dayTaking Hydrocortisone Sai-Pramoxine 2.5-1 % Cream 1 application Externally Three times a dayTaking Hydrocortisone Sai-Pramoxine 2.5-1 % Cream 1 application Externally Three times a dayTaking Clobetasol Propionate 0.05 % Cream APPLY DAILY TO SKIN TO AFFECTED AREA TWICE A DAY FOR 30 DAYS. SEE FN. Taking ProAir HFA 108 (90 Base) MCG/ACT Aerosol Solution 1 puff as needed Inhalation every 4 hrsTaking Montelukast Sodium 10 MG Tablet TAKE 1 TABLET BY MOUTH ONCE DAILY Taking Metoprolol Succinate ER 25 MG Tablet Extended Release 24 Hour TAKE 1 TABLET BY MOUTH ONCE DAILY Taking LORazepam 1 MG Tablet TAKE 1 TABLET BY MOUTH TWICE DAILY NEEDED Taking Celecoxib 200 MG Capsule TAKE 1 CAPSULE BY MOUTH ONCE DAILY WITH FOOD Taking Omeprazole 20 MG Capsule Delayed Release TAKE 1 CAPSULE BY MOUTH ONCE DAILY Orally Once a dayMedication List reviewed and reconciled with the patient * Allergies: N .K.D.A.yes[Allergies Verified] Objective: * Vitals: H t: 70, Wt:268, BMI:38.45, BP:148/76, Repeat BP:130/88 weight is down 2 poiunds since 04-30-24. * Examination: G eneral Examination: GENERAL APPEARANCE: alert, well hydrated, in no distress , male. HEAD: normocephalic. SKIN: good turgor. HEART: regular rate and rhythm, no murmurs, rubs, gallops. LUNGS: no wheezes, rales, rhonchi, good air movement, clear to auscultation bilaterally. Assessment: * Assessment: 1. O phthalmic migraine - G43.109 (Primary) 2 . E ssential hypertension - I10 Plan: * Treatment: 2. E ssential hypertension Notes: is doing well now. the elevated readings are related to anxiety * Immunizations: Influenza High Dose (Not administered - Refused: Patient decision) * Procedure Codes: * * Sign off status: Completed true * Provider: Zully Adams MD Date: 1 Generated for Zahra law/Salome/eTransmitting on: 10/20/2024 10:17 PM EST History and Physical Notes * HPI (History of Present Illness) Category Sub-Category Detail Notes Category Not es Symptom(s) hear as emegenc y for blood pressure. Examination Category Sub-Category Detail Notes Category Not es General Examination GENERAL APPEARANCE: alert, w ell hydrated, in no distress , male HEAD: normocephalic HEART: regular rate and rhy thm, no murmurs, rubs, gallops LUNGS: no wheezes, rales, r honchi, good air movement, clear to auscultation bilaterally SKIN: good turgor
--- OUTSIDE RECORDS SUMMARY | 2024-10-05 02:15 | XMS_ITS ---
Author Organization Ben Adams MD Address [address] [place] [phone] Care Team Providers Care Slab Tripper Name Role Phone Ben Adams Primary Care Provider [phone] Results Component Value Reference Range Notes Complete Blood Count Auto Di ff Reviewed date:10/05/2024 04:22:21 PM Interpretation: Performing Lab:[facility], [address] [place] [phone] Notes/Report: White Blood Count 6.2 4.8-10.8 X10*3/uL Red Blood Count 4.88 4.60-5.80 X10*6/uL Hemoglobin 14.3 14.0-18.0 g/dl Hematocrit 42.9 42.0-52.0 % Mean Corpuscular Volume 87.9 80.0-98.0 fL Mean Corpuscular Hemoglobin 29.3 27.0-33.0 pg Mean Corpuscular HGB Conc 33.3 31.0-36.0 g/dl Red Cell Distribution Width 12.9 11.0-16.0 % Platelet Count 246 160-400 X10*3/uL Mean Platelet Volume 10.0 9.4-12.4 fL Neutrophils Percent Auto 57.5 45-73 % Imm Gran Pct Auto 0.3 0.0-0.4 % Lymphocytes Percent Auto 29.3 20-40 % Monocytes Percent Auto 7.9 2-11 % Eosinophils Percent Auto 4.5 0-4 % Basophils Percent Auto 0.5 0-2 % NRBC Pct Auto 0.0 0.0-0.2 /100WBC Neutrophils Absolute Auto 3.6 2.0-8.3 x10*3/u L Imm Gran Abs Auto 0.02 0.00-0.03 X10*3/uL Lymphocytes Absolute Auto 1.8 1.2-4.9 X10*3/u L Monocytes Absolute Auto 0.5 0.1-1.2 X10*3/uL Eosinophils Absolute Auto 0.3 0.0-0.4 X10*3/u L Basophils Absolute Auto 0.0 0.0-0.2 X10*3/uL NRBC Abs Auto 0.000 0.0-0.012 X10*3/uL Comprehensive [place]. Panel Fa st Reviewed date:10/05/2024 04:24:31 PM Interpretation: Performing Lab:[facility], [address] [place] [phone] Notes/Report: Sodium 142 135-145 mmol/L Potassium 4.3 3.3-5.1 mmol/L Chloride 110 96-108 mmol/L Carbon Dioxide 28 22-29 mmol/L Anion Gap 8 12-20 Blood Urea Nitrogen 12 9-16 mg/dL Creatinine 0.99 0.5-1.4 mg/dL Estimated Glomerular Filt Rate > 60 Chronic Kidney Disease: Estimated GFR < 60 mL/min/1.73m2 Severe Kidney Disease: Estimated GFR < 15 mL/min/1.73m2 Glucose Fasting 103 60-99 mg/dL A fasting glucose from 100-125 mg/dl is considered impaired (pre-diabetes). Calcium 9.3 8.4-10.2 mg/dL Bilirubin Total 0.9 0.0-1.0 mg/dL Aspartate Amino Transferase 29 5-37 U/L Alanine Aminotransferase 16 0-40 U/L Total Protein 6.7 6.5-8.0 g/dL Albumin Level 3.9 3.5-5.0 g/dL Alkaline Phosphatase 64 39-117 U/L Lipid Panel Reviewed date:10/05/2024 12:34:20 PM Interpretation: Performing Lab:[facility], [address] [place] [phone] Notes/Report: Triglycerides 58 <150 mg/dL Desirable Triglyceride: less than 150 mg/dL Borderline High Triglyceride 150-199 mg/dL High Triglyceride: 200-499 mg/dL Very High Triglyceride: greater than or equal to 5OO mg/dL Cholesterol 76 <200 mg/dL Desirable Cholesterol: less than 200 mg/dL Borderline High Cholesterol: 200-239 mg/dL High Cholesterol: greater than 239 mg/dL LDL Cholesterol Calculated 40 <100 mg/dL Desirable LDL: less than 100 mg/dL Near Optimal/Above Optimal LDL: 110-129 mg/dL Borderline High LDL: 130-159 mg/dL High LDL: 160-189 mg/dL Very High LDL: greater than or equal to 190 mg/dL HDL Cholesterol 25 >40 mg/dL Desirable HDL: greater than 40 mg/dL Note: This HDL assay may give artificially low results in patients with liver disease. PSA,Total (Free>4and<10) Reviewed date:10/05/2024 04:23:40 PM Interpretation: Performing Lab:[facility], [address] [place] [phone] Notes/Report: PSA,Total (Free>4and<10) 1.56 0.00-4.00 ng/mL A Free PSA was not [...] Garcia Alinity i Chemiluminescent Microparticle Immunoassay (CMIA) REASON FOR VISIT yearly fasting labs Encounters Encounter Location Date Provider Diagnosis Ben Adams MD [address] [place], [place] [phone] 10/05/2024 Ben Adams Blood tests for rout ine general physical examination Z00.00 ; Prostatism N40.0 and Pure hypercholesterolemia E78.00 Assessments Encounter Date Diagnosis (ICD Code) Assessment Notes Treatment Notes Treatment Clinical Notes Section Notes 10/05/2024 Blood tests for rout ine general physical examination (ICD-10 - Z00.00) 10/05/2024 Prostatism (ICD-10 - N40.0) 10/05/2024 Pure hypercholesterolemia (ICD-10 - E78.00) Plan Of Treatment Next Appt Details Provider Name:Ben Benavides ier, 10/08/2025 07:45:00 AM, [address], Suite [facility], [place], [place], [phone], Provider Name:Ben Benavides ier, 10/29/2025 10:00:00 AM, [address] [place] [address], Suite [facility], [place], [place], [phone], Progress Notes * Filipe SHARP ODOB:[birth year] (65 yo M)Acc No.[id number]:10/05/2024 Progress Note Patient: Filipe SHAH Provider: Zully Adams MD :1960 A ge:64 Y S ex:Male Date:10/05/2024 Address:[address] [place] [id number] Subjective: * Chief Complaints: * 1 . Yearly fasting labs. * Medical History: Objective: * Vitals: Assessment: * Assessment: 1. B lood tests for routine general physical examination - Z00.00 (Primary) 2 .?Prostatism - N40.0 3 . P ure hypercholesterolemia - E78.00 ? Plan: * Treatment: 2. P rostatism L AB: Complete Blood Count Auto Diff (Collection Date & Time - 10/05/2024 07:15 AM) L AB: Comprehensive [place]. Panel Fast (Collection Date & Time - 10/05/2024 07:15 AM) L AB: Lipid Panel (Collection Date & Time - 10/05/2024 07:15 AM) L AB: PSA,Total (Free>4and<10) (Collection Date & Time - 10/05/2024 07:15 AM) 3. P ure hypercholesterolemia L AB: Complete Blood Count Auto Diff (Collection Date & Time - 10/05/2024 07:15 AM) L AB: Comprehensive [place]. Panel Fast (Collection Date & Time - 10/05/2024 07:15 AM) L AB: Lipid Panel (Collection Date & Time - 10/05/2024 07:15 AM) L AB: PSA,Total (Free>4and<10) (Collection Date & Time - 10/05/2024 07:15 AM) * Procedure Codes: 3 6415 VENIPUNCT, ROUTINE* * * The named appointment provid er may or may not be the originator of this progress note, and it is not deemed complete until electronically signed by the appointment provider. Sign off status: Pending * Provider: Zully Adams MD Date: 0 10/05/2024 Generated for Zahra law/Salome/Radhaitting on: 1 10/20/2024 10:16 PM EST
--- OUTSIDE RECORDS SUMMARY | 2024-10-12 03:30 | XMS_ITS ---
Author Organization Ben Adams MD Address [address] [place] [id number] Care Team Providers Care Demand Planning Manager Name Role Phone Ben Adams Primary Care Provider Allergies No Known Allergies Results Component Value Reference Range Notes Occult Blood, Stool, Guaiac Reviewed date:10/12/2024 12:41:35 PM Interpretation:Negative Performing Lab: Notes/Report: Negative Occult Blood, Stool, Guaiac Neg REASON FOR VISIT annual visit Medications Medication SIG (Take, Route, Frequency, Duration) [...] 30 DAYS. SEE FN. for 30 Active Symbicort 80-4.5 MCG/ACT 1 puff as neede d Inhalation every 4 hrs Active Rosuvastatin Calcium 10 MG 1 tablet Oral ly Once a day Active ProAir HFA 108 (90 Base) MCG/ACT 1 puff as needed Inhalation every 4 hrs 04/02/2021 Active Montelukast Sodium 10 MG TAKE 1 TABLET B Y MOUTH ONCE DAILY Active Omeprazole 20 MG TAKE 1 CAPSULE BY MO [facility] ONCE DAILY Orally Once a day Active Metoprolol Succinate ER 50 MG take 1 tablet by mouth once daily Orally Once a day Active Ozempic (0.25 or 0.5 MG/DOSE) 2 MG/3ML as directed Subcutaneous Active Zetia 10 MG 1 tablet Orally Once a day Active Celecoxib 200 MG TAKE 1 CAPSULE BY MO UT ONCE DAILY WITH FOOD for 90 Active LORazepam 1 MG TAKE 1 TABLET BY LORI TH TWICE DAILY NEEDED for 90 09/13/2024 Active Social History Tobacco Use: Social History Observation Description Date Details (start date - stop date) Former Smoker NA - NA Tobacco Use/Smoking Question Answer Notes Patient is a former smoker How long has it been since y ou last smoked? > 10 years Additional Findings: Tobacco Non-User Fo rmer smoker, currently using no form of tobacco Alcohol Screen Question Answer Notes Did you have a drink containing alcohol in the p ast year? No Points 0 Interpretation Negative Vital Signs Blood pressure systolic 108 mm Hg 10/12/19 25 Blood pressure diastolic 70 mm Hg 025 Height 70 in 10/12/2024 Weight 253 lbs 10/12/2024 BMI 36.3 kg/m2 10/12/2024 weight is down 15 pounds [facility] 10-3-24 Encounters Encounter Location Date Provider Diagnosis Ben Adams MD [address] [place], [place] [id number] 10/12/2024 Ben Adams Controlled type 2 di abetes mellitus without complication, without long-term current use of insulin E11.9 ; Annual physical exam Z00.00 ; Recent weight loss R63.4 ; KERON (obstructive sleep apnea) G47.33 ; Mild intermittent asthma without complication J45.20 ; Reflux esophagitis K21.00 ; Pure hypercholesterolemia E78.00 ; Essential hypertension I10 ; Colon cancer screening Z12.11 and Depression screening Z13.31 Assessments Encounter Date Diagnosis (ICD Code) Assessment Notes Treatment Notes Treatment Clinical Notes Section Notes 10/12/2024 Controlled type 2 diabetes mellitus without complication, without long-term current use of insulin (ICD-10 - E11.9) doing great with weight loss, will continue current regiment 10/12/2024 Annual physical exam (ICD-10 - Z00.00) labs reviewed and discussed with patient 10/12/2024 Recent weight loss (ICD-10 - R63.4) on ozempic, will continue to monitor 10/12/2024 KERON (obstructive sle ep apnea) (ICD-10 - G47.33) doesn't use cpap 10/12/2024 Mild intermittent as thma without complication (ICD-10 - J45.20) stable, will continue current regiment 10/12/2024 Reflux esophagitis (ICD-10 - K21.00) doing well, will continue current regiment 10/12/2024 Pure hypercholesterolemia (ICD-10 - E78.00) stable, will continue current regiment 10/12/2024 Essential hypertensi on (ICD-10 - I10) stable, will continue current regiment 10/12/2024 Colon cancer screeni ng (ICD-10 - Z12.11) guaiac negtive 10/12/2024 Depression screening (ICD-10 - Z13.31) negative screen Plan Of Treatment Medication Medication Name Sig Start Date Stop Date Notes Rosuvastatin Calcium 10 MG 1 tablet Orally Once a day ProAir HFA 108 (90 Base) MCG/ACT 1 puff as needed Inhalation every 4 hrs 04/02/2021 Montelukast Sodium 10 MG TAKE 1 TABLET B Y MOUTH ONCE DAILY Omeprazole 20 MG TAKE 1 CAPSULE BY MO UTH ONCE DAILY Orally Once a day Metoprolol Succinate ER 50 MG take 1 tab let by mouth once daily Orally Once a day Ozempic (0.25 or 0.5 MG/DOSE ) 2 MG/3ML as directed Subcutaneous Zetia 10 MG 1 tablet Orally Once a day Treatment Notes Assessment Notes Controlled type 2 diabetes m ellitus without complication, without long-term current use of insulin doing great with weight loss, will continue current regiment Annual physical exam labs reviewed and d iscussed with patient Recent weight loss on ozempic, will con tinue to monitor KERON (obstructive sleep apnea) doesn't us e cpap Mild intermittent asthma without complic ation stable, will continue current regiment Reflux esophagitis doing well, will con tinue current regiment Pure hypercholesterolemia stable, will c ontinue current regiment Essential hypertension stable, will cont inue current regiment Colon cancer screening guaiac negtive Depression screening negative screen Next Appt Details Follow Up: 6 Months, Reason: Provider Name:Ben Benavides ier, 10/08/2025 07:45:00 AM, [address], [address], [place], [place], [phone], Provider Name:Ben Benavides ier, 10/29/2025 10:00:00 AM, [address], [address], [place], [place], [phone], Progress Notes * Filipe SHARP ODOB:[birth year] (64 yo M)Acc No.[id number]:10/12/2024 Progress Notes Patient: Erika JACYFilipe Trent Provider: Zully Adams MD :1960 A ge:64 Y S ex:Male Date:10/12/2024 Address:[address] [place] [address] [place], [id number] Subjective: * Chief Complaints: * A nnual visit * HPI: D epression Screening: PHQ-9 L ittle interest or pleasure in doing things N ot at all, F eeling down, depressed, or hopeless N ot at all, T rouble falling or staying asleep, or sleeping too much N ot at all, F eeling tired or having little energy N ot at all, P oor appetite or overeating N ot at all, F eeling bad about yourself or that you are a failure, or have let yourself or your family down N ot at all, T rouble concentrating on things, such as reading the newspaper or watching television N ot at all, M oving or speaking so slowly that other people could have noticed; or the opposite, being so fidgety or restless that you have been moving around a lot more than usual N ot at all, T houghts that you would be better off or of hurting yourself in some way N ot at all, T otal Score 0 . I nterpretation and Intervention D epression Screening Findings N egative, F ollow-Up for Depression : review of PHQ-9 found negative result, no follow-up needed. here for yearly evaluation. C ommunication Needs: Communication Needs D oes the patient have a hearing impairment N o, D oes the patient have a vision impairment? Y es, I f yes, what is the vision impairment? G lasses, D oes the patient have a cognition impairment? N o. F all Risk: History H ave you had any falls with injury in the past year? N o, H ave you had two or more falls in the past year? N o. S DARIANA Questions: SDOH Questions I n the past year have you been worried about losing housing? N o, I n the past year have you or any family members you live with been unable to get any of the following when it was really needed? Check all that apply: N one. S ymptom(s): patient is a 64 yo male here for annual visit itg review of recent labs and follow up of chronic issues. * ROS: G eneral/Constitutional: Change in appetite d enies. C hills d enies. F ever d enies. O phthalmologic: Blurred vision d enies. D ischarge d enies. P ain d enies. E NT: Decreased hearing d enies. S ore throat d enies.?Swollen glands d enies. E ndocrine: Cold intolerance d enies. E xcessive thirst d enies. H eat intolerance d enies. W eight loss d enies. R espiratory: Cough d enies. S hortness of breath at rest d enies. S hortness of breath with exertion d enies. W heezing d enies. C ardiovascular: Chest pain at rest d enies. C hest pain with exertion?denies. I rregular heartbeat d enies. S hortness of breath d enies. ? G astrointestinal: Abdominal pain d enies. C hange in bowel habits d enies. D iarrhea d enies. N ausea d enies. R ectal bleeding d enies. V omiting d enies . G enitourinary: Blood in urine d enies. D ifficulty urinating d enies. F requent urination d enies. M usculoskeletal: Painful joints d enies. W eakness d enies. ? S kin: Dry skin d enies. I tching d enies. D enies?Mole(s), changes in moles, new moles or any lesions of concern. D enies P hotosensitivity. R rand d enies. N eurologic: Dizziness d enies. F ainting d enies. H eadache?denies. * Medical History: * Surgical History: * Hospitalization/Major Diagno stic Procedure: * Family History: F ather: 83 yrs. M other: 86 yrs. 2 brother(s) . 3 son(s) . . Father- Cirrhosis Mother- natural causes CVA's, No pertinent family medical history, Denies mental health/substance abuse family history, No pertinent family medical history, Denies mental health/substance abuse family history. * Social History: T obacco Use: T obacco Use/Smoking P atient is a f ormer smoker, H ow long has it been since you last smoked? > 10 years, A dditional Findings: Tobacco Non-User F ormer smoker, currently using no form of tobacco. D rugs/Alcohol: A lcohol Screen D id you have a drink containing alcohol in the past year? N o, P oints 0 , I nterpretation N egative. M iscellaneous: C affeine: yes, frequency:, 1-2 cups per day. Children: yes. Community involvements: no. Exercise: no. Home smoke detector use: yes. Housing: owning. Living with: spouse. Marital status: . Occupation: works full-time. Pets: cats: dogs: 3 dogs. Travel outside of the [place]: no. * Medications: T akingOzempic (0.25 or 0.5 MG/DOSE) 2 MG/3ML Solution Pen-injector as directed Subcutaneous Zetia 10 MG Tablet 1 tablet Orally Once a day Rosuvastatin Calcium 10 MG Capsule Sprinkle 1 tablet Orally Once a day Symbicort 80-4.5 MCG/ACT Aerosol 1 puff as needed Inhalation every 4 hrs Aspir-81 81 MG Tablet Delayed Release 1 tablet Orally Once a day Hydrocortisone Sai-Pramoxine 2.5-1 % Cream 1 application Externally Three times a day Hydrocortisone Sai-Pramoxine 2.5-1 % Cream 1 application Externally Three times a day Clobetasol Propionate 0.05 % Cream APPLY DAILY TO SKIN TO AFFECTED AREA TWICE A DAY FOR 30 DAYS. SEE FN. ProAir HFA 108 (90 Base) MCG/ACT Aerosol Solution 1 puff as needed Inhalation every 4 hrs Montelukast Sodium 10 MG Tablet TAKE 1 TABLET BY MOUTH ONCE DAILY Celecoxib 200 MG Capsule TAKE 1 CAPSULE BY MOUTH ONCE DAILY WITH FOOD Omeprazole 20 MG Capsule Delayed Release TAKE 1 CAPSULE BY MOUTH ONCE DAILY Orally Once a day Metoprolol Succinate ER 50 MG Tablet Extended Release 24 Hour take 1 tablet by mouth once daily Orally Once a day LORazepam 1 MG Tablet TAKE 1 TABLET BY MOUTH TWICE DAILY NEEDED Medication List reviewed and reconciled with the patientTaking Ozempic (0.25 or 0.5 MG/DOSE) 2 MG/3ML Solution Pen-injector as directed Subcutaneous Taking Zetia 10 MG Tablet 1 tablet Orally Once a day Taking Rosuvastatin Calcium 10 MG Capsule Sprinkle 1 tablet Orally Once a day Taking Symbicort 80-4.5 MCG/ACT Aerosol 1 puff as needed Inhalation every 4 hrs Taking Aspir-81 81 MG Tablet Delayed Release 1 tablet Orally Once a day Taking Hydrocortisone Sai-Pramoxine 2.5-1 % Cream 1 application Externally Three times a day Taking Hydrocortisone Sai-Pramoxine 2.5-1 % Cream 1 application Externally Three times a day Taking Clobetasol Propionate 0.05 % Cream APPLY DAILY TO SKIN TO AFFECTED AREA TWICE A DAY FOR 30 DAYS. SEE FN. Taking ProAir HFA 108 (90 Base) MCG/ACT Aerosol Solution 1 puff as needed Inhalation every 4 hrs Taking Montelukast Sodium 10 MG Tablet TAKE 1 TABLET BY MOUTH ONCE DAILY Taking Celecoxib 200 MG Capsule TAKE 1 CAPSULE BY MOUTH ONCE DAILY WITH FOOD Taking Omeprazole 20 MG Capsule Delayed Release TAKE 1 CAPSULE BY MOUTH ONCE DAILY Orally Once a day Taking Metoprolol Succinate ER 50 MG Tablet Extended Release 24 Hour take 1 tablet by mouth once daily Orally Once a day Taking LORazepam 1 MG Tablet TAKE 1 TABLET BY MOUTH TWICE DAILY NEEDED Medication List reviewed and reconciled with the patient * Allergies: N .K.D.A.yes[Allergies Verified] Objective: * Vitals: H t: 70, Wt: 253, BMI:36.3, BP:108/70, Wt-k.76. weight is down 15 pounds since 06-07-24. * P ast Orders: Lab:Lipid Panel * Collection Date 10/05/2024 08/06/2024 Collection Time 07:15 AM 06:54 AM Order Date 10/05/2024 08/06/2024 Triglycerides 58 (Ref Range: <150 mg/dL) 118 (Ref Range: <150 mg/dL) Cholesterol 76 (Ref Range: <200 mg/dL) 183 (Ref Range: <200 mg/dL) LDL Cholesterol Calculated 40 (Ref Range: <100 mg/dL) 130 H (Ref Range: <100 mg/dL) HDL Cholesterol 25 L (Ref Range: >40 mg/dL) 30 L (Ref Range: >40 mg/dL) ???Lab:Complete Blood Count Auto Diff (Order Date - 10/05/2024) (Collection Date & Time - 10/05/2024 07:15 AM)?ValueReference Range?White Blood Count6.24.8-10.8 - X10*3/uL?Red Blood Count4.884.60-5.80 - X10*6/uL ?Srktuelaid39.314.0-18.0 - g/dl?Oxfpnjyhtd55.942.0-52.0 - % ?Mean Corpuscular Dxfpji89.980.0-98.0 - fL?Mean Corpuscular Qwmasjxdgo03.327.0-33.0 - pg?Mean Corpuscular HGB Conc33.331.0-36.0 - g/dl?Red Cell Distribution Width12.911.0-16.0 - %?Platelet Count [id number] - X10*3/uL?Mean Platelet Rchalb14.09.4-12.4 - fL ?Neutrophils Percent Auto57.545-73 - %?Imm Gran Pct Auto0.30.0-0.4 - %?Lymphocytes Percent Auto29.320-40 - %?Monocytes Percent Auto 7.92-11 - %?Eosinophils Percent Auto4.5H0-4 - %?Basophils Percent Auto0.50-2 - %?NRBC Pct Auto0.00.0-0.2 - /100WBC?Neutrophils Absolute Auto3.62.0-8.3 - x10*3/uL?Imm Gran Abs Auto0.020.00-0.03 - X10*3/uL?Lymphocytes Absolute Auto1.81.2-4.9 - X10*3/uL?Monocytes Absolute Auto0.50.1-1.2 - X10*3/uL?Eosinophils Absolute Auto0.30.0-0.4 - X10*3/uL?Basophils Absolute Auto0.00.0-0.2 - X10*3/uL?NRBC Abs Auto0.0000.0-0.012 - X10*3/uL ???Lab:Comprehensive [place]. Panel Fast (Order Date - 10/05/2024) (Collection Date & Time - 10/05/2024 07:15 AM)?ValueReference Range?[id number]- 145 - mmol/L?Bilirubin Total0.90.0-1.0 - mg/dL?Aspartate Amino Wspnypcazgf688-77 - U/L?Alanine Svcqaalfmcamsiow501-00 - U/L?Total Protein6.76.5-8.0 - g/dL?Albumin Level3.93.5-5.0 - g/dL?Alkaline Wshywsucxwv3289-968 - U/L?Potassium4.33.3-5.1 - mmol/L?Oexecabb080 H96-108 - mmol/L?Carbon Iyhozko4626-30 - mmol/L?Anion Nuj9B21-91 - ?Blood Urea Icpddedp428-60 - mg/dL?Creatinine0.990.5-1.4 - mg/dL ?Estimated Glomerular Filt Rate> 60-?Glucose Zpjabot416R97-94 - mg/dL?Calcium9.38.4-10.2 - mg/dL ???Lab:PSA,Total (Free>4and<10) (Order Date - 10/05/2024) (Collection Date & Time - 10/05/2024 07:15 AM)?ValueReference Range?PSA,Total (Free>4and<10)1.560.00-4.00 - ng/mL * Examination: G eneral Examination: GENERAL APPEARANCE: w ell developed, well nourished, in no acute distress. HEAD: n ormocephalic, atraumatic. EYES: p upils equal, round, reactive to light and accommodation, sclera non-icteric. EARS: n ormal. ORAL CAVITY: m ucosa moist. THROAT: c lear. NECK/THYROID: n debbie supple, full range of motion, no cervical lymphadenopathy, no bruits. SKIN: w arm and dry, no suspicious lesions. HEART: r egular rate and rhythm, S1, S2 normal, no murmurs.? LUNGS: c lear to auscultation bilaterally. ABDOMEN: s oft, nontender, nondistended, bowel sounds present, normal, no organomegaly , no masses palpable. RECTAL EXAM: n ormal tone, no external hemorrhoids, no masses palpable, prostate normal, stool guaiac negative. MALE GENITOURINARY: c ircumcised, no testicular mass, testes descended bilaterally, testes descended bilaterally. EXTREMITIES: n o clubbing, cyanosis, or edema. NEUROLOGIC: n onfocal, motor strength normal upper and lower extremities, sensory exam intact. FOOT EXAM: . Assessment: * Assessment: 1. A nnual physical exam - Z00.00 (Primary) 2 . C ontrolled type 2 diabetes mellitus without complication, without long-term current use of insulin - E11.9 3 .?Recent weight loss - R63.4 4 . O SA (obstructive sleep apnea) - G47.33 5. M ild intermittent asthma without complication - J45.20 6 .?Reflux esophagitis - K21.00 7 . P ure hypercholesterolemia - E78.00 8 . E ssential hypertension - I10 9 . C olon cancer screening - Z12.11 10. D epression screening - Z13.31 Plan: * Treatment: 2. C ontrolled type 2 diabetes mellitus without complication, without long-term current use of insulin Continue Ozempic (0.25 or 0.5 MG/DOSE) Solution Pen-injector, 2 MG/3ML, as directed, Subcutaneous.? Notes: doing great with weight loss, will continue current regiment 3. R ecent weight loss Notes: on ozempic, will continue to monitor 4. O SA (obstructive sleep apnea) Notes: doesn't use cpap 5. M ild intermittent asthma without complication Continue ProAir HFA Aerosol Solution, 108 (90 Base) MCG/ACT, 1 puff as needed, Inhalation, every 4 hrs; C ontinue Montelukast Sodium Tablet, 10 MG, TAKE 1 TABLET BY MOUTH ONCE DAILY. Notes: stable, will continue current regiment 6. R eflux esophagitis Continue Omeprazole Capsule Delayed Release, 20 MG, TAKE 1 CAPSULE BY MOUTH ONCE DAILY, Orally, Once a day. Notes: doing well, will continue current regiment 7. P ure hypercholesterolemia Continue Zetia Tablet, 10 MG, 1 tablet, Orally, Once a day; C ontinue Rosuvastatin Calcium Capsule Sprinkle, 10 MG, 1 tablet, Orally, Once a day. Notes: stable, will continue current regiment 8. E ssential hypertension Continue Metoprolol Succinate ER Tablet Extended Release 24 Hour, 50 MG, take 1 tablet by mouth once daily, Orally, Once a day. Notes: stable, will continue current regiment 9. C olon cancer screening L AB: Occult Blood, Stool, Guaiac (Collection Date & Time - 10/12/2024) N egative Value Reference Range O ccult Blood, Stool, Guaiac Neg Notes: guaiac negtive??10.?Depression screening? Notes: negative screen?? * Procedure Codes: 8 2270 TEST FOR BLOOD, FECES * Follow Up: 6 Months * * Sign off status: Completed true * Provider: Zully Adams MD Date: 0 10/12/2024 Generated for Zahra law/Salome/Lucioransmitting on: 1 10/20/2024 10:19 PM EST History and Physical Notes * HPI (History of Present Illness) Category Sub-Category Detail Notes Category Not es Symptom(s) patient is a 64 yo male here for annual visit itg review of recent labs and follow up of chronic issues. Depression Screening PHQ-9 Little inte rest or pleasure in doing things: Not at all here for yearly evaluation Feeling down, depressed, or hopeless: No t at all Trouble falling or staying asleep, or sl eeping too much: Not at all Feeling tired or having little energy: N ot at all Poor appetite or overeating: Not at all Feeling bad about yourself o r that you are a failure, or have let yourself or your family down: Not at all Trouble concentrating on thi ngs, such as reading the newspaper or watching television: Not at all Moving or speaking so slowly that other people could have noticed; or the opposite, being so fidgety or restless that you have been moving around a lot more than usual: Not at all Thoughts that you would be b ryann off or of hurting yourself in some way: Not at all Total Score: 0 Interpretation and Intervention Depression Delfina alexis Findings: Negative Follow-Up for Depression: : review of PH Q-9 found negative result, no follow-up needed SDOH Questions SDOH Questions In the past year have you been worried about losing housing?: No In the past year have you or any family members you live with been unable to get any of the following when it was really needed? Check all that apply:: None Fall Risk History Have you had any falls with injury i n the past year?: No Have you had two or more falls in the year?: No Communication Needs Communication Needs Does the patient have a hearing impairment: No Does the patient have a vision impairmen t?: Yes If yes, what is the vision impairment?: Glasses Does the patient have a cognition impair ment?: No Examination Category Sub-Category Detail Notes Category Not es General Examination GENERAL APPEARANCE: well dev eloped, well nourished, in no acute distress HEAD: normocephalic, atrau matic EYES: pupils equal, round, reactive to light and accommodation, sclera non-icteric EARS: normal THROAT: clear NECK/THYROID: neck supple, full ra nge of motion, no cervical lymphadenopathy, no bruits HEART: regular rate and rhy thm, S1, S2 normal, no murmurs LUNGS: clear to auscultatio n bilaterally ABDOMEN: soft, nontender, non distended, bowel sounds present, normal, no organomegaly , no masses palpable NEUROLOGIC: nonfocal, motor stre ngth normal upper and lower extremities, sensory exam intact SKIN: warm and dry, no marianne picious lesions EXTREMITIES: no clubbing, cyanosi s, or edema MALE GENITOURINARY: circumcised, no test icular mass, testes descended bilaterally, testes descended bilaterally RECTAL EXAM: normal tone, no exte rnal hemorrhoids, no masses palpable, prostate normal, stool guaiac negative ORAL CAVITY: mucosa moist FOOT EXAM: Date: 10/12/2024 normal pinprick . normal pulse. normal light touch.
--- OUTSIDE RECORDS SUMMARY | 2024-11-02 09:26 | XMS_ITS ---
Author Organization Ben Adams MD Address [address] [place] [phone] Care Team Providers Care Digital Advisor Name Role Phone Ben Adams Primary Care Provider REASON FOR VISIT ER Encounters Encounter Location Date Provider Diagnosis Ben Adams MD [facility] [address] [place] [phone] 11/02/2024 Ben Adams Plan Of Treatment Next Appt Details Provider Name:Ben Benavides ier, 10/08/2025 07:45:00 AM, [address] [place] [address], [address], [phone], Provider Name:Ben encarnacion, 10/29/2025 10:00:00 AM, [address] [place] [address], [address], [phone], Progress Notes * Filipe SHARP ODOB:[birth year] (64 yo M)Acc No.[id number]:11/02/2024 Patient: Filipe SHAH :1960 A ge:64 Y S ex:Male Address:[address] [place] [address] [place] [address] * true * Date: Generated for Zahra law/Salome/eTransmitting on: 10/20/2024 10:17 PM EST
--- OUTSIDE RECORDS SUMMARY | 2024-12-17 10:06 | XMS_ITS ---
Author Organization Ben Adams MD Address [address] [place] [phone] Care Team Providers Care Independent Sales Representative Name Role Phone Ben Adams Primary Care Provider Medications Medication SIG (Take, Route, Fr equency, Duration) Notes Start Date End Date Status LORazepam 1 MG TAKE 1 TABLET BY LORI TH TWICE DAILY NEEDED for 09/13/2024 Active Encounters Encounter Location Date Provider Diagnosis Ben Adams MD [address] [place], [place] [phone] 12/17/2024 Ben Adams Plan Of Treatment Medication Medication Name Sig Start Date Stop Date Notes LORazepam 1 MG TAKE 1 TABLET BY LORI TH TWICE DAILY NEEDED for 09/13/2024 Next Appt Details Provider Name:Ben encarnacion, 10/08/2025 07:45:00 AM, [address], [address] [place] [address], [phone], Provider Name:Ben Benavides ier, 10/29/2025 10:00:00 AM, [address], [address], [place], [phone], Progress Notes * Filipe SHARP ODOB:[birth year] (64 yo M)Acc No.[id number]:12/17/2024 Patient: Erika Filipe LOUIE :1960 A ge:64 Y S ex:Male Address:[address] [place] [address] [place] [address] * Refills Refill LORazepam Tablet, 1 MG, 180 Tablet, TAKE 1 TABLET BY MOUTH TWICE DAILY NEEDED, 90, Refills=0 * true * Date: Generated for Zahra law/Salome/Kylesmitting on: 1 10/20/2024 10:18 PM EST
--- OUTSIDE RECORDS SUMMARY | 2024-12-25 04:57 | XMS_ITS ---
Author Organization Ben Adams MD Address [address] [place] [phone] Care Team Providers Care Mine Boss Name Role Phone Ben Adams Primary Care Provider REASON FOR VISIT refill Medications Medication SIG (Take, Route, Fr equency, Duration) Notes Start Date End Date Status LORazepam 1 MG 1 tab Orally twice a day as needed for 90 days 12/27/2024 Active Encounters Encounter Location Date Provider Diagnosis Ben Adams MD [address] [place], [place] [phone] 12/25/2024 Ben Adams Plan Of Treatment Medication Medication Name Sig Start Date Stop Date Notes LORazepam 1 MG 1 tab Orally twice a day as needed for 90 days 12/27/2024 Next Appt Details Provider Name:Ben encarnacion, 10/08/2025 07:45:00 AM, [address], [address] [place] [address], [phone], Provider Name:Ben Benavides ier, 10/29/2025 10:00:00 AM, [address], [address], [place], [phone], Progress Notes * Filipe SHARP ODOB:[birth year] (64 yo M)Acc No.[id number]:12/25/2024 Patient: Filipe SHAH :1960 A ge:64 Y S ex:Male Address:[address] [place], [place] [address] [address] * Refills Continue LORazepam Tablet, 1 MG, Orally, 180, 1 tab, twice a day as needed, 90 days * true * Date: Generated for Zahra law/Salome/Kylesmitting on: 1 10/20/2024 10:17 PM EST
--- OUTSIDE RECORDS SUMMARY | 2025-04-12 02:30 | XMS_ITS ---
Author Organization Ben Adams MD Address [address] [place] [phone] Care Team Providers Care Senior Escrow Officer Name Role Phone Ben Adams Primary Care Provider [phone] Results Component Value Reference Range Notes Liver Panel Reviewed date:04/12/2025 04:52:33 PM Interpretation: Performing Lab:[facility], [address] [place] [phone] Notes/Report: Bilirubin Total 0.8 0.0-1.0 mg/dL Bilirubin Direct 0.3 0.0-0.5 mg/dL Aspartate Amino Transferase 35 5-37 U/L Alanine Aminotransferase 14 0-40 U/L Total Protein 6.4 6.5-8.0 g/dL Albumin Level 3.9 3.5-5.0 g/dL Alkaline Phosphatase 83 39-117 U/L REASON FOR VISIT FASTING LIPIDS Encounters Encounter Location Date Provider Diagnosis Ben Adams MD [address] [place], [place] [phone] 04/12/2025 Ben Adams Pure hypercholestero lemia E78.00 Assessments Encounter Date Diagnosis (ICD Code) Assessment Notes Treatment Notes Treatment Clinical Notes Section Notes 04/12/2025 Pure hypercholesterolemia (ICD-10 - E78.00) Plan Of Treatment Pending Test Test Name Order Date Lipid Panel with Reflex 04/12/2025 Next Appt Details Provider Name:Ben Benavides ier, 10/08/2025 07:45:00 AM, [address] [place] [address], Suite [facility], [place], [place], [phone], Provider Name:Ben Benavides ier, 10/29/2025 10:00:00 AM, [address] [place] [address], [place] [address], [place], [place], [phone], Progress Notes * Filipe SHARP ODOB:[birth year] (65 yo M)Acc No.[id number]:04/12/2025 Progress Note Patient: Filipe SHAH Provider: Zully Adams MD :1960 A ge:64 Y S ex:Male Date:04/12/2025 Address:[address] [place], [place] [address], [phone] Subjective: * Chief Complaints: * 1 . FASTING LIPIDS. * Medical History: Objective: * Vitals: Assessment: * Assessment: 1. P ure hypercholesterolemia - E78.00 (Primary) Plan: * Treatment: * Procedure Codes: 3 6415 VENIPUNCT, ROUTINE* * * The named appointment provid er may or may not be the originator of this progress note, and it is not deemed complete until electronically signed by the appointment provider. Sign off status: Pending * Provider: Zully Adams MD Date: 0 04/12/2025 Generated for Zahra law/Salome/Radhaitting on: 10/20/2024 10:18 PM EST
--- OUTSIDE RECORDS SUMMARY | 2025-04-19 04:00 | XMS_ITS ---
Author Organization Ben Adams MD Address [address] [place] [phone] Care Team Providers Care Ironer Sock Name Role Phone Ben Adams Primary Care Provider Allergies No Known Allergies Results Component Value Reference Range Notes Hemoglobin A1c Reviewed date:04/19/2025 09:10:42 AM Interpretation: Performing Lab: Notes/Report: Hemoglobin A1c 5,7 Glucose, finger stick Reviewed date:04/19/2025 08:47:25 AM Interpretation: Performing Lab: Notes/Report: Value 156 REASON FOR VISIT 6 month f/u Medications Medication SIG (Take, Route, Frequency, Duration) Notes Start Date End Date Status Celecoxib 200 MG TAKE 1 CAPSULE BY [facility] ONCE DAILY WITH FOOD for 90 Active Clobetasol Propionate 0.05 % APPLY DAILY TO SKIN TO AFFECTED AREA TWICE A DAY FOR 30 DAYS. SEE FN. for 30 Active Aspir-81 81 MG 1 tablet Orally Once a day for 30 day(s) Active Hydrocortisone Sai-Pramoxine 2.5-1 % 1 application Externally Three times a day 04/04/2023 Active Hydrocortisone Sai-Pramoxine 2.5-1 % 1 application Externally Three times a day for 30 days 04/04/2023 Active Zetia 10 MG 1 tablet Orally Once a day Active Rosuvastatin Calcium 10 MG 1 tablet Oral ly Once a day Active Ozempic (0.25 or 0.5 MG/DOSE) 2 MG/3ML as directed Subcutaneous Active Symbicort 80-4.5 MCG/ACT 1 puff as neede d Inhalation every 4 hrs Active Metoprolol Succinate ER 50 MG take 1 tablet by mouth once daily Orally Once a day Active Montelukast Sodium 10 MG TAKE 1 TABLET B Y MOUTH ONCE DAILY for 90 Active LORazepam 1 MG TAKE 1 TABLET BY LORI TWICE DAILY NEEDED for 90 04/08/2025 Active Omeprazole 20 MG TAKE 1 CAPSULE BY [facility] ONCE DAILY Orally Once a day Active ProAir HFA 108 (90 Base) MCG/ACT 1 puff as needed Inhalation every 4 hrs 04/02/2021 Active Vital Signs Blood pressure systolic 122 mm Hg 04/19/20 25 Blood pressure diastolic 70 mm Hg 025 Height 70 in 04/19/2025 Weight 245 lbs 04/19/2025 BMI 35.15 kg/m2 04/19/2025 weight is down 8 pounds [facility] 10-12-24 Encounters Encounter Location Date Provider Diagnosis Ben Adams MD [address] [place] [address] [address] [place], [place] [phone] 04/19/2025 Ben Adams Controlled type 2 di abetes mellitus without complication, without long-term current use of insulin E11.9 ; Essential hypertension I10 and Pure hypercholesterolemia E78.00 Assessments Encounter Date Diagnosis (ICD Code) Assessment Notes Treatment Notes Treatment Clinical Notes Section Notes 04/19/2025 Controlled type 2 diabetes mellitus without complication, without long-term current use of insulin (ICD-10 - E11.9) stable, will continue current regiment 04/19/2025 Essential hypertensi on (ICD-10 - I10) losing weight with the ozempic. advised to continue to watch diet and bring his lunch to work so he doesn't eat fast food 04/19/2025 Pure hypercholesterolemia (ICD-10 - E78.00) stable, will continue current regiment Plan Of Treatment Medication Medication Name Sig Start Date Stop Date Notes Zetia 10 MG 1 tablet Orally Once a day Rosuvastatin Calcium 10 MG 1 tablet Orally Once a day Ozempic (0.25 or 0.5 MG/DOSE ) 2 MG/3ML as directed Subcutaneous Metoprolol Succinate ER 50 MG take 1 tab let by mouth once daily Orally Once a day Treatment Notes Assessment Notes Controlled type 2 diabetes joanna amador without complication, without long-term current use of insulin stable, will continue current regiment Essential hypertension losing weight wit h the ozempic. advised to continue to watch diet and bring his lunch to work so he doesn't eat fast food Pure hypercholesterolemia stable, will c ontinue current regiment Next Appt Details Provider Name:Ben encarnacion, 10/08/2025 07:45:00 AM, [address] [place] [address], [address], [phone], Provider Name:Ben encarnacion, 10/29/2025 10:00:00 AM, [address] [place] [address], [place] [address], [place], [place], [phone], Progress Notes * Filipe SHARP ODOB:[birth year] (64 yo M)Acc No.[id number]:04/19/2025 Progress Notes Patient: Filipe SHAH Provider: Zully Adams MD :1960 A ge:64 Y S ex:Male Date:04/19/2025 Address:[address] [place], [place] [address]Melissa [id number] Subjective: * Chief Complaints: * 6 month f/u * HPI: S ymptom(s): patient is a 64 yo male her for 6 month follow up visit. * ROS: G eneral/Constitutional: Denies C hills. D enies F atigue. D enies F ever. D enies H eadache. E NT: Denies S ore throat. R espiratory: Denies C ough. D enies S hortness of breath at rest. D enies S hortness of breath with exertion. G astrointestinal: Denies D iarrhea. D enies N ausea. * Medical History: * Surgical History: * Hospitalization/Major Diagno stic Procedure: * Medications: T akingSymbicort 80-4.5 MCG/ACT Aerosol 1 puff as needed [...] A DAY FOR 30 DAYS. SEE FN. Celecoxib 200 MG Capsule TAKE 1 CAPSULE BY MOUTH ONCE DAILY WITH FOOD Ozempic (0.25 or 0.5 MG/DOSE) 2 MG/3ML Solution Pen-injector as directed Subcutaneous Zetia 10 MG Tablet 1 tablet Orally Once a day Rosuvastatin Calcium 10 MG Capsule Sprinkle 1 tablet Orally Once a day ProAir HFA 108 (90 Base) MCG/ACT Aerosol Solution 1 puff as needed Inhalation every 4 hrs Omeprazole 20 MG Capsule Delayed Release TAKE 1 CAPSULE BY MOUTH ONCE DAILY Orally Once a day Metoprolol Succinate ER 50 MG Tablet Extended Release 24 Hour take 1 tablet by mouth once daily Orally Once a day Montelukast Sodium 10 MG Tablet TAKE 1 TABLET BY MOUTH ONCE DAILY LORazepam 1 MG Tablet TAKE 1 TABLET BY MOUTH TWICE DAILY NEEDED Medication List reviewed and reconciled with the patientTaking Symbicort 80-4.5 MCG/ACT Aerosol 1 puff as [...] DAY FOR 30 DAYS. SEE FN. Taking Celecoxib 200 MG Capsule TAKE 1 CAPSULE BY MOUTH ONCE DAILY WITH FOOD Taking Ozempic (0.25 or 0.5 MG/DOSE) 2 MG/3ML Solution Pen-injector as directed Subcutaneous Taking Zetia 10 MG Tablet 1 tablet Orally Once a day Taking Rosuvastatin Calcium 10 MG Capsule Sprinkle 1 tablet Orally Once a day Taking ProAir HFA 108 (90 Base) MCG/ACT Aerosol Solution 1 puff as needed Inhalation every 4 hrs Taking Omeprazole 20 MG Capsule Delayed Release TAKE 1 CAPSULE BY MOUTH ONCE DAILY Orally Once a day Taking Metoprolol Succinate ER 50 MG Tablet Extended Release 24 Hour take 1 tablet by mouth once daily Orally Once a day Taking Montelukast Sodium 10 MG Tablet TAKE 1 TABLET BY MOUTH ONCE DAILY Taking LORazepam 1 MG Tablet TAKE 1 TABLET BY MOUTH TWICE DAILY NEEDED Medication List reviewed and reconciled with the patient * Allergies: N .K.D.A.yes[Allergies Verified] Objective: * Vitals: H t: 70, Wt: 245, BMI:35.15, BP:122/70, Wt-k.13. weight is down 8 pounds since 10-12-24. * P ast Orders: L ab:Liver Panel (Order Date - 04/12/2025) (Collection Date & Time - 04/12/2025 07:30 AM) Value Reference Range Bilirubin Total 0.8 0.0-1.0 - mg/dL Bilirubin Direct 0.3 0.0-0.5 - mg/dL Aspartate Amino Transferase 35 5-37 - U/L Alanine Aminotransferase 14 0-40 - U/L Total Protein 6.4 L 6.5-8.0 - g/dL Albumin Level 3.9 3.5-5.0 - g/dL Alkaline Phosphatase 83 39-117 - U/L L ab:Lipid Panel (Order Date - 04/12/2025) (Collection Date & Time - 04/12/2025 07:30 AM) Value Reference Range Triglycerides 83 <150 - mg/dL Cholesterol 83 <200 - mg/dL LDL Cholesterol Calculated 42 <100 - mg/dL HDL Cholesterol 25 L >40 - mg/dL * Examination: G eneral Examination: GENERAL APPEARANCE: a lert, well hydrated, in no distress.? HEAD: n ormocephalic. SKIN: g ood turgor. HEART: n o murmurs, rubs, gallops, regular rate and rhythm.? LUNGS: n o wheezes, rales, rhonchi, good air movement, clear to auscultation bilaterally. Assessment: * Assessment: 1. C ontrolled type 2 diabetes mellitus without complication, without long-term current use of insulin - E11.9 (Primary) 2 . E ssential hypertension - I10 3 .?Pure hypercholesterolemia - E78.00 Plan: * Treatment: Value Reference Range H emoglobin A1c 5,7 ?LAB: Glucose, finger stick (Collection Date & Time - 04/19/2025)* Value Reference Range V alue 156 Notes: stable, will continue current regiment??2.?Essential hypertension? Continue Metoprolol Succinate ER Tablet Extended Release 24 Hour, 50 MG, take 1 tablet by mouth once daily, Orally, Once a day.?? Notes: losing weight with the ozempic. advised to continue to watch diet and bring his lunch to work so he doesn't eat fast food??3.?Pure hypercholesterolemia? Continue Zetia Tablet, 10 MG, 1 tablet, Orally, Once a day;?Continue Rosuvastatin Calcium Capsule Sprinkle, 10 MG, 1 tablet, Orally, Once a day.?? Notes: stable, will continue current regiment?? * Procedure Codes: 8 2947 ASSAY, GLUCOSE, BLOOD QUANT, Modifiers: QW 82325 GLYCATED HEMOGLOBIN TEST, Modifiers: QW * * Sign off status: Completed true * Provider: Zully Adams MD Date: 0 04/19/2025 Generated for Zahra law/Salome/Radhaitting on: 1 10/20/2024 10:17 PM EST History and Physical Notes * HPI (History of Present Illness) Category Sub-Category Detail Notes Category Not es Symptom(s) patient is a 64 yo male her for 6 month follow up visit Examination Category Sub-Category Detail Notes Category Not es General Examination GENERAL APPEARANCE: alert, w ell hydrated, in no distress HEAD: normocephalic HEART: no murmurs, rubs, ga llops, regular rate and rhythm LUNGS: no wheezes, rales, r honchi, good air movement, clear to auscultation bilaterally SKIN: good turgor
--- OUTSIDE RECORDS SUMMARY | 2025-04-23 08:45 | XMS_ITS ---
Author Organization Ben Adams MD Address [address] [place] [phone] Care Team Providers Care [employer] [facility] Teacher Name Role Phone Ben Adams Primary Care Provider [phone] Allergies No Known Allergies REASON FOR VISIT off balance woke up dizzy this morning, Accompanied by Medications Medication SIG (Take, Route, Frequency, Duration) Notes Start Date End Date Status Hydrocortisone Sai-Pramoxine 2.5-1 % 1 application Externally Three times a day for 30 days 04/04/2023 Active Metoprolol Succinate ER 50 MG take 1 tablet by mouth once daily Orally Once a day Active Hydrocortisone Sai-Pramoxine 2.5-1 % 1 application Externally Three times a day 04/04/2023 Active Aspir-81 81 MG 1 tablet Orally Once a day for 30 day(s) Active Symbicort 80-4.5 MCG/ACT 1 puff as neede d Inhalation every 4 hrs Active Zetia 10 MG 1 tablet Orally Once a day Active Rosuvastatin Calcium 10 MG 1 tablet Oral ly Once a day Active Meclizine HCl 12.5 MG 1 tablet as needed Orally every 12 hrs for 10 days 04/23/2025 Active Ozempic (0.25 or 0.5 MG/DOSE) 2 MG/3ML as directed Subcutaneous Active LORazepam 1 MG TAKE 1 TABLET BY LORI TWICE DAILY NEEDED for 90 04/08/2025 Active ProAir HFA 108 (90 Base) MCG/ACT 1 puff as needed Inhalation every 4 hrs 04/02/2021 Active Omeprazole 20 MG TAKE 1 CAPSULE BY [facility] ONCE DAILY Orally Once a day Active Clobetasol Propionate 0.05 % APPLY DAILY TO SKIN TO AFFECTED AREA TWICE A DAY FOR 30 DAYS. SEE FN. for 30 Active Celecoxib 200 MG TAKE 1 CAPSULE BY [facility] ONCE DAILY WITH FOOD for 90 Active Montelukast Sodium 10 MG TAKE 1 TABLET B Y MOUTH ONCE DAILY for 90 Active Problems Problem Type SNOMED Code ICD Code Onset Dates Problem Status W/U Status Risk Notes Problem Tinnitus (92381799) Tinnitus (H93.19) Active confirmed Vital Signs Blood pressure systolic 122 mm Hg 04/23/20 25 Blood pressure diastolic 80 mm Hg 025 Height 70 in 04/23/2025 Weight 240 lbs 04/23/2025 BMI 34.43 kg/m2 04/23/2025 weight is down 5 pounds Encounters Encounter Location Date Provider Diagnosis Ben Adams MD [address] [place] [address] [place] [phone] 04/23/2025 Ben Adams Benign positional vertigo, bilateral H81.13 and Tinnitus H93.19 Assessments Encounter Date Diagnosis (ICD Code) Assessment Notes Treatment Notes Treatment Clinical Notes Section Notes 04/23/2025 Benign positional vertigo, bilateral (ICD-10 - H81.13) 04/23/2025 Tinnitus (ICD-10 - H93.19) no treatment available Plan Of Treatment Medication Medication Name Sig Start Date Stop Date Notes Meclizine HCl 12.5 MG 1 tablet as needed Orally every 12 hrs for 10 days 04/23/2025 Treatment Notes Assessment Notes Tinnitus no treatment availab le Next Appt Details Provider Name:Ben encarnacion, 10/08/2025 07:45:00 AM, [address] [place] [address], [address], [place], [place], [phone], Provider Name:Ben Benavides ier, 10/29/2025 10:00:00 AM, [address], [address], [place], [phone], Progress Notes * Filipe SHARP ODOB:[birth year] (64 yo M)Acc No.[id number]:04/23/2025 Progress Notes Patient: Filipe SHAH Provider: Zully Adams MD :1960 A ge:64 Y S ex:Male Date:04/23/2025 Address:[address] [place] [address] [place] Melissa [place], [id number] Subjective: * Chief Complaints: * O ff balance woke up dizzy this morningAccompanied by * HPI: S ymptom(s): patient is a 64 yo male here as emergency. ears are ringing. headache. still having trouble with balance. when he lays down his head spins. not as bad as this morning. coordination not tested. * ROS: G eneral/Constitutional: Denies C hills. D enies F atigue. D enies F ever. A dmits H ildefonsodagiovanni. E NT: Denies S ore throat. E ndocrine: Patient complaining of c /o ringing in ears. ? R espiratory: Denies C ough. D enies S hortness of breath at rest. D enies S hortness of breath with exertion. G astrointestinal: Denies D iarrhea. D enies N ausea. N eurologic: Admits D izziness. A dmits G ait abnormality. A dmits H eadache. * Medical History: * Surgical History: * [...] CAPSULE BY MOUTH ONCE DAILY WITH FOOD ProAir HFA 108 (90 Base) MCG/ACT Aerosol Solution 1 puff as needed Inhalation every 4 hrs Omeprazole 20 MG Capsule Delayed Release TAKE 1 CAPSULE BY MOUTH ONCE DAILY Orally Once a day Montelukast Sodium 10 MG Tablet TAKE 1 TABLET BY MOUTH ONCE DAILY LORazepam 1 MG Tablet TAKE 1 TABLET BY MOUTH TWICE DAILY NEEDED Ozempic (0.25 or 0.5 MG/DOSE) 2 MG/3ML Solution Pen-injector as directed Subcutaneous Zetia 10 MG Tablet 1 tablet Orally Once a day Rosuvastatin Calcium 10 MG Capsule Sprinkle 1 tablet Orally Once a day Metoprolol Succinate ER 50 MG Tablet Extended Release 24 Hour take 1 tablet by mouth once daily Orally Once a day Medication List reviewed and reconciled with the [...] BY MOUTH ONCE DAILY WITH FOOD Taking ProAir HFA 108 (90 Base) MCG/ACT Aerosol Solution 1 puff as needed Inhalation every 4 hrs Taking Omeprazole 20 MG Capsule Delayed Release TAKE 1 CAPSULE BY MOUTH ONCE DAILY Orally Once a day Taking Montelukast Sodium 10 MG Tablet TAKE 1 TABLET BY MOUTH ONCE DAILY Taking LORazepam 1 MG Tablet TAKE 1 TABLET BY MOUTH TWICE DAILY NEEDED Taking Ozempic (0.25 or 0.5 MG/DOSE) 2 MG/3ML Solution Pen-injector as directed Subcutaneous Taking Zetia 10 MG Tablet 1 tablet Orally Once a day Taking Rosuvastatin Calcium 10 MG Capsule Sprinkle 1 tablet Orally Once a day Taking Metoprolol Succinate ER 50 MG Tablet Extended Release 24 Hour take 1 tablet by mouth once daily Orally Once a day Medication List reviewed and reconciled with the patient * Allergies: N .K.D.A.yes[Allergies Verified] Objective: * Vitals: H t: 70, Wt: 240, BMI:34.43, BP:122/80, Wt-k.86. weight is down 5 pounds. * Examination: G eneral Examination: GENERAL APPEARANCE: a lert, well hydrated, in no distress.? EARS: a uditory canal obscured with wax. NECK/THYROID: n o carotid bruit. HEART: n o murmurs, rubs, gallops, regular rate and rhythm.? Assessment: * Assessment: 1. B enign positional vertigo, bilateral - H81.13 (Primary) 2 . T innitus - H93.19 Plan: * Treatment: * Procedure Codes: * * Sign off status: Completed true * Provider: Zully Adams MD Date: 0 04/23/2025 Generated for Zahra law/Salome/eTransmitting on: 1 10/20/2024 10:17 PM EST History and Physical Notes * HPI (History of Present Illness) Category Sub-Category Detail Notes Category Not es Symptom(s) patient is a 64 yo male here as emergency. ears are ringing. headache. still having trouble with balance. when he lays down his head spins. not as bad as this morning. coordination not tested. Examination Category Sub-Category Detail Notes Category Not es General Examination GENERAL APPEARANCE: alert, w ell hydrated, in no distress EARS: auditory canal obscu red with wax NECK/THYROID: no carotid bruit HEART: no murmurs, rubs, ga llops, regular rate and rhythm
[2025-08-19 15:55] VITALS: BP 138/90; PULSE 69; O2SAT 100; BMI 32.6
--- NOTE | 2025-08-19 15:55 | MHC.OFFVIS ---
Vital Signs 08/19/25 15:55 Height 6 ft Weight 240 lb 4.862 oz BMI 32.6 BP 138/90 H Blood Pressure Location Rt brachial Position Sitting Pulse 69 Pulse Source Pulse Oximeter Pulse Oximetry (%) 100 Oxygen Delivery Method Room Air Intake Visit Reasons: Asthma Allergies pentoxifylline Allergy (Severe, Verified 08/19/25 15:59) syncope Seasonal Allergies Allergy (Verified 08/19/25 15:59) Sneezing atorvastatin Adverse Reaction (Verified 08/19/25 15:59) Extreme fatigue HPI HPI Asthma: Details: Filipe is a pleasant 65 year old male, former 10 pack year smoker, quit 1995, with underlying asthma COPD overlap syndrome, stable pulmonary nodules, nonsustained vtach on metoprolol and sick sinus syndrome s/p pacer. Since last visit patient has discontinued all respiratory medication as he feels since losing approximately 30 lbs he no longer experiences any dyspnea. He is able to climb multiple flights of stairs without any shortness of breath. He reports intermittent dry cough however denies wheezing or chest tightness. He denies any visits to urgent care hospitalizations related to respiratory distress since last visit. [facility] Medical History COPD (chronic obstructive pulmonary disease) Asthma Avulsion fracture of thumb NSVT (nonsustained ventricular tachycardia) Cardiac pacemaker in situ Sick sinus syndrome Surgical History History of permanent cardiac pacemaker placement Hx of removal of cyst History of ankle surgery Family History Father Kidney failure Mother CVD (cardiovascular disease) Social History Alcohol intake: current Alcohol intake frequency: holidays/special occasions only Patient Tobacco Use Status: Former Tobacco user Years Smoked: 10 +/- Review of Systems Const Denies chills, Denies excessive sweating, Denies fever(s), Denies headache(s) and Denies night sweats Eyes Denies dry eyes, Denies irritation and Denies itchy eyes ENT Reports Normal hearing present, Denies headache(s), Denies nasal congestion, Denies nasal discharge, Denies post nasal drip and Denies sore throat Card Denies chest pain, Denies chest pain at rest, Denies chest pain with activity, Denies claudication, Denies leg edema, Denies dyspnea, Denies dyspnea on exertion, Denies orthopnea and Denies paroxysmal nocturnal dyspnea Resp Denies chest congestion, Denies excessive phlegm production, Denies pain on inspiration, Denies pain with cough, Denies dyspnea, Denies dyspnea on exertion, Denies stridor and Denies wheezing Musc Denies myalgias Neuro Reports Normal hearing present and Denies headache(s) Endo Denies excessive sweating Len/Lymph Denies lymphadenopathy Aller/Immun Denies itchy eyes, Denies seasonal rhinorrhea and Denies wheezing Physical Exam Vital Signs: Last Vital Signs Pulse 69 08/19/25 15:55 BP 138/90 H 08/19/25 15:55 Pulse Ox 100 08/19/25 15:55 Oxygen Delivery Method Room Air 08/19/25 15:55 BMI result Body Mass Index 32.6 Const General: cooperative, healthy appearing, comfortable, no acute distress, well developed and alert Nutritional Appearance: obese Orientation/consciousness: patient oriented x3 Limitations: no limitations HEENT Head: Yes normal to inspection, Yes normocephalic and Yes atraumatic Ears: hearing grossly normal bilaterally and external ears normal Eyes General: appearance normal, both eyes and all related structures Eyelids: Yes eyelids normal Sclerae: sclerae normal EOM: EOMs intact bilaterally Neck Neck: Yes normal visual inspection and Yes no lymphadenopathy Lymphatic: no lymphadenopathy noted Chest Chest palpation & inspection: normal inspection of the chest Resp Effort & Inspection: normal respiratory effort, able to speak in complete sentences, no audible wheezes, no cough, no stridor, not tachypneic, no tripod positioning and no use of accessory muscles Auscultation: clear to auscultation bilaterally Cardio Jugular venous distension: no JVD Rate: regular rate Rhythm: regular rhythm Skin Other: warm, dry General skin exam: no rashes or lesions noted Neuro General: patient oriented x3 Cranial nerves: Yes Normal hearing present Cognition (Neuro): normal cognition Gait exam (Neuro): Normal gait present Extrem General: Yes normal to inspection, Yes capillary refill normal, Yes no clubbing, cyanosis or edema and Yes no pedal edema Psych Appearance: grossly normal and well kempt Speech and movement: Normal speech and movement present and Clear speech present Affect: normal affect Attitude: cooperative Thought process: Normal thought process present Thought content: Normal thought content present Insight: Good insight present (Psych) Judgement: Good judgement present (Psych) Assessment & Plan Assessment & Plan (1) Asthma-COPD overlap syndrome: Code(s): J44.89 - Other specified chronic obstructive pulmonary disease Category: Medical (2) Personal history of tobacco use: Code(s): Z87.891 - Personal history of nicotine dependence Category: Social Hx (3) Multiple pulmonary nodules: Code(s): R91.8 - Other nonspecific abnormal finding of lung field Category: Medical Plan At this time patient denies any respiratory symptoms although prior PFT suggestive of asthma COPD overlap syndrome. He reports symptoms have been well controlled without the need for any respiratory medication since weight loss with Ozempic which is monitored through cardiology. He is aware to restart Symbicort if respiratory symptoms recur. All questions were answered and patient is in agreement of plan. Will follow-up in 9-12 months or sooner if needed. Coding Level of Care Code Est Pt Level 3 (65500) Diagnoses Asthma-COPD overlap syndrome J44.89 Personal history of tobacco use Z87.891 Multiple pulmonary nodules R91.8
--- OUTSIDE RECORDS SUMMARY | 2025-08-19 22:17 | XMS_ITS | Clinical Summary ---
Author Organization [facility] Address [address] [place] [id number] Care Team Providers Care Community Living Specialist Name Role Phone Ben Adams MD Primary [...] 3:45 PM EDT Office [facility] [place] [address] Arsen Montoya MD [address] [place] [address] Health Maintenance Due Date Last Done Comments Advance Care Planning 1960 Hepatitis C Virus Screening 1960 DTaP/Tdap/Td Vaccines (1 - Tdap) 1978 Colonoscopy 2004 Pneumococcal Vaccines 50+ (1 of 1 - PCV) 2009 Zoster (Shingles) Vaccine (1 of 2) 2009 Influenza Vaccine 04/05/2025 08/15/2008 COVID-19 Vaccine ( - 2024-2 6 season) 2025 RSV Vaccine 50 years and old er and Patients (1 - 1-dose 75+ series) 2034 Hepatitis B Vaccines Aged Out No long er eligible based on patient's age to complete this topic Insurance [facility] Care Teams Community Living Specialist Relationship Specialty Start Date End Date Ben Adams MD [address] [place] [address] [place] [id number] PCP - General Internal Medicine 12/06/23
--- OUTSIDE RECORDS SUMMARY | 2025-08-19 22:18 | XMS_ITS | Data Portability ---
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 Plan of Treatment Reminders Order Date Submit Date Provider Last Modified By Organization Details Last Modified Time Details Appointments None recorded. Lab None recorded. Referral None recorded. Procedures None recorded. Surgeries None recorded. Imaging None recorded. Medication Orders Augmentin 875 mg-125 mg tablet 2021 022 [facility] #[id number], [address] [facility], [place], [address], 12:23:22 Patient TargetsNo targets recorded. Patient Instructions Encounter Date Encounter Id Patient Instructions Last Modified By Organization Details Last Modified Time 09/01/2022 [id number] ear infection (otitis media): care instructions [email or web address] Not available 09/01/2022 12:26:24 Thank you for choosing [facility] today! Below are your discharge [...] and Address Organization Details Recorded Time Anxiety 71784086 Active 2021 CHARU CAMPA null, PA - [facility] 2 11:28:25 Gastroesophage al reflux disease 310776713 Active 2021 CHARU CAMPA null, PA - [facility] 2 11:28:33 Asthma 592204661 Active 2021 CHARU LOKESH null, PA - [facility] 2 11:28:48 Hypertensive disorder 10490773 Active 2021 CHARU LOKESH null, PA - [facility] 2 11:29:05 Problem Notes None recorded. Procedures Surgical History Date Name Laterality Status Provider Name and Address Organization Details Recorded Time cardiac pacemaker procedure completed CHARUBarry CAMPA PA - [facility] 09/01/2022 11:29:41 repair of ankle completed CHARUBarry CAMPA PA - [facility] 09/01/2022 11:29:50 [...] [Score] - Reported Heart rate Oxygen saturation Respiratory rate Body temperature Systolic And Diastolic Provider Name and Address Organization Details Last Updated DateTime 2 182.88 cm 34.4 kg/m2 920075. 46 g 6 89 /min 97 % 18 /min 97.4 [degF] 133/89 mm[Hg] CHARU CAMPA PA - [facility] 2 11:32:47 Social History Question Answer Notes LastModified by Organizat ion Details LastModified Time Tobacco Smoking Status Never Smoker CHARU CAMPA null, PA - [facility] 09/01/2022 11:30:21 Have You Recently Traveled Abroad? No Information not available 09/01/2022 Sex: Unknown Functional Status Question Answer Note LastModified by Organizat ion Details LastModified Time Do you use any illicit or recreational drugs? No Information not available 09/01/2022 Do you or have you ever used any other forms of tobacco or nicotine? No Information not available 09/01/2022 What is your level of alcohol consumption? Occasional Information not available 09/01/2022 Are you currently employed? Yes Information not available 09/01/2022 Mental Status None recorded. Family History Relationship [...] Diagnosis SNOMED-CT Code Diagnosis ICD10 Code Diagnosis IMO Codes Diagnosis Note [id number] [address] [place] [address] 06/02/2021 08:11:31 06/02/2021 10:16:17 [id number] [address] [place] [address] 01/27/2020 19:38:44 01/27/2020 20:01:20 [id number] [address] [place] [address] 10/01/2021 10:37:39 10/01/2021 12:06:52 [id number] [address] [place] [address] 11/16/2020 10:17:35 11/16/2020 11:28:11 [id number] [address] [place] [address] 10/05/2021 08:18:28 10/05/2021 09:43:15 [id number] JER[facility] CORDOBA [address] [place] [address] 09/01/2022 11:03:18 09/01/2022 12:26:47 Acute right otitis media [id number] H66.91 Health Concerns Section Related Observation LastModified by Organization Detai ls LastModified Time None Recorded Concern Status LastModified by Organization Details LastModified Time None Recorded Advance Directives Directive None Recorded Payers Insurance Date Sequence Insurance Name Policy Number Policy Hogan Covered Member ID Hogan Member ID Guarantor Name 11/26/2022 1 [facility] (O) [id number] Filipe Sharp [id number] Filipe Sharp 08/04/2022 [facility] [employer] Filipe Sharp Notes Date Note Type Note [...] an ENT in the past. JERMAN CUTLER [address] [place], [place] [address]ress [place], [address], [place] - [facility] 09/01/2022 12:26:29
--- OUTSIDE RECORDS SUMMARY | 2025-08-19 22:18 | XMS_ITS | Clinical Summary ---
Author Organization [facility] Prior to 02/02/25 Address [address] [place] [address] Care Team Providers Care Nurse Reviewer Name Role Phone Unavailable Primary Care Provider Unavailabl e Social History Tobacco Use Types Packs/Day Years Used Date Smoking Tobacco: Never Assessed Sex and Gender Information Value Date Recorded Sex Assigned at Not on file Gender Identity Not on file Sexual Orientation Not on file Plan of Treatment Not on file
--- OUTSIDE RECORDS SUMMARY | 2025-08-19 22:19 | XMS_ITS | Patient Health Record ---
Author Organization [facility] Address [address] [place] [address] Care Team Providers Care Knitting Tester Name Role Phone Ben Adams MD Primary Care Provider Bob Marcos Jr Unavailable Allergies Allergen (clinical drug ingredient) Drug/Non Drug Allergy documented on EMR Reaction Allergy Type Onset Date Status Pentoxifylline Unknown Drug Allergy Ac tive Reason For Referral No Information Medications Medication SIG (Take, Route, Frequency, Duration) Notes Start Date End Date Status LORazepam 1 MG Tablet 1 tablet at bedtim e as needed Orally Once a day Active Metoprolol Succinate Active Aspirin 81 MG Tablet Delayed Release 1 tablet Orally Once a day Active Omeprazole 20 MG Capsule Delayed Release 1 capsule Orally Once a day Active Advair Diskus 100-50 MCG/DOSE Aerosol Powder Breath Activated 1 puff Inhalation once a day Active Flonase 50 MCG/ACT Suspension 1 spray in each nostril Nasally prn Active MiraLax (colon prep) 17 GM/SCOOP Powder mixed with Gatorade or Crystal Light Orally begin at 5:00 p.m. 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) Active confirmed Problem Gastroesophageal reflux disease without esophagitis (656350342) Gastroesophageal reflux disease without esophagitis (K21.9) Active confirmed Problem Screening for colon cancer (134888918) Screening for colon cancer (Z12.11) Active confirmed Problem Garcia's esophagus (890214231) Garcia''s esophagus 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.70) Active confirmed Plan Of Treatment Pending Test Test Name Order Date XR BARIUM SWALLOW-ESOPHAGUS 05/29/2015 Future Test Test Name Order Date UPPER GI ENDOSCOPY 05/04/2018 COLONOSCOPY 05/04/2018 UPPER GI ENDOSCOPY 10/06/2023 COLONOSCOPY 10/06/2023 Insurance Providers Payer Name Payer Address Payer Phone Subscriber Number Group Number Insured Name Patient Relationship to Insured Coverage Start Date Coverage End Date [facility] [address] [place] [address] [id number] TYRONE DUMONT Self - patient is the insured Medical (General) History Medical History History ICD Code Nonsustained ventricular tac hycardia, Dr. Hernández, sick sinus syndrome, pacemaker placement [...]
--- OUTSIDE RECORDS SUMMARY | 2025-08-19 22:19 | XMS_ITS | Patient Health Record ---
Author Organization Ben Adams MD Address [address] [place], [place] [id number] Care Team Providers Care Vp Site Name Role Phone Ben Adams Primary Care Provider Allergies No Known Allergies Results Component Value Reference Range Notes Hemoglobin A1c Reviewed date:04/19/2025 09:10:42 AM Interpretation: Performing Lab: Notes/Report: Hemoglobin A1c 5,7 Complete Blood Count Auto Di ff Reviewed date:10/05/2024 04:22:21 PM Interpretation: Performing Lab:[facility], [address] [place] [phone] Notes/Report: White Blood Count 6.2 4.8-10.8 X10*3/uL [...] NRBC Abs Auto 0.000 0.0-0.012 X10*3/uL Comprehensive [place]. Panel Fa st Reviewed date:10/05/2024 04:24:31 PM Interpretation: Performing Lab:[facility], [address] [place] [phone] Notes/Report: Sodium 142 135-145 mmol/L Potassium 4.3 [...] Panel Reviewed date:10/05/2024 12:34:20 PM Interpretation: Performing Lab:[address] [address] Notes/Report: Triglycerides 58 <150 mg/dL Desirable Triglyceride: [...] (Free>4and<10) Reviewed date:10/05/2024 04:23:40 PM Interpretation: Performing Lab:[address] [address] Notes/Report: PSA,Total (Free>4and<10) 1.56 0.00-4.00 ng/mL A [...] between 4.0 and 10.0 ng/mL. PSA methodology: Myngle i Chemiluminescent Microparticle Immunoassay (CMIA) Liver Panel Reviewed date:04/12/2025 04:52:33 PM Interpretation: Performing Lab:[facility], [address] [place] [phone] Notes/Report: Bilirubin Total 0.8 0.0-1.0 mg/dL Bilirubin Direct 0.3 0.0-0.5 mg/dL Aspartate Amino Transferase 35 5-37 U/L Alanine Aminotransferase 14 0-40 U/L Total Protein 6.4 6.5-8.0 g/dL Albumin Level 3.9 3.5-5.0 g/dL Alkaline Phosphatase 83 39-117 U/L Occult Blood, Stool, Guaiac Reviewed date:10/12/2024 12:41:35 PM Interpretation:Negative Performing Lab: Notes/Report: Negative Occult Blood, Stool, Guaiac Neg Glucose, finger stick Reviewed date:04/19/2025 08:47:25 AM Interpretation: Performing Lab: Notes/Report: Value 156 Complete Blood Count Auto Di ff Reviewed date:10/29/2024 05:17:50 PM Interpretation: Performing Lab:[facility], [address] [place] [phone] Notes/Report: White Blood Count 6.0 4.8-10.8 X10*3/uL [...] Panel Reviewed date:10/29/2024 05:11:10 PM Interpretation: Performing Lab:[address] [address] Notes/Report: Sodium 140 135-145 mmol/L Potassium 3.7 [...] Total Reviewed date:10/29/2024 05:10:55 PM Interpretation: Performing Lab:[facility] [address] Notes/Report: Creatine Kinase Total 52 38-174 U/L Troponin-I High Sensitivity Reviewed date:10/29/2024 12:36:25 PM Interpretation: Performing Lab:[address] [address] Notes/Report: Troponin-I High Sensitivity < 2.7 <3.5-35.0 ng/L The Garcia high sensitivity Troponin-I results should be used in conjunction with other diagnostic information such as ECG, clinical observations and information, and patient symptoms to aid in the diagnosis of TN. XR chest 1V Reviewed date:10/29/2024 05:21:05 PM Interpretation: Performing Lab: Notes/Report: [address] [address] XRay Report Signed Patient: Filipe Sharp MR#: [id number] 330 : 1960 Acct:[id number] Age/Sex: 64 / M ADM Date: 10/29/24 Loc: .ED Attending Dr: Ordering Physician: Valentín Orr MD Date of Service: 10/29/24 Procedure(s): XR chest 1V Accession Number(s): [id number] cc: Ben Adams MD; Valentín Orr MD [...] Audie Yuan MD 10/29/2024 11:04 AM EST Dictated By: Audie Yuan MD Signed By: <Electronically signed by Audie Yuan MD in [place]> 10/29/24 1104 DD/ 1000 TD/TT: 10/29/24 1011 Instrument Tech: [address] [place] [address] XRay Report Signed Patient: Coral Sharp tt O MR#: [id number] 330 : 1960 Acct:[id number] Age/Sex: 64 / M ADM Date: 10/29/24 Loc: HO.ED Attending Dr: Ordering Physician: Valentín Orr MD Date of Service: 10/29/24 Procedure(s): XR giovanni st 1V Accession Number(s): [id number] cc: Ben Adams MD; Valentín Orr MD [...] by: Audie Yuan MD 10/29/2024 11:04 AM [facility] Dictated By: Audie Yuan MD Signed By: <Electronically signed by Audie Yuan MD in [place]> 10/29/24 1104 DD/ 1000 TD/TT: 10/29/24 1011 Instrument Tech: Troponin-I High Sensitivity Reviewed date:10/29/2024 05:10:24 PM Interpretation: Performing Lab:[facility], [address] [place] [phone] Notes/Report: Troponin-I High Sensitivity < 2.7 <3.5-35.0 ng/L The Garcia high sensitivity Troponin-I results should be used in conjunction with other diagnostic information such as ECG, clinical observations and information, and patient symptoms to aid in the diagnosis of TN. CT chest wo con Reviewed date:12/27/2024 04:50:31 PM Interpretation: Performing Lab: Notes/Report: [address] [address] [address] Scan Report Signed Patient: Filipe Sharp MR#: [id number] 330 : 1960 Acct:[id number] Age/Sex: 64 / M ADM Date: 12/27/24 Loc: HO.CT Attending Dr: Colleen Bradley DYE ROOM HELPER Ordering Physician: Colleen Bradley NP Date of Service: 12/27/24 Procedure(s): CT chest wo IV con Accession Number(s): [id number] cc: Ben Adams MD; Colleen Bradley DYE ROOM HELPER Report Number: [id number]: Total DLP = 206.00 mGy-cm CLINICAL HISTORY: R91.8 - Other nonspecific abnormal finding of lung field CT chest without contrast Comparison: CR/SR - XR CHEST 1V - 10/29/24 10:[address]/REG/RI/SR - CT CHEST WO IV CON - 12/09/23 07:31 EDT Findings: The heart is normal size. Mild Atherosclerosis calcification of the coronary artery. Pacemaker. The visualized thyroid and mediastinum are unremarkable. No consolidation or effusion. Mild emphysema. Bronchiectasis. Calcified granulomas. There are micro nodules. Mild atelectasis of the lung base. The upper abdomen is unremarkable. No acute fractures. IMPRESSION: No acute findings. This document has been electronically signed by: Leann May MD on 12/27/2024 14:13:51 Dictated By: Leann May MD Signed By: <Electronically signed by Leann May MD in [place]> 12/27/24 1414 DD/ 1413 TD/TT: 12/27/24 1413 Instrument Tech: [place] [address] CT Scan Report Signed Patient: Coral Sharp tt O MR#: [id number] 330 : 1960 Acct:[id number] Age/Sex: 64 / M ADM Date: 12/27/24 Loc: HO.CT Attending Dr: Tami Bradley DYE ROOM HELPER Ordering Physician: Colleen Bradley NP Date of Service: 12/27/24 Procedure(s): CT giovanni st wo IV con Accession Number(s): [id number] cc: Ben Adams MD; Colleen Bradley NP Report Number: [id number]: Total DLP = 206.00 mGy-cm CLINICAL HISTORY: R9 1.8 - Other nonspecific abnormal finding of lung field CT chest without contrast Comparison: CR/SR - XR CHEST 1V - 10/29/24 10:[address]/REG/RI/SR - CT CH EST WO IV CON - 12/09/23 07:31 EDT Findings: The heart is normal size. Mild Atherosclerosis calcification of the coronary artery. Pacemaker. The visualized thyro id and mediastinum are unremarkable. No consolidation or effusion. Mild emphysema. Bronchiectasis. Calcified granulomas. There ar e micro nodules. Mild atelectasis of the lung base. The upper abdomen is unremarkable. No acute fractures. IMPRESSION: No acute findings. This document has be en electronically signed by: Leann May MD on 12/27/2024 14:13:51 Dictated By: Leann May MD Signed By: <Electronically signed by Leann May MD in [place]> 12/27/24 1414 DD/ 1413 TD/TT: 12/27/24 1413 Instrument Tech: Lipid Panel Reviewed date:02/11/2025 12:26:18 PM Interpretation: Performing Lab:[address] [address] Notes/Report: Triglycerides 72 <150 mg/dL Desirable Triglyceride: less than 150 mg/dL Borderline High Triglyceride 150-199 mg/dL High Triglyceride: 200-499 mg/dL Very High Triglyceride: greater than or equal to 5OO mg/dL Cholesterol 77 <200 mg/dL Desirable Cholesterol: less than 200 mg/dL Borderline High Cholesterol: 200-239 mg/dL High Cholesterol: greater than 239 mg/dL LDL Cholesterol Calculated 39 <100 mg/dL Desirable LDL: less than 100 mg/dL Near Optimal/Above Optimal LDL: 110-129 mg/dL Borderline High LDL: 130-159 mg/dL High LDL: 160-189 mg/dL Very High LDL: greater than or equal to 190 mg/dL HDL Cholesterol 24 >40 mg/dL Desirable HDL: greater than 40 mg/dL Note: This HDL assay may give artificially low results in patients with liver disease. Lipid Panel Reviewed date:04/12/2025 04:45:49 PM Interpretation: Performing Lab:[address], [place] [address] Notes/Report: Triglycerides 83 <150 mg/dL Desirable Triglyceride: less than 150 mg/dL Borderline High Triglyceride 150-199 mg/dL High Triglyceride: 200-499 mg/dL Very High Triglyceride: greater than or equal to 5OO mg/dL Cholesterol 83 <200 mg/dL Desirable Cholesterol: less than 200 mg/dL Borderline High Cholesterol: 200-239 mg/dL High Cholesterol: greater than 239 mg/dL LDL Cholesterol Calculated 42 <100 mg/dL Desirable LDL: less than 100 mg/dL Near Optimal/Above Optimal LDL: 110-129 mg/dL Borderline High LDL: 130-159 mg/dL High LDL: 160-189 mg/dL Very High LDL: greater than or equal to 190 mg/dL HDL Cholesterol 25 >40 mg/dL Desirable HDL: greater than 40 mg/dL Note: This HDL assay may give artificially low results in patients with liver disease. Niranjan Escalona Reviewed date:04/12/2025 04:45:58 PM Interpretation: Performing Lab:[facility], [address] [place] [address] Notes/Report: Niranjan Escalona See Note Specimen held untested for 24 hours; Call to request Chemistry testing. Reason For Referral No Information Medications Medication SIG (Take, Route, Frequency, Duration) Notes Start Date End Date Status LORazepam 1 MG TAKE 1 TABLET BY LORI TWICE DAILY NEEDED for 90 07/02/2025 Active Omeprazole 20 MG TAKE 1 CAPSULE BY MO UTH ONCE DAILY for 90 Active Metoprolol Succinate ER 50 MG TAKE 1 TABLET BY MOUTH ONCE DAILY FOR 90 DAYS for 90 Active Ozempic (0.25 or 0.5 MG/DOSE) 2 MG/3ML as directed Subcutaneous Active Symbicort 80-4.5 MCG/ACT 1 puff as neede d Inhalation every 4 hrs Active Montelukast Sodium 10 MG TAKE 1 TABLET B Y MOUTH ONCE DAILY for 90 Active ProAir HFA 108 (90 Base) MCG/ACT 1 puff as needed Inhalation every 4 hrs 04/02/2021 Active Clobetasol Propionate 0.05 % APPLY DAILY TO SKIN TO AFFECTED AREA TWICE A DAY FOR 30 DAYS. SEE FN. for 30 Active Celecoxib 200 MG TAKE 1 CAPSULE BY MO UTH ONCE DAILY WITH FOOD for 90 Active Hydrocortisone Sai-Pramoxine 2.5-1 % 1 application Externally Three times a day for 30 days 04/04/2023 Active Hydrocortisone Sai-Pramoxine 2.5-1 % 1 application Externally Three times a day 04/04/2023 Active Zetia 10 MG 1 tablet Orally Once a day Active Aspir-81 81 MG 1 tablet Orally Once a day for 30 day(s) Active Rosuvastatin Calcium 10 MG 1 tablet Oral ly Once a day Active Meclizine HCl 12.5 MG 1 tablet as needed Orally every 12 hrs for 10 days 04/23/2025 Active Immunizations Vaccine Route Administration Date Status [...] W/U Status Risk Notes Problem Diabetic neuropathy (607107499) Diabetic neuropathy (E11.40) Active confirmed Problem Transient ischemic attack (020449931) TIA (transient ischemic attack) (G45.9) Active confirmed Problem 023486559 Neuropathy (G62.9) Active confirmed Problem 86853205 Prostatism (N40.0) Active confirmed Problem 382855192 Reflux esophagit is (K21.00) Active confirmed Problem 41898859 Anxiety (F41.9) Active confirmed Problem Lipoprotein deficiency disorder (899078027) Lipoprotein deficiency (E78.6) Active confirmed Problem 156503538 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 confirmed Problem Tinnitus (76111015) Tinnitus (H93.19) Active confirmed Problem 6191925 Arthritis (M19.90) Active confirmed Problem 84944903 Lumbar disc dise ase (M51.9) Active confirmed Problem 093137427 Tubular adenoma of colon (D12.6) Active confirmed Problem 70145314 Essential hypert ension (I10) Active confirmed Problem 8758774 Psoriasis (L40.9) Active confirmed Problem 137890082 Mild intermitten t asthma without complication (J45.20) Active confirmed Problem 38885549 Obstructive slee p apnea syndrome (G47.33) Active confirmed Problem 113826666 Asthmatic bronch itis, mild intermittent, with acute exacerbation (J45.21) Active confirmed Problem 667205266 Seasonal allergi es (J30.2) Active confirmed Problem Subcutaneous nodule (95599833) Subcutaneous nodule (R22.9) Active confirmed Problem 7720000 Migraine with au ra and without status migrainosus, not intractable (G43.109) Active confirmed Problem 416747762 Mild intermitten t asthma with acute exacerbation (J45.21) Active confirmed Problem 00342208 Hiatal hernia (K44.9) Active confirmed Problem 516411638 Cervical disc di sease (M50.90) Active confirmed Problem 72267658 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) Active confirmed Problem 552335898 Schatzki's ring (K22.2) Active confirmed Problem 128973716 Pure hypercholesterolemia (E78.00) Active confirmed Problem 153004368 Anxiety attack (F41.0) Active confirm ed Problem 88021332 KERON (obstructive sleep apnea) (G47.33) Active confirmed Problem 603865240 BMI 35.0-35.9,ad ult (Z68.35) Active confirmed Problem 4654254 Peyronie's disea se (N48.6) Active confirmed Problem 681065984 Controlled type 2 diabetes mellitus without complication, without long-term current use of insulin (E11.9) Active confirmed Problem 819165490 Non-sustained ventricular tachycardia (I47.2) Active confirmed Problem 92103817 Blue nevus of up per back excluding scapular region (D23.5) Active confirmed Problem 306015627 Drug dependence (F19.20) Active confirmed Problem 788070013 Expressive aphas ia (R47.01) Active confirmed Problem 04117135 Deficit in communication due to slurred speech (F80.89) Active confirmed Problem 84368325 Acute arthritis (M19.90) Active confirmed Vital Signs Blood pressure diastolic 80 mm Hg 04/23/2025 lisa ght is down 5 pounds Height 70 in 04/23/2025 weight is down 5 pounds Blood pressure systolic 122 mm Hg 04/23/2025 weig ht is down 5 pounds Weight 240 lbs 04/23/2025 weight is down 5 pounds BMI 34.43 kg/m2 04/23/2025 weight is down 5 pounds Encounters Encounter Location Date Provider Diagnosis Ben Adams MD [address] [place] [id number] 10/05/2024 Ben Adams Blood tests for rout ine general physical examination Z00.00 ; Prostatism N40.0 and Pure hypercholesterolemia E78.00 Ben Adams MD [address] [place] [id number] 04/12/2025 Ben Adams Pure hypercholestero lemia E78.00 Ben Adams MD [address] [place] [id number] 10/12/2024 Ben Adams Controlled type 2 di [...] Depression screening Z13.31 Ben Adams MD [address] [place] [id number] 04/19/2025 Ben Adams Controlled type 2 di abetes mellitus without complication, without long-term current use of insulin E11.9 ; Essential hypertension I10 and Pure hypercholesterolemia E78.00 Ben Adams MD [address] [place] [id number] 04/23/2025 Ben Adams Benign positional ve rtigo, bilateral H81.13 and Tinnitus H93.19 Ben Adams MD [address] [place] [id number] 11/02/2024 Ben Adams MD [address] [place] [id number] 12/17/2024 Ben Adams MD [address] [place] [id number] 12/25/2024 Ben Adams Assessments Encounter Date Diagnosis (ICD Code) Assessment Notes Treatment Notes Treatment Clinical Notes Section Notes 10/05/[address] tests [address] ine general physical examination (ICD-10 - Z00.00) 04/12/2025 Pure hypercholesterolemia (ICD-10 - E78.00) 10/12/2024 Controlled type 2 diabetes mellitus without complication, without long-term current use of insulin (ICD-10 - E11.9) doing great with weight loss, will continue current regiment 10/12/2024 Annual physical exam (ICD-10 - Z00.00) labs reviewed and discussed with patient 04/19/2025 Controlled type 2 diabetes mellitus without complication, without long-term current use of insulin (ICD-10 - E11.9) stable, will continue current regiment 04/23/2025 Benign positional vertigo, bilateral (ICD-10 - H81.13) 04/23/2025 Tinnitus (ICD-10 - H93.19) no treatment available 10/05/2024 Prostatism (ICD-10 - N40.0) 10/12/2024 Recent weight loss (ICD-10 - R63.4) on ozempic, will continue to monitor 04/19/2025 Essential hypertensi on (ICD-10 - I10) losing weight with the ozempic. advised to continue to watch diet and bring his lunch to work so he doesn't eat fast food 10/05/2024 Pure hypercholesterolemia (ICD-10 - E78.00) 10/12/2024 KERON (obstructive sle ep apnea) (ICD-10 - G47.33) doesn't use cpap 04/19/2025 Pure hypercholesterolemia (ICD-10 - E78.00) stable, will continue current regiment 10/12/2024 Mild intermittent as thma without complication [...] 06/07/20 13 US CAROTID BILATERAL DOPPLER 10/20/2023 Lipid Panel with Reflex 04/12/2025 US abdomen complete 04/01/2022 XR lumbar spine 4V min 03/17/2021 Next Appt Details Provider Name:Ben churchr, 10/08/2025 07:45:00 AM, [address] [place] [address], [address], [phone], Provider Name:Ben Benavides ier, 10/29/2025 10:00:00 AM, [address] [place] [address], [address], [phone], Insurance Providers Payer Name Payer Address Payer Phone Subscriber Number Group Number Insured Name Patient Relationship to Insured Coverage Start Date Coverage End Date [facility] [address] [place], [place] [id number] [phone] [id number] Filipe Sharp Self - patient is the [...]
== END 2025-08-19 16:25 | disposition home or self-care (01) ==
LOC: HO.HPS 15:54
PROVIDERS: PCP Internal Medicine; Visit Provider Nurse Practitioner Family
DX: J44.89 Other specified chronic obstructive pulmonary disease (principal); Z87.891 Personal history of nicotine dependence; R91.8 Other nonspecific abnormal finding of lung field
CPT/HCPCS: 99213